=== PATIENT | female | born 1940 | race Caucasian/White ===

== ENCOUNTER 2018-08-12 14:17 | Inpatient (IN) | payer MEDICARE, SELFPAY | END 2018-08-15 11:50 | disposition home or self-care (01) | DRG 639 | PROVIDERS: Admitting Provider Internal Medicine; Emergency Provider Emergency Medicine; PCP Family Medicine; Visit Provider Family Medicine | DX: E11.65 Type 2 diabetes mellitus with hyperglycemia (principal); J10.1 Influenza due to other identified influenza virus with other respiratory manifestations; Z23 Encounter for immunization; Z79.4 Long term (current) use of insulin; E05.90 Thyrotoxicosis, unspecified without thyrotoxic crisis or storm; I10 Essential (primary) hypertension; R01.1 Cardiac murmur, unspecified; Z86.73 Personal history of transient ischemic attack (TIA), and cerebral infarction without residual deficits; E04.2 Nontoxic multinodular goiter; I35.0 Nonrheumatic aortic (valve) stenosis; N39.3 Stress incontinence (female) (male); Z98.1 Arthrodesis status; Z79.82 Long term (current) use of aspirin; E87.6 Hypokalemia; Z91.14 Patient's other noncompliance with medication regimen; T38.3X5A Adverse effect of insulin and oral hypoglycemic [antidiabetic] drugs, initial encounter; Z90.49 Acquired absence of other specified parts of digestive tract; Z90.710 Acquired absence of both cervix and uterus; E86.0 Dehydration; D64.9 Anemia, unspecified | CPT/HCPCS: 36415; 51701; 70450; 71046; 80048; 80053; 81001; 82962; 83036; 83605; 83735; 83880; 84100; 85025; 85027; 87077; 87086; 87088; 87186; 87804; 90471; 90686; 93005; 94640; 96361; 96374; 99285; A9270; G0008; G0378; J1815; J2405; J7030; J7120 ==

== ENCOUNTER 2019-11-17 09:19 | Outpatient (CLI) | payer MEDICARE, SELFPAY ==
[2019-11-17 10:09] LABS: Alanine Aminotransferase 9 U/L (4-35); Albumin Level 4.3 g/dL (3.5-5.1); Alkaline Phosphatase 124 U/L (38-126); Aspartate Amino Transferase 17 U/L (14-36); Bilirubin,Total 0.5 mg/dL (0.2-1.3); Blood Urea Nitrogen 33 mg/dL (7-17); Calcium 9.1 mg/dL (8.4-10.2); Carbon Dioxide 27 mmol/L (22-30); Chloride 98 mmol/L (98-107); Cholesterol 208 mg/dL (0-200); Estimated Glomerular Filt Rate 48; Glucose 247 mg/dL (65-105); HDL Direct 34 mg/dL; Potassium 4.1 mmol/L (3.4-5.0); Sodium 133 mmol/L (137-145); Triglycerides 374 mg/dL (<150)
[2019-11-17 10:13] LABS: Hemoglobin A1C 11.8 % (<5.7)
[2019-11-17 10:20] LABS: LDL Cholesterol Direct 64 mg/dL
[2019-11-17 10:34] LABS: Creatinine Urine 47.4 mg/dL
[2019-11-17 10:39] LABS: MALB Creatinine Ratio 160.3 mg/g (0-30)
[2019-11-17 10:50] LABS: Free T4 Free Thyroxine 1.19 ng/mL (0.78-2.19); Vitamin D 25 Hydroxy 66.5 ng/mL
[2019-11-21 04:52] LABS: Triiodothyronine T3 Free 2.8 pg/mL (2.3-4.2)
== END 2019-11-17 09:20 | disposition home or self-care (01) ==
LOC: ANHLAB 09:25
PROVIDERS: PCP Family Medicine; Visit Provider Internal Medicine Endocrinology, Diabetes & Metabolism
DX: E11.65 Type 2 diabetes mellitus with hyperglycemia (principal); E05.90 Thyrotoxicosis, unspecified without thyrotoxic crisis or storm; E78.5 Hyperlipidemia, unspecified; E55.9 Vitamin D deficiency, unspecified
CPT/HCPCS: 36415; 80053; 80061; 82043; 82306; 83036; 84439; 84443; 84481

== ENCOUNTER 2020-09-29 09:08 | Outpatient (CLI) | payer MEDICARE, SELFPAY ==
[2020-09-29 10:05] LABS: Alanine Aminotransferase 10 U/L (4-35); Albumin Level 4.1 g/dL (3.5-5.1); Alkaline Phosphatase 108 U/L (38-126); Anion Gap 6 mmol/L (8-16); Aspartate Amino Transferase 18 U/L (14-36); Bilirubin,Total 0.4 mg/dL (0.2-1.3); Blood Urea Nitrogen 30 mg/dL (7-17); Calcium 9.2 mg/dL (8.4-10.2); Carbon Dioxide 31 mmol/L (22-30); Chloride 103 mmol/L (98-107); Cholesterol 145 mg/dL (0-200); Estimated Glomerular Filt Rate 48; Glucose 111 mg/dL (65-105); HDL Direct 30 mg/dL; Potassium 3.8 mmol/L (3.4-5.0); Sodium 140 mmol/L (137-145); Triglycerides 238 mg/dL (<150)
[2020-09-29 10:16] LABS: LDL Cholesterol Direct 55 mg/dL
[2020-09-29 10:32] LABS: Hemoglobin A1C 9.5 % (<5.7)
[2020-09-29 10:33] LABS: Thyroid Stimulating Hormone < 0.015 uIU/mL (0.465-4.680)
[2020-09-29 10:34] LABS: Creatinine Urine 73.5 mg/dL
[2020-09-29 10:38] LABS: MALB Creatinine Ratio 157.1 mg/g (0-30); Microalbumin Urine Random 115.5 mg/L (0-16.7)
[2020-09-29 10:48] LABS: Free T4 Free Thyroxine 1.56 ng/mL (0.78-2.19); Vitamin D 25 Hydroxy 76.8 ng/mL
[2020-10-02 08:15] LABS: Triiodothyronine T3 Free 3.1 pg/mL (2.3-4.2)
== END 2020-09-29 09:09 | disposition home or self-care (01) ==
PROVIDERS: PCP Family Medicine; Visit Provider Internal Medicine Endocrinology, Diabetes & Metabolism
DX: E11.65 Type 2 diabetes mellitus with hyperglycemia (principal); E05.90 Thyrotoxicosis, unspecified without thyrotoxic crisis or storm; E78.5 Hyperlipidemia, unspecified; E55.9 Vitamin D deficiency, unspecified
CPT/HCPCS: 36415; 80053; 80061; 82043; 82306; 83036; 84439; 84443; 84481

== ENCOUNTER 2020-11-16 09:13 | Outpatient (CLI) | payer MEDICARE, SELFPAY ==
[2020-11-16 09:47] LABS: Hematocrit 35.6 % (37.0-47.0); Hemoglobin 12.1 g/dL (12.0-15.0); Mean Corpuscular Hemoglobin 29.4 pg (26-34); Mean Corpuscular Volume 86.6 fl (80-100); Mean Platelet Volume 11.8 fl (7.4-10.4); Platelet Count Result 241 k/mm3 (150-375); Red Blood Count 4.11 M/mm3 (4.2-5.4); Red Cell Distribution Width 12.8 % (11.5-14.5); White Blood Count 7.8 K/mm3 (4.5-10.0)
[2020-11-16 09:58] LABS: Prothrombin Time 13.3 Seconds (11.1-14.7)
[2020-11-16 10:00] LABS: Alanine Aminotransferase 13 U/L (4-35); Albumin Level 4.1 g/dL (3.5-5.1); Alkaline Phosphatase 98 U/L (38-126); Anion Gap 10 mmol/L (8-16); Aspartate Amino Transferase 23 U/L (14-36); Bilirubin,Total 0.4 mg/dL (0.2-1.3); Blood Urea Nitrogen 42 mg/dL (7-17); Calcium 9.4 mg/dL (8.4-10.2); Carbon Dioxide 29 mmol/L (22-30); Chloride 97 mmol/L (98-107); Estimated Glomerular Filt Rate 36; Glucose 225 mg/dL (65-105); Potassium 3.7 mmol/L (3.4-5.0); Sodium 136 mmol/L (137-145)
== END 2020-11-16 09:14 | disposition home or self-care (01) ==
PROVIDERS: PCP Family Medicine; Visit Provider Internal Medicine Cardiovascular Disease
DX: Z01.812 Encounter for preprocedural laboratory examination (principal); R06.00 Dyspnea, unspecified; I35.0 Nonrheumatic aortic (valve) stenosis
CPT/HCPCS: 36415; 80053; 85027; 85610

== ENCOUNTER 2021-01-31 09:51 | Outpatient (CLI) | payer MEDICARE, SELFPAY ==
[2021-01-31 10:36] LABS: Anion Gap 6 mmol/L (8-16); Blood Urea Nitrogen 17 mg/dL (7-17); Calcium 8.4 mg/dL (8.4-10.2); Carbon Dioxide 28 mmol/L (22-30); Chloride 101 mmol/L (98-107); Estimated Glomerular Filt Rate 48; Glucose 178 mg/dL (65-110); Potassium 3.5 mmol/L (3.4-5.0); Sodium 135 mmol/L (137-145)
== END 2021-01-31 09:52 | disposition home or self-care (01) ==
LOC: ANHLAB 09:54
PROVIDERS: PCP Family Medicine; Visit Provider Internal Medicine Cardiovascular Disease
DX: R60.9 Edema, unspecified (principal)
CPT/HCPCS: 36415; 80048

== ENCOUNTER 2021-02-14 12:05 | Outpatient (CLI) | payer MEDICARE, SELFPAY ==
[2021-02-14 13:13] LABS: Alanine Aminotransferase 14 U/L (4-35); Albumin Level 4.1 g/dL (3.5-5.1); Alkaline Phosphatase 130 U/L (38-126); Anion Gap 9 mmol/L (8-16); Aspartate Amino Transferase 23 U/L (14-36); Bilirubin,Total 0.8 mg/dL (0.2-1.3); Blood Urea Nitrogen 13 mg/dL (7-17); Calcium 8.8 mg/dL (8.4-10.2); Carbon Dioxide 29 mmol/L (22-30); Chloride 98 mmol/L (98-107); Estimated Glomerular Filt Rate 53; Glucose 238 mg/dL (65-110); Potassium 3.2 mmol/L (3.4-5.0); Sodium 136 mmol/L (137-145)
[2021-02-14 13:19] LABS: Hemoglobin A1C 7.7 % (<5.7)
[2021-02-14 13:24] LABS: Creatinine Urine 105.7 mg/dL
[2021-02-14 13:35] LABS: Thyroid Stimulating Hormone 0.033 uIU/mL (0.465-4.680)
[2021-02-14 14:21] LABS: MALB Creatinine Ratio 382.6 mg/g (0-30); Microalbumin Urine Random 404.4 mg/L (0-16.7)
[2021-02-14 15:56] LABS: Free T4 Free Thyroxine 1.45 ng/mL (0.78-2.19)
[2021-02-16 13:57] LABS: Thyroid Stimulating Immunoglob <89 % baseline (<140)
[2021-02-18 04:59] LABS: Thyroid Peroxidase Antibodies 3 IU/mL (<9)
[2021-02-20 07:52] LABS: Triiodothyronine T3 Free 2.4 pg/mL (2.3-4.2)
== END 2021-02-14 12:06 | disposition home or self-care (01) ==
LOC: ANHLAB 12:10
PROVIDERS: PCP Family Medicine; Visit Provider Internal Medicine Endocrinology, Diabetes & Metabolism
DX: E11.65 Type 2 diabetes mellitus with hyperglycemia (principal); E05.90 Thyrotoxicosis, unspecified without thyrotoxic crisis or storm
CPT/HCPCS: 36415; 80053; 82043; 83036; 84439; 84443; 84445; 84481; 86376

== ENCOUNTER 2021-02-14 12:13 | Outpatient (CLI) | payer MEDICARE, SELFPAY ==
[2021-02-14 13:12] LABS: Magnesium 1.5 mg/dL (1.6-2.3)
== END 2021-02-14 12:14 | disposition home or self-care (01) ==
LOC: ANHLAB 12:15
PROVIDERS: PCP Family Medicine; Visit Provider Internal Medicine Cardiovascular Disease
DX: R79.0 Abnormal level of blood mineral (principal)
CPT/HCPCS: 36415; 80053; 82043; 83036; 83735; 84439; 84443; 84445; 84481; 86376

== ENCOUNTER 2021-03-22 10:52 | Outpatient (RCR) | payer MEDICARE, SELFPAY ==
[2021-03-22 11:03] VITALS: BP 144/68; PULSE 80; O2SAT 98
[2021-03-22 11:48] VITALS: PULSE 80
--- NOTE | 2021-03-23 10:52 | PCCPR ---
Absent due to illness Lary's family member called and states she has been ill and vomiting. She will not be in today or possibly tomorrow.
--- NOTE | 2021-03-30 14:16 | PCCPR ---
Nohemy has not returned to rehab. Called today and she stated that after she eats she becomes nauseated and sometimes vomits. She saw her director of science today but was told to contact her primary doctor. She plans to see her primary doctor but would like to wait to return until after she has seen Dr. Mccabe.
--- NOTE | 2021-04-11 14:01 | PCCPR ---
Addendum entered by Lisa Horta RN 04/11/21 14:03: Lary returned call and stated that she has a GI bleed and ask to be placed on hold for this time. Original Note: Lary has not called to inform us of her plans to return. Called today and left a message asking that she return our call.
--- NOTE | 2021-04-27 11:23 | PCCPR ---
discharge-spoke with Lary. She states she is still dealing with a lot of health issues and doesn't see herself starting the program any time soon. She would like to d/c from the program at this time and will speak with if she plans to return.
== END 2021-04-27 11:26 | disposition home or self-care (01) ==
LOC: ANHCPREHAB 10:52
PROVIDERS: PCP Family Medicine; Visit Provider Internal Medicine Cardiovascular Disease
DX: Z95.2 Presence of prosthetic heart valve (principal)
CPT/HCPCS: 93798

== ENCOUNTER 2021-05-02 08:15 | Emergency (ER) | payer MEDICARE, SELFPAY ==
[2021-05-02] VITALS (11 sets, daily range): BP systolic 150–197; BP diastolic 66–99; PULSE 80; RESP 12–18; TEMP 36.3–36.6; O2SAT 92–100
--- NOTE | ~2021-05-02 | CT_ITS ---
EXAMINATION: CT facial & cervical spine wo DATE: 05/02/2021 09:38 INDICATION: Head injury. Neck pain. TECHNIQUE: Computed tomography (CT) of the maxillofacial region and cervical spine was performed with out intravenous contrast. Automated exposure control and iterative reconstruction technique were empl oyed. The dose-length product was 458.60 mGy-cm. COMPARISON: Head and neck CTA 01/28/18 FINDINGS: MAXILLOFACIAL CT: The orbits are normal. There is left cheek and left frontal scalp soft tissue swelling. The paranasal sinuses are clear. There is leftward deviation of the nasal septum. No fracture. CERVICAL SPINE CT: There is a small left mastoid effusion. The lung apices demonstrate smooth septal thickening, consist ent with pulmonary edema. There is a multinodular goiter. There is a fracture of the left C2 lateral mass with involvement of the superior facet. There is a fracture of the base of the dens. There is 6 degrees levocurvature of cervical spine. There is kyphosis of lower cervical spine. There is mildly d ecreased disc height at C4-C5 and moderately decreased disc height at C5-C6 and C6-C7. The following disc levels are specifically discussed: C2-C3: There is no uncovertebral joint osteoarthritis. There is moderate right and severe left facet joint osteoarthritis. There is mild left neural foraminal stenosis. There is no central canal stenosi s. C3-C4: There is mild bilateral uncovertebral joint osteoarthritis. There is severe right and mild lef t facet joint osteoarthritis. There is mild left neural foraminal stenosis. There is no central canal stenosis. C4-C5: There is mild bilateral uncovertebral joint osteoarthritis. There is no facet joint osteoarthr itis. There is mild left neural foraminal stenosis. There is mild central canal stenosis. C5-C6: There is severe bilateral uncovertebral joint osteoarthritis. There is mild bilateral facet jacquie int osteoarthritis. There is mild bilateral neural foraminal stenosis. There is mild central canal st enosis. C6-C7: There is severe right and moderate left uncovertebral joint osteoarthritis. There is mild righ t and moderate left facet joint osteoarthritis. There is mild bilateral neural foraminal stenosis. Th ere is mild central canal stenosis. C7-T1: There is no uncovertebral joint osteoarthritis. There is severe bilateral facet joint osteoart hritis. There is mild bilateral neural foraminal stenosis. There is no central canal stenosis. IMPRESSION: 1. Comminuted C2 fracture. I called this result to Celestina Matamoros. 2. Moderate cervical spondylosis. Reviewed, dictated and finalized at location A. IGN TRADE TEACHER
--- NOTE | ~2021-05-02 | CT_ITS ---
EXAMINATION: CT brain wo con DATE: 05/02/2021 09:38 INDICATION: Head injury. TECHNIQUE: Computed tomography (CT) of the head was performed without intravenous contrast. The mA wa s adjusted according to patient size. Iterative reconstruction technique was employed. The dose-lengt h product was 605.33 mGy-cm. COMPARISON: Head CT 08/12/2018 FINDINGS: There is a small old infarct in left cerebellum. There are scattered areas of low attenuati on in the cerebral white matter. There is no intracranial hemorrhage, acute infarction, or abnormal i ntracranial mass lesion. The ventricles are normal in size. The orbits are normal. There is mild muco cata thickening in the paranasal sinuses. There is a small left mastoid effusion. There is left fronta l scalp soft tissue swelling. There is left cheek soft tissue swelling. IMPRESSION: 1. Small old infarct in left cerebellum. 2. Mild nonspecific cerebral white matter disease, which likely represents chronic small vessel ische stephanie disease. Reviewed, dictated and finalized at location A. OR RADIATION THERAPIST IMPRESSION: 1. Small old infarct in left cerebellum. 2. Mild nonspecific cerebral white matter disease, which likely represents cafeteria or lunchroom checker mohit small vessel ischemic disease.
--- NOTE | 2021-05-02 08:30 | PC.NURSE ---
Pt states she was at home carrying a laundry basket with two hands tripped and fell into door and landed on the floor, pt presents with bruising to left upper eyebrow, presents with no bleeding or distress at this time, only complains of headache and neck pain
--- NOTE | 2021-05-02 10:12 | ED.GENADULT ---
HPI - General Adult General Chief complaint: Fall Stated complaint: fall Time Seen by Provider: 05/02/21 09:15 Source: patient and family Mode of arrival: EMS Limitations: no limitations History of Present Illness HPI narrative: Patient is an 80-year-old female with chief complaint of pain to the frontal aspect of her head and the posterior aspect of her neck that began after tripping on an object in the [place] and falling into the door frame. Patient reports that she struck her face and fell to the ground. Her daughter Chhaya came to her side to assist her. They called the ambulance to come to bring her to the ER. She denies any loss of consciousness, changes in vision or hearing. She reports feeling slightly dazed initially but not at this time. She denies any other areas of discomfort distal to the head and neck. She denies episodes of nausea and vomiting. Patient reports that she has not taking any of her oral medications today. Related Data Home Medications Medication Instructions Recorded Confirmed acetaminophen 500 mg PO Q6H PRN 03/22/21 03/22/21 apixaban 5 mg PO BID 03/22/21 03/22/21 aspirin 81 mg PO DAILY 03/22/21 03/22/21 biotin 20,000 mcg PO DAILY 03/22/21 03/22/21 buspirone 5 mg PO TID 03/22/21 03/22/21 calcium carbonate 470 mg PO BID 03/22/21 03/22/21 carvedilol 6.25 mg PO BID 03/22/21 03/22/21 diltiazem HCl [Diltia XT] 180 mg PO DAILY 03/22/21 03/22/21 exenatide microspheres [Bydureon 2 mg SUBCUT WEEKLY 03/22/21 03/22/21 BCise] furosemide 80 mg PO BID 03/22/21 03/22/21 hydrocodone-acetaminophen [[place]] 1 tablet PO Q8H PRN 03/22/21 03/22/21 insulin glargine 20 unit SUBCUT HS 03/22/21 03/22/21 insulin lispro 1 sliding scale dose SUBCUT TIDWM 03/22/21 03/22/21 losartan 50 mg PO DAILY 03/22/21 03/22/21 magnesium oxide 400 mg PO DAILY 03/22/21 03/22/21 metformin 500 mg PO BID 03/22/21 03/22/21 methimazole [Tapazole] 10 mg PO DAILY 03/22/21 03/22/21 pantoprazole 20 mg PO QAM 03/22/21 03/22/21 potassium chloride 10 meq PO DAILY 03/22/21 03/22/21 senna-docusate sodium 1 cap PO BID 03/22/21 03/22/21 Allergies Allergy/AdvReac Type Severity Reaction Status Date / Time adhesive tape Allergy Intermediate Rash Verified 05/02/21 08:25 codeine Allergy Unknown Stomach Verified 05/02/21 08:25 cramps latex Allergy Unknown Blister Verified 05/02/21 08:25 Review of Systems Review of Systems: CONSTITUTIONAL: Denies fever, chills, or sweats. EYES: Denies visual changes, redness, or discharge. ENT: Denies rhinorrhea, congestion, sore throat, or otalgia. CARDIOVASCULAR: Denies chest pain, palpitations, or edema. RESPIRATORY: Denies cough or dyspnea. GASTROINTESTINAL: Denies abdominal pain, nausea, vomiting, or diarrhea. GENITOURINARY: Denies dysuria or hematuria. SKIN: Denies rash or itching. MUSCULOSKELETAL: Reports head and neck pain denies back pain, joint pain, or myalgia. NEUROLOGIC: Denies headache, numbness, dizziness, or weakness. PSYCHIATRIC: Denies anxiety or depression. [facility] Past Medical History Medical History (Updated 05/02/21 @ 11:17 by Celestina Matamoros PA-C) Anemia CKD stage 3 due to type 2 diabetes mellitus Colon cancer screening (~2017) negative, cologuard Congestive heart failure Diabetic peripheral neuropathy Essential hypertension HTN (hypertension) Hyperthyroidism Mixed hyperlipidemia TIA (transient ischemic attack) Type 2 diabetes mellitus without complication, with long-term current use of insulin Surgical History Surgical History H/O: hysterectomy History of back surgery Hx of cholecystectomy Family History Family History Mother Family history of cardiovascular disease, Onset Age: 82 Father Acute myocardial infarction, Onset Age: 57 Other Asthma Cerebrovascular accident Diabetes mellitus Family history of atrial fibrillation Family history of congestive h
--- NOTE | 2021-05-02 10:32 | PC.NURSE ---
GEOVANY Matamoros applied aspen collar with two RNS present and cervical spine stabilized, pt tolerated well, daughter at bedside
--- NOTE | 2021-05-02 10:40 | PC.NURSE ---
made contact with [facility], [facility] and [facility] to transfer pt to [facility]. all companies delined due to no resources available. made contact with [facility] to transfer pt to er. [facility] eta [phone]. per Leoncio Matamoros called [facility]. made contact at [phone] to call [facility] si[facility]. eta [phone]
[2021-05-02] MEDS: MORPHINE SULFATE (*CRX) 4 MG/ML INJ IV PUSH (11:23)
[2021-05-02] MEDS: ONDANSETRON INJ 4 MG/2 ML VIAL IV PUSH (11:24)
--- NOTE | 2021-05-02 11:54 | PC.NURSE ---
[facility] has arrived and is aware that pt is going to [facility]
--- NOTE | 2021-05-02 12:01 | PC.NURSE ---
Pt being transported, no acute distress at this time, pt aware of transfer and daughter at beside taking pt belongings with her, report has been called to [facility]
== END 2021-05-02 12:05 | disposition short-term general hospital (02) ==
PROVIDERS: Emergency Provider Emergency Medicine; PCP Family Medicine
DX: S12.121A Other nondisplaced dens fracture, initial encounter for closed fracture (principal); S00.83XA Contusion of other part of head, initial encounter; E11.22 Type 2 diabetes mellitus with diabetic chronic kidney disease; I13.0 Hypertensive heart and chronic kidney disease with heart failure and stage 1 through stage 4 chronic kidney disease, or unspecified chronic kidney disease; N18.30 Chronic kidney disease, stage 3 unspecified; I50.9 Heart failure, unspecified; E78.2 Mixed hyperlipidemia; E05.90 Thyrotoxicosis, unspecified without thyrotoxic crisis or storm; Z86.73 Personal history of transient ischemic attack (TIA), and cerebral infarction without residual deficits; Z79.4 Long term (current) use of insulin; Z79.82 Long term (current) use of aspirin; Z79.01 Long term (current) use of anticoagulants; M47.812 Spondylosis without myelopathy or radiculopathy, cervical region; R90.82 White matter disease, unspecified; W18.09XA Striking against other object with subsequent fall, initial encounter
CPT/HCPCS: 70450; 70486; 72125; 96374; 96375; 99285; J2270; J2405; L0140

== ENCOUNTER 2021-05-16 10:24 | Emergency (ER) | payer MEDICARE, SELFPAY ==
--- NOTE | ~2021-05-16 | CT_ITS ---
EXAMINATION: CT hip RT wo con EXAM DATE: 05/16/2021 12:32 INDICATION: Trauma, fall with right hip pain. TECHNIQUE: Spiral CT hip RT wo con was performed without contrast. Axial, coronal and sagittal imag es were reviewed. The dose-length product (DLP) for this examination was 252.19 mGy-cm. The exposur e was tailored according to patient size (auto mA exposure control), and iterative reconstruction ( IR) was used as additional dose reduction technique. Correlation is made to CT abdomen pelvis 019. FINDINGS: There is moderate to severe right hip primary osteoarthritis. There are no acute fractures or dislocations identified. There is no subcutaneous gas. There is a fluid collection in the right gluteus muscle group with protein/fluid level, probably an intramuscular hematoma measuring about 4 x 6 cm. There are no radiopaque foreign bodies. IMPRESSION: 1. Right gluteal 4 x 6 cm intramuscular hematoma probably posttraumatic given history provided. 2. Moderate to severe right hip osteoarthritis. Reviewed, dictated and finalized at location A. ER CERTIFICATION MANAGER IMPRESSION: 1. Right gluteal 4 x 6 cm intramuscular hematoma probably posttraumatic given h istory provided. 2. Moderate to severe right hip osteoarthritis.
--- NOTE | ~2021-05-16 | XR_ITS ---
EXAMINATION: XR hip RT min 2V DATE: 05/16/2021 11:03 INDICATION: Right hip pain post fall TECHNIQUE: Anteroposterior , frog leg and cross-table lateral views of the right hip were obtained. COMPARISON: CT dated 05/07/2019 FINDINGS: Alignment is normal. No fracture. Moderate right hip osteoarthritis. Mild bilateral sacroiliac osteoa rthritis. Mild to moderate lumbar and severe lumbosacral spondylosis. Atherosclerotic calcification i s extending from the abdominal aorta into the iliac arteries in the pelvis and the arteries in the pr oximal right thigh. IMPRESSION: 1. Moderate right hip osteoarthritis. No fracture. Reviewed, dictated and finalized at location A. VIDUALIZED EDUCATION PLAN AIDE
--- NOTE | ~2021-05-16 | CT_ITS ---
EXAMINATION: CT lumbar spine wo [facility] EXAM DATE: 05/16/2021 12:32 INDICATION: Fall, right hip pain. C2 fracture from fall 2 years ago. TECHNIQUE: Spiral CT lumbar spine was performed without contrast. Axial, coronal and sagittal images of the lumbar spine were reviewed. The dose-length product (DLP) for this examination was 894.92 mGy- cm. The exposure was tailored according to patient size (auto mA exposure control), and iterative re construction (ASIR) was used as additional dose reduction technique. There is no prior study for rhys delgado. FINDINGS: L4 laminectomies. There is no evidence of acute lumbar fracture. There is no disc space widening or traumatic vertebral body subluxation suspected. Paraspinal soft tissue is unremarkable. Moderate d iffuse lumbar disc disease, moderate to severe lower thoracic disc disease. Moderate lower lumbar fac et arthropathy. Moderate L4-5 bilateral neural foraminal stenosis. Sacrum, sacroiliac joints, sacral arcuate lines are intact. Sigmoid diverticulosis. Bilateral adrenal hyperplasia. A detailed level by level evaluation of spondylosis can be added as addendum if requested. IMPRESSION: 1. No acute lumbar findings. 2. Overall moderate lumbar spondylosis. Reviewed, dictated and finalized at location A. GER PRODUCTION
[2021-05-16 10:32] VITALS: BP 174/70; PULSE 80; RESP 15; TEMP 36.4; O2SAT 100
[2021-05-16 11:20] VITALS: BP 164/76; PULSE 80; RESP 20; O2SAT 99
[2021-05-16 12:06] VITALS: BP 131/64; PULSE 80; RESP 20; O2SAT 96
[2021-05-16] MEDS: HYDROmorphone HCL INJ (*CRX) 1 MG/ML SYR 0.5 MG IV PUSH (12:08)
[2021-05-16 12:36] VITALS: BP 123/68; PULSE 80; RESP 16; O2SAT 95
[2021-05-16 13:08] VITALS: BP 118/63; PULSE 80; RESP 20; O2SAT 100
[2021-05-16 13:55] VITALS: BP 127/68; PULSE 80; RESP 18; O2SAT 100
--- NOTE | 2021-05-16 14:05 | PCCCNOTE ---
Met with patient to discuss code status, patient would like to have paperwork to change to a full code. Discussed with patient and provided with a POLST form. Explained with patient, she states that she has a PCP follow up appt on May.24. Advised that she can fill it out but not to sign it and to take it to the PCP's office and she can discuss with PCP and sign the form and have it witnessed by RN and will require PCP signature. Patient verbalizes understanding and thanked hospice patient care secretary for bringing in the form and talking with her.
--- NOTE | 2021-05-16 14:07 | ED.GENADULT ---
HPI - General Adult General Chief complaint: Fall Stated complaint: Right hip injury Time Seen by Provider: 05/16/21 10:47 Source: patient and family (daughter Chhaya) Mode of arrival: EMS Limitations: no limitations History of Present Illness HPI narrative: Patient is an 80-year-old female presenting with chief complaint of hematomas in the right buttocks and pain in her right hip after slipping while trying to get off the toilet and falling onto the hip prior to arrival. Patient denies any head injury or loss of consciousness. Patient reports she fell a few weeks ago and fractured her C2 vertebra. I saw the patient during her visit for the previous fall. Patient denies any changes to vision or hearing or neurological deficits. Patient speech is clear and appropriate. Patient reports pain to her low back but denies any other extremity pain. Patient denies any chest pain or shortness of breath. Related Data Home Medications Medication Instructions Recorded Confirmed acetaminophen 500 mg PO Q6H PRN 03/22/21 03/22/21 apixaban 5 mg PO BID 03/22/21 03/22/21 aspirin 81 mg PO DAILY 03/22/21 03/22/21 biotin 20,000 mcg PO DAILY 03/22/21 03/22/21 buspirone 5 mg PO TID 03/22/21 03/22/21 calcium carbonate 470 mg PO BID 03/22/21 03/22/21 carvedilol 6.25 mg PO BID 03/22/21 03/22/21 diltiazem HCl [Diltia XT] 180 mg PO DAILY 03/22/21 03/22/21 exenatide microspheres [Bydureon 2 mg SUBCUT WEEKLY 03/22/21 03/22/21 BCise] furosemide 80 mg PO BID 03/22/21 03/22/21 hydrocodone-acetaminophen [[place]] 1 tablet PO Q8H PRN 03/22/21 03/22/21 insulin glargine 20 unit SUBCUT HS 03/22/21 03/22/21 insulin lispro 1 sliding scale dose SUBCUT TIDWM 03/22/21 03/22/21 losartan 50 mg PO DAILY 03/22/21 03/22/21 magnesium oxide 400 mg PO DAILY 03/22/21 03/22/21 metformin 500 mg PO BID 03/22/21 03/22/21 methimazole [Tapazole] 10 mg PO DAILY 03/22/21 03/22/21 pantoprazole 20 mg PO QAM 03/22/21 03/22/21 potassium chloride 10 meq PO DAILY 03/22/21 03/22/21 senna-docusate sodium 1 cap PO BID 03/22/21 03/22/21 Allergies Allergy/AdvReac Type Severity Reaction Status Date / Time adhesive tape Allergy Intermediate Rash Verified 05/02/21 08:25 codeine Allergy Unknown Stomach Verified 05/02/21 08:25 cramps latex Allergy Unknown Blister Verified 05/02/21 08:25 Review of Systems Review of Systems: CONSTITUTIONAL: Denies fever, chills, or sweats. EYES: Denies visual changes, redness, or discharge. ENT: Denies rhinorrhea, congestion, sore throat, or otalgia. CARDIOVASCULAR: Denies chest pain, palpitations, or edema. RESPIRATORY: Denies cough or dyspnea. GASTROINTESTINAL: Denies abdominal pain, nausea, vomiting, or diarrhea. GENITOURINARY: Denies dysuria or hematuria. SKIN: Denies rash or itching. MUSCULOSKELETAL: Reports right hip pain and low back pain Denies joint pain, or myalgia. NEUROLOGIC: Denies headache, numbness, dizziness, or weakness. PSYCHIATRIC: Denies anxiety or depression. [facility] Past Medical History Medical History (Updated 05/16/21 @ 14:14 by Celestina Matamoros PA-C) Anemia CKD stage 3 due to type 2 diabetes mellitus Colon cancer screening (~2018) negative, cologuard Congestive heart failure Diabetic peripheral neuropathy Essential hypertension HTN (hypertension) Hyperthyroidism Mixed hyperlipidemia TIA (transient ischemic attack) Type 2 diabetes mellitus without complication, with long-term current use of insulin Surgical History Surgical History H/O: hysterectomy History of back surgery Hx of cholecystectomy Family History Family History Mother Family history of cardiovascular disease, Onset Age: 82 Father Acute myocardial infarction, Onset Age: 57 Other Asthma Cerebrovascular accident Diabetes mellitus Family history of atrial fibrillation Family history of congestive heart failure Family history of hearing l
== END 2021-05-16 14:47 | disposition home or self-care (01) ==
PROVIDERS: Emergency Provider Emergency Medicine; PCP Family Medicine
DX: S30.0XXA Contusion of lower back and pelvis, initial encounter (principal); E11.22 Type 2 diabetes mellitus with diabetic chronic kidney disease; I13.0 Hypertensive heart and chronic kidney disease with heart failure and stage 1 through stage 4 chronic kidney disease, or unspecified chronic kidney disease; N18.30 Chronic kidney disease, stage 3 unspecified; I50.9 Heart failure, unspecified; Z79.4 Long term (current) use of insulin; Z79.84 Long term (current) use of oral hypoglycemic drugs; E05.90 Thyrotoxicosis, unspecified without thyrotoxic crisis or storm; E78.2 Mixed hyperlipidemia; Z86.73 Personal history of transient ischemic attack (TIA), and cerebral infarction without residual deficits; W18.11XA Fall from or off toilet without subsequent striking against object, initial encounter
CPT/HCPCS: 72131; 73502; 73700; 96374; 99284; J1170

== ENCOUNTER 2021-05-18 17:45 | Emergency (ER) | payer MEDICARE, SELFPAY ==
[2021-05-18 17:47] VITALS: BP 139/81; PULSE 80; RESP 18; TEMP 35.7; O2SAT 100
--- NOTE | 2021-05-18 19:25 | PC.NURSE ---
Pt daughter to [facility] stating im going to take her home she need to rest
== END 2021-05-19 04:05 | disposition left against medical advice (07) ==
LOC: ANHED 19:42
PROVIDERS: PCP Family Medicine
DX: R11.10 Vomiting, unspecified (principal)
CPT/HCPCS: 99199

== ENCOUNTER 2024-02-14 17:39 | Observation (INO) | payer MEDICARE, SELFPAY ==
[2024-02-14] VITALS (11 sets, daily range): BP systolic 118–136; BP diastolic 64–77; PULSE 70; RESP 17–24; TEMP 36.4; O2SAT 95–100; BMI 37.3
--- NOTE | ~2024-02-14 | XR_ITS ---
EXAMINATION: XR chest 1V portable DATE: 02/14/2024 18:28 INDICATION: Shortness of breath. TECHNIQUE: A single frontal view of the chest was obtained. COMPARISON: Chest 2 views 08/12/18 FINDINGS: There is a diffuse interstitial pattern in the lungs. There are airspace opacities at the l eryn bases. There are small pleural effusions. No pneumothorax. Cardiomegaly is noted. There are kelly es of aortic valve replacement. There is a left chest wall pacer with leads in the right atrium and r ight ventricle. IMPRESSION: 1. Mild pulmonary edema. 2. Airspace opacities at the lung bases, consistent with atelectasis versus pneumonia. 3. Small pleural effusions. 4. Cardiomegaly. Reviewed, dictated and finalized at location A. IMPRESSION: 1. Mild pulmonary edema. 2. Airspace opacities at the lung bases, consistent with atelectasis versus pne umonia. 3. Small pleural effusions. 4. Cardiomegaly.
--- NOTE | 2024-02-14 17:45 | ECG_ITS ---
Test Date: 2024-02-14 17:52:09 Measurements Intervals [place] Rate: 70 P: 266 UT: 187 QRS: 106 QRSD: 141 T: -13 QT: 433 QTc: 469 Interpretive Statements ELECTRONIC ATRIAL PACEMAKER ELECTRONIC VENTRICULAR PACEMAKER ABNORMAL RHYTHM ECG No previous ECG available for comparison Electronically Signed On 02-15-2024 07:28:42 CDT by Judah Mcduffie M.D.
--- NOTE | 2024-02-14 18:09 | ED.SOB ---
HPI - SOB/Dyspnea General Chief Complaint: Shortness of Breath/Dyspnea Stated Complaint: CHF exacerbation Time Seen by Provider: 02/14/24 17:54 Source: patient Mode of arrival: ambulatory Limitations: no limitations History of Present Illness HPI Narrative: this is an 83-year-old female with PMH of pacemaker, CHF presents to the ED for chief complaint of shortness of breath and possible CHF exacerbation. States that she was admitted in [facility] a few weeks ago for CHF exacerbation. She was placed [facility] for rehab and nursing care. she states that she is getting a water pill but thinks that she may be underdosed at [facility], which could be causing this exacerbation today. Today states that she was trying to do over exercises and was very weak, dyspneic. reports the bilateral lower extremities have been swollen and increasing over the past week. Reports some it inspiratory chest discomfort but no exertional chest pain. Denies fevers, chills, cough, abdominal pain, nausea, vomiting. States that she is taking her Eliquis regularly. follows with Dr. Rosales, Cardiology Related Data Home Medications Medication Instructions Recorded Confirmed aspirin 81 mg tablet 81 mg PO DAILY 03/22/21 02/14/24 carvedilol 6.25 mg tablet 6.25 mg PO BID 03/22/21 02/14/24 insulin glargine 100 unit/mL 25 unit subcut BID 03/22/21 02/14/24 subcutaneous solution insulin lispro 100 unit/mL 10 unit subcut TIDWM 03/22/21 02/14/24 subcutaneous pen losartan 50 mg tablet 25 mg PO DAILY 03/22/21 02/14/24 methimazole 10 mg tablet (Tapazole) 10 mg PO DAILY 03/22/21 02/14/24 pantoprazole 20 mg tablet,delayed 40 mg PO DAILY 03/22/21 02/14/24 release potassium chloride 10 mEq 10 meq PO DAILY 03/22/21 02/14/24 capsule,extended release acetaminophen 650 mg tablet 650 mg PO Q4H PRN Pain (Scale 02/14/24 02/14/24 Score 1-3) apixaban 2.5 mg tablet (Eliquis) 2.5 mg PO BID 02/14/24 02/14/24 bumetanide 1 mg tablet 1 mg PO DAILY 02/14/24 02/14/24 fluticasone propionate 50 1 spray intranasal BID 02/14/24 02/14/24 mcg/actuation nasal spray,suspension iron,carbonyl 30 mg-vitamin C 10 1 tablet PO BID 02/14/24 02/14/24 mg-FOS 25 mg chewable tablet (Chewable Iron) lidocaine 4 % topical patch 1 patch topical DAILY 02/14/24 02/14/24 magnesium oxide 400 mg (241.3 mg 400 mg PO BID 02/14/24 02/14/24 magnesium) tablet ondansetron 4 mg disintegrating 4 mg PO Q8H PRN Nausea 02/14/24 02/14/24 tablet rosuvastatin 40 mg tablet 40 mg PO HS 02/14/24 02/14/24 vit C 250 mg-vit E 90 mg-zinc 40 1 tablet PO DAILY 02/14/24 02/14/24 mg-copper 1 [id number] capsule (PreserVision AREDS-2) Allergies Allergy/AdvReac Type Severity Reaction Status Date / Time adhesive tape Allergy Intermediate Rash Verified 05/02/21 08:25 codeine Allergy Unknown Stomach Verified 05/02/21 08:25 cramps latex Allergy Unknown Blister Verified 05/02/21 08:25 Review of Systems Review of Systems: All systems as dictated in [facility] Past Medical History Medical History Anemia CKD stage 3 due to type 2 diabetes mellitus Colon cancer screening (~2017) negative, cologuard Congestive heart failure Diabetic peripheral neuropathy Essential hypertension HTN (hypertension) Hyperthyroidism Mixed hyperlipidemia Pacemaker TIA (transient ischemic attack) Type 2 diabetes mellitus without complication, with long-term current use of insulin Surgical History Surgical History H/O: hysterectomy History of back surgery Hx of cholecystectomy Mitral valve replaced Family History Family History Mother Family history of cardiovascular disease, Onset Age: 82 Father Acute myocardial infarction, Onset Age: 57 Other Asthma Cerebrovascular accident Diabetes mellitus
[2024-02-14 18:19] LABS: Basophils Percent Auto 0.6 % (0.2-1.2); Eosinophils Absolute Auto 0.2 K/mm3 (0-0.3); Eosinophils Percent Auto 3.5 % (0-4.4); Hemoglobin 10.6 g/dL (12.0-15.0); Immature Granulocyte Absolute 0.03 K/mm3 (0.00-0.031); Immature Granulocyte Percent A 0.5 % (0-0.5); Lymphocytes Absolute Auto 1.19 K/mm3 (0.9-3.2); Lymphocytes Percent Auto 17.9 % (18.3-44.2); Mean Corpuscular HGB Conc 32.1 g/dl (32-36); Mean Corpuscular Hemoglobin 28.2 pg (26-34); Mean Corpuscular Volume 87.8 fl (80-100); Mean Platelet Volume 11.6 fl (7.4-10.4); Monocytes Percent Auto 15.1 % (2.6-8.5); Neutrophils Absolute Auto 4.2 K/mm3 (1.3-6.7); Neutrophils Percent Auto 62.4 % (45.5-73.1); Platelet Count Result 174 k/mm3 (150-375); Red Blood Count 3.76 M/mm3 (4.2-5.4); Red Cell Distribution Width 15.8 % (11.5-14.5); White Blood Count 6.6 K/mm3 (4.5-10.0)
[2024-02-14] MEDS: FUROSEMIDE INJ 40 MG/4 ML VIAL IV PUSH ×2 (18:23→23:29)
--- NOTE | 2024-02-14 18:24 | PC.NURSE ---
applied purwick for patient comfort after Lasix
[2024-02-14 18:27] LABS: Alanine Aminotransferase 28 U/L (6-35); Albumin Level 3.2 g/dL (3.5-5.1); Alkaline Phosphatase 121 U/L (38-126); Anion Gap 6 mmol/L (4-12); Aspartate Amino Transferase 42 U/L (14-36); Bilirubin,Total 0.4 mg/dL (0.2-1.3); Blood Urea Nitrogen 25 mg/dL (7-17); Calcium 7.8 mg/dL (8.4-10.2); Carbon Dioxide 30 mmol/L (22-30); Chloride 100 mmol/L (98-107); Estimated CRCL calculation 29 ml/min; Estimated Glomerular Filt Rate 39; Glucose 58 mg/dL (65-110); Potassium 3.7 mmol/L (3.4-5.0); Sodium 136 mmol/L (137-145)
[2024-02-14 18:31] LABS: NT Pro B Type Natriuretic Pept 9360 pg/mL (19.9-100)
--- NOTE | 2024-02-14 18:31 | PC.NURSE ---
provided juice due to blood sugar being low
--- NOTE | 2024-02-14 18:57 | PC.NURSE ---
resp. therapy administered albuterol but forgot to chart it. RN was bedside when they were administering it at 1800. patient tolerated this well and has improvement with breathing.
[2024-02-14 19:02] LABS: Troponin I 0.064 ng/mL (0.000-0.034)
[2024-02-14] MEDS: FUROSEMIDE INJ 40 MG/4 ML VIAL 20 MG IV PUSH (19:41)
[2024-02-14 19:50] LABS: Glucose Point of Care 76 mg/dl (65-105)
--- NOTE | 2024-02-14 19:51 | PM.IMHP ---
H&P: HPI History of Present Illness Date/Time: 02/14/24 19:51 Chief Complaint: shortness of breath today Narrative: This is an 83-year-old female patient who has a past medical history of having a mitral valve replacement with 2 other valve dysfunction. She has a history of congestive heart failure and was recently decreased on her diuretics. She was recently hospitalized at [facility] for possible CHF exacerbation. The patient currently resides at [facility] for rehab in nursing care. The patient stated that her water pill was recently decreased. She has noticed that her feet have become more swollen over the last 24 hours. The patient stated that she has been having swelling in the lower extremities for the last week but it got worse yesterday. She also stated that she has some chest pressure as well. She does have a customer management specialist in [place] to the name of Dr. Rosales. The patient was given Lasix 20 mg IV push x1 in the emergency room. Her H&H is 10.6 and 33.0 which is slightly lower than her previous reading. Her creatinine is 1.3 which appears to be her baseline she does have chronic renal failure. Her blood glucose was 58 in the emergency room and she was given apple juice. The patient stated that she does have long-acting insulin that she took this morning. Troponin 0.064. BNP 9360. Which is slightly higher than her baseline. Review of Systems Review of Systems: The patient denies any neurological problems. No problems with her eyes ears nose or throat. The patient stated that she is having some heaviness in her chest and is having shortness of breath. She denies any nausea vomiting or diarrhea. She stated that her legs are more edematous than normal. All systems reviewed & are unremarkable except as noted in HPI and below Constitutional: Constitutional: Reports as per HPI and Reports no additional constitutional complaints Eyes: Eyes: Reports as per HPI and Reports no additional eye complaints ENT: Reports system reviewed and no additional complaints, except as documented and Reports Normal hearing present Cardiovascular: Cardiovascular: Reports no additional cardiovascular complaints Respiratory: Respiratory: Reports no additional respiratory complaints and Reports no additional respiratory complaints Gastrointestinal: Gastrointestinal: Reports as per HPI and Reports no additional gastrointestinal complaints Musculoskeletal: Musculoskeletal: Reports no additional musculoskeletal complaints Integumentary/Breasts: Skin/Breast: Reports system reviewed and no additional complaints, except as docu and Reports as per HPI Neurologic: Reports system reviewed and no additional complaints, except as documented, Reports as per HPI and Reports Normal hearing present Psychiatric: Psychiatric: Reports no additional psychiatric complaints and Reports as per HPI Endocrine: Endocrine: Reports no additional endocrine complaints Hematologic/Lymphatic: Hematologic/Lymphatic: Reports no additional hematologic/lymphatic complaints Allergic/Immunologic: Allergic/Immunologic: Reports no additional allergic/immunologic complaints [facility] Past Medical History Medical History Anemia CKD stage 3 due to type 2 diabetes mellitus Colon cancer screening (~2017) negative, cologuard Congestive heart failure Diabetic peripheral neuropathy Essential hypertension HTN (hypertension) Hyperthyroidism Mixed hyperlipidemia Pacemaker TIA (transient ischemic attack) Type 2 diabetes mellitus without complication, with long-term current use of insulin Surgical History Surgical History H/O: hysterectomy History of back surgery Hx of cholecystectomy Mitral valve replaced Family History Family History Mother Family history of cardiovascular disease, Onset A
[2024-02-14 20:57] LABS: Glucose Point of Care 78 mg/dl (65-105)
--- NOTE | 2024-02-14 21:04 | ECG_ITS ---
Test Date: 2024-02-14 21:10:44 Measurements Intervals [place] Rate: 70 P: 241 MD: 187 QRS: 110 QRSD: 141 T: -7 QT: 468 QTc: 505 Interpretive Statements ELECTRONIC ATRIAL PACEMAKER ELECTRONIC VENTRICULAR PACEMAKER ABNORMAL RHYTHM ECG Compared to ECG 02/14/2024 17:52:09 No significant changes Electronically Signed On 02-15-2024 07:35:09 CDT by Judah Mcduffie M.D.
--- NOTE | 2024-02-14 21:04 | PC.NURSE ---
Report called to SANDRA Oliver. All questions answered at this time. RN aware of pt prior hypoglycemia. B.S. currently 78. VSS on RA.
[2024-02-14 21:37] LABS: Troponin I 0.062 ng/mL (0.000-0.034)
[2024-02-14 21:43] LABS: Glucose Point of Care 55 mg/dl (65-105)
[2024-02-14] MEDS: DEXTROSE 50% 25 GM/50 ML SYRINGE IV PUSH (21:54)
[2024-02-14 22:55] LABS: Glucose Point of Care 126 mg/dl (65-105)
[2024-02-15] VITALS (18 sets, daily range): BP systolic 109–168; BP diastolic 52–84; PULSE 70–74; RESP 16–20; TEMP 36.1–36.8; O2SAT 95–97
--- NOTE | 2024-02-15 04:25 | ADMGEN ---
This patient, Lary Oliver, was admitted to IMU Room 205-01 on 02/14/24 at 2123. Patient/family oriented to hospital policies and general routines including ID bracelet, bed and alarms, visiting hours, pain management, procedures, bathroom and other care routines, personal items, smoking policy, room service/diet, and visiting hours. Information on how to activate the Rapid Response Team has been discussed. Patient/Family are encouraged to report perceived risks to care and to ask questions if they do not understand what they are told or what they should do.
[2024-02-15 04:35] LABS: Basophils Absolute Auto 0.1 K/mm3 (0.0-0.1); Basophils Percent Auto 0.8 % (0.2-1.2); Eosinophils Absolute Auto 0.3 K/mm3 (0-0.3); Eosinophils Percent Auto 4.2 % (0-4.4); Hematocrit 35.1 % (37.0-47.0); Hemoglobin 10.7 g/dL (12.0-15.0); Immature Granulocyte Absolute 0.03 K/mm3 (0.00-0.031); Immature Granulocyte Percent A 0.5 % (0-0.5); Lymphocytes Absolute Auto 1.38 K/mm3 (0.9-3.2); Lymphocytes Percent Auto 22.1 % (18.3-44.2); Mean Corpuscular HGB Conc 30.5 g/dl (32-36); Mean Corpuscular Hemoglobin 27.2 pg (26-34); Mean Corpuscular Volume 89.1 fl (80-100); Mean Platelet Volume 11.5 fl (7.4-10.4); Monocytes Absolute Auto 0.9 K/mm3 (0.1-0.6); Monocytes Percent Auto 14.1 % (2.6-8.5); Neutrophils Absolute Auto 3.6 K/mm3 (1.3-6.7); Neutrophils Percent Auto 58.3 % (45.5-73.1); Platelet Count Result 167 k/mm3 (150-375); Red Blood Count 3.94 M/mm3 (4.2-5.4); Red Cell Distribution Width 15.8 % (11.5-14.5); White Blood Count 6.2 K/mm3 (4.5-10.0)
[2024-02-15 04:47] LABS: Anion Gap 8 mmol/L (4-12); Blood Urea Nitrogen 24 mg/dL (7-17); Calcium 8.1 mg/dL (8.4-10.2); Carbon Dioxide 32 mmol/L (22-30); Chloride 100 mmol/L (98-107); Estimated CRCL calculation 26 ml/min; Estimated Glomerular Filt Rate 36; Glucose 84 mg/dL (65-110); Potassium 3.7 mmol/L (3.4-5.0); Sodium 140 mmol/L (137-145)
[2024-02-15 06:29] LABS: Glucose Point of Care 79 mg/dl (65-105)
[2024-02-15] MEDS: FLUTICASONE PROPIONATE 0.05% NA SPR 16 GM BTL (*BKC) 1 SPRAY NASAL ×2 (08:21→20:07)
[2024-02-15] MEDS: PANTOPRAZOLE 40 MG TABLET PO (08:21)
[2024-02-15] MEDS: LOSARTAN POTASSIUM 25 MG TABLET PO (08:21)
[2024-02-15] MEDS: FUROSEMIDE INJ 40 MG/4 ML VIAL IV PUSH ×2 (08:21→20:05)
[2024-02-15] MEDS: POTASSIUM CHLORIDE 10 MEQ ER TABLET PO (08:21)
[2024-02-15] MEDS: OPTI-GEN TAB 1 TABLET PO (08:21)
[2024-02-15] MEDS: methiMAzole 10 MG TAB PO (08:21)
[2024-02-15] MEDS: MAGNESIUM OXIDE 400 MG TABLET PO ×2 (08:21→16:11)
[2024-02-15] MEDS: PREGABALIN (*CRX) 50 MG CAPSULE PO ×3 (08:21→16:11)
[2024-02-15] MEDS: ASPIRIN 81 MG ENTERIC TABLET PO (08:23)
[2024-02-15] MEDS: carvediloL 6.25 MG TABLET PO ×2 (08:23→20:06)
[2024-02-15] MEDS: APIXABAN 2.5 MG TABLET PO ×2 (08:23→20:06)
--- NOTE | 2024-02-15 09:53 | PM.IMPN ---
Progress Note: A&P Assessment and Plan (1) Acute exacerbation of CHF (congestive heart failure): Code(s): I50.9 - Heart failure, unspecified Status: Acute (2) Hyperthyroidism: Code(s): E05.90 - Thyrotoxicosis, unspecified without thyrotoxic crisis or storm Status: Acute Plan This is an 83-year-old female patient who has a past medical history of having a mitral valve replacement with 2 other valve dysfunction. She has a history of congestive heart failure and was recently decreased on her diuretics. She was recently hospitalized at [facility] for possible CHF exacerbation. The patient currently resides at [facility] for rehab in nursing care. The patient stated that her water pill was recently decreased. She has noticed that her feet have become more swollen over the last 24 hours. (1) Acute exacerbation of CHF (congestive heart failure): Code(s): I50.9 - Heart failure, unspecified Status: Acute Assessment and Plan: Suspecting acute exacerbation of CHF Patient had recent echo [facility] Request for cardiology records dr tay Patient states she had a mitral valve replacement is on apixaban for that. She also stated that her congestive heart failure is related to 2 abnormal valves in her heart. Continue IV furosemide 40 mg b.i.d. start spironolactone per cardiology recommendation Elevated troponin EKG showed paced rhythm Suspecting demand ischemia due to CHF exacerbation Patient is on Eliquis 2.5 mg b.i.d. p.o. Telemetry monitoring Consult cardiology for evaluation treatment Essential hypertension: Continue with diltiazem, and Coreg. and losartan. As per home medications. Type 2 diabetes mellitus without complication, with long-term current use of insulin: Code(s): E11.9 - Type 2 diabetes mellitus without complications; Z79.4 - senior care (current) use of insulin Status: Acute Assessment and Plan: Patient had episode of fall hypoglycemia Accu-Cheks and with sliding scale insulin. Hold her long-acting insulin for tonight. Please re-evaluate in the morning. Check A1c if she has not had 1 in the last 3 months. She was recently hospitalized so she may have have 1 performed at that time. Acquired Hyperthyroidism: Code(s): E05.90 - Thyrotoxicosis, unspecified without thyrotoxic crisis or storm Status: Acute Assessment and Plan: Continue with Tapazole as per her home medications. Anemia Anemia: Code(s): D64.9 - Anemia, unspecified Status: Acute Assessment and Plan: Continue to monitor CBC daily Could be related to her chronic renal failure. CKD stage 3 due to type 2 diabetes mellitus: Code(s): E11.22 - Type 2 diabetes mellitus with diabetic chronic kidney disease; N18.3 - Chronic kidney disease, stage 3 (moderate) Status: Acute Assessment and Plan: Continue to monitor daily labs. She has chronic renal failure and currently she is at her baseline. Subjective Date/time seen: 02/15/24 09:53 Interval history: I saw and exam patient today. Patient still has dyspnea, worse exertion, denies chest pain, abdomen pain, nausea vomiting. Patient is afebrile, blood pressure stable Exam Narrative: GENERAL: Pleasant, in no acute distress. Well-nourished. - EYES: EOMI. Anicteric. - HENT: Moist mucous membranes. - LUNGS: Clear to auscultation bilaterally, crackles bilateral base - CARDIOVASCULAR: Regular rate and rhythm. No murmur. No JVD. - ABDOMEN: Soft, non-tender and non-distended. No palpable masses. - EXTREMITIES: 3+ lower extremity edema. Peripheral pulses 2+. Non-tender. - NEUROLOGIC: No focal neurological deficits. CN II-XII grossly intact. - PSYCHIATRIC: Awake, Alert and oriented x 3. Appropriate mood and affect. - SKIN: No rashes or lesions. Warm. - LYMPH: No cervical lymphadenopathy.. Objective Data Vital Signs Vital Signs: Vital Signs
--- NOTE | 2024-02-15 10:03 | ECHO_ITS ---
Patient Info Name: Lary Oliver Age: 83 years : 1940 Gender: Female Ht: 60 in Wt: 190 lbs BSA: 1.96 m2 HR: 70 bpm BP: 133 / 71 mmHg Heart Rhythm: Sinus Rhythm Technical Quality: Fair Exam Date: 02/15/2024 1:19 PM Exam Location: Echo Lab Patient Status: Outpatient Admit Date: 02/14/2024 Staff Ordering Physician: Janett Gillespie MD Cigar Head Pegger: Clarita Ansari RDCS Attending Provider: Maddie Lucio DO Exam Type: CA echo dop color flow w con Study Info Indications - CHF Exacerbation Complete two-dimensional, color flow and Doppler transthoracic echocardiogram is performed with contrast to opacify the left ventricle and to improve the deliniation of the left ventricle endocardial borders. Contrast/Agitated Saline Contrast/Ag. Saline: Definity Amount: 2.00 ml Administered By: Clarita Ansari RDCS Existing IV Access: Yes IV Access Condition: patent with no signs of infiltration Summary 1. Definity contrast injected to improve visualization. 2. Left ventricular hypertrophy with normal size and hyperdynamic systolic contractility. 3. Dilated and hypodynamic right ventricle. 4. Severe biatrial enlargement. 5. Normally functioning TAVR valve prosthesis. 6. Tricuspid regurgitation velocity suggests RV systolic pressures are 74 mmHg. Left Ventricle Left ventricular chamber dimension is normal. Left ventricular systolic function is hyperdynamic, estimated at >70%. The left ventricular diastolic function is grade II diastolic dysfunction. Right Ventricle Right ventricular chamber dimension is moderately enlarged. Right ventricular systolic function is reduced. Left Atria Left atrial chamber dimension is severely enlarged. Right Atria Right atrial chamber dimension is moderately enlarged. Pulmonic Valve The pulmonic valve is not well visualized. There is mild pulmonic regurgitation. Mitral Valve The mitral valve has thickened leaflets. The mitral valve annulus is moderately calcified. Tricuspid Valve The tricuspid valve leaflets are normal. There is mild tricuspid valve regurgitation. Severe pulmonary hypertension, estimated pulmonary arterial systolic pressure is 75 mmHg. Pericardium/Pleural The pericardium appears normal. Aorta The aortic root size at the sinus of Valsalva is normal. Left Ventricular Outflow Tract Name Value Normal LVOT 2D LVOT Diameter 1.86 cm LVOT Doppler LVOT Peak Gradient 2 mmHg LVOT Mean Gradient 1 mmHg LVOT VTI 20.77 cm LVOT VTI/AV VTI Ratio 0.68 LVOT Stroke Volume 56.62 ml LVOT CO 3.89 l/min LVOT CI 1.99 L/min/m2 Pulmonic Valve Name Value Normal RVOT Doppler RVOT Peak Gradient 1 mmHg PV Doppler
--- NOTE | 2024-02-15 11:34 | PM.CNCAR ---
Assessment and Plan Assessment and plan (1) Acute exacerbation of CHF (congestive heart failure): Code(s): I50.9 - Heart failure, unspecified Status: Acute Plan this is an 83-year-old woman who previously was under the care of our practice who recently has been under the care of physicians at [facility]. She provides a history of heart failure with low ejection fraction. We do know that she received a TAVR aortic valve prosthesis in 2020 as I detailed above as well as a dual-chamber pacemaker because of AV node dysfunction following TAVR valve deployment. She is presenting with symptomatic decompensated heart failure / volume overload. Her regimen consists of modest doses of carvedilol, losartan and Bumex. I am going to recommend continuing IV Bumex, adding spironolactone to her regimen and transitioning her losartan to Entresto. We will follow her with you. She understands her prognosis is not good and appropriately has selected DNR status. Judah Mcduffie MD [facility] History of Present Illness History of Present Illness Consult date/time: 02/15/24 11:34 Reason For Visit: CHF exacerbation Narrative: this is an 83-year-old woman I am asked to see at the request of the hospitalist to assist with the management of congestive heart failure. The patient is unknown to me, was previously managed by my partner, Dr. Mejias for her valvular heart disease. She since then number of years ago his transition her care to a vascular tech elsewhere at [facility]. She has a history of aortic valve stenosis and atrial flutter. She was seen in consultation by my partner back in 2020. She also developed atrial flutter about the same time. She was treated at [facility] with a 26 mm Medtronic Evolute Prop+ TAVR aortic valve. Following the valve deployment she did develop AV node dysfunction required a temporary pacemaker and eventually during the same hospitalization required implantation of a permanent pacemaker device. She has a Biotronik dual-chamber pacemaker device. Following that she did relatively well. Once again per her family's desire she dismissed our practice as her vascular tech and has been seeing someone at [facility]. Recently she has been having problems with congestive heart failure. I do not have recent records but she says that her vascular tech there tells her that her heart is extremely weak. She was just in the hospital at that institution for a CHF exacerbation she states that while at [place] her diuretic dosages were decreased for with concern regarding her kidneys. She noticed that her swelling increased and her shortness of breath worsened and she was brought back to this hospital for evaluation and management. Review of Systems Constitutional: Constitutional: Reports lethargy Eyes: Eyes: Reports no additional eye complaints ENT: Reports system reviewed and no additional complaints, except as documented Cardiovascular: Cardiovascular: Reports as per HPI and Reports leg edema Respiratory: Respiratory: Reports as per HPI and Reports dyspnea Gastrointestinal: Gastrointestinal: Reports no additional gastrointestinal complaints Musculoskeletal: Musculoskeletal: Reports no additional musculoskeletal complaints Integumentary/Breasts: Skin/Breast: Reports system reviewed and no additional complaints, except as docu Neurologic: Comments: Alert and oriented x3 Endocrine: Endocrine: Reports no additional endocrine complaints Hematologic/Lymphatic: Hematologic/Lymphatic: Reports no additional hematologic/lymphatic complaints PMFSH Past Medical History Medical History Anemia CKD stage 3 due to type 2 diabetes mellitus Colon cancer screening (~2018) negative, cologuard Congestive heart failure Diabetic peripheral neuropathy Essential hypertension HTN (hypertension) Hyperthyroidism Mixed hyperli
[2024-02-15] MEDS: PERFLUTREN LIPID MICROSPHERES 1.5 ML VIAL DILUTED TO 10 ML TOTAL VOLUME IV PUSH (13:40)
--- NOTE | 2024-02-15 14:26 | IVDEFINITY ---
Prior to administration of IV Definity the patient was educated on the risks and benefits of the imaging enhancing agent including potential adverse side effects. The patient verbalized understanding. Allergies were verified. No exclusion criteria were identified and at least one of the following inclusion criteria were met: 1) physician request, 2) patient technically difficult to image (per the [place] [employer]ch[employer] guidelines of two or more segments not discernable within the apical view), or 3) questionable left ventricular function. ?
[2024-02-15 16:11] LABS: Glucose Point of Care 276 mg/dl (65-105)
[2024-02-15 16:35] LABS: Glucose Point of Care 307 mg/dl (65-105)
[2024-02-15] MEDS: INSULIN ASPART (*BKC) 100 UNITS/ML SUB-Q ×2 (17:01→20:06)
[2024-02-15] MEDS: ROSUVASTATIN 20 MG TABLET 40 MG PO (20:05)
[2024-02-15] MEDS: SACUBITRIL/VALSARTAN 24-26 MG TABLET 1 TAB PO (20:07)
[2024-02-15 20:15] LABS: Glucose Point of Care 304 mg/dl (65-105)
[2024-02-16] VITALS (10 sets, daily range): BP systolic 141–158; BP diastolic 69–88; PULSE 70–80; RESP 16–22; TEMP 36.7–37.2; O2SAT 93–98
[2024-02-16 05:29] LABS: Glucose Point of Care 275 mg/dl (65-105)
[2024-02-16 08:03] LABS: Glucose Point of Care 330 mg/dl (65-105)
[2024-02-16] MEDS: MAGNESIUM OXIDE 400 MG TABLET PO ×2 (09:06→16:51)
[2024-02-16] MEDS: SACUBITRIL/VALSARTAN 24-26 MG TABLET 1 TAB PO ×2 (09:06→20:43)
[2024-02-16] MEDS: methiMAzole 10 MG TAB PO (09:06)
[2024-02-16] MEDS: OPTI-GEN TAB 1 TABLET PO (09:06)
[2024-02-16] MEDS: SPIRONOLACTONE 25 MG TABLET PO (09:06)
[2024-02-16] MEDS: FUROSEMIDE INJ 40 MG/4 ML VIAL IV PUSH ×2 (09:06→20:44)
[2024-02-16] MEDS: PREGABALIN (*CRX) 50 MG CAPSULE PO ×3 (09:06→16:51)
[2024-02-16] MEDS: FLUTICASONE PROPIONATE 0.05% NA SPR 16 GM BTL (*BKC) 1 SPRAY NASAL ×2 (09:06→20:45)
[2024-02-16] MEDS: PANTOPRAZOLE 40 MG TABLET PO (09:06)
[2024-02-16] MEDS: INSULIN ASPART (*BKC) 100 UNITS/ML SUB-Q ×4 (09:07→20:44)
[2024-02-16] MEDS: carvediloL 6.25 MG TABLET PO ×2 (09:07→20:46)
[2024-02-16] MEDS: ASPIRIN 81 MG ENTERIC TABLET PO (09:07)
[2024-02-16] MEDS: APIXABAN 2.5 MG TABLET PO ×2 (09:07→20:42)
[2024-02-16 11:28] LABS: Glucose Point of Care 289 mg/dl (65-105)
--- NOTE | 2024-02-16 11:34 | PM.IMPN ---
Progress Note: A&P Assessment and Plan (1) Acute exacerbation of CHF (congestive heart failure): Code(s): I50.9 - Heart failure, unspecified Status: Acute Assessment and Plan: Patient heart failure is getting better. Patient was started and tested for factor. Tolerating the therapy well. (2) Hyperthyroidism: Code(s): E05.90 - Thyrotoxicosis, unspecified without thyrotoxic crisis or storm Status: Acute Assessment and Plan: Stable on current medications, will continue monitor. Plan 02/16/2024 Patient heart failure was felt getting better. Post was started on Entresto and spironolactone. Will downgrade patient to today. Possible discharge in the morning. Increase activity as tolerated. This is an 83-year-old female patient who has a past medical history of having a mitral valve replacement with 2 other valve dysfunction. She has a history of congestive heart failure and was recently decreased on her diuretics. She was recently hospitalized at [facility] for possible CHF exacerbation. The patient currently resides at [facility] for rehab in nursing care. The patient stated that her water pill was recently decreased. She has noticed that her feet have become more swollen over the last 24 hours. (1) Acute exacerbation of CHF (congestive heart failure): Code(s): I50.9 - Heart failure, unspecified Status: Acute Assessment and Plan: Suspecting acute exacerbation of CHF Patient had recent echo [facility] Request for cardiology records dr tay Patient states she had a mitral valve replacement is on apixaban for that. She also stated that her congestive heart failure is related to 2 abnormal valves in her heart. Continue IV furosemide 40 mg b.i.d. start spironolactone per cardiology recommendation Elevated troponin EKG showed paced rhythm Suspecting demand ischemia due to CHF exacerbation Patient is on Eliquis 2.5 mg b.i.d. p.o. Telemetry monitoring Consult cardiology for evaluation treatment Essential hypertension: Continue with diltiazem, and Coreg. and losartan. As per home medications. Type 2 diabetes mellitus without complication, with long-term current use of insulin: Code(s): E11.9 - Type 2 diabetes mellitus without complications; Z79.4 - FDC (current) use of insulin Status: Acute Assessment and Plan: Patient had episode of fall hypoglycemia Accu-Cheks and with sliding scale insulin. Hold her long-acting insulin for tonight. Please re-evaluate in the morning. Check A1c if she has not had 1 in the last 3 months. She was recently hospitalized so she may have have 1 performed at that time. Acquired Hyperthyroidism: Code(s): E05.90 - Thyrotoxicosis, unspecified without thyrotoxic crisis or storm Status: Acute Assessment and Plan: Continue with Tapazole as per her home medications. Anemia Anemia: Code(s): D64.9 - Anemia, unspecified Status: Acute Assessment and Plan: Continue to monitor CBC daily Could be related to her chronic renal failure. CKD stage 3 due to type 2 diabetes mellitus: Code(s): E11.22 - Type 2 diabetes mellitus with diabetic chronic kidney disease; N18.3 - Chronic kidney disease, stage 3 (moderate) Status: Acute Assessment and Plan: Continue to monitor daily labs. She has chronic renal failure and currently she is at her baseline. Subjective Date/time seen: 02/16/24 11:34 Interval history: Patient was seen during the morning rounds today. Decreased shortness of breath. No chest pain. No abdominal pain, nausea, no vomiting. Mood stable. Review of Systems Review of Systems: The patient denies any neurological problems. No problems with her eyes ears nose or throat. The patient stated that she is having some heaviness in her chest and is having shortness of breath. She denies any nausea vomiting o
[2024-02-16] MEDS: INSULIN GLARGINE (*BKC) 100 UNITS/ML 10 UNITS SUB-Q ×2 (11:54→20:44)
--- NOTE | 2024-02-16 12:55 | PM.PNCARD ---
Progress Note: A&P Assessment and Plan (1) Congestive heart failure: Qualifiers: Heart failure type: right-sided Heart failure chronicity: chronic Qualified Code(s): I50.812 - Chronic right heart failure Code(s): I50.9 - Heart failure, unspecified Status: Acute Plan Acute on chronic diastolic heart failure Aortic valve disease post TAVR normal function well and echocardiogram s/pl dual-chamber pacemaker Hypertension controlled CKD stage 3 Paroxysmal atrial fibrillation Diabetes mellitus type 2 Plan Continue IV Lasix with target to -ve 3 L today Continue Coreg Follow-up kidney function & electrolytes Subjective Date/time seen: 02/16/24 12:55 Interval history: cont to have SOB tele: Paced dajuanm Review of Systems Review of Systems: All systems reviewed & are unremarkable except as noted in HPI and below Objective Data Vital Signs Vital Signs: Vital Signs - 24 hr 02/15/24 14:40 02/15/24 14:00 02/15/24 16:00 Temperature 36.6 C 36.8 C Pulse Rate 71 70 70 Respiratory Rate 18 16 Blood Pressure 155/84 H 155/75 H Pulse Oximetry 97 97 Oxygen Delivery 02/15/24 16:00 02/15/24 16:00 02/15/24 18:00 Temperature Pulse Rate 72 73 Respiratory Rate Blood Pressure Pulse Oximetry Oxygen Delivery Room Air 02/15/24 20:06 02/15/24 20:11 02/15/24 20:00 Temperature 36.8 C Pulse Rate 70 72 Respiratory Rate 20 Blood Pressure 130/57 L Pulse Oximetry 97 Oxygen Delivery Room Air 02/15/24 20:00 02/15/24 22:00 02/15/24 23:14 Temperature 36.8 C Pulse Rate 70 70 70 Respiratory Rate 18 Blood Pressure 109/52 L Pulse Oximetry 97 Oxygen Delivery 02/15/24 23:16 02/16/24 00:00 02/16/24 02:00 Temperature Pulse Rate 70 70 Respiratory Rate Blood Pressure Pulse Oximetry Oxygen Delivery Room Air 02/16/24 04:00 02/16/24 04:00 02/16/24 04:14 Temperature 36.8 C Pulse Rate 76 74 Respiratory Rate 20 Blood Pressure 144/88 H Pulse Oximetry 97 Oxygen Delivery Room Air 02/16/24 06:00 02/16/24 08:06 02/16/24 09:07 Temperature 36.7 C Pulse Rate 70 77 75 Respiratory Rate 16 Blood Pressure 141/69 H Pulse Oximetry 93 Oxygen Delivery 02/16/24 08:00 02/16/24 08:00 Temperature Pulse Rate 80 Respiratory Rate Blood Pressure Pulse Oximetry Oxygen Delivery Room Air Intake/Output Intake/Output: Intake & Output 02/13/24 02/14/24 02/15/24 02/16/24 23:59 23:59 23:59 23:59 Intake Total 1070 520 Output Total 700 2600 1100 [facility] -700 -1530 -580 Meds/Results Medications: Active Medications Generic Name Dose Route Start Last Admin Trade Name Freq PRN Reason Stop Dose Admin Acetaminophen 650 mg 02/15/24 00:22 Acetaminophen 325 Mg Tablet PO Q4H PRN Pain (Scale Score 1-3) Apixaban 2.5 mg 02/15/24 09:00 02/16/24 09:07 Apixaban 2.5 Mg Tablet PO 2.5 mg Q12HR BINH Administration Aspirin 81 mg 02/15/24 09:00 02/16/24 09:07 Aspirin 81 Mg Enteric Tablet PO 03/16/24 08:59 81 mg DAILY BINH Administration Carvedilol 6.25 mg 02/15/24 09:00 02/16/24 09:07 Carvedilol 6.25 Mg Tablet PO 6.25 mg Q12HR BINH Administration Dextrose 12.5 gm 02/14/24 20:46 02/14/24 21:54 Dextrose 50% 25 Gm/50 Ml Syringe IV PUSH 12.5 gm PRN PRN Administration Hypoglycemia Protocol Fluticasone Propionate 1 spray 02/15/24 09:00 02/16/24 09:06 Fluticasone Propionate 0.05% Na Spr 16 Gm Btl (*Bkc) NASAL 1 spray Q12HR BINH Administration Furosemide 40 mg 02/14/24 21:00 02/16/24 09:06 Furosemide Inj 40 Mg/4 Ml Vial IV PUSH 40 mg Q12HR BINH Administration Glucagon 1 mg 02/14/24 20:46 Glucagon For Inj 1 Mg Vial IM PRN PRN Hypoglycemia Protocol Glucose 15 gm 02/14/24 20:46 Glucose Oral Gel 15 Gm Of Glucse In 37.5 Gm Tube PO PRN PRN Hypoglycemia Protocol Dextrose 1,000 mls @ 100
[2024-02-16 16:51] LABS: Glucose Point of Care 273 mg/dl (65-105)
--- NOTE | 2024-02-16 17:40 | PC.NURSE ---
pt transferred in to room 307-1 via bed, oriented to new room and environment, reviewed plan of care, pt is pleasant and denies any pain or discomfort, resting comfortably, call light in reach
[2024-02-16 20:18] LABS: Glucose Point of Care 288 mg/dl (65-105)
[2024-02-16] MEDS: TOLNAFTATE 1% POWDER 45 GM BTL 1 APPLIC TOPICAL (20:42)
[2024-02-16] MEDS: ROSUVASTATIN 20 MG TABLET 40 MG PO (20:43)
[2024-02-17 06:00] VITALS: BP 124/59; PULSE 70; RESP 18; TEMP 36.4; O2SAT 95
[2024-02-17 07:30] LABS: Potassium 3.6 mmol/L (3.4-5.0)
[2024-02-17 07:56] LABS: Glucose Point of Care 138 mg/dl (65-105)
[2024-02-17] MEDS: PANTOPRAZOLE 40 MG TABLET PO (08:46)
[2024-02-17] MEDS: OPTI-GEN TAB 1 TABLET PO (08:46)
[2024-02-17] MEDS: MAGNESIUM OXIDE 400 MG TABLET PO (08:46)
[2024-02-17] MEDS: ASPIRIN 81 MG ENTERIC TABLET PO (08:46)
[2024-02-17] MEDS: SPIRONOLACTONE 25 MG TABLET PO (08:46)
[2024-02-17] MEDS: PREGABALIN (*CRX) 50 MG CAPSULE PO ×2 (08:46→12:02)
[2024-02-17] MEDS: SACUBITRIL/VALSARTAN 24-26 MG TABLET 1 TAB PO (08:46)
[2024-02-17] MEDS: methiMAzole 10 MG TAB PO (08:46)
[2024-02-17] MEDS: APIXABAN 2.5 MG TABLET PO (08:46)
[2024-02-17] MEDS: TOLNAFTATE 1% POWDER 45 GM BTL 1 APPLIC TOPICAL (08:47)
[2024-02-17] MEDS: INSULIN GLARGINE (*BKC) 100 UNITS/ML 10 UNITS SUB-Q (08:47)
[2024-02-17] MEDS: FLUTICASONE PROPIONATE 0.05% NA SPR 16 GM BTL (*BKC) 1 SPRAY NASAL (08:47)
[2024-02-17 08:48] VITALS: PULSE 70
[2024-02-17] MEDS: carvediloL 6.25 MG TABLET PO (08:48)
--- NOTE | 2024-02-17 10:26 | PM.IMPN ---
Progress Note: A&P Assessment and Plan (1) Acute exacerbation of CHF (congestive heart failure): Code(s): I50.9 - Heart failure, unspecified Status: Acute Assessment and Plan: Patient heart failure is getting better. Will continue current treatment monitor closely. (2) Hyperthyroidism: Code(s): E05.90 - Thyrotoxicosis, unspecified without thyrotoxic crisis or storm Status: Acute Assessment and Plan: Stable on current medications, will continue monitor. Plan 02/16/2024 Patient heart failure was felt getting better. Post was started on Entresto and spironolactone. Will downgrade patient to today. Possible discharge in the morning. Increase activity as tolerated. 02/17/2024 Patient is gradually improving. Plan is to continue current treatment. Possible discharge in the morning. This is an 83-year-old female patient who has a past medical history of having a mitral valve replacement with 2 other valve dysfunction. She has a history of congestive heart failure and was recently decreased on her diuretics. She was recently hospitalized at [facility] for possible CHF exacerbation. The patient currently resides at [facility] for rehab in nursing care. The patient stated that her water pill was recently decreased. She has noticed that her feet have become more swollen over the last 24 hours. (1) Acute exacerbation of CHF (congestive heart failure): Code(s): I50.9 - Heart failure, unspecified Status: Acute Assessment and Plan: Suspecting acute exacerbation of CHF Patient had recent echo [facility] Request for cardiology records dr tay Patient states she had a mitral valve replacement is on apixaban for that. She also stated that her congestive heart failure is related to 2 abnormal valves in her heart. Continue IV furosemide 40 mg b.i.d. start spironolactone per cardiology recommendation Elevated troponin EKG showed paced rhythm Suspecting demand ischemia due to CHF exacerbation Patient is on Eliquis 2.5 mg b.i.d. p.o. Telemetry monitoring Consult cardiology for evaluation treatment Essential hypertension: Continue with diltiazem, and Coreg. and losartan. As per home medications. Type 2 diabetes mellitus without complication, with long-term current use of insulin: Code(s): E11.9 - Type 2 diabetes mellitus without complications; Z79.4 - buttermaker continuous churn (current) use of insulin Status: Acute Assessment and Plan: Patient had episode of fall hypoglycemia Accu-Cheks AC and HS with sliding scale insulin. Hold her long-acting insulin for tonight. Please re-evaluate in the morning. Check A1c if she has not had 1 in the last 3 months. She was recently hospitalized so she may have have 1 performed at that time. Acquired Hyperthyroidism: Code(s): E05.90 - Thyrotoxicosis, unspecified without thyrotoxic crisis or storm Status: Acute Assessment and Plan: Continue with Tapazole as per her home medications. Anemia Anemia: Code(s): D64.9 - Anemia, unspecified Status: Acute Assessment and Plan: Continue to monitor CBC daily Could be related to her chronic renal failure. CKD stage 3 due to type 2 diabetes mellitus: Code(s): E11.22 - Type 2 diabetes mellitus with diabetic chronic kidney disease; N18.3 - Chronic kidney disease, stage 3 (moderate) Status: Acute Assessment and Plan: Continue to monitor daily labs. She has chronic renal failure and currently she is at her baseline. Subjective Date/time seen: 02/17/24 10:26 Interval history: Patient was seen during the morning rounds today. Shortness of breath slightly better. No chest pain. No abdominal pain, nausea, no vomiting. Mood stable. Review of Systems Review of Systems: The patient denies any neurological problems. No problems with her eyes ears nose or throat. The patient stated that she is
--- NOTE | 2024-02-17 10:43 | PM.DS ---
DS: Admitting Diagnosis Discharge Date 02/17/2024 Admitting Diagnosis Acute exacerbation of systolic congestive heart failure. DS: Discharge Diagnosis Discharge Diagnosis (1) Acute exacerbation of CHF (congestive heart failure): Qualifiers: Heart failure type: systolic Qualified Code(s): I50.23 - Acute on chronic systolic (congestive) heart failure Code(s): I50.9 - Heart failure, unspecified Status: Acute Assessment and Plan: Patient heart failure is getting better. Will continue current treatment monitor closely. (2) Hyperthyroidism: Code(s): E05.90 - Thyrotoxicosis, unspecified without thyrotoxic crisis or storm Status: Acute Assessment and Plan: Stable on current medications, will continue monitor. Plan 02/16/2024 Patient heart failure was felt getting better. Post was started on Entresto and spironolactone. Will downgrade patient to today. Possible discharge in the morning. Increase activity as tolerated. 02/17/2024 Patient is gradually improving. Plan is to continue current treatment. Possible discharge in the morning. This is an 83-year-old female patient who has a past medical history of having a mitral valve replacement with 2 other valve dysfunction. She has a history of congestive heart failure and was recently decreased on her diuretics. She was recently hospitalized at [facility] for possible CHF exacerbation. The patient currently resides at [facility] for rehab in nursing care. The patient stated that her water pill was recently decreased. She has noticed that her feet have become more swollen over the last 24 hours. (1) Acute exacerbation of CHF (congestive heart failure): Code(s): I50.9 - Heart failure, unspecified Status: Acute Assessment and Plan: Suspecting acute exacerbation of CHF Patient had recent echo [facility] Request for cardiology records dr tay Patient states she had a mitral valve replacement is on apixaban for that. She also stated that her congestive heart failure is related to 2 abnormal valves in her heart. Continue IV furosemide 40 mg b.i.d. start spironolactone per cardiology recommendation Elevated troponin EKG showed paced rhythm Suspecting demand ischemia due to CHF exacerbation Patient is on Eliquis 2.5 mg b.i.d. p.o. Telemetry monitoring Consult cardiology for evaluation treatment Essential hypertension: Continue with diltiazem, and Coreg. and losartan. As per home medications. Type 2 diabetes mellitus without complication, with long-term current use of insulin: Code(s): E11.9 - Type 2 diabetes mellitus without complications; Z79.4 - prison (current) use of insulin Status: Acute Assessment and Plan: Patient had episode of fall hypoglycemia Accu-Cheks AC and HS with sliding scale insulin. Hold her long-acting insulin for tonight. Please re-evaluate in the morning. Check A1c if she has not had 1 in the last 3 months. She was recently hospitalized so she may have have 1 performed at that time. Acquired Hyperthyroidism: Code(s): E05.90 - Thyrotoxicosis, unspecified without thyrotoxic crisis or storm Status: Acute Assessment and Plan: Continue with Tapazole as per her home medications. Anemia Anemia: Code(s): D64.9 - Anemia, unspecified Status: Acute Assessment and Plan: Continue to monitor CBC daily Could be related to her chronic renal failure. CKD stage 3 due to type 2 diabetes mellitus: Code(s): E11.22 - Type 2 diabetes mellitus with diabetic chronic kidney disease; N18.3 - Chronic kidney disease, stage 3 (moderate) Status: Acute Assessment and Plan: Continue to monitor daily labs. She has chronic renal failure and currently she is at her baseline. DS: Summary Hospital Course Reason for hospitalization: Acute exacerbation of systolic congestive heart failure Hospit
[2024-02-17 11:52] LABS: Glucose Point of Care 333 mg/dl (65-105)
[2024-02-17] MEDS: INSULIN ASPART (*BKC) 100 UNITS/ML SUB-Q (12:02)
== END 2024-02-17 13:10 ==
LOC: ANHED 20:25 → ANHIMU 21:22 → ANH3MEDSUR 02-17 10:42 → ANHIMU 02-20 08:13
PROVIDERS: Emergency Medicine; Nurse Practitioner; Admitting Provider Internal Medicine; Emergency Provider Physician Assistant; PCP Family Medicine; Visit Provider Internal Medicine
DX: I13.0 Hypertensive heart and chronic kidney disease with heart failure and stage 1 through stage 4 chronic kidney disease, or unspecified chronic kidney disease (principal); I50.33 Acute on chronic diastolic (congestive) heart failure; N18.30 Chronic kidney disease, stage 3 unspecified; E11.22 Type 2 diabetes mellitus with diabetic chronic kidney disease; E11.42 Type 2 diabetes mellitus with diabetic polyneuropathy; E78.5 Hyperlipidemia, unspecified; D64.9 Anemia, unspecified; E05.90 Thyrotoxicosis, unspecified without thyrotoxic crisis or storm; I27.20 Pulmonary hypertension, unspecified; I36.1 Nonrheumatic tricuspid (valve) insufficiency; Z95.2 Presence of prosthetic heart valve; Z95.0 Presence of cardiac pacemaker; Z79.4 Long term (current) use of insulin; Z86.73 Personal history of transient ischemic attack (TIA), and cerebral infarction without residual deficits; Z79.01 Long term (current) use of anticoagulants
CPT/HCPCS: 36415; 71045; 80048; 80053; 82948; 83880; 84132; 84484; 85025; 93005; 94640; 96374; 96375; 96376; 97161; 97165; 99285; A9270; C8929; G0378; J1815; J1940; Q9957

== ENCOUNTER 2024-04-20 15:50 | Emergency (ER) | payer MEDICARE, SELFPAY ==
--- NOTE | ~2024-04-20 | XR_ITS ---
XR chest 2V DATE: 04/20/2024 16:50 INDICATION: Syncope TECHNIQUE: AP and lateral views COMPARISON: 02/14/2024 portable AP chest FINDINGS: Left dual-lead pacemaker with leads overlying right atrium and right ventricle. Status post aortic valve replacement. Cardiomegaly. Aortic calcification and unfolding. There is pulmonary vascular congestion and redistribution. There is prominence of the minor fissure c onsistent with subpleural edema. There are bilateral central and lower lung zone infiltrates which ma y be due to pulmonary edema. Pneumonia is not excluded. Mild blunting of the right costophrenic angle suggests small pleural effusion. IMPRESSION: Congestive heart failure, pulmonary edema Reviewed, dictated and finalized at location A. CIATE PROFESSOR OF ENGINEERING
--- NOTE | ~2024-04-20 | CT_ITS ---
EXAMINATION: CT cervical spine wo con DATE: 04/20/2024 17:05 INDICATION: Fall. Neck pain. History of fracture. TECHNIQUE: Computed tomography (CT) of the cervical spine was performed without intravenous contrast. Automated exposure control and iterative reconstruction technique were employed. Exam dose: 429.04 mGy-cm total exam DLP. 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 C1 and C2 are normally aligned. No other fracture or dislocation of the cervical spine or locked face t is detected. Moderate degenerative disease at C4-5. There is moderately severe degenerative disc disease and mild retrolisthesis at C5-6. Moderately severe degenerative disease at C6-7. Slight anterolisthesis at C7-T1. Chronic minimal anterior wedging and loss of height at T2. Thyromegaly IMPRESSION: Chronic ununited C2 odontoid process fracture No acute fracture, dislocation or locked facet Thyromegaly Moderately severe cervical spondylosis Reviewed, dictated and finalized at [facility]. Reviewed, dictated and finalized at location A. TESTER
--- NOTE | ~2024-04-20 | CT_ITS ---
EXAMINATION: CT brain wo con DATE: 04/20/2024 17:05 INDICATION: Fall. Syncope. TECHNIQUE: Computed tomography (CT) of the head was performed without intravenous contrast. The mA wa s adjusted according to patient size. Iterative reconstruction technique was employed. Exam dose: 60 5.33 mGy-cm total exam DLP. COMPARISON: 05/02/2021 CT brain FINDINGS: Prominent bilateral vertebral artery calcification and carotid siphon internal carotid wilma ry calcifications. There is nonspecific diminished attenuation the cerebral white matter, likely due to chronic small ve ssel ischemic changes. Evidence of bilateral old cerebellar infarcts. Basal ganglia and periventricular lacunar infarcts are noted. No intracranial mass lesion or hemorrhage is evident. No midline shift or mass effect. No subdural or epidural hematoma. The mastoid air cells and paranasal sinuses are normally developed and aerated. No fracture or bone destruction of the cranial vault. IMPRESSION: Cerebral atherosclerosis and chronic small vessel ischemic changes of the cerebral white matter, chronic lacunar infarcts of the basal ganglia and periventricular area and chronic cerebella r infarcts No acute intracranial finding or skull fracture Reviewed, dictated and finalized at [facility]. Reviewed, dictated and finalized at location A. ENTICE PAINTER NECKTIES IMPRESSION: Cerebral atherosclerosis and chronic small vessel ischemic changes of the cerebral white matter, chronic lacunar infarcts of the basal ganglia an d periventricular area and chronic cerebellar infarcts No acute intracranial finding or skull fracture
[2024-04-20 15:50] VITALS: BP 178/93; PULSE 71; RESP 18; TEMP 36.6; O2SAT 95
--- NOTE | 2024-04-20 15:57 | ECG_ITS ---
Test Date: 2024-04-20 17:49:30 Measurements Intervals [place] Rate: 70 P: 123 DE: 174 QRS: 100 QRSD: 161 T: -1 QT: 465 QTc: 502 Interpretive Statements ELECTRONIC ATRIAL PACEMAKER ELECTRONIC VENTRICULAR PACEMAKER NO FURTHER INTERPRETATION IS POSSIBLE ATYPICAL ECG Compared to ECG 02/14/2024 21:10:44 No significant changes Electronically Signed On 04-20-2024 18:20:57 MACHINE ADJUSTER HELPER by Jose Pineda D.O.
[2024-04-20 16:11] LABS: Basophils Percent Auto 0.1 % (0.2-1.2); Hematocrit 35.7 % (37.0-47.0); Hemoglobin 11.4 g/dL (12.0-15.0); Lymphocytes Absolute Auto 0.57 K/mm3 (0.9-3.2); Lymphocytes Percent Auto 5.6 % (18.3-44.2); Mean Corpuscular HGB Conc 31.9 g/dl (32-36); Mean Corpuscular Volume 84.6 fl (80-100); Mean Platelet Volume 10.8 fl (7.4-10.4); Monocytes Absolute Auto 0.9 K/mm3 (0.1-0.6); Monocytes Percent Auto 9.3 % (2.6-8.5); Neutrophils Absolute Auto 8.5 K/mm3 (1.3-6.7); Platelet Count Result 219 k/mm3 (150-375); Red Blood Count 4.22 M/mm3 (4.2-5.4); Red Cell Distribution Width 16.7 % (11.5-14.5); White Blood Count 10.1 K/mm3 (4.5-10.0)
--- NOTE | 2024-04-20 16:19 | ED.FALL ---
HPI - Fall General Chief Complaint: Fall Stated Complaint: fall Time Seen by Provider: 04/20/24 15:55 Source: patient, family and RN notes reviewed Mode of arrival: EMS Limitations: no limitations History of Present Illness HPI Narrative: Patient presents from [facility] after a fall. patient remembers being in her wheelchair and the next thing she knew she woke up on the floor. son believes it is possible that she bent down to move shoe and that is when she fell. Lost consciousness. Wheelchair was locked upon inspection. She was on the ground for approximately 10-30 minutes. She is on Eliquis. She has a headache And also pain in the back of her hands or she believes she hit them. Patient states she is on anticoagulation, Eliquis and this is confirmed on the care home medication list. patient believes she had a TIA this week. She had left arm deficits but because they were noticed >4.5 hours after last known well, she did not present to the ED. she then regained the functionality in this arm although states that she has some slight weakness in the hand still. She has a history of a neck fracture 2 years ago ; it was non operative but she wore a collar for approximately 1 year and was followed by Neurosurgery here at [place]. Also a history of a low back fusion and surgery on L5. She had some bleeding from the back of her head. History of diabetes mellitus. She took a lot of insulin this morning because she had a lot of biscuits and gravy. Chronically short of breath due to history of pulmonary fibrosis and CHF. No chest pain; has a pacemaker. Related Data Home Medications Medication Instructions Recorded Confirmed aspirin 81 mg tablet 81 mg PO DAILY 03/22/21 04/16/24 carvedilol 6.25 mg tablet 6.25 mg PO BID 03/22/21 04/16/24 insulin glargine 100 unit/mL 25 unit subcut BID 03/22/21 04/16/24 subcutaneous solution insulin lispro 100 unit/mL 10 unit subcut TIDWM 03/22/21 04/16/24 subcutaneous pen losartan 50 mg tablet 25 mg PO DAILY 03/22/21 04/16/24 methimazole 10 mg tablet (Tapazole) 10 mg PO DAILY 03/22/21 04/16/24 pantoprazole 20 mg tablet,delayed 40 mg PO DAILY 03/22/21 04/16/24 release acetaminophen 650 mg tablet 650 mg PO Q4H PRN Pain (Scale 02/14/24 04/16/24 Score 1-3) apixaban 2.5 mg tablet (Eliquis) 2.5 mg PO BID 02/14/24 04/16/24 bumetanide 1 mg tablet 1 mg PO DAILY 02/14/24 04/16/24 fluticasone propionate 50 1 spray intranasal BID 02/14/24 04/16/24 mcg/actuation nasal spray,suspension iron,carbonyl 30 mg-vitamin C 10 1 tablet PO BID 02/14/24 04/16/24 mg-FOS 25 mg chewable tablet (Chewable Iron) lidocaine 4 % topical patch 1 patch topical DAILY 02/14/24 04/16/24 magnesium oxide 400 mg (241.3 mg 400 mg PO BID 02/14/24 04/16/24 magnesium) tablet ondansetron 4 mg disintegrating 4 mg PO Q8H PRN Nausea 02/14/24 04/16/24 tablet rosuvastatin 40 mg tablet 40 mg PO HS 02/14/24 04/16/24 vit C 250 mg-vit E 90 mg-zinc 40 1 tablet PO DAILY 02/14/24 04/16/24 mg-copper 1 [id number] capsule (PreserVision AREDS-2) Allergies Allergy/AdvReac Type Severity Reaction Status Date / Time adhesive tape Allergy Intermediate Rash Verified 05/02/21 08:25 codeine Allergy Unknown Stomach Verified 05/02/21 08:25 cramps latex Allergy Unknown Blister Verified 05/02/21 08:25 [facility] Past Medical History Medical History (Updated 04/21/24 @ 00:01 by Sophie Hartley) Acute respiratory failure with hypoxia Anemia Chronic diastolic (congestive) heart failure CKD stage 3 due to type 2 diabetes mellitus Colon cancer screening (~2017) negative, cologuard Diabetic peripheral neuropathy Essential hypertension HTN (hypertension) Hyperthyroidism Mixed hyperlipidemia Pacemaker Thyrotoxicosis, unspecified without thyrotoxic crisis or storm TIA (transient ischemic attack) Type 2 diabetes mellitus without complication, with long-term current use of insulin Unspecified atrial flutter Surgical History Surgical History H/O: hysterectomy History of back surgery Hx of cholecystectomy Mitral valve replaced Family History Family History Mother Family history of cardiovascular disease, Onset Age: 82 Father Acute myocardial infarction, Onset Age: 57 Other Asthma Cerebrovascular accident Diabetes mellitus Family history of atrial fibrillation Family history of congestive heart failure Family history of hearing loss Family history of thyroid disease Hypertension Social History Social History Smoking status: Never smoker Second hand tobacco smoke exposure: No Alcohol intake: former Substance use: never Do You Feel Safe in your Home?: Yes Lack of Transportation: No Lack of Food: Never True Current Housing: I Have Housing Concerned About Future Housing: No Difficulty Paying Gas/Electric Bills: No Difficulty Paying for Meds: No Currently Unemployed: No Education: High School Diploma/GED Difficulty w/ Childcare or Family Care: No Living arrangements: care home Additional living arrangements comments: [facility] ([facility]) Gender identity (if verbalized by the patient): Female Spiritual care concerns: Yes Exam Narrative: GENERAL: Well-appearing, well-nourished, and in no acute distress. HEAD: Abrasion on posterior scalp. EYES: Non injected, non icteric ENT: Nares clear, no rhinorrhea or epistaxis. NECK: C collar in place. CHEST: Speaking in full sentences. No respiratory distress. HEART: Regular rate and rhythm. . ABDOMEN: Soft, nondistended. EXTREMITIES: Ecchymosis along bilateral dorsum aspects of hands; moves all extremities x4 SKIN: Warm, dry NEURO: No focal deficits. Alert and oriented x3. PSYCH: Normal mood and affect. Course Vital Signs Vital signs: Vital Signs Temperature 98 F 04/20/24 15:50 Pulse Rate 71 04/20/24 15:50 Respiratory Rate 18 04/20/24 15:50 Blood Pressure 178/93 H 04/20/24 15:50 Pulse Oximetry 95 04/20/24 15:50 Temperature 97.9 F 04/20/24 18:45 Pulse Rate 70 04/20/24 18:46 Respiratory Rate 15 04/20/24 18:46 Blood Pressure 155/89 H 04/20/24 18:46 Pulse Oximetry 100 04/20/24 18:46 MDM - Fall MDM Narrative Medical decision making narrative: Patient presents after falling out of her wheelchair. She lost consciousness. On Elliquis. Has a headache. In the emergency department she is afebrile with vital signs notable for hypertension. Patient does have cardiomegaly and pulmonary edema on chest x-ray. Her BNP is also elevated. Lasix ordered. She is not hypoxic though and hypertension improving, not tachypneic or in respiratory distress. C collar removed and patient able to demonstrate flexion/extension and rotational movement. Posterior scalp with abrasion. Discussed results with patient and her son. Stable for discharge back to facility. Differential Diagnosis Differential diagnosis: Likely syncope, compression fracture, concussion with loss of consciousness and other (intracranial hemorrhage) Lab Data Attestation: I reviewed the patient's lab results. Lab results narrative: hyperglycemia with an anion gap but no acidosis patient's creatinine is at her baseline per review of the EMR. Normocytic anemia, stable from previous 04/20/24 16:06 04/20/24 16:06 Labs: Lab Results 04/20/24 Range/Units 16:06 WBC 10.1 H (4.5-10.0) K/mm3 RBC 4.22 (4.2-5.4) M/mm3 Hgb 11.4 L (12.0-15.0) g/dL Hct 35.7 L (37.0-47.0) % MCV 84.6 (80-100) fl MCH 27.0 (26-34) pg MCHC 31.9 L (32-36) g/dl RDW 16.7 H (11.5-14.5) % Plt Count 219 (150-375) k/mm3 MPV 10.8 H (7.4-10.4) fl Immature Gran % (Auto) 1.0 H (0-0.5) % Neut % (Auto) 84.0 H (45.5-73.1) % Lymph % (Auto) 5.6 L (18.3-44.2) % [place] % (Auto) 9.3 H (2.6-8.5) % Eos % (Auto) 0.0 (0-4.4) % Baso % (Auto) 0.1 L (0.2-1.2) % Lymph # (Auto) 0.57 L (0.9-3.2) K/mm3 [place] # (Auto) 0.9 H (0.1-0.6) K/mm3 Eos # (Auto) 0.0 (0-0.3) K/mm3 Baso # (Auto) 0.0 (0.0-0.1) K/mm3 Abs Immat Gran (auto) 0.10 H (0.00-0.031) K/mm3 Absolute Neuts (auto) 8.5 H (1.3-6.7) K/mm3 Absolute Nucleated RBC 0.000 (0.0-0.012) K/mm3 Nucleated RBC % 0.0 (0.0-0.2) % Sodium 142 (137-145) mmol/L Potassium 3.8 (3.4-5.0) mmol/L Chloride 99 (98-107) mmol/L Carbon Dioxide 29 (22-30) mmol/L Anion Gap 14 H (4-12) mmol/L BUN 49 H D (7-17) mg/dL Creatinine 1.60 H (0.7-1.0) mg/dL Estim Creat Clear Calc 23 ml/min Estimated GFR 31 L (59 - ) Glucose 178 H (65-110) mg/dL Calcium 8.5 (8.4-10.2) mg/dL Total Bilirubin 0.8 (0.2-1.3) mg/dL AST 33 (14-36) U/L ALT 24 (6-35) U/L Alkaline Phosphatase 113 (38-126) U/L Troponin I 0.031 (0.000-0.034) ng/mL NT-Pro-B Natriuret Pep 09773 H (19.9-100) pg/mL Total Protein 8.0 (6.3-8.2) g/dL Albumin 4.1 (3.5-5.1) g/dL Imaging Data Radiologist's impression: IMPRESSION: Congestive heart failure, pulmonary edema IMPRESSION: Cerebral atherosclerosis and chronic small vessel ischemic changes of the cerebral white matter, chronic lacunar infarcts of the basal ganglia and periventricular area and chronic cerebellar infarcts No acute intracranial finding or skull fracture IMPRESSION: Chronic ununited C2 odontoid process fracture No acute fracture, dislocation or locked facet Thyromegaly Moderately severe cervical spondylosis ECG Data EKG #1: Attestation: I personally reviewed and interpreted this ECG as follows: ECG completion date: 04/20/24 ECG completion time: 17:49 Prior ECG tracings: available for review (January 2024 Shows similar T-wave inversions) Interpretation: Electronic atrial pacemaker. Rate 70. LA interval 174. QRS 161. QT/ QTC 465/5 O2. Good R-wave progression across the precordial leads. T-wave inversions in 3 and AVF. No other T-wave inversions. Discharge Plan Discharge Clinical Impression: Accidental fall from wheelchair, Hyperglycemia due to diabetes mellitus, CKD (chronic kidney disease), Congestive heart failure (CHF), Normocytic anemia, Cervical spondylosis, Abrasion of scalp, Concussion with loss of consciousness Patient Disposition: NH Assisted/Asst Living Condition: Stable Instructions: Antibiotic Form, Heart Failure (ED), Chronic Kidney Disease (ED), Chronic Kidney Disease Diet (DC), Concussion (ED), Abrasion (ED), Anemia (ED), Diabetic Hyperglycemia (ED) Additional Instructions: No intracranial bleeding, no fracture of your bones in your neck, and the wound on the back of your head appears to be an abrasion. It is fine to wash this with warm soapy water. No need to apply hydrogen peroxide. continue to take your medications as prescribed. patient should be offered acetaminophen/ Tylenol over the next several days since she is likely to be sore and achy and because of the Elliquis she is not to take NSAIDS like ibuprofen, Motrin, Advil, Aleve, etc. return to the emergency department with any new or worsening symptoms. Prescriptions: New acetaminophen 500 mg capsule 1,000 mg PO Q6H PRN (Reason: pain) Qty: 20 0RF No Action bumetanide 1 mg tablet 1 mg PO DAILY rosuvastatin 40 mg tablet 40 mg PO HS Eliquis 2.5 mg tablet 2.5 mg PO BID acetaminophen 650 mg Tablet 650 mg PO Q4H PRN (Reason: Pain (Scale Score 1-3)) fluticasone propionate 50 mcg/actuation [place],Suspension 1 spray INTRANASAL BID Rx Instructions: administer into each nostril Chewable Iron 30-10-25 mg Tablet,Chewable 1 tablet PO BID lidocaine 4 % Adhesive Patch,Medicated 1 patch TOPICAL DAILY Rx Instructions: Remove in 12 hours magnesium oxide 400 mg (241.3 mg magnesium) tablet 400 mg PO BID ondansetron 4 mg Tablet,Disintegrating 4 mg PO Q8H PRN (Reason: Nausea) PreserVision AREDS-2 250-90-40-1 mg Capsule 1 tablet PO DAILY Entresto 24-26 mg Tablet 1 tablet PO Q12HR Qty: 30 2RF spironolactone 25 mg Tablet 25 mg PO QAM Qty: 30 2RF losartan 50 mg Tablet 25 mg PO DAILY carvedilol 6.25 mg Tablet 6.25 mg PO BID insulin glargine 100 unit/mL Solution 25 unit SUBCUT BID pantoprazole 20 mg Tablet,Delayed Release (Dr/Ec) 40 mg PO DAILY aspirin 81 mg Tablet 81 mg PO DAILY methimazole [Tapazole] 10 mg Tablet 10 mg PO DAILY insulin lispro 100 unit/mL Insulin Pen 10 unit SUBCUT TIDWM Rx Instructions: and sliding scale BG 170-200 give 2 units BG 201-250 give 4 units BG 251-300 give 6 units BG 301-350 give 8 units BG 351-400 give 10 units BG greater than 401 - notify MD pregabalin [Lyrica] 50 mg capsule 50 mg PO TID Qty: 90 2RF Follow-up/Referrals: Abena Mccabe MD [Primary Care Provider] - Reina Etienne MD [Physician] - (listed as attending physician for facility) Stand Alone Forms: Care Home Discharge Time of Disposition: 18:35
[2024-04-20 16:22] LABS: Alanine Aminotransferase 24 U/L (6-35); Albumin Level 4.1 g/dL (3.5-5.1); Alkaline Phosphatase 113 U/L (38-126); Anion Gap 14 mmol/L (4-12); Aspartate Amino Transferase 33 U/L (14-36); Bilirubin,Total 0.8 mg/dL (0.2-1.3); Blood Urea Nitrogen 49 mg/dL (7-17); Calcium 8.5 mg/dL (8.4-10.2); Carbon Dioxide 29 mmol/L (22-30); Chloride 99 mmol/L (98-107); Estimated CRCL calculation 23 ml/min; Estimated Glomerular Filt Rate 31; Glucose 178 mg/dL (65-110); Potassium 3.8 mmol/L (3.4-5.0); Sodium 142 mmol/L (137-145)
[2024-04-20 16:35] VITALS: BP 148/80; PULSE 70; RESP 18; O2SAT 100
[2024-04-20] MEDS: ACETAMINOPHEN 500 MG TABLET 1000 MG PO (16:35)
[2024-04-20 16:56] LABS: NT Pro B Type Natriuretic Pept 13500 pg/mL (19.9-100); Troponin I 0.031 ng/mL (0.000-0.034)
[2024-04-20] MEDS: FUROSEMIDE INJ 40 MG/4 ML VIAL IV PUSH (17:43)
[2024-04-20 18:02] VITALS: BP 154/84; PULSE 70; RESP 16; O2SAT 94
[2024-04-20 18:31] VITALS: BP 154/87; PULSE 71; RESP 15; O2SAT 98
[2024-04-20 18:45] VITALS: BP 154/87; PULSE 68; RESP 18; TEMP 36.6; O2SAT 99
[2024-04-20 18:46] VITALS: BP 155/89; PULSE 70; RESP 15; O2SAT 100
== END 2024-04-20 19:36 ==
PROVIDERS: Emergency Provider Student in an Organized Health Care Education/Training Program; PCP Family Medicine
DX: S06.0X9A Concussion with loss of consciousness of unspecified duration, initial encounter (principal); S00.01XA Abrasion of scalp, initial encounter; E11.65 Type 2 diabetes mellitus with hyperglycemia; I13.0 Hypertensive heart and chronic kidney disease with heart failure and stage 1 through stage 4 chronic kidney disease, or unspecified chronic kidney disease; E11.22 Type 2 diabetes mellitus with diabetic chronic kidney disease; N18.30 Chronic kidney disease, stage 3 unspecified; I50.32 Chronic diastolic (congestive) heart failure; D64.9 Anemia, unspecified; M47.812 Spondylosis without myelopathy or radiculopathy, cervical region; E11.42 Type 2 diabetes mellitus with diabetic polyneuropathy; E78.2 Mixed hyperlipidemia; I48.92 Unspecified atrial flutter; Z95.2 Presence of prosthetic heart valve; Z95.0 Presence of cardiac pacemaker; Z86.73 Personal history of transient ischemic attack (TIA), and cerebral infarction without residual deficits; Z90.710 Acquired absence of both cervix and uterus; Z90.49 Acquired absence of other specified parts of digestive tract; Z79.01 Long term (current) use of anticoagulants; Z79.4 Long term (current) use of insulin; Z79.899 Other long term (current) drug therapy; W05.0XXA Fall from non-moving wheelchair, initial encounter; I67.2 Cerebral atherosclerosis; E01.0 Iodine-deficiency related diffuse (endemic) goiter; S12.100K Unspecified displaced fracture of second cervical vertebra, subsequent encounter for fracture with nonunion; X58.XXXD Exposure to other specified factors, subsequent encounter
CPT/HCPCS: 36415; 70450; 71046; 72125; 80053; 83880; 84484; 85025; 93005; 96374; 99284; A9270; J1940

== ENCOUNTER 2025-01-25 14:25 | Inpatient (IN) | payer MEDICARE, MEDICAID, SELFPAY ==
[2025-01-25] VITALS (10 sets, daily range): BP systolic 125–149; BP diastolic 81–82; PULSE 78–81; RESP 16–20; TEMP 36.4–36.6; O2SAT 92–100; BMI 38.2
--- NOTE | ~2025-01-25 | XR_ITS ---
EXAMINATION: XR chest 1V portable Exam Date/Time: 01/25/2025 15:15 CDT HISTORY: SOB Comparison: 04/20/2024; CTPA 03/28/2019. RESULT: Lines, tubes, and devices: Left chest pacer with intact leads. Cardiac valve replacement. Lungs and pleura: Diffuse reticular opacities. Right costophrenic angle blunting. Cardiomediastinal silhouette: Stable. Other: No acute osseous or upper abdominal finding. IMPRESSION: Edema versus chronic interstitial change. Small right pleural effusion Reviewed, dictated and finalized at location K.
--- NOTE | ~2025-01-25 | XR_ITS ---
CHEST RADIOGRAPH CLINICAL HISTORY: chest pressure, SOB . COMPARISON: 01/25/2025 TECHNIQUE: Single portable view of the chest. FINDINGS The left mid lung is partially obscured due to pacemaker generator. Wires project over the right atrium and right ventricle. Prosthetic valve is identified within the aortic position. The remainder of the cardiomediastinal silhouette is enlarged, and otherwise unremarkable. Redemonstration of bilateral pleural effusions, right greater than left. Increased and thickened interstitial markings are identified bilaterally, findings suggesting moderat e pulmonary vascular congestion. The remainder of the lungs are otherwise clear. IMPRESSION: Bilateral pleural effusions, right greater than left. Moderate pulmonary vascular congestion. Interstitial thickening is also noted, unchanged from prior. Reviewed, dictated and finalized at location A.
--- NOTE | ~2025-01-25 | CT_ITS ---
EXAMINATION: CTA chest PE protocol DATE: 01/25/2025 17:37 INDICATION: Shortness of breath, hypoxia, elevated dimer TECHNIQUE: Computed tomography angiography (CTA) of the chest was performed with 100 mL Omnipaque-350 intravenous contrast timed to evaluate the pulmonary arteries. Coronal maximum intensity projection 3D-reconstructions were created by the technologist. The dose-length product (DLP) was 552.91 mGy-cm. Automated exposure control and iterative reconstruction technique were employed. COMPARISON: 03/28/2019; x-ray chest 01/25/2025. FINDINGS: Lung parenchyma and airways: Moderate septal thickening, scattered patchy groundglass opacities, moses pheral reticulation. Patent airways. Pleura: Moderate right and small left pleural fluid collections. Thoracic inlet, axillae and chest wall: Thyroid goiter. Thoracic aorta: Moderate atherosclerotic calcifications. Mild ectasia of the posterior arch. Mediastinum: Enlarged mediastinal and right hilar lymph nodes. Dilated central pulmonary arteries as can be seen with pulmonary hypertension. Heart and pericardium: Cardiomegaly. No pericardial effusion. Mitral annulus calcification. Aortic va lve replacement. Coronary artery calcifications: Mild. Upper abdomen: Bilateral adrenal adenomas. Status post cholecystectomy. Likely pancreatic atrophy. Bones: Mild anterior wedge deformity at T4. Endplate sclerosis and erosions/disc invaginations in mul tiple endplates between T6 and T8. Pulmonary arteries: Study quality: Adequate. No pulmonary emboli detected. IMPRESSION: No CT evidence of acute pulmonary embolus. Pulmonary edema, overlying chronic interstitial changes. Moderate right and small left pleural effusi ons. Mediastinal and right hilar lymphadenopathy. Mild wedge compression fracture at T4, new since the study, probably chronic unless accompani ed by acute pain/tenderness. Reviewed, dictated and finalized at location K. IMPRESSION: No CT evidence of acute pulmonary embolus. Pulmonary edema, overlying chronic interstitial changes. Moderate right and sma ll left pleural effusions. Mediastinal and right hilar lymphadenopathy. Mild wedge compression fracture at T4, new since the study, probably ch ronic unless accompanied by acute pain/tenderness.
--- NOTE | 2025-01-25 14:36 | ECG_ITS ---
Test Date: 2025-01-25 14:32:57 Measurements Intervals [place] Rate: 79 P: 0 MN: 0 QRS: 54 QRSD: 147 T: 193 QT: 426 QTc: 490 Interpretive Statements ELECTRONIC VENTRICULAR PACEMAKER BASELINE ARTIFACT- I, II, III, AVR, AVL, AVF NO FURTHER INTERPRETATION IS POSSIBLE ATYPICAL ECG Compared to ECG 04/20/2024 17:49:30 NO SIGNIFICANT CHANGE Electronically Signed On 01-25-2025 17:38:29 CDT by Jose Pineda D.O.
--- OUTSIDE RECORDS SUMMARY | 2025-01-25 14:44 | XMS_ITS | Clinical Summary ---
Author Organization [facility] Address [address] [place] [address] Care Team Providers Care Welder Apprentice Name Role Phone Abena Mccabe MD Primary Care Provider Allergies Active Allergy Reactions Criticality Noted Date Comments Codeine Nausea and Vomiting Low 07/31/2018 Medications aspirin (BELLA) 325 mg tablet Take 325 mg by mouth. Active losartan-hydroC HLOROthiazide (HYZAAR) 100-25 mg tablet Take 1 Tablet by mouth. Active carvedilol (COREG) 25 mg tablet Take 25 mg by mouth. Active methIMAzole (TAPAZOLE, NORTHYX) 5 mg tablet Take 5 mg by mouth. Active busPIRone (BUSPAR) 5 mg tablet Take 5 mg by mouth. Active potassium chloride (K-TAB) 10 mEq Extended Release tablet Take 10 mEq by mouth. Active ergocalciferol (VITAMIN D2) 50,000 unit capsule Take 50,000 Units by mouth. Active furosemide (LASIX) 20 mg tablet Take 20 mg by mouth. Active metFORMIN (GLUCOPHAGE) 500 mg tablet Take 500 mg by mouth. Active lovastatin (ALTOPREV) 20 mg Extended Release 24 hour tablet Take 20 mg by mouth. Active cyanocobalamin, vitamin B-12, 5,000 mcg Tablet, Sublingual Place under tongue. Active acetaminophen (TYLENOL) 500 mg tablet Take 500 mg by mouth. Active LANTUS SOLOSTAR U-100 INSULIN 100 unit/mL (3 mL) solution for injection INJECT 40 UNITS INTO FATTY TISSUE UNDER THE SKIN NIGHTLY 1 07/16/2018 Active NOVOLOG FLEXPEN U-100 INSULIN 100 unit/mL pen syringe ADM 5 UNI SC TID WC 0 07/22/2018 Active Active Problems Problem Noted Date Diagnosed Date Chronic anemia 09/24/2018 Family History Medical History Relation Name Comments Cancer Brother 1 Heart Surgery Brother 1 Healthy Brother 2 Healthy Brother 3 Heart Attack Father Heart Attack Mother Relation Name Status Comments Brother 1 Alive Brother 2 Alive Brother 3 Alive Father Mother Social History Tobacco Use Types Packs/Day Years Used Date Smoking Tobacco: Never Smokeless Tobacco: Never Alcohol Use Standard Drinks/Week Comments No 0 (1 standard drink = 0.6 oz pur e alcohol) Comments No Sex and Gender Information Value Date Recorded Sex Assigned at Not on file Legal Sex Female 12:28 PM CDT Gender Identity Not on file Sexual Orientation Not on file Last Filed Vital Signs Vital Sign Reading Time Taken Comments Blood Pressure 146/74 10/01/2018 1:07 PM CDT Pulse 68 10/01/2018 1:07 PM CDT Temperature 36.8 C (98.2 F) 09/24/2018 2:14 PM CDT Respiratory Rate - - Oxygen Saturation 96% 10/01/2018 1:07 PM CDT Inhaled Oxygen Concentration - - Weight 80.8 kg (178 lb 3.2 oz) 10/01/2018 1:07 P M CDT Height 162.6 cm (5' 4) 10/01/2018 1:07 PM CDT Body Mass Index 30.59 10/01/2018 1:07 PM CDT Plan of Treatment Health Maintenance Due Date Last Done Comments DIABETES ANNUAL FOOT EXAM 1958 DIABETES ANNUAL RETINAL EXAM 1958 DIABETES HBA1C Q 6 MONTHS 1956 DIABETES MICROALBUMIN ANNUAL SCREEN 1956 LDL CHOLESTEROL ANNUAL 1958 DTAP/TDAP/TD VACCINES (1 - Tdap) 1957 PNEUMOCOCCAL VACCINE 50+ YEARS (1 of 2 - PCV) 09/20/18 58 ZOSTER VACCINE (1 of 2) 1988 OSTEOPOROSIS SCREENING 09/21/2003 RSV VACCINE (60+ or ) (1 - 1-dose 75+ series) 2013 INFLUENZA VACCINE (#1) 2025 Insurance [employer] HMO MCR Care Teams Welder Apprentice Relationship Specialty Start Date End Date Abena Mccabe MD [address] [place] [id number] PCP - General Family Practice 09/06/18
--- OUTSIDE RECORDS SUMMARY | 2025-01-25 14:44 | XMS_ITS | Encounter Summary ---
Author Organization [facility] Address Formerly [facility] [place] [address] Care Team Providers Care Book Packer Name Role Phone Latoya Last Primary Care Provider [phone] Ruben Rosales MD Unavailable [phone] Ruben Reeves DO Primary Care Provider [phone] Encounter Details Date Type Department Care Team (Late st Contact Info) Description 10/20/2024 Abstract [facility], [address] [address] Latoya Hall MA Social History Tobacco Use Types Packs/Day Years Used Date Smoking Tobacco: Never Passive Smoke Exposure: Never Smokeless Tobacco: Never Alcohol Use Standard Drinks/Week Comments Never 0 (1 standard drink = 0.6 oz pur e alcohol) [facility] Utilities Answer Date Recorded In the past 12 months has e electric, gas, oil, or water company threatened to shut off services in your home? No 02/27/2024 Humiliation, Afraid, Rape, and Kick questionnair e Answer Date Recorded Within the last year, have y ou been afraid of your partner or ex-partner? No 02/27/2024 Within the last year, have y ou been humiliated or emotionally abused in other ways by your partner or ex-partner? No Within the last year, have y ou been kicked, hit, slapped, or otherwise physically hurt by your partner or ex-partner? No 02/27/2024 Within the last year, have y ou been raped or forced to have any kind of sexual activity by your partner or ex-partner? No 02/27/2024 Social Connection and Isolat ion Panel [NHANES] Answer Date Recorded In a typical week, how many times do you talk on the phone with family, friends, or neighbors? More than three times a week 12/07/2022 How often do you get togethe r with friends or relatives? More than three times a week 12/07/2022 How often do you attend chur or anabaptist services? 1 to 4 times per year 12/07/2022 Do you belong to any clubs o r organizations such as mandaeism groups, unions, fraternal or athletic groups, or school groups? No 12/07/2022 How often do you attend meet ings of the clubs or organizations you belong to? Never 12/07/2022 Are you , , di vorced, , never , or living with a partner? 12/07/2022 AUDIT-C Answer Date Recorded Q1: How often do you have a drink containing alcohol? Never 12/07/2022 Q2: How many drinks containi ng alcohol do you have on a typical day when you are drinking? Patient does not drink Q3: How often do you have si x or more drinks on one occasion? Never 12/07/2022 Overall Financial Resource Strain (CARDIA) Answe r Date Recorded How hard is it for you to pa y for the very basics like food, housing, medical care, and heating? Not hard at all 02/27/2024 PHQ-2 Answer Date Recorded Patient Health Questionnaire-2 Score 0 08/28/2024 [facility] [place] [facility] - Occupational Stress Questionnaire Answer Date Recorded Do you feel stress - tense, restless, nervous, or anxious, or unable to sleep at night because your mind is troubled all the time - these days? Only a little 12/27/2022 Exercise Vital Sign Answer Date Recorde d On average, how many days pe r week do you engage in moderate to strenuous exercise (like a brisk walk)? 0 days 12/07/2022 On average, how many minutes do you engage in exercise at this level? 0 min 12/07/2022 Hunger Vital Sign Answer Date Recorded Within the past 12 months, y ou worried that your food would run out before you got the money to buy more. Never true 02/27/20 24 Within the past 12 months, t he food you bought just didn't last and you didn't have money to get more. Never true 02/27/2024 PRAPARE - Transportation Answer Date Re corded In the past 12 months, has l ack of transportation kept you from medical appointments or from getting medications? No 02/16 In the past 12 months, has l ack of transportation kept you from meetings, work, or from getting things needed for daily living? No 02/27/2024 Housing Stability Vital Sign Answer Donny e Recorded In the last 12 months, was t here a time when you were not able to pay the mortgage or rent on time? No 12/27/2022 In the last 12 months, how many places have you lived? 1 12/27/2022 In the last 12 months, was t here a time when you did not have a steady place to sleep or slept in a penitentiary (including now)? No 12/27/2022 Housing Stability Vital Sign Answer Donny e Recorded In the last 12 months, was t here a time when you were not able to pay the mortgage or rent on time? No 02/27/2024 In the past 12 months, how m any times have you moved where you were living? 1 02/27/2024 At any time in the past 12 m [facility], were you homeless or living in a penitentiary (including now)? No 02/27/2024 Comments No Sex and Gender Information Value Date Recorded Sex Assigned at Female 08/28/2024 10:54 AM CDT Legal Sex Female 12:43 AM [employer] Gender Identity Not on file Sexual Orientation Not on file documented as of this encounter Functional Status * Are you deaf or do you have serious difficulty hearing Answer Date of Assessment Author Status No 02/27/2024 5:29 PM CDT Josselin Velasco R N Active * Are you blind or do you have serious difficulty seeing, even when wearing glasses? Answer Date of Assessment Author Status No 02/27/2024 5:29 PM CDT Josselin Velasco R N Active * Do you have serious difficulty walking or climbing stairs? Answer Date of Assessment Author Status Yes 02/27/2024 5:29 PM CDT Josselin Velasco R N Active * Do you have difficulty dressing or bathing? Answer Date of Assessment Author Status Yes 02/27/2024 5:29 PM CDT Josselin Velasco R N Active * Because of a physical, mental, or emotional condition, do you have difficulty doing errands alone such as visiting a doctor's office or shopping? Answer Date of Assessment Author Status Yes 02/27/2024 5:29 PM CDT Josselin Velasco R N Active documented as of this encounter Mental Status * Because of a physical, mental, or emotional condition, do you have serious difficulty concentrating, remembering, or making decisions? Answer Entry Date Author Status No 02/27/2024 5:29 PM CDT Josselin Velasco R N Active documented in this encounter Plan of Treatment Upcoming Encounters Date Type Department Care Team (Late st Contact Info) Description 01/30/2025 9:40 AM CDT Office Visit [facility] - [facility] [address] [place] [address] Hal Flores MD [address] [place] [address] 02/11/2025 9:45 AM CDT [facility], [facility] [address] [place] [address] Ruben Rosales MD [facility]. [facility] [address] [place] [address] 04/20/2025 10:25 AM [employer] Allied Health[facility], [address] [place] [address] Judah Melchor MD Three [facility]. [address] [place] [address] documented as of this encounter Goals Goal Patient Goal Type Associated Problems Recent Progress Patient-Stated? Author Consistently take medications as Prescribed General On track(2022 10:18 AM CDT) No Ema Dorsey RN Patient will return to prior living situation and remain independent in ADLs upon discharge from hospital Lifestyle No Carol Orozco RN Establish Plan for Symptom Monitoring Lifestyle On track(2022 10:18 AM CDT) No Radha Garcia RN Note: CHF: Patient to adhere to a low sodium diet. Patient to weigh daily and report weight gain >3 pounds overnight or >5 pounds in a week. Patient to report any increase in swelling to lower extremities or increase in shortness of breath. Patient to monitor blood pressure and report consistent readings >140/90. Establish Plan for Symptom Monitoring Lifestyle On track(2022 10:18 AM CDT) No Radha Garcia, SANDRA Note: DM: Patient to follow diabetic medication regimen. Patient will maintain a carb consistent diet and avoid concentrated sweets. Patient will monitor blood sugar readings at least twice a day and call provider with consistent readings <80 and >200. If symptoms of excessive hunger, blurred vision, shakiness, light headedness, anxiety present, check blood sugar if able or treat the hypoglycemia. If glucose is less than 70, take 15 grams of glucose that is half a cup of juice or milk or regular soda or 3 glucose tablets and recheck in 15 minutes. Health - patient able to perform ADLs independently Lifestyle On track(2022 9:32 AM CDT) No Radha Garcia, calender let off operator - family caregiver with be involved in care transitions and discharge planning Lifestyle No Maame Nichols, oncology navigator Patient/family verbalizes understanding regarding the need for SNF placement Lifestyle No Maame Nichols RN documented as of this encounter Procedures Procedure Name Priority Date/Time Associated Diagnosis Comments CBC (OUTSIDE LAB) Routine 10/17/2024 BASIC METABOLIC PANEL Routine 10/17/2024 documented in this encounter Results * CBC (OUTSIDE LAB) (10/17/2024) WBC 6.74 HGB 10.9 HCT 37.7 PLT 220 10/17/2024 us Default History Genericprovider LAB-OUTSIDE/ABST RACTED Final Result * (ABNORMAL) BASIC METABOLIC PANEL (10/17/2024) SODIUM S/P/B 139 POTASSIUM S/P/B 4.6 CO2 28 CHLORIDE S/P/B 103 GLUCOSE 191 mg/dL CALCIUM S/P/B 8.5 BUN 34 CREATININE S/P/B 1.75(A) 0.5 - 1.0 GFR ESTIMATE 28 10/17/2024 us Default History Genericprovider LABORATORY Final Result documented in this encounter Visit Diagnoses Not on filedocumented in this encounter Additional Health Concerns Infection Onset Date Last Indicated Resolved Time ESBL - Extended Spectrum Beta-lactamase Comment:06/29/21 +ESBL Urine 07/26/21 +ESBL Urine 07/01/2021 07/01/2021 Respiratory Rule Out 11/26/2024 11/27/2024 025 4:35 AM CDT Rhinovirus 11/27/2024 11/27/2024 12/07/2024 7:55 PM CDT Assessment Noted Time PHQ-9 Depression Total Score: 0 08/12/19 8:17 AM [employer] documented as of this encounter Care Teams Book Packer Relationship Specialty Start Date End Date Latoya Last FNP [address] [place] [id number] PCP - General Nurse Practitioner Family 06/23/21 11/26/24 Rbuen Reeves DO [address] [address] PCP - General INTERNAL MEDICINE 11/27/24 Ruben Rosales MD [address] [address] Consulting Physician CARDIOVASCULAR DISEASE 06/12/24 documented as of this encounter
--- OUTSIDE RECORDS SUMMARY | 2025-01-25 14:44 | XMS_ITS | Clinical Summary ---
Author Organization [facility] Address [facility] [place] [address] Care Team Providers Care Ice Seller Name Role Phone Ruben Rosales MD Unavailable [phone] Ruben Reeves DO Primary Care Provider [phone] Allergies Active Allergy Reactions Criticality Noted Date Comments Codeine Nausea Only,Unknown Low 05/20/2021 Tape Unknown 07/16/2024 Medications magnesium oxide (MAG-OX) 400 (240 Mg) MG tabletIndications :Low magnesium level take 1 tablet by mouth twice daily 180 tablet 024 Active carvedilol (COREG) 6.25 MG tablet Take 1 tablet (6.25 mg total) by mouth 2 (two) times daily. 60 tablet 024 Active apixaban (ELIQUIS) 2.5 MG tabletIndications :Atrial Fibrillation Take 1 tablet (2.5 mg total) by mouth 2 (two) times daily. Indications: Atrial Fibrillation 60 tablet 024 Active lidocaine 4 % patch Place 1 patch onto the skin daily. Remove & Discard patch within 12 hours or as directed by MD 30 patch Active insulin lispro (HUMALOG) 100 UNIT/ML injection (VIAL) Inject 0-16 Units into the skin 3 (three) times daily before meals. 10 mL 024 Active Additional Information Patient taking differently: 0-10 UnitsSubcutaneous 3 times daily before meals, Reported on 11/26/2024 pantoprazole EC (PROTONIX) 40 MG tablet Take 1 tablet (40 mg total) by mouth daily. Active acetaminophen (TYLENOL) 325 MG tablet Take 2 tablets (650 mg total) by mouth every 4 (four) hours as needed for Pain. Activ e methIMAzole (TAPAZOLE) 5 MG tablet Take 1 tablet (5 mg total) by mouth daily. 30 tablet 024 Active pregabalin (LYRICA) 50 MG capsuleIndication s:Chronic bilateral low back pain without sciatica Take 1 capsule (50 mg total) by mouth 2 (two) times daily. 90 capsule Active potassium chloride CR (K-TAB) 20 MEQ tablet Take 2 tablets (40 mEq total) by mouth daily. 30 tablet Active insulin glargine (LANTUS) 100 UNIT/ML injection (VIAL) Inject 20 Units into the skin nightly at bedtime. 10 mL Active Additional Information Patient taking differently:20 Units SubcutaneousBID, Reported on 11/26/2024 bumetanide (BUMEX) 2 MG tablet Take 1 tablet (2 mg total) by mouth 2 (two) times daily. 30 tablet 024 Active rosuvastatin (CRESTOR) 40 MG tabletIndications :Mixed hyperlipidemia TAKE 1 TABLET(40 MG) BY MOUTH EVERY NIGHT AT BEDTIME 90 tablet 3 Active clopidogrel (PLAVIX) 75 MG tablet Take 1 tablet (75 mg total) by mouth daily. Active ipratropium-albut brea (DUONEB) 0.5-2.5 (3) MG/3ML Solution Take 3 mLs by nebulization every 8 (eight) hours as needed (wheezing, shortness of breath). Active acidophilus-sporo genes (ACIDOPHILUS) tablet Take 1 tablet by mouth 2 (two) times daily. Active insulin lispro (HUMALOG/ADMELOG) 100 UNIT/ML injection (VIAL) Inject 5-10 Units into the skin 3 (three) times daily before meals. 10 units with breakfast and supper; 5 units with lunch Active guaiFENesin (ROBITUSSIN) 100 MG/5ML solution Take 10 mLs (200 mg total) by mouth every 8 (eight) hours as needed for Cough. Active Active Problems Problem Noted Date Diagnosed Date CHF (congestive heart failure) (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) 07/20/2024 Dyspnea 05/26/2024 Pressure injury 05/26/2024 CHF exacerbation ([facility]) 01/14/2024 Vitamin D deficiency, unspecified 12/10/2023 Vitamin B 12 deficiency 12/10/2023 Chronic bilateral low back pain without sciatica 04/03/2023 Physical deconditioning 01/10/2023 Stage 3a chronic kidney disease 12/07/2022 Multinodular goiter 10/09/2022 Chronic diastolic congestive heart failure ([facility]) 06/01/2022 Fall, subsequent encounter 01/25/2022 Vertigo 01/25/2022 Odontoid fracture with type II morphology and no nunion 12/05/2021 History of infection due to extended spectrum beta lactamase (ESBL) producing bacteria 09/05/[address] 06/26/2021 Hyperlipidemia 01/19/2021 Primary hypertension 01/19/2021 Presence of cardiac pacemaker 01/08/2021 Overview (05/20/2021): Biotronik Edora Dual Pacemaker. Dx; CHB, Aflutter. DOI 01/08/2021-Dr Ireland. Biotronik remote. Atrial flutter with rapid ve ntricular response ([facility]) 01/03/2021 CHB (complete heart block) ([facility]) 06/2020 Overview (01/11/2024): 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 Anxiety 03/17/2019 Transient ischemic attack 03/17/2019 Abnormal PFTs (pulmonary function tests) 019 Hyperthyroidism 09/09/2018 Nonrheumatic aortic valve stenosis 09/09/2018 DOREEN (obstructive sleep apnea) 09/09/2018 Pulmonary HTN ([facility]) 09/09/2018 Type 2 diabetes mellitus ([facility]) 09/09 Resolved Problems Problem Noted Date Diagnosed Date Resolved Date Acute cystitis without hematuria 04/04/2023 12/06/2023 Weakness generalized 01/10/2023 024 Frequent hospital admissions 01/10/2023 01/15/2023 CHF (congestive heart failur e) ([facility]) 12/26/2022 01/09/2023 CHF exacerbation ([facility]) 11/28/2022 12/06/2023 Lymphadenopathy 01/25/2022 12/06/2023 Recent urinary tract infection 09/05/2021 05/30/2022 UTI (urinary tract infection) 07/29/2021 05/30/2022 UTI (urinary tract infection ) due to urinary indwelling catheter 07/29/2021 01/09/2023 Diabetic ulcer of left heel associated with type 2 diabetes mellitus, limited to breakdown of skin ([facility]) 07/26/202112/17 Pressure injury of left heel, unstageable 07/26/2021 12/07/2022 At high risk for skin breakdown 07/26/2021 05/30/2022 Cellulitis of right heel 07/26/2021 Hyperkalemia 07/26/2021 12/06/2023 History of kidney injury 07/14/2021 Hyperglycemia due to diabete s mellitus ([facility]) 06/29/2021 05/30/2022 Chronic kidney disease, unspecified CKD stage 06/26/1901/09/2023 Urinary retention 06/14/2021 12/06/2023 DKA (diabetic ketoacidosis) ([facility]) 05/20/2005/30/2022 Closed type III fracture of odontoid process ([facility]) 05/02/2021 12/05/2021 History of transient ischemic attack (TIA) 09/09/2018 05/30/2022 Non-rheumatic mitral valve stenosis 09/09/2018 06/20/2022 Encounters Date Type Department Care Team Description 01/15/2025 Telephone [facility], [address] [address] Diane Mclaughlin COAL BAGGER-C Appointment Request 01/13/2025 9:00 AM CDT Allied Health/Nurse Visit [facility], [address] [address] Kel Melchor MD Remote Device Check 01/08/2025 Results Follow-Up [facility], [address] [address] Rebecca Coronado RN USE ECHO 2D FU LTD W CON 01/01/2025 9:47 AM CDT - 01/01/2025 11:59 PM CDT Hospital Encounter [facility] [place] [address] Ruben Rosales MD Discharge Disposition: Home or Self Care (Routine Discharge) 01/01/2025 Travel 11/26/2024 6:53 PM CDT - 12/02/2024 2:42 PM CDT Hospital Encounter [facility] [place] [address] Monty Fraser MD Alexander, Kaci M, DO Tran, Isaac T, MD Simpson, Stephanie L, Shortness Of Breath Discharge Disposition: Intermediate Facility 11/26/2024 Travel from Last 3 Months Immunizations Immunization Administration Dates Next Due Fluzone High Dose - >Age 65 (Prefilled Syringe) 04/03/2023,04/18/2021,04/05/2020 Influenza Adult (Generic) 05/02/2019,08/15/2018 PFIZER COVID-19 (OSBORN CAP), MRNA, LNP-S, PF, 30 MCG/0.3 ML LAMAR-SUCROSE, IM 12/16/2021 PFIZER COVID-19 (ORIGINAL FO RMULATION, PURPLE CAP) mRNA, LNP-S, PF, 30 MCG/0.3 ML DOSE 02/04/2021,01/13/2021 Pneumococcal (Pneumovax 23) 06/23/2021 Pneumococcal (Prevnar 20) 04/03/2023 Tdap (Adacel) 10/04/2023 Family History Medical History Relation Comments Open Heart Brother Stent Cardiac Brother Heart Attack Father Heart Attack Mother Heart Attack Sister 1 Relation Status Comments Brother Alive Father (Age 57) Mother (Age 82) Sister 1 Alive Sister 2 Alive Social History Tobacco Use Types Packs/Day Years Used Date Smoking Tobacco: Never Passive Smoke Exposure: Never Smokeless Tobacco: Never Tobacco Cessation:Counseling Given: Yes Alcohol Use Standard Drinks/Week Comments Never 0 (1 standard drink = 0.6 oz pur e alcohol) [facility] Utilities Answer Date Recorded In the past 12 months has e [employer], gas, oil, or water [employer] threatened to shut off services in your home? No 11/27/2024 Humiliation, Afraid, Rape, and Kick questionnair e Answer Date Recorded Within the last year, have y ou been afraid of your partner or ex-partner? No 11/27/2024 Within the last year, have y ou been humiliated or emotionally abused in other ways by your partner or ex-partner? No Within the last year, have y ou been kicked, hit, slapped, or otherwise physically hurt by your partner or ex-partner? No 11/27/2024 Within the last year, have y ou been raped or forced to have any kind of sexual activity by your partner or ex-partner? No 11/27/2024 Social Connection and Isolat ion Panel [NHANES] Answer Date Recorded In a typical week, how many times do you talk on the phone with family, friends, or neighbors? More than three times a week 12/07/2022 How often do you get togethe r with friends or relatives? More than three times a week 12/07/2022 How often do you attend chur ch or yazidi services? 1 to 4 times per year 12/07/2022 Do you belong to any clubs o r organizations such as worship groups, unions, fraternal or athletic groups, or [...] care, and heating? Not hard at all 11/27/2024 PHQ-2 Answer Date Recorded Patient Health Questionnaire-2 Score 0 08/28/2024 [facility] - Occupational Stress [...] the money to buy more. Never true 11/28/19 25 Within the past 12 months, t he food you bought just didn't last and you didn't have money to get more. Never true 11/27/2024 PRAPARE - Transportation Answer Date Re corded In the past 12 months, has l ack of transportation kept you from medical appointments or from getting medications? No 11/16 In the past 12 months, has l ack of transportation kept you from meetings, work, or from getting things needed for daily living? No 11/27/2024 Housing Stability Vital Sign Answer Donny e [...] place to sleep or slept in a care home (including now)? No 12/27/2022 Housing Stability Vital Sign Answer Donny e Recorded In the last 12 months, was t here a time when you were not able to pay the mortgage or rent on time? No 11/27/2024 In the past 12 months, how m any times have you moved where you were living? 1 11/27/2024 At any time in the past 12 m [facility], were you homeless or living in a care home (including now)? 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 Gender Identity Not on file Sexual Orientation Not on file Last Filed Vital Signs Vital Sign Reading Time Taken Comments Blood Pressure 125/69 12/02/2024 11:37 AM CDT Pulse 70 12/02/2024 11:37 AM CDT Temperature 36.4 C (97.5 F) 12/02/2024 11:37 AM CDT Respiratory Rate 22 12/02/2024 11:3 7 AM CDT Oxygen Saturation 96% 12/02/2024 11: 37 AM CDT Inhaled Oxygen Concentration - - Weight 77.5 kg (170 lb 13.7 oz) 11/29/2024 3:28 AM CDT Height 157.5 cm (5' 2) 11/26/2024 6:32 PM CDT Body Mass Index 31.25 11/26/2024 6:32 PM CDT Plan of Treatment Upcoming Encounters Date Type Department Care Team (Late st Contact Info) Description 01/30/2025 9:40 AM CDT Office Visit [facility] Multispec[facility]ty [facility] - [facility] [address] [facility] [place] [phone] Hal Flores MD [address] [facility] [address] [place] [address] 02/11/2025 9:45 AM CDT Office Visit [facility], [facility] [address] [place] [address] Ruben Rosales MD [facility]. 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 [address] [place], [place] [id number] Health Maintenance Due Date Last Done Comments Zoster Vaccines (1 of 2) 1988 Annual Medicare Wellness Visit 09/21/2003 RSV Immunization or 60+ Years (1 - 1-dose 75+ series) 2013 COVID-19 Vaccine ( season) 2024 12/16/2021, 02/04/2021, 01/13/2021 Diabetes: Retinopathy Eye Exam 11/15/2024 11/16/2023 Lipid Panel 03/10/2025 03/10/2024, 06/18, 09/14/2020, Additional history exists Hemoglobin A1C 05/29/2025 11/27/2024, 02/16, 10/04/2023, Additional history exists DTaP, Tdap and Td Vaccines (2 - Td or Tdap) 10/03/2033 10/04/2023 Pneumococcal Vaccine: 50+ Years Completed 04/03/2023, 06/23/2021 PHQ-2 (Physician [place]) Completed 08/28/2024 Meningococcal B Vaccine Aged Out No l onger eligible based on patient's age to complete this topic Meningococcal Vaccine Aged Out No jomar jenny eligible based on patient's age to complete this topic RSV Immunizations Under 20 Months Aged Out No longer eligible based on patient's age to complete this topic Goals Goal Patient Goal Type Associated Problems [...] AM CDT) No Radha Garcia RN Note: DM: Patient to follow diabetic medication [...] On track(2022 9:32 AM CDT) No Radha Garcia fisher net - family caregiver with be involved in care transitions and discharge planning Lifestyle No Maame Nichols, wood calker Patient/family verbalizes understanding regarding the need for SNF placement Lifestyle No Maame Nichols fisher net - family caregiver with be involved in care transitions and discharge planning Lifestyle No Vivienne Kirkland RN Medical Devices Implanted Type Area Drill Press Operator Helper Device Identifier Shelf Expiration Date Model / Serial / Lot Atrial Lead-01/08/2021 Implanted:12/17 (Quantity not on file) Lead Implant BIOTRONIK SOLIA S 45 / [id number] / Rv Lead-01/08/2021 Implanted:07/2 09/2020 (Quantity not on file) Lead Implant BIOTRONIK SOLIA S 53 / [id number] / Bio Pacemaker-01/08 Implanted:Qty: 1 on 01/08/2021 by Nazario Ireland MD Pacemaker BIOTRONIK EDORA 8 RUBÉN / [id number] / Procedures Procedure Name Priority Date/Time Associated Diagnosis Comments USE ECHO 2D FU LTD W CON Routine 01/01/2025 11:27 AM CDT Acute diastolic congestive heart failure (CMS/HCC HHS/HCC) Presence of cardiac pacemaker POCT GLUCOSE - DOCKED DEVICE Routine 12/02/2024 10:46 AM CDT POCT GLUCOSE - DOCKED DEVICE Routine 12/02/2024 6:01 AM CDT CBC W/DIFF AUTOMATED Routine 12/02/2024 6:01 AM CDT BASIC METABOLIC PANEL Routine 12/02/2024 6:01 AM CDT MAGNESIUM Routine 12/02/2024 6:01 AM CDT POCT GLUCOSE - DOCKED DEVICE Routine 12/02/2024 5:03 AM CDT POCT GLUCOSE - DOCKED DEVICE Routine 12/01/2024 7:41 PM CDT POCT GLUCOSE - DOCKED DEVICE Routine 12/01/2024 3:15 PM CDT POCT GLUCOSE - DOCKED DEVICE Routine 12/01/2024 10:41 AM CDT CBC W/DIFF AUTOMATED Routine 12/01/2024 6:22 AM CDT BASIC METABOLIC PANEL Routine 12/01/2024 6:22 AM CDT MAGNESIUM Routine 12/01/2024 6:22 AM CDT POCT GLUCOSE - DOCKED DEVICE Routine 12/01/2024 6:08 AM CDT POCT GLUCOSE - DOCKED DEVICE Routine 11/30/2024 6:57 PM CDT POCT GLUCOSE - DOCKED DEVICE Routine 11/30/2024 3:55 PM CDT POCT GLUCOSE - DOCKED DEVICE Routine 11/30/2024 11:20 AM CDT CBC W/DIFF AUTOMATED Routine 11/30/2024 7:20 AM CDT BASIC METABOLIC PANEL Routine 11/30/2024 7:20 AM CDT MAGNESIUM Routine 11/30/2024 7:20 AM CDT POCT GLUCOSE - DOCKED DEVICE Routine 11/30/2024 6:14 AM CDT POCT GLUCOSE - DOCKED DEVICE Routine 11/29/2024 8:35 PM CDT USE ECHOCARDIOGRAM W CON Today 11/29/2024 5:59 PM CDT POCT GLUCOSE - DOCKED DEVICE Routine 11/29/2024 3:05 PM CDT TROPONIN, QUANT Routine 11/29/2024 1:49 PM CDT POCT GLUCOSE - DOCKED DEVICE Routine 11/29/2024 11:03 AM CDT MAGNESIUM Routine 11/29/2024 7:42 AM CDT BASIC METABOLIC PANEL Routine 11/29/2024 7:42 AM CDT CBC W/DIFF AUTOMATED Routine 11/29/2024 7:42 AM CDT POCT GLUCOSE - DOCKED DEVICE Routine 11/29/2024 5:37 AM CDT POCT GLUCOSE - DOCKED DEVICE Routine 11/28/2024 8:35 PM CDT XR CHEST PORTABLE STAT 11/28/2024 4:1 8 PM CDT POCT GLUCOSE - DOCKED DEVICE Routine 11/28/2024 3:41 PM CDT POCT GLUCOSE - DOCKED DEVICE Routine 11/28/2024 10:46 AM CDT PROCALCITONIN (PCT) Routine 11/28/2024 9 :47 AM CDT MAGNESIUM Routine 11/28/2024 9:47 AM CDT BASIC METABOLIC PANEL Routine 11/28/2024 9:47 AM CDT CBC W/DIFF AUTOMATED Routine 11/28/2024 9:47 AM CDT POCT GLUCOSE - DOCKED DEVICE Routine 11/28/2024 4:54 AM CDT POCT GLUCOSE - DOCKED DEVICE Routine 11/27/2024 8:08 PM CDT POCT GLUCOSE - DOCKED DEVICE Routine 11/27/2024 4:06 PM CDT POCT GLUCOSE - DOCKED DEVICE Routine 11/27/2024 11:01 AM CDT HEMOGLOBIN, GLYCOSYLATED Routine 11/27/2024 7:00 AM CDT COMPREHENSIVE METABOLIC PANEL Routine 11/27/2024 7:00 AM CDT CBC W/DIFF AUTOMATED Routine 11/27/2024 7:00 AM CDT POCT GLUCOSE - DOCKED DEVICE Routine 11/27/2024 5:10 AM CDT POCT GLUCOSE - DOCKED DEVICE Routine 11/27/2024 2:59 AM CDT RESPIRATORY PCR PANEL 2 Routine 11/28/19 12:25 AM CDT LACTIC ACID W REFLEX (SEPSIS) TIMED 11/26/2024 9:04 PM CDT ECG 12-LEAD Routine 11/26/2024 7:18 PM CDT LACTIC ACID W REFLEX (SEPSIS) STAT 11/26/2024 7:04 PM CDT PROCALCITONIN (PCT) STAT 11/26/2024 7 :04 PM CDT PRO-BRAIN NATRIURETIC PEPTIDE STAT 11/26/2024 7:04 PM CDT TROPONIN, QUANT STAT 11/26/2024 7:04 PM CDT COMPREHENSIVE METABOLIC PANEL STAT 11/26/2024 7:04 PM CDT CBC W/DIFF AUTOMATED STAT 11/26/2024 7:04 PM CDT XR CHEST PORTABLE STAT 11/26/2024 7:0 2 PM CDT LIPID PANEL Routine 03/10/2024 6:30 AM CDT DIABETIC RETINOPATHY EXAM (POSITIVE)(SCAN ORDER) Routine 11/16/2023 from Last 3 Months or Most Recently Relevant to Health Maintenance Results * USE ECHO 2D FU LTD W CON (01/01/2025 11:27 AM CDT) Anatomical Region Laterality Modality NA Echocardiogram 01/01/2025 10:3 1 AM CDT Narrative 01/07/2025 8:36 PM CDT Echocardiography Report Pat.Name: LARY OLIVER Fabian.ID: [id number] St.Date: 01/01/2025 Refer.: [id number] DOMENICA Mathews EWDPROV EWDPROV Exam Time: 10:31:00 AM Study Type:ECHO WITH CARDIAC DOPPLER COMP Height: 62 in Weight: 170 lb BSA: 1.78 m2 Age: 4 1940,84Y Sex: F BP: 146/74 HR: 99 bpm Sonogrphr: Alisia Fuller Pat. Stat.:Outpatient Reason for Study:Congestive heart failure Procedures: 2D, M-mode, Doppler, Color Flow, Definity was used to enhance endocardial definition. The study quality is technically difficult. Limited. Race: W ++++++++++++++++++++++++++++++++++++ SUMMARY: ++++++++++++++++++++++++++++++++++++ The left ventricular size is normal. Estimated left ventricular ejection fraction is 65-70%. Moderate concentric left ventricular hypertrophy. Left ventricular diastolic function is abnormal (grade 2 - pseudonormal pattern). No evidence of pericardial effusion. The peak pulmonary artery systolic pressure is estimated to be approximately 64 mmHg. Aortic valve prosthesis visualized. Moderate mitral regurgitation. Severe calcification of mitral valve leaflets. The mean gradient across the mitral valve is 9 at a heart rate of 79. Moderate tricuspid regurgitation. ++++++++++++++++++++++++++++++++++++ FINDINGS: ++++++++++++++++++++++++++++++++++++ LV: The left ventricular size is normal. Estimated left ventricular ejection fraction is 65-70%. Moderate concentric left ventricular hypertrophy. Left ventricular diastolic function is abnormal (grade 2 - pseudonormal pattern). ELVIN: No evidence of pericardial effusion. PA: The peak pulmonary artery systolic pressure is estimated to be approximately 64 mmHg. Estimated right atrial pressure of 15 mmHg. SVn: Inferior vena cava is mildly enlarged. AV: Aortic valve prosthesis visualized. MV: Moderate mitral regurgitation. Severe calcification of mitral valve leaflets. The mean gradient across the mitral valve is 9 at a heart rate of 79. TV: Moderate tricuspid regurgitation. No evidence of tricuspid valve stenosis. ++++++++++++++++++++++++++++++++++++ MEASUREMENTS: ++++++++++++++++++++++++++++++++++++ DOPPLER MV Forward Flow MV DeTm 233 msec MV mnPG 9 mmHg MVA P1/2t 3.24 cm2 (4-6)* MV pkPG 23 mmHg MV P1/2t 68 msec (30-60)+* MV pkE 218 cm/s (60-130)* MV Regurg Flow MV TVI 156 cm MV pkPG 109 mmHg MV mnPG 79 mmHg MV pkVel 522 cm/s (60-130)+* MV mnVel 425 cm/s TV Regurg Flow TV pkPG 49 mmHg TV pkVel 351 cm/s (30-70)* Lat E' Lat e 6.96 cm/s Lat E/E' Lat E/e 31.3 Med E' Med e 4.9 cm/s Med E/E' Med E/e 44.5 2D Left Ventricle LVIDd 3.65 cm (3.6-5.2) LV ESV 29.3 ml LVIDs 2.71 cm (2.3-3.9) LV ESV 24.5 ml LngAxd 7.63 cm LVESV BP 27.1 ml LngAxd 7.81 cm LV EF 70.7 % LV EDV 100 ml LV EF 67 % LV EDV 74.3 ml LV EF BP 69 % LVEDV BP 87.3 ml LV SV 70.7 ml LngAxs 6.27 cm LV SV 49.8 ml LngAxs 6.46 cm LV SV BP 60.2 ml LVPW LVPWd 1.43 cm Ventricular Septum IVSd 1.43 cm Ratios IVS <Electronic Signature> 01/07/2025 08:36 PM Ruben Rosales M.D. Procedure Note Ruben Rosales MD - 01/07/2025 Echocardiography Report Pat.Name: LARY OLIVER.ID: [id number] .Date: 01/01/2025 Refer.: [id number] DOMENICA Mathews EWDPROV EWDPROV Exam Time: 10:31:00 AM Study Type:ECHO WITH CARDIAC DOPPLER COMP Height: 62 in Weight: 170 lb BSA: 1.78 m2 Age: 4 1940,84Y Sex: F BP: 146/74 HR: 99 bpm Sonogrphr: Alisia Fuller Pat. Stat.:Outpatient Reason for Study:Congestive heart failure Procedures: 2D, M-mode, Doppler, Color Flow, Definity was used to enhance endocardial definition. The study quality is technically difficult. Limited. Race: W ++++++++++++++++++++++++++++++++++++ SUMMARY: ++++++++++++++++++++++++++++++++++++ The left ventricular size is normal. Estimated left ventricular ejection fraction is 65-70%. Moderate concentric left ventricular hypertrophy. Left ventricular diastolic function is abnormal (grade 2 - pseudonormal pattern). No evidence of pericardial effusion. The peak pulmonary artery systolic pressure is estimated to be approximately 64 mmHg. Aortic valve prosthesis visualized. Moderate mitral regurgitation. Severe calcification of mitral valve leaflets. The mean gradient across the mitral valve is 9 at a heart rate of 79. Moderate tricuspid regurgitation. ++++++++++++++++++++++++++++++++++++ FINDINGS: ++++++++++++++++++++++++++++++++++++ LV: The left ventricular size is normal. Estimated left ventricular ejection fraction is 65-70%. Moderate concentric left ventricular hypertrophy. Left ventricular diastolic function is abnormal (grade 2 - pseudonormal pattern). ELVIN: No evidence of pericardial effusion. PA: The peak pulmonary artery systolic pressure is estimated to be approximately 64 mmHg. Estimated right atrial pressure of 15 mmHg. SVn: Inferior vena cava is mildly enlarged. AV: Aortic valve prosthesis visualized. MV: Moderate mitral regurgitation. Severe calcification of mitral valve leaflets. The mean gradient across the mitral valve is 9 at a heart rate of 79. TV: Moderate tricuspid regurgitation. No evidence of tricuspid valve stenosis. ++++++++++++++++++++++++++++++++++++ MEASUREMENTS: ++++++++++++++++++++++++++++++++++++ DOPPLER MV Forward Flow MV DeTm 233 msec MV mnPG 9 mmHg MVA P1/2t 3.24 cm2 (4-6)* MV pkPG 23 mmHg MV P1/2t 68 msec (30-60)+* MV pkE 218 cm/s (60-130)* MV Regurg Flow MV TVI 156 cm MV pkPG 109 mmHg MV mnPG 79 mmHg MV pkVel 522 cm/s (60-130)+* MV mnVel 425 cm/s TV Regurg Flow TV pkPG 49 mmHg TV pkVel 351 cm/s (30-70)* Lat E' Lat e 6.96 cm/s Lat E/E' Lat E/e 31.3 Med E' Med e 4.9 cm/s Med E/E' Med E/e 44.5 2D Left Ventricle LVIDd 3.65 cm (3.6-5.2) LV ESV 29.3 ml LVIDs 2.71 cm (2.3-3.9) LV ESV 24.5 ml LngAxd 7.63 cm LVESV BP 27.1 ml LngAxd 7.81 cm LV EF 70.7 % LV EDV 100 ml LV EF 67 % LV EDV 74.3 ml LV EF BP 69 % LVEDV BP 87.3 ml LV SV 70.7 ml LngAxs 6.27 cm LV SV 49.8 ml LngAxs 6.46 cm LV SV BP 60.2 ml LVPW LVPWd 1.43 cm Ventricular Septum IVSd 1.43 cm Ratios IVS <Electronic Signature> 01/07/2025 08:36 PM Ruben Rosales M.D. Ruben Rosales MD ECHO Final Result * (ABNORMAL) POCT glucose (12/02/2024 10:46 AM CDT) Only the most recent of24 resultswithin the time period is included. GLUCOSE POC 307(H) 70 - 99 mg/dL 12/02/2024 11:[address] [facility] 12/02/2024 10:4 6 AM CDT Vanessa Hinkle DO POCT ORDERABLES - DEVICE Final Result [facility] [address] [place] [address], * (ABNORMAL) BASIC METABOLIC PANEL (12/02/2024 6:01 AM CDT) Only the most recent of5 resultswithin the time period is included. GLUCOSE 166(H) 70 - 99 MG/DL 12/02/2024 7:[address] [facility] BUN 60(H) 7 - 18 MG/DL 12/02/2024 7:[address] [facility] CREATININE S/P/B 1.59(H) 0.55 - 1.02 MG/DL 12/02/2024 7:[address] [facility] SODIUM S/P/B 140 136 - 145 MMOL/L 12/02/2024 7:[address] [facility] POTASSIUM S/P/B 3.9 3.5 - 5.1 MMOL/L 12/02/2024 7:[address] [facility] CHLORIDE S/P/B 104 97 - 115 MMOL/L 12/02/2024 7:[address] [facility] CO2 27.9 21 - 32 MMOL/L 12/02/2024 7:[address] [facility] CALCIUM S/P/B 8.7 8.5 - 10.1 MG/DL 12/02/2024 7:[address] [facility] ANION GAP 8.1 2 - 10 MMOL/L 12/02/2024 7:[address] [facility] BUN CREATININE RATIO 37.7(H) 6 - 26 12/02/2024 7:[address] [facility] GFR ESTIMATE 31(L) >90 ML/MIN/1.7 3 M2 12/02/2024 7:[address] [facility] Comment: NOTE: eGFR is not calculated for patients <18 years of age or gender unknown. This is an estimated GFR calculation using the new CKD EPI creatinine equation without race and so does not require a correction factor for race. This estimated GFR should not be used for calculating drug doses. 12/02/2024 6:01 AM CDT us Vanessa Hinkle DO LABORATORY Final Res ult [facility] [address] [place] [address], * (ABNORMAL) CBC W/DIFF AUTOMATED (12/02/2024 6:01 AM CDT) Only the most recent of7 resultswithin the time period is included. WBC 6.40 4.5 - 11.0 x10'3/uL 12/02/2024 6:[address] [facility] RBC 4.33 4.20 - 5.40 x10'6/uL 12/02/2024 6:[address] [facility] HGB 10.9(L) 12.0 - 16.0 G/DL 12/02/2024 6:[address] [facility] HCT 34.3(L) 38.0 - 48.0 % 12/02/2024 6:[address] [facility] MCV 79.2(L) 81.0 - 99.0 FL 12/02/2024 6:[address] [facility] MCH 25.2(L) 27.0 - 31.0 PG 12/02/2024 6:[address] [facility] MCHC 31.8(L) 32.0 - 36.0 G/DL 12/02/2024 6:[address] [facility] RDW 17.2(H) 11.5 - 14.5 % 12/02/2024 6:[address] [facility] PLT 182 130 - 400 x10'3/uL 12/02/2024 6:[address] [facility] MPV 11.8 9.3 - 12.2 FL 12/02/2024 6:[address] [facility] DIFFERENTIAL TYPE AUTOMATED DIFFERENTIAL 12/02/2024 6:[address] [facility] NEUTROPHILS % 60.4 % 12/02/2024 6:[address] [facility] LYMPHOCYTES % 20.8 % 12/02/2024 6:[address] [facility] MONOCYTES % 12.8 % 12/02/2024 6:[address] [facility] EOSINOPHILS 5.2 % 12/02/2024 6:[address] [facility] BASOPHILS 0.5 % 12/02/2024 6:[address] [facility] IMMATURE GRANS % 0.3 % 12/03/19 6:[address] [facility] ABS. NEUTROPHILS 3.87 1.80 - 7.70 x10'3/uL 12/02/2024 6:[address] [facility] ABS. LYMPHOCYTES 1.33 1.00 - 4.80 x10'3/uL 12/02/2024 6:[address] [facility] ABS. MONOCYTES 0.82 0.24 - 0.86 x10'3/uL 12/02/2024 6:[address] [facility] ABS. EOSINOPHILS 0.33 0.04 - 0.36 x10'3/uL 12/02/2024 6:[address] [facility] ABS. BASOPHILS 0.03 0.01 - 0.08 x10'3/uL 12/02/2024 6:[address] [facility] ABS. IMMATURE GRANULOCYTES 0.02 0.00 - 0.49 x10'3/uL 12/02/2024 6:[address] [facility] 12/02/2024 6:01 AM CDT Vanessa Hinkle DO LABORATORY Final Res ult [facility] [address] [place] [id number], [place] [phone] * (ABNORMAL) MAGNESIUM (12/02/2024 6:01 AM CDT) Only the most recent of5 resultswithin the time period is included. MAGNESIUM 2.5(H) 1.8 - 2.4 MG/DL 12/02/2024 7:[address] [facility] 12/02/2024 6:01 AM CDT Anthony Waters MD LABORATORY Final Result [facility] [address] [place] [id number], [place] [phone] * USE ECHOCARDIOGRAM W CON (11/29/2024 5:59 PM CDT) Anatomical Region Laterality Modality NA Echocardiogram 11/29/2024 4:27 PM CDT Narrative 11/30/2024 9:57 AM CDT Echocardiography Report Pat.Name: LARY OLIVER.ID: [id number] .Date: 11/29/2024 Exam Time: 4:27:00 PM Study Type:ECHO WITH CARDIAC DOPPLER COMP Height: 62 in Weight: 170 lb BSA: 1.78 m2 Age: 4 1940,84Y Sex: F BP: 108/64 Sonogrphr: SS RDCS Pat. Stat.:Inpatient Room: [facility] Reason for Study:CHF History / Clinical:H/O TAVR Procedures: 2D, M-mode, Doppler, Color Flow, Definity was used to enhance endocardial definition. Portable Race: W ++++++++++++++++++++++++++++++++++++ SUMMARY: ++++++++++++++++++++++++++++++++++++ The left ventricular size is normal. The left ventricular systolic function is normal. The calculated ejection fraction is 54%. Left ventricular diastolic function is abnormal (grade 2 - pseudonormal pattern). The peak velocity across the aortic valve measures 1.3m/sec with a peak gradient of 7mmHg and a mean gradient of 3mmHg. The calculated aortic valve area is 2.3cm2. Dimensionless index of 24/23. Moderate mitral regurgitation. Possible mitral valve stenosis - consider CARROLL for further evaluation. The mean gradient across the mitral valve is 9 at a heart rate of 70. The mitral valve area by pressure half time is 2.3. Moderate tricuspid regurgitation. Right ventricular systolic pressure is 60-70 mmHg suggestive of moderate-severe pulmonary hypertension. ++++++++++++++++++++++++++++++++++++ FINDINGS: ++++++++++++++++++++++++++++++++++++ LV: The left ventricular size is normal. The left ventricular systolic function is normal. The calculated ejection fraction is 54%. Mild concentric left ventricular hypertrophy. Left ventricular diastolic function is abnormal (grade 2 - pseudonormal pattern). The mean left atrial pressure is elevated. RV: The right ventricular size is enlarged. Right ventricular systolic function is depressed. The right ventricle not adequately visualized in all views. LA: The left atrial volume is mildly increased (34- 41ml/M2). RA: The right atrial size is normal. IAS: Atrial septum appears intact. ELVIN: No evidence of pericardial effusion. AO: Aorta not well visualized. SVn: Inferior vena cava is normal. Inferior vena cava shows <50% collapse with respiration consistent with elevated right atrial pressure. AV: The peak velocity across the aortic valve measures 1.3m/sec with a peak gradient of 7mmHg and a mean gradient of 3mmHg. The calculated aortic valve area is 2.3cm2. No evidence of aortic regurgitation. Dimensionless index of 24/23. MV: Moderate mitral regurgitation. Possible mitral valve stenosis - consider CARROLL for further evaluation. Severe calcification of mitral valve leaflets. The mean gradient across the mitral valve is 9 at a heart rate of 70. The mitral valve area by pressure half time is 2.3. PV: No evidence of pulmonic valve stenosis. A trace of pulmonic regurgitation. TV: Moderate tricuspid regurgitation. Right ventricular systolic pressure is 67 mmHg. Right ventricular systolic pressure is 60-70 mmHg suggestive of moderate-severe pulmonary hypertension. No evidence of tricuspid valve stenosis. ++++++++++++++++++++++++++++++++++++ MEASUREMENTS: ++++++++++++++++++++++++++++++++++++ DOPPLER LVOT LVOTpkPG 4 mmHg LVOTmnPG 3 mmHg LVOTpkVel 99.3 cm/s (70-110)+ LVOT SV 50 ml LVOT TVI 22.2 cm AV Forward Flow AV TVI 21.4 cm AV pkPG 5 mmHg AV pkVel 111 cm/s (100-170)+ Area (TVI) 2.35 cm2 (3-5)* AV mnPG 3 mmHg Area (Girma) 2.03 cm2 (3-5)* MV Forward Flow MV DeTm 317 msec MV E/A 2 MVA P1/2t 2.34 cm2 (4-6)* MV pkE 209 cm/s (60-130)+* MV P1/2t 94 msec (30-60)+* MV pkA 107 cm/s MV mnPG 9 mmHg MV SV 73 ml MV pkPG 22 mmHg MV Regurg Flow MV TVI 153 cm MV pkPG 96 mmHg MV mnPG 72 mmHg MV pkVel 491 cm/s (60-130)+* MV mnVel 410 cm/s MV PISA MV Flw 0.57 cc/s PV Forward Flow PV TVI 21.7 cm PV mnVel 76.3 cm/s PV pkVel 110 cm/s (60-90)+* PV mnPG 3 mmHg PV pkPG 5 mmHg PV AC 83 msec PV Regurg Flow PV pkVel 110 cm/s TV Regurg Flow TV pkPG 59 mmHg TV pkVel 385 cm/s (30-70)* TV Forward Flow TV pkE 48.3 cm/s Lat E' Lat e 4.03 cm/s Lat E/E' Lat E/e 51.9 Med E' Med e 4.81 cm/s Med E/E' Med E/e 43.5 Aortic Valve Aortic Valve Ar 1.32 Aortic Valve Ve 0.89 Lat MA LV Peak Waterman Ti 4.47 cm/s Left Ventricle 0.9 LV Pk Sys Tissu 8.06 cm/s Med MA LV Peak Waterman Ti 2.89 cm/s Left Ventricle 1.7 LV Pk Sys Tissu 5.29 cm/s PV Antegrade Flow Acceleration Sl 1069 cm/s2 PV Regurgitant Flow Peak Gradient ( 5 mmHg 2D Left Ventricle LVIDd 4 cm (3.6-5.2) LV ESV 14.2 ml LVIDs 2.9 cm (2.3-3.9) LV ESV 13.9 ml LngAxd 5.72 cm LVESV BP 14.7 ml LngAxd 6.38 cm LV EF 67.3 % LV EDV 43.4 ml LV EF 79.4 % LV EDV 67.5 ml LV EF BP 74.2 % LVEDV BP 57 ml LV SV 29.2 ml LngAxs 4.57 cm LV SV 53.5 ml LngAxs 5.01 cm LV SV BP 42.3 ml LVPW LVPWd 0.9 cm Right Ventricle RVIDd 3.2 cm (2.6-4.3) Right and Left 0.8 Ventricular Septum IVSd 1 cm Left Atrium LA a-p 4.2 cm (2.8-3.4)* LA VOLBP 62.7 ml LVOT LVOT 1.7 cm LVOTArea 2.27 cm2 Mitral Valve MV chang 1.2 cm (2.1-2.7)* Ratios IVS LA Biplane LAVol I BP 35.2 ml/m2 RA Single Plane Ellipse RA sys Area 14.6 cm2 Right Atrium Sy 56.2 mm MMODE TA Tricuspid Annul 17 mm <Electronic Signature> 11/30/2024 09:57 AM Pardeep Bertrand M.D. Procedure Note Pardeep Bertrand MD - 11/30/2024 Echocardiography Report Pat.Name: LARY OLIVER.ID: [id number] .Date: 11/29/2024 Exam Time: 4:27:00 PM Study Type:ECHO WITH CARDIAC DOPPLER COMP Height: 62 in Weight: 170 lb BSA: 1.78 m2 Age: 4 1940,84Y Sex: F BP: 108/64 Sonogrphr: [facility] Pat. Stat.:Inpatient Room: [facility] Reason for Study:CHF History / Clinical:H/O TAVR Procedures: 2D, M-mode, Doppler, Color Flow, Definity was used to enhance endocardial definition. Portable Race: W ++++++++++++++++++++++++++++++++++++ SUMMARY: ++++++++++++++++++++++++++++++++++++ The left ventricular size is normal. The left ventricular systolic function is normal. The calculated ejection fraction is 54%. Left ventricular diastolic function is abnormal (grade 2 - pseudonormal pattern). The peak velocity across the aortic valve measures 1.3m/sec with a peak gradient of 7mmHg and a mean gradient of 3mmHg. The calculated aortic valve area is 2.3cm2. Dimensionless index of 24/23. Moderate mitral regurgitation. Possible mitral valve stenosis - consider CARROLL for further evaluation. The mean gradient across the mitral valve is 9 at a heart rate of 70. The mitral valve area by pressure half time is 2.3. Moderate tricuspid regurgitation. Right ventricular systolic pressure is 60-70 mmHg suggestive of moderate-severe pulmonary hypertension. ++++++++++++++++++++++++++++++++++++ FINDINGS: ++++++++++++++++++++++++++++++++++++ LV: The left ventricular size is normal. The left ventricular systolic function is normal. The calculated ejection fraction is 54%. Mild concentric left ventricular hypertrophy. Left ventricular diastolic function is abnormal (grade 2 - pseudonormal pattern). The mean left atrial pressure is elevated. RV: The right ventricular size is enlarged. Right ventricular systolic function is depressed. The right ventricle not adequately visualized in all views. LA: The left atrial volume is mildly increased (34- 41ml/M2). RA: The right atrial size is normal. IAS: Atrial septum appears intact. ELVIN: No evidence of pericardial effusion. AO: Aorta not well visualized. SVn: Inferior vena cava is normal. Inferior vena cava shows <50% collapse with respiration consistent with elevated right atrial pressure. AV: The peak velocity across the aortic valve measures 1.3m/sec with a peak gradient of 7mmHg and a mean gradient of 3mmHg. The calculated aortic valve area is 2.3cm2. No evidence of aortic regurgitation. Dimensionless index of 24/23. MV: Moderate mitral regurgitation. Possible mitral valve stenosis - consider CARROLL for further evaluation. Severe calcification of mitral valve leaflets. The mean gradient across the mitral valve is 9 at a heart rate of 70. The mitral valve area by pressure half time is 2.3. PV: No evidence of pulmonic valve stenosis. A trace of pulmonic regurgitation. TV: Moderate tricuspid regurgitation. Right ventricular systolic pressure is 67 mmHg. Right ventricular systolic pressure is 60-70 mmHg suggestive of moderate-severe pulmonary hypertension. No evidence of tricuspid valve stenosis. ++++++++++++++++++++++++++++++++++++ MEASUREMENTS: ++++++++++++++++++++++++++++++++++++ DOPPLER LVOT LVOTpkPG 4 mmHg LVOTmnPG 3 mmHg LVOTpkVel 99.3 cm/s (70-110)+ LVOT SV 50 ml LVOT TVI 22.2 cm AV Forward Flow AV TVI 21.4 cm AV pkPG 5 mmHg AV pkVel 111 cm/s (100-170)+ Area (TVI) 2.35 cm2 (3-5)* AV mnPG 3 mmHg Area (Girma) 2.03 cm2 (3-5)* MV Forward Flow MV DeTm 317 msec MV E/A 2 MVA P1/2t 2.34 cm2 (4-6)* MV pkE 209 cm/s (60-130)+* MV P1/2t 94 msec (30-60)+* MV pkA 107 cm/s MV mnPG 9 mmHg MV SV 73 ml MV pkPG 22 mmHg MV Regurg Flow MV TVI 153 cm MV pkPG 96 mmHg MV mnPG 72 mmHg MV pkVel 491 cm/s (60-130)+* MV mnVel 410 cm/s MV PISA MV Flw 0.57 cc/s PV Forward Flow PV TVI 21.7 cm PV mnVel 76.3 cm/s PV pkVel 110 cm/s (60-90)+* PV mnPG 3 mmHg PV pkPG 5 mmHg PV AC 83 msec PV Regurg Flow PV pkVel 110 cm/s TV Regurg Flow TV pkPG 59 mmHg TV pkVel 385 cm/s (30-70)* TV Forward Flow TV pkE 48.3 cm/s Lat E' Lat e 4.03 cm/s Lat E/E' Lat E/e 51.9 Med E' Med e 4.81 cm/s Med E/E' Med E/e 43.5 Aortic Valve Aortic Valve Ar 1.32 Aortic Valve Ve 0.89 Lat MA LV Peak Waterman Ti 4.47 cm/s Left Ventricle 0.9 LV Pk Sys Tissu 8.06 cm/s Med MA LV Peak Waterman Ti 2.89 cm/s Left Ventricle 1.7 LV Pk Sys Tissu 5.29 cm/s PV Antegrade Flow Acceleration Sl 1069 cm/s2 PV Regurgitant Flow Peak Gradient ( 5 mmHg 2D Left Ventricle LVIDd 4 cm (3.6-5.2) LV ESV 14.2 ml LVIDs 2.9 cm (2.3-3.9) LV ESV 13.9 ml LngAxd 5.72 cm LVESV BP 14.7 ml LngAxd 6.38 cm LV EF 67.3 % LV EDV 43.4 ml LV EF 79.4 % LV EDV 67.5 ml LV EF BP 74.2 % LVEDV BP 57 ml LV SV 29.2 ml LngAxs 4.57 cm LV SV 53.5 ml LngAxs 5.01 cm LV SV BP 42.3 ml LVPW LVPWd 0.9 cm Right Ventricle RVIDd 3.2 cm (2.6-4.3) Right and Left 0.8 Ventricular Septum IVSd 1 cm Left Atrium LA a-p 4.2 cm (2.8-3.4)* LA VOLBP 62.7 ml LVOT LVOT 1.7 cm LVOTArea 2.27 cm2 Mitral Valve MV chang 1.2 cm (2.1-2.7)* Ratios IVS LA Biplane LAVol I BP 35.2 ml/m2 RA Single Plane Ellipse RA sys Area 14.6 cm2 Right Atrium Sy 56.2 mm MMODE TA Tricuspid Annul 17 mm <Electronic Signature> 11/30/2024 09:57 AM Pardeep Bertrand M.D. Rosey Benjamin ENDODONTIC ASSISTANT ECHO Final R esult * TROPONIN, QUANT (11/29/2024 1:49 PM CDT) Only the most recent of2 resultswithin the time period is included. TROPONIN I HIGH SENSITIVITY 24 <54 ng/L 11/29/2024 2:[address] [facility] Comment: HIGH DOSES OF BIOTIN, TROPONIN-SPECIFIC AUTOANTIBODIES, AND ANTIBODY THERAPY CONTAINING HAMA MAY INTERFERE WITH THIS TEST RESULT. CORRELATION TO CLINICAL HISTORY AND PRESENTATION RECOMMENDED. 11/29/2024 1:49 PM CDT Rohini HOOPERP LABORATORY Final Result [facility] [address] [place] [address], [place] [phone] * XR CHEST PORTABLE (11/28/2024 4:18 PM CDT) Only the most recent of2 resultswithin the time period is included. Anatomical Region Laterality Modality Chest Radiographic Claire ging 11/28/2024 4:33 PM CDT Impressions 11/28/2024 4:35 PM CDT IMPRESSION: 1. There is bilateral bronchial wall thickening, which can be seen with small airway infection/inflammation, volume overload or reactive airway disease. 2. Mild pulmonary vascular congestion. 3. No focal consolidation or pneumothorax. Ordered By: ANTHONY WATERS Interpreted By: Chantale Mark MD, 11/28/2024 4:33 PM Narrative 11/28/2024 4:35 PM [address] [address] PROCEDURE: XR CHEST PORTABLE. 11/28/2024 4:09 PM. TECHNIQUE: A single view of the chest (AP or PA) was performed. HISTORY: CHF. Rhinovirus infection. COMPARISON: AP chest radiograph, 11/26/2024 FINDINGS: Support Devices: There is a left chest wall pacemaker transvenous leads within right atrium, right ventricle and coronary sinus. Cardiac Silhouette/Mediastinum/Jacqui: The cardiac, mediastinal, and hilar contours are unchanged in appearance. Status post TAVR. Lungs/Pleural Spaces: There is bilateral bronchial wall thickening. Mild pulmonary vascular congestion No focal consolidation. The pleural spaces are clear. Chest Wall/Diaphragm/Upper Abdomen: The thoracic musculoskeletal structures and the upper abdomen are unchanged in appearance. Procedure Note Chantale Mark MD - 11/28/[address] [address] PROCEDURE: XR CHEST PORTABLE. 11/28/2024 4:09 PM. TECHNIQUE: A single view of the chest (AP or PA) was performed. HISTORY: CHF. Rhinovirus infection. COMPARISON: AP chest radiograph, 11/26/2024 FINDINGS: Support Devices: There is a left chest wall pacemaker transvenous leadswithin right atrium, right ventricle and coronary sinus. Cardiac Silhouette/Mediastinum/Jacqui: The cardiac, mediastinal, and hilarcontours are unchanged in appearance. Status post TAVR. Lungs/Pleural Spaces: There is bilateral bronchial wall thickening. Mildpulmonary vascular congestion No focal consolidation. The pleural spacesare clear. Chest Wall/Diaphragm/Upper Abdomen: The thoracic musculoskeletalstructures and the upper abdomen are unchanged in appearance. IMPRESSION: 1. There is bilateral bronchial wall thickening, which can be seen withsmall airway infection/inflammation, volume overload or reactive airwaydisease. 2. Mild pulmonary vascular congestion. 3. No focal consolidation or pneumothorax. Ordered By: ANTHONY WATERS Interpreted By: Chantale Mark MD, 11/28/2024 4:33 PM Anthony Waters MD GENERAL IMAGING Final Result * PROCALCITONIN (PCT) (11/28/2024 9:47 AM CDT) Only the most recent of2 resultswithin the time period is included. PROCALCITONIN 0.06 0.00 - 0.49 NG/ML 11/28/2024 11:[address] [facility] 11/28/2024 9:47 AM CDT us Anthony Waters MD LABORATORY Final Result [facility] [address] [place] [address], [place] [phone] * (ABNORMAL) HEMOGLOBIN, GLYCOSYLATED (11/27/2024 7:00 AM CDT) HGB A1C 7.7(H) <5.7 % 11/27/2024 8:[address] [facility] Comment: ADA GUIDELINES 2010 5.7 TO 6.4% INCREASED RISK OF DIABETES > OR = 6.5% CONSISTENT WITH DIABETES ESTIMATED AVG GLUCOSE 174 mg/dL 11/27/2024 8:[address] [facility] 11/27/2024 7:00 AM CDT Marilyn Coronado ENDODONTIC ASSISTANT LABORATORY Final Resul t [facility] [address] [place] [address], [place] [phone] * (ABNORMAL) COMPREHENSIVE METABOLIC PANEL (11/27/2024 7:00 AM CDT) Only the most recent of2 resultswithin the time period is included. GLUCOSE 109(H) 70 - 99 MG/DL 11/27/2024 7:[address] [facility] BUN 47(H) 7 - 18 MG/DL 11/27/2024 7:[address] [facility] CREATININE S/P/B 1.72(H) 0.55 - 1.02 MG/DL 11/27/2024 7:[address] [facility] SODIUM S/P/B 139 136 - 145 MMOL/L 11/27/2024 7:[address] [facility] POTASSIUM S/P/B 4.0 3.5 - 5.1 MMOL/L 11/27/2024 7:[address] [facility] CHLORIDE S/P/B 107 97 - 115 MMOL/L 11/27/2024 7:[address] [facility] CO2 28.2 21 - 32 MMOL/L 11/27/2024 7:[address] [facility] CALCIUM S/P/B 8.6 8.5 - 10.1 MG/DL 11/27/2024 7:[address] [facility] BILIRUBIN TOTAL S/P/B 1.1 0.2 - 1.2 MG/DL 11/27/2024 7:[address] [facility] Comment: THIS ASSAY IS NOT RECOMMENDED FOR PATIENTS UNDERGOING TREATMENT WITH ELTROMBOPAG DUE TO THE POTENTIAL FOR FALSELY ELEVATED RESULTS. TOTAL PROTEIN S/P/B 6.3(L) 6.4 - 8.2 G/DL 11/27/2024 7:[address] [facility] ALBUMIN S/P/B 2.9(L) 3.4 - 5.0 G/DL 11/27/2024 7:[address] [facility] AST 18 15 - 37 U/L 11/27/2024 7:51 AM [facility] ALT 11(L) 14 - 55 U/L 11/27/2024 7:[address] [facility] ALKALINE PHOSPHATASE S/P/B 112 50 - 136 U/L 11/27/2024 7:[address] [facility] ANION GAP 3.8 2 - 10 MMOL/L 11/27/2024 7:51 AM [facility] BUN CREATININE RATIO 27.3(H) 6 - 26 11/27/2024 7:51 AM [facility] A/G RATIO 0.9(L) 1.0 - 2.0 RATIO 11/27/2024 7:51 AM [facility] GFR ESTIMATE 29(L) >90 ML/MIN/1.7 3 M2 11/27/2024 7:51 AM [facility] Comment: NOTE: eGFR is not calculated for patients <18 years of age or gender unknown. This is an estimated GFR calculation using the new CKD EPI creatinine equation without race and so does not require a correction factor for race. This estimated GFR should not be used for calculating drug doses. 11/27/2024 7:00 AM CDT Marilyn Coronado ENDODONTIC ASSISTANT LABORATORY Final Resul t [facility] [address] [place] [address], [place] [phone] * (ABNORMAL) RESPIRATORY PCR PANEL 2 (11/27/2024 12:25 AM CDT) [facility] ADENOVIRUS PCR (RESP) NOT DETECTED NOT DETECTED 11/27/2024 4:[address] [facility] CORONAVIRUS 229E PCR (RESP) NOT DETECTED NOT DETECTED 11/27/2024 4:[address] [facility] CORONAVIRUS HKU1 PCR (RESP) NOT DETECTED NOT DETECTED 11/27/2024 4:[address] [facility] CORONAVIRUS NL63 PCR (RESP) NOT DETECTED NOT DETECTED 11/27/2024 4:[address] [facility] CORONAVIRUS OC43 PCR (RESP) NOT DETECTED NOT DETECTED 11/27/2024 4:[address] [facility] METAPNEUMOVIRUS PCR (RESP) NOT DETECTED NOT DETECTED 11/27/2024 4:[address] [facility] RHINOVIRUS/ENTEROV IRUS PCR (RESP) DETECTED(A) NOT DETECTED 11/27/2024 4:[address] [facility] INFLUENZA A PCR (RESP) NOT DETECTED NOT DETECTED 11/27/2024 4:[address] [facility] INFLUENZA B PCR (RESP) NOT DETECTED NOT DETECTED 11/27/2024 4:[address] [facility] PARAINFLUENZA 1 PCR (RESP) NOT DETECTED NOT DETECTED 11/27/2024 4:[address] [facility] PARAINFLUENZA 2 PCR (RESP) NOT DETECTED NOT DETECTED 11/27/2024 4:[address] [facility] PARAINFLUENZA 3 PCR (RESP) NOT DETECTED NOT DETECTED 11/27/2024 4:[address] [facility] PARAINFLUENZA 4 PCR (RESP) NOT DETECTED NOT DETECTED 11/27/2024 4:[address] [facility] RSV PCR (RESP) NOT DETECTED NOT DETECTED 11/27/2024 4:[address] [facility] B PARAPERTUSIS PCR (RESP) NOT DETECTED NOT DETECTED 11/27/2024 4:[address] [facility] BORDETELLA PERTUSSIS PCR (RESP) NOT DETECTED NOT DETECTED 11/27/2024 4:[address] [facility] CHLAMYDOPHILA PNEUMONIAE PCR (RESP) NOT DETECTED NOT DETECTED 11/27/2024 4:[address] [facility] MYCOPLASMA PNEUMONIAE PCR (RESP) NOT DETECTED NOT DETECTED 11/27/2024 4:[address] [facility] CORONAVIRUS SARS COV 2 PCR (RESP) NOT DETECTED NOT DETECTED 11/27/2024 4:[address] [facility] NASOPHARYNGEAL SWAB / Unknown 11/27/2024 12:25 AM CDT Marilyn Coronado ENDODONTIC ASSISTANT MICROBIOLOGY - GENERAL ORDMarko DHALIWAL Final Result [facility] [address] [place] [address], [place] [phone] * LACTIC ACID W REFLEX (SEPSIS) (11/26/2024 9:04 PM CDT) Only the most recent of2 resultswithin the time period is included. LACTIC ACID VENOUS 2.0 0.4 - 2.0 MMOL/L 11/26/2024 9:[address] [facility] 11/26/2024 9:04 PM CDT [facility] Final Resul t [facility] [address] [place] [address], * ECG 12 lead (11/26/2024 7:18 PM CDT) 11/26/2024 7:18 PM CDT Narrative [facility] - 11/27/2024 6:21 AM CDT [address] Test Date: 2024-11-26 Pat Name: LARY OLIVER Department: 41 Room: [facility] Gender: Female Pastoral Assistant: : 1940 Requested By: KEL KIRAN Order Number: [id number] Reading MD: Chano Huitron Measurements Intervals [place] Rate: 76 P: 84 AR: 152 QRS: 116 QRSD: 149 T: 21 QT: 430 QTc: 484 Interpretive Statements ELECTRONIC VENTRICULAR PACEMAKER ABNORMAL RHYTHM ECG Compared to ECG 02/27/2024 16:37:28 Atrial-paced complex(es) or rhythm no longer present Procedure Note Chano Huitron MD - 11/27/[address] Test Date: 2024-11-26 Pat Name: LARY OLIVER Department: 41 Room: [facility] Gender: Female Pastoral Assistant: : 1940 Requested By: KEL KIRAN Order Number: [id number] Reading MD: Chano Huitron Measurements Intervals [place] Rate: 76 P: 84 AR: 152 QRS: 116 QRSD: 149 T: 21 QT: 430 QTc: 484 Interpretive Statements ELECTRONIC VENTRICULAR PACEMAKER ABNORMAL RHYTHM ECG Compared to ECG 02/27/2024 16:37:28 Atrial-paced complex(es) or rhythm no longer present Kel ARMENTA ECG ORDERABLES Final Resul t Performing Organization Address City/[facility] Co de Phone Number [facility] RAD * (ABNORMAL) PRO-BRAIN NATRIURETIC PEPTIDE (11/26/2024 7:04 PM CDT) Pathologist [facility] PRO-B TYPE NATRIURETIC PEPTIDE 12,462(H) <450 PG/ML 11/26/2024 7:[address] [facility] Comment: CUT POINTS ESTABLISHED BY INTERNATIONAL COLLABORATIVE ON NT PROBNP (ICON) STUDY (2006). AGE INDEPENDENT: <300 PG/ML HAS A 99% NEGATIVE PREDICTIVE VALUE FOR EXCLUDING ACUTE CHF <50 YEARS: >450 PG/ML IS CONSISTENT WITH ACUTE CHF 50-75 YEARS: >900 PG/ML IS CONSISTENT WITH ACUTE CHF >75 YEARS: >1800 PG/ML IS CONSISTENT WITH ACUTE CHF IN PATIENTS WITH RENAL INSUFFICIENCY (GFR <60), >1200 PG/ML YIELDS A DIAGNOSTIC SENSITIVITY AND SPECIFICITY OF 89% AND 72% FOR ACUTE CHF. 11/26/2024 7:04 PM CDT Kel ARMENTA LABORATORY Final Resul t Performing Organization Address [facility] Co de Phone Number [facility] [address] [place] [address], [place] [phone] * LIPID PANEL (03/10/2024 6:30 AM CDT) CHOLESTEROL 71 <200 MG/DL 03/10/2024 7:[address] [facility] TRIGLYCERIDES 89 <150 MG/DL 03/10/2024 7:[address] [facility] HDL 41 >40.0 MG/DL 03/10/2024 7:[address] [facility] LDL (CALCULATED) 12 <100 MG/DL 03/10/20 7:[address] [facility] NON HDL CHOLESTEROL 30 <130 MG/DL 03/10 7:[address] [facility] CHOL/HDL RATIO 1.7 0.0 - 4.5 03/10/2024 7:[address] [facility] VLDL CALCULATION 18 5 - 55 MG/DL 03/10/2024 7:[address] [facility] LIPID INTERPRETATION 03/10/2024 7:[address] [facility] Comment: NIH CONCENSUS REPORT RECOMMENDATIONS: ADULT CHILD LOW RISK: CHOLESTEROL <200 <170 TRIGLYCERIDE <150 --- HDL >=60 --- LDL <100 <110 BORDERLINE: CHOLESTEROL 200-239 170-199 TRIGLYCERIDE 150-199 --- HDL 40-59 --- LDL 100-159 110-129 HIGH RISK: CHOLESTEROL >=240 >=200 TRIGLYCERIDE >=200 --- HDL <40 --- LDL >=160 >=130 03/10/2024 6:30 AM CDT september Dariana ENDODONTIC ASSISTANT LABORATORY Final Resul t Performing Organization Address City/[facility]/ZIP Co de Phone Number [facility] [address] [place] [address], [place] [phone] * DIABETIC RETINOPATHY EXAM (POSITIVE) (11/16/2023) [facility] Scanned SCANNING Final Resu lt Performing Organization Address City/[facility]/ZIP Co de Phone Number [facility] ONBASE from Last 3 Months or Most Recently Relevant to Health Maintenance Additional Health Concerns Infection Onset Date Last Indicated ESBL - Extended Spectrum Bet a-lactamase Comment:06/29/21 +ESBL Urine 07/26/21 +ESBL Urine 07/01/2021 07/01/2021 Insurance MEDICAID Advance Directives Documents on File Type Date Recorded Patient 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 Advance Directives and Living Will 03/12/2024 4:12 PM Advance Directives and Living Will 07/04/2021 1:42 PM 11/10/2020 [place] * DNR (Latest Code Status on File) Date Activated Date Inactivated Comments 11/26/2024 11:17 PM 12/02/2024 4:47 PM * DNR Date Activated Date Inactivated Comments 02/27/2024 4:45 PM 03/10/2024 1:03 PM * DNR Date Activated Date Inactivated Comments 01/19/2024 11:59 AM 01/21/2024 7:16 PM * Full Code Date Activated Date Inactivated Comments 01/14/2024 6:06 PM 01/19/2024 11:59 AM * Full Code Date Activated Date Inactivated Comments 12/26/2022 11:16 PM 12/29/2022 2:39 PM Care Teams Ice Seller Relationship Specialty Start Date End Date Ruben Reeves DO [address] [address] PCP - General INTERNAL MEDICINE 11/27/24 Ruben Rosales MD [address] [address] Consulting Physician CARDIOVASCULAR DISEASE 06/12/24
--- OUTSIDE RECORDS SUMMARY | 2025-01-25 14:44 | XMS_ITS | Clinical Summary ---
Author Organization [facility] Address [address] [place] [address] Care Team Providers Care Organ Assembler Name Role Phone Abena Mccabe MD Primary Care Provider [phone] Nazario Ireland MD Unavailable [phone] Marta Guevara MD Unavailable [phone] Sandro Schilling MD Unavailable [phone] Regina Ware NP Unavailable Solo Hair MD Unavailable Allergies Active Allergy Reactions Criticality Noted Date Comments Codeine Nausea & Vomiting Low 07/31/2018 Medications acetaminophen (TYLENOL) 500 mg tablet Take 500 mg by mouth every 6 (six) hours as needed for pain Active potassium chloride ER (KLOR-CON,K-DUR) 10 mEq CR tablet Take 10 mEq by mouth daily Active busPIRone (BUSPAR) 5 mg tabletIndication s:Generalized Anxiety Disorder Take 5 mg by mouth 3 (three) times a day Active Bydureon BCise 2 mg/0.85 mL auto-injector Inject under the skin once a week Sunday 1 Active rosuvastatin (CRESTOR) 40 mg tablet Take 1 tablet (40 mg total) by mouth daily 30 tablet 11 1 Active Additional Information Patient taking differently:40 mg oralNightly, Reported on 11/17/2020 cholecalciferol (VITAMIN D-3) 50,000 unit capsule Take 50,000 Units by mouth once a week Sunday 1 Active biotin 10,000 mcg capsule Take 20,000 mcg by mouth daily Active pregabalin (LYRICA) 50 mg capsule Take 50 mg by mouth 3 (three) times a day Active calcium carbonate (OS-APRIL) 470 mg calcium (1,177 mg) tablet,chewable Take 1,177 mg by mouth as needed Active aspirin 81 mg enteric coated tablet Take 1 tablet (81 mg total) by mouth daily 30 tablet 1 Active metFORMIN (GLUCOPHAGE) 500 mg tablet Take 1 tablet (500 mg total) by mouth 2 (two) times a day with meals 60 tablet 1 Active methIMAzole (TAPAZOLE) 10 mg tablet Take 1 tablet (10 mg total) by mouth daily 30 tablet 1 Active apixaban (ELIQUIS) 5 mg tabletIndication s:atrial fibrillation Take 1 tablet (5 mg total) by mouth every 12 (twelve) hours for 351 doses 60 tablet 1 Active dilTIAZem XR (CARDIZEM CD,DILACOR XR) 180 mg 24 hr capsule Take 1 capsule (180 mg total) by mouth daily 30 capsule [address] (PROTONIX) 20 mg EC tabletIndication s:Mucositis Prophylaxis Take 1 tablet (20 mg total) by mouth every morning 30 tablet 1 Active senna-docusate (PERICOLACE) 8.6-50 mg Take 1 tablet by mouth 2 (two) times a day 20 tablet 1 Active losartan (COZAAR) 50 mg tablet Take 1 tablet (50 mg total) by mouth daily 30 tablet 1 Active carvediloL (COREG) 6.25 mg tablet Take 1 tablet (6.25 mg total) by mouth 2 (two) times a day with meals 60 tablet 1 Active insulin glargine (LANTUS, BASAGLAR, SEMGLEE) 100 unit/mL (3 mL) pen for injection Inject 20 Units under the skin nightly 10 mL 1 Active exenatide ER (BYDUREON) 2 mg suspension,exten ded rel reconIndications :type 2 diabetes mellitus Inject 2 mg under the skin once a week 10 each 3 1 Active insulin lispro (HumaLOG, ADMELOG) 100 unit/mL pen for injection Inject 4-8 Units under the skin 3 (three) times a day with meals None for BS < 150 For BS 151-200 = 4 units For BS 201-250 = 6 units For BS > 250 = 8 units 15 mL 11 1 Active furosemide (LASIX) 40 mg tablet Take 1 tablet (40 mg total) by mouth 2 (two) times a day 60 tablet 11 1 Active oxyCODONE (ROXICODONE) 5 mg immediate release tabletIndication s:Pain Take 1 tablet (5 mg total) by mouth every 4 (four) hours as needed for pain 20 tablet 1 Active senna-docusate (PERICOLACE) 8.6-50 mg Take 2 tablets by mouth 2 (two) times a day 30 tablet 1 Active polyethylene glycol (MIRALAX) 17 gram packetIndication s:constipation Take 1 packet (17 g total) by mouth daily 30 packet 1 Active cyclobenzaprine (FLEXERIL) 5 mg tabletIndication s:Muscle Spasm Take 1 tablet (5 mg total) by mouth 3 (three) times a day as needed for muscle spasms 30 tablet 1 Active magnesium oxide (MAG-OX) 400 mg (241.3 mg elemental magnesium) tabletIndication s:hypomagnesemia Take 1 tablet (400 mg total) by mouth 2 (two) times a day 60 tablet 1 2 Active Active Problems Problem Noted Date Diagnosed Date Closed type III fracture of odontoid process Cardiac pacemaker in situ 03/30/2021 Overview (07/26/2021): Biotronik Edora Dual Pacemaker. Dx; CHB, Aflutter. DOI 01/08/2021-Dr Ireland. Biotronik remote. Pt transferred out to Dr. Cortes [phone] Atrial flutter with rapid ventricular response 0 01/03/2021 Abnormal PFTs (pulmonary function tests) 019 QUISPE (dyspnea on exertion) 09/09/2018 Nonrheumatic aortic valve stenosis 09/09/2018 Non-rheumatic mitral valve stenosis 09/09/2018 Hyperthyroidism 09/09/2018 Dyslipidemia associated with type 2 diabetes soraya litus 09/09/2018 Hypertension associated with diabetes 09/09/2018 DOREEN (obstructive sleep apnea) 09/09/2018 Pulmonary HTN 09/09/2018 H/O: CVA (cerebrovascular accident) 09/09/2018 Immunizations Immunization Administration Dates Next Due Pfizer SARS-CoV-2 Monovalent Vaccination (12+ Yrs) PURPLE 02/04/2021,01/13/2021 Surgical History Surgery Date Site/Laterality Comments MANDIBLE SURGERY HYSTERECTOMY ELBOW SURGERY Right BACK SURGERY 5th lumbar & fusion KNEE SURGERY Left ANKLE SURGERY Left CHOLECYSTECTOMY CARPAL TUNNEL RELEASE multiple fractures TRIGGER FINGER RELEASE Medical History Medical History Date Comments Aortic stenosis Hypertension Hyperlipidemia Shortness of breath Heart murmur Sleep apnea Type 2 diabetes mellitus Shingles 2019 SOB (shortness of breath) GERD (gastroesophageal reflux disease) Stroke (HCC) TIA X 2 DVT (deep venous thrombosis) Arthritis Thyroid disorder Atrial fibrillation (HCC) A Flut ter Family History Medical History Relation Name Comments Heart attack Father Hypertension Father Heart attack Mother Hypertension Mother Pneumonia Mother Relation Name Status Comments Father (Age 57) Mother (Age 83) Social History Tobacco Use Types Packs/Day Years Used Date Smoking Tobacco: Never Smokeless Tobacco: Never Alcohol Use Standard Drinks/Week Comments Never 0 (1 standard drink = 0.6 oz pur e alcohol) Social Connection and Isolation Panel Answer Date Recorded In a typical week, how many times do you talk on the phone with family, friends, or neighbors? More than three times a week 01/04/2021 How often do you get togethe r with friends or relatives? Twice a week 01/04/2021 How often do you attend chur or lutheran services? More than 4 times per year 01/04/2021 Do you belong to any clubs o r organizations such as voodoo groups, unions, fraternal or athletic groups, or school groups? No 01/04/2021 How often do you attend meet ings of the clubs or organizations you belong to? Never 01/04/2021 Are you , , di vorced, , never , or living with a partner? 01/04/2021 AUDIT-C Answer Date Recorded Q1: How often do you have a drink containing alc ohol? Never 01/03/2021 Average Number of Drinks Not on file 021 Frequency of Binge Drinking Not on file 12/16 Overall Financial Resource Strain (CARDIA) Answe r Date Recorded How hard is it for you to pa y for the very basics like food, housing, medical care, and heating? Not very hard 01/04/2021 Hunger Vital Sign Answer Date Recorded Within the past 12 months, y ou worried that your food would run out before you got the money to buy more. Never true 01/05/20 21 Within the past 12 months, t he food you bought just didn't last and you didn't have money to get more. Never true 01/04/2021 PRAPARE - Transportation Answer Date Re corded In the past 12 months, has l ack of transportation kept you from medical appointments or from getting medications? No 12/17 In the past 12 months, has l ack of transportation kept you from meetings, work, or from getting things needed for daily living? No 01/04/2021 Housing Stability Vital Sign Answer Donny e Recorded In the last 12 months, was t here a time when you were not able to pay the mortgage or rent on time? No 01/04/2021 Number of Places Lived in the Last Year Not on f ile 01/04/2021 In the last 12 months, was t here a time when you did not have a steady place to sleep or slept in a mcc (including now)? No 01/04/2021 Personal Safety Answer Date Recorded Getting School Help Needed Not on file 06/18 Comments No Sex and Gender Information Value Date Recorded Sex Assigned at Not on file Legal Sex Female 1:03 PM REIMBURSEMENT REPRESENTATIVE Gender Identity Not on file Sexual Orientation Not on file Obstetrics History Last Filed Vital Signs Vital Sign Reading Time Taken Comments Blood Pressure 152/76 05/05/2021 8:29 AM REIMBURSEMENT REPRESENTATIVE Pulse 77 05/05/2021 8:29 AM REIMBURSEMENT REPRESENTATIVE Temperature 36.6 C (97.8 F) 05/05/2021 7:56 AM REIMBURSEMENT REPRESENTATIVE Respiratory Rate 16 05/05/2021 7:56 AM REIMBURSEMENT REPRESENTATIVE Oxygen Saturation 99% 05/05/2021 8:29 AM REIMBURSEMENT REPRESENTATIVE Inhaled Oxygen Concentration - - Weight 73.1 kg (161 lb 2.5 oz) 05/05/2021 6:10 A M REIMBURSEMENT REPRESENTATIVE Height 162.6 cm (5' 4) 05/03/2021 3:05 AM REIMBURSEMENT REPRESENTATIVE Body Mass Index 27.66 05/03/2021 3:05 AM REIMBURSEMENT REPRESENTATIVE Plan of Treatment Health Maintenance Due Date Last Done Comments Albumin Creatinine Ratio, Urine 1940 Depression Screening 1940 Osteoporosis Screening-Bone Density Scan 1940 Dilated Eye Exam 1940 Foot Exam 1940 DTaP/Tdap/Td Vaccine (1 - Tdap) 1949 Hepatitis B Screening 1956 Zoster Vaccine (1 of 2) 1988 Well Visit 65+ 09/21/2003 Hemoglobin A1C 10/30/2021 05/02/2021, 01/04/2021 eGFR 05/03/2022 05/03/2021, 04/18, 01/13/2021, Additional history exists Fall Risk Assessment 05/05/2022 05/05/2021 Pneumococcal vaccine 65+ (2 of 2 - PCV) 06/23/2022 06/23/2021 Lipid Panel 06/30/2022 06/30/2021, 04/18, 09/14/2020, Additional history exists Covid-19 Vaccine (3 - 2023-2 5 season) 2024 02/04/2021, 01/13/2021 Influenza Vaccine (#1) 2025 0, 05/02/2019, 08/15/2018 Medical Devices Implanted Type Area Bull Riveter Device Identifier Shelf Expiration Date Model / Serial / Lot [employer] V[employer] [id number] Perclose 6fr Suture Mediate Knot Push Vascular Device Closure - [id number] Implanted:Qty: 1 on 01/06/2021 by Bud Mejias MD at [facility]ascular 10/15/2022 [id number] / / [id number] [employer] [id number] Perclose 6fr Suture Mediate Knot Push Vascular Device Closure - [id number] Implanted:Qty: 1 on 01/06/2021 by Bud Mejias MD at [facility] V[employer] 10/15/2022 [id number] / / [id number] Medtronic Inc Evproplus-26us Valve 26mm Aortic Evolut Pro+ - [id number] - [id number] Implanted:Qty: 1 on 01/06/2021 by Bud Mejias MD at [facility] [employer] Inc 05/26/2022 EVPROPLUS-2 6US / [id number] / [employer] [id number] Perclose 6fr Suture Mediate Knot Push Vascular Device Closure - [id number] Implanted:Qty: 1 on 01/06/2021 by Bud Mejias MD at [facility] [employer] 10/15/2022 [id number] / / [id number] Biotronik Inc [id number] Solia S 53cm Steroid Elute Bipolar Active Fixation Endocardial - [id number] Implanted:Qty: 1 on 01/08/2021 by Nazario Ireland MD at [facility] [employer] Inc 02/15/2022 [id number] / / Biotronik Inc [id number] Solia S 45cm Bipolar Active Fixation Lead Pacing Steroid Eluting - [id number] Implanted:Qty: 1 on 01/08/2021 by Nazario Ireland MD at [facility] [employer] Inc 04/17/2022 [id number] / / Biotronik Inc [id number] Edora Promri 65x52n9.5mm Dual Chamber Rate Adaptive Unipolar Bipolar - [id number] Implanted:Qty: 1 on 01/08/2021 by Nazario Ireland MD at [facility] [employer] 05/17/2022 [id number] / / Procedures Procedure Name Priority Date/Time Associated Diagnosis Comments EGFR STAT 05/03/2021 10:48 AM REIMBURSEMENT REPRESENTATIVE HEMOGLOBIN A1C STAT 05/02/2021 12:55 PM REIMBURSEMENT REPRESENTATIVE LIPID PANEL STAT 05/02/2021 12:55 PM REIMBURSEMENT REPRESENTATIVE from Last 3 Months or Most Recently Relevant to Health Maintenance Results * (ABNORMAL) eGFR (05/03/2021 10:48 AM REIMBURSEMENT REPRESENTATIVE) [facility] eGFR 46(L) 90 - 130 mL/min/1.7 3 m2 [facility] Comment: Interpretive Data Reference Interval Normal >/= 90 mL/min/1.73m2 Mildly decreased* 60 - 89 mL/min/1.73m2 Mildly to moderately decreased 45 - 59 mL/min/1.73m2 Moderately to severely decreased 30 - 44 mL/min/1.73m2 Severely decreased 15 - 29 mL/min/1.73m2 Kidney Failure < 15 mL/min/1.73m2 *Relative to young adult level Estimated glomerular filtration rate is determined by the CKD-EPI equation recommended by the National Kidney Foundation (KDIGO 2012 Clinical Practice Guideline for the Evaluation and Management of Chronic Kidney Disease. Kidney Intnl Suppl Jun 2012;3:1). The CKD-EPI equation should not be used for patients with unstable renal function and has not been validated in children and those over 70. Current interpretive data was last reviewed 2020 Blood 05/03/2021 10:4 8 AM REIMBURSEMENT REPRESENTATIVE 05/03/2021 11:01 AM REIMBURSEMENT REPRESENTATIVE Mary Sandoval MD LAB BLOOD ORDERABLES Final R esult Performing Organization Address [facility] de Phone Number [facility] Department [place] [address] * (ABNORMAL) Hemoglobin A1c (05/02/2021 12:55 PM REIMBURSEMENT REPRESENTATIVE) Hgb A1C 12.0(H) 4.0 - 5.6 % [facility] Estimated Average Glucose 298 mg/dL [facility] Comment: The ADA recommends reporting an estimated Average Glucose (eAG) with all Hemoglobin A1c results using the equation derived from a study of 507 normal and diabetic adults. Minority populations were underrepresented and children were not included. (Diabetes Care 2020; 43(S1): S66-S76). The eAG is not equivalent to a fasting glucose. Blood 05/02/2021 12:5 5 PM REIMBURSEMENT REPRESENTATIVE 05/02/2021 1:08 PM REIMBURSEMENT REPRESENTATIVE Narrative [facility] - 05/03/2021 9:52 AM REIMBURSEMENT REPRESENTATIVE REFLEX Mary Sandoval MD LAB BLOOD ORDERABLES Final R esult Performing Organization Address [facility] de Phone Number [facility] Department [place] [address] * (ABNORMAL) Lipid panel (05/02/2021 12:55 PM REIMBURSEMENT REPRESENTATIVE) Cholesterol 113 30 - 199 mg/dL [facility] Comment: Interpretive Data Ages < or = 19 years Acceptable: <170 mg/dL Borderline high: 170-199 mg/dL High: >or= 200 mg/dL Ages > or = 20 years Desirable: <200 mg/dL Borderline high: 200-239 mg/dL High: >or= 240 mg/dL Literature References: 1. Expert Panel on Integrated Guidelines for Cardiovascular Health and Risk Reduction in Children and Adolescents. Pediatrics 2011;128:S213 2. NCEP Expert Panel. Circulation 2004;110:227 Current Interpretive Data was last revised on 2018. Triglycerides 179(H) <=149 mg/dL [facility] Comment: Interpretive Data Ages < or = 9 years Acceptable: <75 mg/dL Borderline high: 75-99 mg/dL High: >or= 100 mg/dL Ages 10 to 20 years Acceptable: <90 mg/dL Borderline high: 90-129 mg/dL High: >or= 130 mg/dL Ages > or = 20 years Desirable: <150 mg/dL Borderline high: 150-199 mg/dL High: 200-499 mg/dL Very high: >or= 499 mg/dL Literature References: 1. Expert Panel on Integrated Guidelines for Cardiovascular Health and Risk Reduction in Children and Adolescents. Pediatrics 2011;128:S213 2. NCEP Expert Panel. Circulation 2004;110:227 Current Interpretive Data was last revised on 2018. HDL 43 >=40 mg/dL [facility] Comment: Interpretive Data Ages < or = 19 years Acceptable: >45 mg/dL Borderline low: 40-45 mg/dL Low: <40 mg/dL Ages > or = 20 years Desirable: >or= 60 mg/dL Low: <40 mg/dL Literature References: 1. Expert Panel on Integrated Guidelines for Cardiovascular Health and Risk Reduction in Children and Adolescents. Pediatrics 2011;128:S213 2. NCEP Expert Panel. Circulation 2004;110:227 Current Interpretive Data was last revised on 2018. LDL, calculated 34 <=129 mg/dL [facility] Comment: Interpretive Data Ages < or = 19 years Acceptable: <110 mg/dL Borderline high: 110-129 mg/dL High: >or= 130 mg/dL Ages > or = 20 years Optimal: <100 mg/dL Near optimal: 100-129 mg/dL Borderline high: 130-159 mg/dL High: >160 mg/dL Literature References: 1. Expert Panel on Integrated Guidelines for Cardiovascular Health and Risk Reduction in Children and Adolescents. Pediatrics 2011;128:S213 2. NCEP Expert Panel. Circulation 2004;110:227 Current Interpretive Data was last revised on 2018. Non-HDL Cholesterol 70 mg/dL [facility] Comment: Interpretive Data Ages < or = 19 years Acceptable: <120 mg/dL Borderline high: 120-144 mg/dL High: >145 mg/dL Ages > or = 20 years When triglycerides are >200 mg/dL, Non-HDL cholesterol is a secondary target of therapy with treatment goals that are 30 mg/dL greater than the LDL cholesterol target. Literature References: 1. Expert Panel on Integrated Guidelines for Cardiovascular Health and Risk Reduction in Children and Adolescents. Pediatrics 2011;128:S213 2. NCEP Expert Panel. Circulation 2004;110:227 Current Interpretive Data was last revised on 2018. Chol/HDL ratio 3 [facility] Blood 05/02/2021 12:5 5 PM REIMBURSEMENT REPRESENTATIVE 05/02/2021 1:04 PM REIMBURSEMENT REPRESENTATIVE us Mary Sandoval MD LAB BLOOD ORDERABLES Final R esult [facility] [place] [address] from Last 3 Months or Most Recently Relevant to Health Maintenance Insurance [employer] MEDICARE PPO Advance Directives For more information, please contact: [phone] Documents on File Type Date Recorded Patient Betting Clerks Expl anation ADVANCE DIRECTIVE 01/03/2021 2:36 PM Maricruz jim Miki * Full Code (Latest Code Status on File) Date Activated Date Inactivated Comments 05/03/2021 2:46 AM 05/05/2021 4:48 PM * Full Code Date Activated Date Inactivated Comments 01/03/2021 8:42 PM 01/13/2021 7:02 PM Healthcare Agents on File Name Relationship Healthcare Agent [facility] Kleber Reid Daughter Health Care Agent Care Teams Organ Assembler Relationship Specialty Start Date End Date Abena Mccabe MD PCP - General Family Medicine 07/23/18 Nazario Irealnd MD [address] [place] [address] Consulting Physician Cardiology 01/12/21 [place] [address] [address] [facility] [address] [place] [address] Consulting Physician Endocrinology 01/13/21 Sandro Schilling MD [address] [facility] [address] [address] Consulting Physician Interventional Cardiology 01/13/21 Regina Ware NP [address] [facility] [address] [address] Nurse Practitioner Cardiology 01/13/21 Solo Hair MD [address] [facility] [address] [place] [address] Consulting Physician Orthopedic Surgery 05/05/21
[2025-01-25 14:51] LABS: Hematocrit 37.3 % (37.0-47.0); Hemoglobin 11.1 g/dL (12.0-15.0); Immature Granulocyte Percent A 0.3 % (0-0.5); Lymphocytes Absolute Auto 1.01 K/mm3 (0.9-3.2); Mean Corpuscular HGB Conc 29.8 g/dl (32-36); Mean Corpuscular Hemoglobin 25.6 pg (26-34); Mean Corpuscular Volume 85.9 fl (80-100); Nucleated Red Blood Cells Absolute Auto 0.000 K/mm3 (0.0-0.012); Nucleated Red Blood Cells Perc 0.0 % (0.0-0.2); Platelet Count Result 173 k/mm3 (150-375); Red Blood Count 4.34 M/mm3 (4.2-5.4); White Blood Count 6.4 K/mm3 (4.5-10.0)
--- NOTE | 2025-01-25 14:55 | ED.GENADULT ---
HPI - General Adult General Chief complaint: Shortness of Breath/Dyspnea Stated complaint: cp/2 word dyspnea History of Present Illness HPI narrative: 84-year-old female presents to the emergency department for evaluation for increased shortness of breath and increased chest pressure. States she has had increased chest pressure for the last few weeks. Patient does have reported cardiac history. Patient denies any current chest pain. Patient does have lower extremity pitting edema. Patient does have a new O2 requirement. Patient states she normally wears oxygen at nighttime but is requiring 4 L. CHF, hypertension, anemia, chronic kidney disease, diabetic peripheral neuropathy, hyperlipidemia, TIA, type 2 diabetes Related Data Home Medications ?Medication ?Instructions ?Recorded ?Confirmed ?Last Taken ?Type aspirin 81 mg tablet 81 mg PO DAILY 03/22/21 05/28/24 Unknown History carvedilol 6.25 mg tablet 6.25 mg PO BID 03/22/21 05/28/24 02/14/24 16:36 History insulin glargine 100 unit/mL 25 unit subcut BID 03/22/21 05/28/24 02/14/24 08:34 History subcutaneous solution insulin lispro 100 unit/mL 10 unit subcut TIDWM 03/22/21 05/28/24 02/14/24 12:05 History subcutaneous pen losartan 50 mg tablet 25 mg PO DAILY 03/22/21 05/28/24 02/14/24 08:34 History methimazole 10 mg tablet (Tapazole) 10 mg PO DAILY 03/22/21 05/28/24 02/14/24 08:34 History pantoprazole 20 mg tablet,delayed 40 mg PO DAILY 03/22/21 05/28/24 02/14/24 08:34 History release acetaminophen 650 mg tablet 650 mg PO Q4H PRN Pain (Scale 02/14/24 05/28/24 02/07/24 22:46 History Score 1-3) apixaban 2.5 mg tablet (Eliquis) 2.5 mg PO BID 02/14/24 05/28/24 02/14/24 16:36 History bumetanide 1 mg tablet 1 mg PO DAILY 02/14/24 05/28/24 02/14/24 08:34 History fluticasone propionate 50 1 spray intranasal BID 02/14/24 05/28/24 Unknown History mcg/actuation nasal spray,suspension iron,carbonyl 30 mg-vitamin C 10 1 tablet PO BID 02/14/24 05/28/24 02/14/24 16:36 History mg-FOS 25 mg chewable tablet (Chewable Iron) lidocaine 4 % topical patch 1 patch topical DAILY 02/14/24 05/28/24 02/14/24 04:02 History magnesium oxide 400 mg (241.3 mg 400 mg PO BID 02/14/24 05/28/24 02/14/24 16:36 History magnesium) tablet ondansetron 4 mg disintegrating 4 mg PO Q8H PRN Nausea 02/14/24 05/28/24 Unknown History tablet rosuvastatin 40 mg tablet 40 mg PO HS 02/14/24 05/28/24 02/13/24 19:20 History vit C 250 mg-vit E 90 mg-zinc 40 1 tablet PO DAILY 02/14/24 05/28/24 02/14/24 08:34 History mg-copper 1 [id number] capsule (PreserVision AREDS-2) Allergies Allergy/AdvReac Type Severity Reaction Status Date / Time adhesive tape Allergy Intermediate Rash Verified 05/02/21 08:25 codeine Allergy Unknown Stomach Verified 05/02/21 08:25 cramps latex Allergy Unknown Blister Verified 05/02/21 08:25 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 storm Pacemaker HTN (hypertension) Colon cancer screening (~2017) negative, cologuard Anemia CKD stage 3 due to type 2 diabetes mellitus Diabetic peripheral neuropathy Essential hypertension Hyperthyroidism Mixed hyperlipidemia TIA (transient ischemic attack) Type 2 diabetes mellitus without complication, with long-term current use of insulin Surgical History Surgical History History of transcatheter aortic valve replacement (TAVR) History of back surgery H/O: hysterectomy Hx of cholecystectomy Family History Family History Mother Family history of cardiovascular disease, Onset Age: 82 Father Acute myocardial infarction, Onset Age: 57 Other Asthma Cerebrovascular accident Diabetes mellitus Family history of atrial fibrillation Family history of congestive heart failure Family history of hearing loss Family history of thyroid disease Hypertension Social History Social History Smoking status: Never smoker Second hand tobacco smoke exposure: No Alcohol intake: former Substance use: never Do You Feel Safe in your Home?: Yes Lack of Transportation: No Lack of Food: Never True Current Housing: I Have Housing Concerned About Future Housing: No Difficulty Paying Gas/Electric Bills: No Difficulty Paying for Meds: No Currently Unemployed: No Education: High School Diploma/GED Difficulty w/ Childcare or Family Care: No Living arrangements: residential Additional living arrangements comments: [address] [facility] ([facility]) Gender identity (if verbalized by the patient): Female Spiritual care concerns: Yes Exam Narrative: APPEARANCE: Increased work of breathing HEAD: normocephalic, atraumatic. EYES: PERRLA/EOMI, conjunctivae clear. NOSE: Normal no drainage EARS:TMS clear with good light reflex. THROAT: Pharynx clear, no exudate. NECK: Supple. No adenopathy, no masses. RESPIRATORY: Airway patent, respirations nonlabored. Clear to auscultation bilaterally, no rales, rhonchi, wheezing. CARDIOVASCULAR: Regular rate and rhythm without murmurs rubs or gallops. ABDOMINAL: Soft, nontender, nondistended, normal bowel sounds MUSCULOSKELETAL: Lower extremity edema NEURO: Alert. Cranial nerves II through XII intact. Good gait. Good coordination SKIN: Warm, dry. Normal Color Course Vital Signs Vital signs: Vital Signs Temperature 97.8 F 01/25/25 14:26 Pulse Rate 78 01/25/25 14:26 Respiratory Rate 18 01/25/25 14:26 Blood Pressure 149/82 H 01/25/25 14:26 Pulse Oximetry 100 01/25/25 14:26 Oxygen Delivery Nasal Cannula 01/25/25 14:26 Oxygen Flow Rate 4 01/25/25 14:26 Temperature 97.8 F 01/25/25 14:26 Pulse Rate 79 01/25/25 19:43 Respiratory Rate 16 01/25/25 19:43 Blood Pressure 134/81 01/25/25 19:31 Pulse Oximetry 95 01/25/25 19:59 Oxygen Delivery Nasal Cannula 01/25/25 19:59 Oxygen Flow Rate 2 01/25/25 19:59 Medical Decision Making [facility] Narrative Medical decision making narrative: 84-year-old female presents emergency department for evaluation for increased workup breathing and new O2 requirement. Patient does have history of CHF does have some lower extremity edema edema. Chest x-ray does show pulmonary. Patient is currently afebrile with no leukocytosis hemoglobin 11.1. INR is 1.6 patient did have an elevated D-dimer at 0.95. Patient does have chronic kidney disease and creatinine is similar to her baseline. Patient does have a elevated Pro BNP at 12,100. Patient was treated with a dose of IV Lasix. Patient's urine was positive for nitrates leukocyte esterase high white blood cells +4 bacteria, urine culture ordered and patient was started on IV antibiotics the emergency department. CTA was ordered to evaluate for pulmonary embolism and this was negative for PE or pneumonia but does show evidence of pulmonary edema. Case was discussed with hospitalist patient was accepted for admission. Plan is to continue Lasix for further diuresis. Differential Diagnosis Differential Diagnosis: CHF, pneumonia, pulmonary embolism, pneumothorax UTI, COVID, RSV influenza Vital Signs Vital Signs: Vital Signs Temperature 97.8 F 01/25/25 14:26 Pulse Rate 78 01/25/25 14:26 Respiratory Rate 18 01/25/25 14:26 Blood Pressure 149/82 H 01/25/25 14:26 Pulse Oximetry 100 01/25/25 14:26 Oxygen Delivery Nasal Cannula 01/25/25 14:26 Oxygen Flow Rate 4 01/25/25 14:26 Temperature 97.8 F 01/25/25 14:26 Pulse Rate 79 01/25/25 19:43 Respiratory Rate 16 01/25/25 19:43 Blood Pressure 134/81 01/25/25 19:31 Pulse Oximetry 95 01/25/25 19:59 Oxygen Delivery Nasal Cannula 01/25/25 19:59 Oxygen Flow Rate 2 01/25/25 19:59 Lab Data Lab results reviewed: Yes I reviewed the patient's lab results. 01/25/25 14:45 01/25/25 14:45 Labs: Lab Results 01/25/25 01/25/25 01/25/25 Range/Units 14:45 14:45 17:50 WBC 6.4 (4.5-10.0) K/mm3 RBC 4.34 (4.2-5.4) M/mm3 Hgb 11.1 L (12.0-15.0) g/dL Hct 37.3 (37.0-47.0) % MCV 85.9 (80-100) fl MCH 25.6 L (26-34) pg MCHC 29.8 L (32-36) g/dl RDW 17.1 H (11.5-14.5) % Plt Count 173 (150-375) k/mm3 MPV 11.3 H (7.4-10.4) fl Immature Gran % (Auto) 0.3 (0-0.5) % Neut % (Auto) 68.5 (45.5-73.1) % Lymph % (Auto) 15.7 L (18.3-44.2) % [place] % (Auto) 11.8 H (2.6-8.5) % Eos % (Auto) 2.8 (0-4.4) % Baso % (Auto) 0.9 (0.2-1.2) % Lymph # (Auto) 1.01 (0.9-3.2) K/mm3 [place] # (Auto) 0.8 H (0.1-0.6) K/mm3 Eos # (Auto) 0.2 (0-0.3) K/mm3 Baso # (Auto) 0.1 (0.0-0.1) K/mm3 Abs Immat Gran (auto) 0.02 (0.00-0.031) K/mm3 Absolute Neuts (auto) 4.4 (1.3-6.7) K/mm3 Absolute Nucleated RBC 0.000 (0.0-0.012) K/mm3 Band Neutrophils % Not Reportable Nucleated RBC % 0.0 (0.0-0.2) % Platelet Estimate Adequate (Adequate) Large Platelets Present Hypochromasia 1+ Anisocytosis 1+ Ovalocytes 1+ Schistocytes None seen PT 18.9 H (11.1-14.7) Seconds INR 1.6 APTT 32.2 (22.3-36.8) Seconds D-Dimer 0.95 H (<0.48) ug/mL Sodium 138 (137-145) mmol/L Potassium 4.5 (3.4-5.0) mmol/L Chloride 99 (98-107) mmol/L Carbon Dioxide 33 H (22-30) mmol/L Anion Gap 6 (4-12) mmol/L BUN 36 H D (7-17) mg/dL Creatinine 1.53 H (0.7-1.0) mg/dL Estim Creat Clear Calc 24 ml/min Estimated GFR 32 L (59 - ) Glucose 225 H (65-110) mg/dL Calcium 8.2 L (8.4-10.2) mg/dL Total Bilirubin 1.3 (0.2-1.3) mg/dL AST 26 (14-36) U/L ALT 13 (6-35) U/L Alkaline Phosphatase 113 (38-126) U/L Troponin I 0.034 0.034 0.030 (0.000-0.034) ng/mL NT-Pro-B Natriuret Pep 87033 H (19.9-100) pg/mL Total Protein 7.0 (6.3-8.2) g/dL Albumin 3.8 (3.5-5.1) g/dL Urine Color (Yellow) Urine Appearance (Clear) Urine pH (5.0-9.0) Ur Specific [place] (1.001-1.035) Urine Protein (Negative) mg/dL Urine Glucose (UA) (Negative) mg/dL Urine Ketones (Negative) mg/dL Ur Blood (Man) (Negative) Urine Nitrate (Negative) Urine Bilirubin (Negative) Urine Urobilinogen (<2.0) mg/dL Leukocyte Esterase Rfl (Negative) SHARON/UL Urine RBC (0-2) /hpf Urine WBC (0-3) /hpf Ur Squamous Epith Cells (Few) /hpf Urine Bacteria /hpf Urine Casts 01/25/25 Range/Units 18:04 WBC (4.5-10.0) K/mm3 RBC (4.2-5.4) M/mm3 Hgb (12.0-15.0) g/dL Hct (37.0-47.0) % MCV (80-100) fl MCH (26-34) pg MCHC (32-36) g/dl RDW (11.5-14.5) % Plt Count (150-375) k/mm3 MPV (7.4-10.4) fl Immature Gran % (Auto) (0-0.5) % Neut % (Auto) (45.5-73.1) % Lymph % (Auto) (18.3-44.2) % [place] % (Auto) (2.6-8.5) % Eos % (Auto) (0-4.4) % Baso % (Auto) (0.2-1.2) % Lymph # (Auto) (0.9-3.2) K/mm3 [place] # (Auto) (0.1-0.6) K/mm3 Eos # (Auto) (0-0.3) K/mm3 Baso # (Auto) (0.0-0.1) K/mm3 Abs Immat Gran (auto) (0.00-0.031) K/mm3 Absolute Neuts (auto) (1.3-6.7) K/mm3 Absolute Nucleated RBC (0.0-0.012) K/mm3 Band Neutrophils % Nucleated RBC % (0.0-0.2) % Platelet Estimate (Adequate) Large Platelets Hypochromasia Anisocytosis Ovalocytes Schistocytes PT (11.1-14.7) Seconds INR APTT (22.3-36.8) Seconds D-Dimer (<0.48) ug/mL Sodium (137-145) mmol/L Potassium (3.4-5.0) mmol/L Chloride (98-107) mmol/L Carbon Dioxide (22-30) mmol/L Anion Gap (4-12) mmol/L BUN (7-17) mg/dL Creatinine (0.7-1.0) mg/dL Estim Creat Clear Calc ml/min Estimated GFR (59 - ) Glucose (65-110) mg/dL Calcium (8.4-10.2) mg/dL Total Bilirubin (0.2-1.3) mg/dL AST (14-36) U/L ALT (6-35) U/L Alkaline Phosphatase (38-126) U/L Troponin I (0.000-0.034) ng/mL NT-Pro-B Natriuret Pep (19.9-100) pg/mL Total Protein (6.3-8.2) g/dL Albumin (3.5-5.1) g/dL Urine Color Yellow (Yellow) Urine Appearance Clear (Clear) Urine pH 6.5 (5.0-9.0) Ur Specific [place] 1.011 (1.001-1.035) Urine Protein Negative (Negative) mg/dL Urine Glucose (UA) Negative (Negative) mg/dL Urine Ketones Negative (Negative) mg/dL Ur Blood (Man) Negative (Negative) Urine Nitrate Positive H (Negative) Urine Bilirubin Negative (Negative) Urine Urobilinogen 1.0 (<2.0) mg/dL Leukocyte Esterase Rfl 2+ H (Negative) SHARON/UL Urine RBC 0-2 (0-2) /hpf Urine WBC 21-50 H (0-3) /hpf Ur Squamous Epith Cells None seen (Few) /hpf Urine Bacteria 4+ H /hpf Urine Casts 0-2 Imaging Data Radiologist's impression: Impressions Chest X-Ray 01/25/25 15:30 IMPRESSION: Edema versus chronic interstitial change. Small right pleural effusion Chest CTA 01/25/25 18:50 IMPRESSION: No CT evidence of acute pulmonary embolus. Pulmonary edema, overlying chronic interstitial changes. Moderate right and small left pleural effusions. Mediastinal and right hilar lymphadenopathy. Mild wedge compression fracture at T4, new since the study, probably chronic unless accompanied by acute pain/tenderness. Discharge Plan Discharge Clinical Impression: Hypoxia, CHF (congestive heart failure), Acute UTI Patient Disposition: Still a Patient Condition: Serious
[2025-01-25] MEDS: ALBUTEROL SULFATE NEB 2.5 MG/3 ML INH INHALATION ×2 (15:00→19:40)
[2025-01-25 15:01] LABS: Alanine Aminotransferase 13 U/L (6-35); Albumin Level 3.8 g/dL (3.5-5.1); Alkaline Phosphatase 113 U/L (38-126); Anion Gap 6 mmol/L (4-12); Aspartate Amino Transferase 26 U/L (14-36); Bilirubin,Total 1.3 mg/dL (0.2-1.3); Blood Urea Nitrogen 36 mg/dL (7-17); Calcium 8.2 mg/dL (8.4-10.2); Carbon Dioxide 33 mmol/L (22-30); Chloride 99 mmol/L (98-107); Estimated CRCL calculation 24 ml/min; Estimated Glomerular Filt Rate 32; Glucose 225 mg/dL (65-110); Potassium 4.5 mmol/L (3.4-5.0); Sodium 138 mmol/L (137-145); Total Protein 7.0 g/dL (6.3-8.2)
[2025-01-25 15:09] LABS: INR 1.6; Prothrombin Time 18.9 Seconds (11.1-14.7)
[2025-01-25 15:10] LABS: Partial Thromboplastin Time 32.2 Seconds (22.3-36.8)
[2025-01-25 15:12] LABS: NT Pro B Type Natriuretic Pept 12100 pg/mL (19.9-100); Troponin I 0.034 ng/mL (0.000-0.034)
[2025-01-25 15:22] LABS: Anisocytosis 1+; Hypochromasia 1+; Ovalocytes 1+; Schistocytes None Seen
--- NOTE | 2025-01-25 15:48 | P.HP_ITS ---
H&P: HPI History of Present Illness Date/Time: 01/25/25 15:48 Chief Complaint: shortness of breath Narrative: 84-year[place]old [place] resident with a history of chronic diastolic congestive heart failure, status post TAVR and and pacemaker, has chronic dyspnea but noticed over the last 24 hours that her dyspnea was worsened to the point that while dressing she would breathe so hard that she would get dizzy. She was short of breath lying flat. Short of breath with minimal exertion. Short of breath with conversation. Also noticed over the past few weeks that her weight was gradually increasing and her legs were getting more swollen. She states this is the most she has ever weighed. She denied chest pains palpitations syncope or presyncope. She denied any recent change in medications or diet. She does note that the food at the facility where she stays does tend to contain quite a bit of salt. She was last hospitalized at [facility] in January of 2024 and discharged February 17, 2020 for after treatment for congestive heart failure. Echocardiogram showed intact TAVR with normal systolic function but impaired diastolic relaxation. 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 storm Pacemaker HTN (hypertension) Colon cancer screening (~2017) negative, cologuard Anemia CKD stage 3 due to type 2 diabetes mellitus Diabetic peripheral neuropathy Essential hypertension Hyperthyroidism Mixed hyperlipidemia TIA (transient ischemic attack) Type 2 diabetes mellitus without complication, with long-term current use of insulin Surgical History Surgical History History of transcatheter aortic valve replacement (TAVR) History of back surgery H/O: hysterectomy Hx of cholecystectomy Family History Family History Mother Family history of cardiovascular disease, Onset Age: 82 Father Acute myocardial infarction, Onset Age: 57 Other Asthma Cerebrovascular accident Diabetes mellitus Family history of atrial fibrillation Family history of congestive heart failure Family history of hearing loss Family history of thyroid disease Hypertension Social History Social History Smoking status: Never smoker Second hand tobacco smoke exposure: No Alcohol intake: former Substance use: never Do You Feel Safe in your Home?: Yes Lack of Transportation: No Lack of Food: Never True Current Housing: I Have Housing Concerned About Future Housing: No Difficulty Paying Gas/Electric Bills: No Difficulty Paying for Meds: No Currently Unemployed: No Education: High School Diploma/GED Difficulty w/ Childcare or Family Care: No Living arrangements: retirement Additional living arrangements comments: [address] [facility] ([facility]) Gender identity (if verbalized by the patient): Female Spiritual care concerns: Yes Meds Home Medications and Allergies Home Medications ?Medication ?Instructions ?Recorded ?Confirmed ?Type aspirin 81 mg tablet 81 mg PO DAILY 03/22/21 05/28/24 History carvedilol 6.25 mg tablet 6.25 mg PO BID 03/22/21 05/28/24 History insulin glargine 100 unit/mL 25 unit subcut BID 03/22/21 05/28/24 History subcutaneous solution insulin lispro 100 unit/mL 10 unit subcut TIDWM 03/22/21 05/28/24 History subcutaneous pen losartan 50 mg tablet 25 mg PO DAILY 03/22/21 05/28/24 History methimazole 10 mg tablet (Tapazole) 10 mg PO DAILY 03/22/21 05/28/24 History pantoprazole 20 mg tablet,delayed 40 mg PO DAILY 03/22/21 05/28/24 History release acetaminophen 650 mg tablet 650 mg PO Q4H PRN Pain (Scale 02/14/24 05/28/24 History Score 1-3) apixaban 2.5 mg tablet (Eliquis) 2.5 mg PO BID 02/14/24 05/28/24 History bumetanide 1 mg tablet 1 mg PO DAILY 02/14/24 05/28/24 History fluticasone propionate 50 1 spray intranasal BID 02/14/24 05/28/24 History mcg/actuation nasal spray,suspension iron,carbonyl 30 mg-vitamin C 10 1 tablet PO BID 02/14/24 05/28/24 History mg-FOS 25 mg chewable tablet (Chewable Iron) lidocaine 4 % topical patch 1 patch topical DAILY 02/14/24 05/28/24 History magnesium oxide 400 mg (241.3 mg 400 mg PO BID 02/14/24 05/28/24 History magnesium) tablet ondansetron 4 mg disintegrating 4 mg PO Q8H PRN Nausea 02/14/24 05/28/24 History tablet rosuvastatin 40 mg tablet 40 mg PO HS 02/14/24 05/28/24 History vit C 250 mg-vit E 90 mg-zinc 40 1 tablet PO DAILY 02/14/24 05/28/24 History mg-copper 1 [id number] capsule (PreserVision AREDS-2) sacubitril 24 mg-valsartan 26 mg 1 tablet PO Q12HR #30 tabs 02/17/24 05/28/24 Rx tablet (Entresto) spironolactone 25 mg tablet 25 mg PO QAM #30 tabs 02/17/24 05/28/24 Rx acetaminophen 500 mg capsule 1,000 mg (2 x 500 mg) PO Q6H PRN 04/20/24 05/28/24 Rx pain #20 caps pregabalin 50 mg capsule (Lyrica) 50 mg PO TID #270 caps 05/20/24 05/28/24 Rx Allergies Allergy/AdvReac Type Severity Reaction Status Date / Time adhesive tape Allergy Intermediate Rash Verified 05/02/21 08:25 codeine Allergy Unknown Stomach Verified 05/02/21 08:25 cramps latex Allergy Unknown Blister Verified 05/02/21 08:25 Vital Signs Vital Signs - 24 hr 01/25/25 14:26 01/25/25 15:01 01/25/25 15:07 Temperature 97.8 F Pulse Rate 78 81 79 Respiratory Rate 18 20 20 Blood Pressure 149/82 H Pulse Oximetry 100 Oxygen Delivery Nasal Cannula Oxygen Flow Rate 4 Exam Narrative: HEENT: EOMI, PERRL, sclerae nonicteric, pharyngeal mucosa pink and intact NECK: 2 cm JVD, adenopathy, or thyromegaly CHEST: Clear to auscultation. Normal effort. HEART: NL S1/S2, regular, 2/6 PRECIOUS RUSB ABDOMEN: BS+, soft, nontender, no mass, no bruits EXTREMITIES: 2+ pretibial pitting edema NEUROLOGIC: CN intact and symmetric to inspection, HINTS exam negative MUSCULOSKELETAL: Tone and strength symmetric PSYCH: Alert. Oriented to person, place, and year H&P: Results Labs Labs: Short CBC 01/25/25 Range/Units 14:45 WBC 6.4 (4.5-10.0) K/mm3 Hgb 11.1 L (12.0-15.0) g/dL Hct 37.3 (37.0-47.0) % Plt Count 173 (150-375) k/mm3 BMP 01/25/25 14:45 Sodium 138 Potassium 4.5 Chloride 99 Carbon Dioxide 33 H BUN 36 H D Creatinine 1.53 H Glucose 225 H Calcium 8.2 L Cardiac Enzymes 01/25/25 Range/Units 14:45 Troponin I 0.034 (0.000-0.034) ng/mL Liver Function 01/25/25 Range/Units 14:45 Total Bilirubin 1.3 (0.2-1.3) mg/dL AST 26 (14-36) U/L ALT 13 (6-35) U/L Alkaline Phosphatase 113 (38-126) U/L Albumin 3.8 (3.5-5.1) g/dL Assessment and Plan Assessment and plan (1) Acute exacerbation of CHF (congestive heart failure): Qualifiers: Heart failure type: systolic Qualified Code(s): I50.23 - Acute on chronic systolic (congestive) heart failure Code(s): I50.9 - Heart failure, unspecified Status: Acute Assessment and Plan: * Possibly due to dietary indiscretion versus tolerance to loop diuretic * UA suggests possible UTI * No evidence for ACS * TSH pending * Medication non-adherence is not an issue as she resides at a facility * Continue beta-marlin, spironolactone and ARNI * Add IV furosemide 40 mg bid * Monitor I/O, labs (2) Chronic diastolic (congestive) heart failure: Code(s): I50.32 - Chronic diastolic (congestive) heart failure Status: Acute Assessment and Plan: As above (3) Essential hypertension: Code(s): I10 - Essential (primary) hypertension Status: Acute Assessment and Plan: * Continue home regimen (4) Type 2 diabetes mellitus without complication, with long-term current use of insulin: Code(s): E11.9 - Type 2 diabetes mellitus without complications; Z79.4 - senior living (current) use of insulin Status: Acute Assessment and Plan: * Reduce basal and pre-premeal insulin by about 33% and add SSI (5) Hyperthyroidism: Code(s): E05.90 - Thyrotoxicosis, unspecified without thyrotoxic crisis or storm Status: Acute Assessment and Plan: * Continue methimazole * Check TSH (6) CKD stage 3 due to type 2 diabetes mellitus: Code(s): E11.22 - Type 2 diabetes mellitus with diabetic chronic kidney disease; N18.3 - Chronic kidney disease, stage 3 (moderate) Status: Acute Assessment and Plan: * At baseline (01/25 creatinine 1.53) * Monitor renal function during diuresis (7) Anemia: Code(s): D64.9 - Anemia, unspecified Status: Acute Assessment and Plan: * C/w anemia of CKD * 01/25 Hgb 11.1 is at baseline (8) Diabetic peripheral neuropathy: Code(s): E11.42 - Type 2 diabetes mellitus with diabetic polyneuropathy Status: Acute Assessment and Plan: * Will need PT/OT (9) History of cerebellar stroke: Code(s): Z86.73 - Personal history of transient ischemic attack (TIA), and cerebral infarction without residual deficits Status: Acute Assessment and Plan: * Continue ASA (10) Atrial fib/flutter, transient: Code(s): I48.91 - Unspecified atrial fibrillation; I48.92 - Unspecified atrial flutter Status: Acute Assessment and Plan: * Continue Eliquis, beta-marlin (11) Peripheral vascular disease, unspecified: Code(s): I73.9 - Peripheral vascular disease, unspecified Status: Acute Assessment and Plan: * Continue ASA (12) UTI (urinary tract infection), bacterial: Code(s): N39.0 - Urinary tract infection, site not specified; A49.9 - Bacterial infection, unspecified Status: Acute Assessment and Plan: * Suggested by UA * 01/25 started ceftriaxone Quality VTE Prophylaxis VTE prophylaxis: pharmacologic ordered (heparin) Hospitalist MIPS Advance Care Plan I have confirmed that the patient's Advanced Care Plan is present, code status is documented, or surrogate decision maker is listed in patient medical record.: Yes Medication Reconciliation I have utilized all available resources to obtain, update and review the patients current medications (includes all prescriptions, OTC, herbals, cannabis, and nutritional supplements).: Yes
[2025-01-25 15:54] LABS: Troponin I 0.034 ng/mL (0.000-0.034)
[2025-01-25] MEDS: ASPIRIN 81 MG CHEWABLE TABLET 324 MG PO (15:58)
[2025-01-25] MEDS: FUROSEMIDE INJ 40 MG/4 ML VIAL IV PUSH ×2 (15:58→20:57)
[2025-01-25 18:14] LABS: Add Urine Microscopic? YES; Appearance Urine Clear (Clear); Glucose Urine UA Negative (Negative); Leukocyte Esterase Ur 2+ LEU/UL (Negative); Nitrate Urine Positive (Negative); Non Pathogenic Casts 0-2; Specific Grav Ur 1.011 (1.001-1.035)
[2025-01-25 18:33] LABS: Troponin I 0.030 ng/mL (0.000-0.034)
[2025-01-25] MEDS: cefTRIAXone 1 GM in SODIUM CHLORIDE 0.9% IV 50 ML 100 ML IVPB (18:35)
--- NOTE | 2025-01-25 19:41 | PC.NURSE ---
This RN attempted to call [facility] to give update on pt status and received no answer. Will call back.
--- NOTE | 2025-01-25 19:45 | PC.NURSE ---
Respiratory in room at this time providing a treatment to pt.
--- NOTE | 2025-01-25 20:19 | PC.NURSE ---
This RN called [facility] and gave update on pt status.
--- NOTE | 2025-01-25 20:29 | ADMGEN ---
This patient, Lary Oliver, was admitted to 2 Medical Room 260-01. Patient/family oriented to hospital policies and general routines including ID bracelet, bed and alarms, visiting hours, pain management, procedures, bathroom and other care routines, personal items, smoking policy, room service/diet, and visiting hours. Information on how to activate the Rapid Response Team has been discussed. Patient/Family are encouraged to report perceived risks to care and to ask questions if they do not understand what they are told or what they should do. Report received from SANDRA Hadley in ED.
--- NOTE | 2025-01-25 20:30 | ADMGEN ---
This patient, Lary Oliver, was admitted to 2 Medical Room 260-. Patient/family oriented to hospital policies and general routines including ID bracelet, bed and alarms, visiting hours, pain management, procedures, bathroom and other care routines, personal items, smoking policy, room service/diet, and visiting hours. Information on how to activate the Rapid Response Team has been discussed. Patient/Family are encouraged to report perceived risks to care and to ask questions if they do not understand what they are told or what they should do.
[2025-01-26] VITALS (16 sets, daily range): BP systolic 124–137; BP diastolic 68–79; PULSE 70–80; RESP 14–22; TEMP 36.4–36.8; O2SAT 97–100
--- NOTE | 2025-01-26 | ECHO_ITS ---
Patient Info Name: Lary Oliver Age: 84 years : 1940 Gender: Female Ht: 60 in Wt: 199 lbs BSA: 2.00 m2 HR: 79 bpm BP: 137 / 79 mmHg Technical Quality: Poor Exam Date: 01/26/2025 1:51 PM Patient Status: I Admit Date: 01/25/2025 Exam Type: CA echo dop color flow w con Complete two-dimensional, color flow and Doppler transthoracic echocardiogram is performed with contrast to opacify the left ventricle and to improve the deliniation of the left ventricle endocardial borders. Staff Referring Physician: Tariq Lezama Retail Operations Specialist: Clarita Ansari Attending Provider: Monster Elizabeth MD Contrast/Agitated Saline Contrast/Ag. Saline: Definity Amount: 2.00 ml Administered By: Clarita Ansari Existing IV Access: Yes IV Access Condition: patent with no signs of infiltration Summary 1. Technically suboptimal study due to poor sonographic images. 2. Definity contrast administered improved wall motion interpretation. 3. Left ventricular chamber dimension is normal. 4. Left ventricular systolic function is normal, estimated at 65-70. 5. The left ventricular diastolic function is abnormal. 6. E/e' 47 is significantly elevated. 7. Atrial fibrillation. 8. Left atrial chamber dimension is moderately enlarged. 9. The bioprosthetic aortic valve is not well visualized. 10. The mitral valve has moderately calcified leaflets and a severely calcified annulus. 11. There is moderate to severe mitral valve stenosis based on a valve area of 0.7 cm2 and a mean gradient of 9 mmHg. 12. There is mild mitral valve regurgitation. 13. Mitral valve is not well visualized. 14. There is mild to moderate tricuspid valve regurgitation. 15. Moderate pulmonary hypertension, estimated pulmonary arterial systolic pressure is 52 mmHg. 16. There is trace pulmonic regurgitation. Left Ventricle Definity contrast administered improved wall motion interpretation. Left ventricular chamber dimension is normal. Left ventricular systolic function is normal, estimated at 65-70. The left ventricular diastolic function is abnormal. E/e' 47 is significantly elevated. Technically suboptimal study due to poor sonographic images. Atrial fibrillation. Right Ventricle Right ventricular chamber dimension is not well visualized. Left Atria Left atrial chamber dimension is moderately enlarged. Right Atria Right atrial chamber dimension is not well visualized. Aortic Valve The bioprosthetic aortic valve is not well visualized. There is no bioprosthetic aortic valve stenosis. There is no regurgitation of the bioprosthetic aortic valve. Pulmonic Valve There is trace pulmonic regurgitation. Mitral Valve The mitral valve has moderately calcified leaflets and a severely calcified annulus. There is moderate to severe mitral valve stenosis based on a valve area of 0.7 cm2 and a mean gradient of 9 mmHg. There is mild mitral valve regurgitation. Mitral valve is not well visualized. Tricuspid Valve There is mild to moderate tricuspid valve regurgitation. Moderate pulmonary hypertension, estimated pulmonary arterial systolic pressure is 52 mmHg. Pericardium/Pleural There is no pericardial effusion. Inferior Vena Cava Normal inferior vena cava with >50% collapse upon inspiration consistent with normal right atrial pressure, 5 mmHg. Aorta The aortic root size at the sinus of Valsalva is normal. Left Ventricular Outflow Tract Name Value Normal LVOT 2D LVOT Diameter 1.8 cm LVOT Doppler LVOT Peak Velocity 81 cm/s LVOT Peak Gradient 3 mmHg LVOT Mean Gradient 1 mmHg LVOT VTI 15 cm LVOT VTI/AV VTI Ratio 0.4 LVOT Stroke Volume 37 ml LVOT CO 3.0 l/min LVOT CI 1.5 l/min/m2 Pulmonic Valve Name Value Normal RVOT Doppler RVOT Peak Velocity 49 cm/s RVOT Peak Gradient 1 mmHg PV Doppler PV Peak Velocity 103 cm/s PV Peak Gradient 4 mmHg Mitral Valve Name Value Normal MV Doppler MV Peak Gradient 23 mmHg MV Mean Gradient 9 mmHg MV Area (Cont Eq VTI) 0.7 cm2 MV Diastolic Function MV E Peak Velocity 176 cm/s MV A Peak Velocity 3 cm/s MV E/A 66.8 MV Decel Time (PW) 298 ms MV Annular TDI MV E/e' (Septal) 46.0 MV E/e' (Lateral) 48.0 MV E/e' (Average) 47.0 Tricuspid Valve Name Value Normal TV Regurgitation Doppler TR Peak Velocity 343 cm/s TR Peak Gradient 30 mmHg Estimated PAP/RSVP RA Pressure 5 mmHg <=5 PA Systolic Pressure 52 mmHg <36 RV Systolic Pressure 52 mmHg <36 TV Annular TDI TV Lateral Adeola s' Velocity 9.1 cm/s >=9.5 Aortic Valve Name Value Normal AV Doppler AV Peak Velocity 187 cm/s AV Peak Gradient 14 mmHg AV Mean Gradient 8 mmHg AV VTI 35 cm AV Area (Cont Eq VTI) 1.1 cm2 >=3.0 AV Area (Cont Eq Girma) 1.1 cm2 AV DI (Girma) 0.43 AV Regurgitation 2D LVOT Area 2.6 cm2 Ventricles Name Value Normal LV Dimensions 2D/MM IVS Diastolic Thickness (2D) 1.0 cm 0.6-1.0 LVID Diastole (2D) 4.3 cm 3.8-5.2 LVIW Diastolic Thickness (2D) 0.9 cm 0.6-0.9 LVID Systole (2D) 2.4 cm 2.2-3.5 LVOT Diameter 1.8 cm LV Mass (2D Cubed) 133.45 g 67.00-162.00 LV Mass Index (2D Cubed) 67 g/m2 43-95 Relative Wall Thickness (2D) 0.43 <=0.42 LV Fractional Shortening/Ejection Fraction 2D/MM LV Fractional Shortening (2D) 43 % 27-45 LV EF (2D Teichholz) 75 % LV Diastolic Volume (4C MOD) 49 ml LV EF (4C MOD) 63 % LV Diastolic Volume (2C MOD) 36 ml LV EF (2C MOD) 68 % LV Diastolic Volume (BP MOD) 42 ml 46-106 LV Diastolic Volume Index (BP MOD) 21 ml/m2 29-61 LV Systolic Volume (BP MOD) 15 ml 14-42 LV Systolic Volume Index (BP MOD) 7 ml/m2 8-24 LV EF (BP MOD) 65 % 54-74 LV Diastolic Length (4C) 7.5 cm LV Systolic Length (4C) 5.3 cm LV Stroke Volume (4C MOD) 31 ml Atria Name Value Normal LA Dimensions LA Volume (4C A-L) 103 ml LA Volume (BP A-L) 78 ml RA Dimensions RA Area (4C) 24.4 cm2 <=18.0 Report Signatures
[2025-01-26 05:45] LABS: Albumin Level 3.2 g/dL (3.5-5.1); Anion Gap 6 mmol/L (4-12); Blood Urea Nitrogen 35 mg/dL (7-17); Calcium 8.1 mg/dL (8.4-10.2); Carbon Dioxide 32 mmol/L (22-30); Chloride 103 mmol/L (98-107); Estimated CRCL calculation 26 ml/min; Estimated Glomerular Filt Rate 35; Glucose 113 mg/dL (65-110); Potassium 3.8 mmol/L (3.4-5.0); Sodium 141 mmol/L (137-145)
[2025-01-26 06:14] LABS: Hemoglobin A1C 7.6 % (<5.7)
[2025-01-26 06:21] LABS: Thyroid Stimulating Hormone Reflex 5.570 uIU/mL (0.465-4.68)
[2025-01-26 07:13] LABS: Free T4 Free Thyroxine Reflex 0.83 ng/dL (0.78-2.19)
[2025-01-26 08:17] LABS: Total Triiodothyronine (T3) 0.75 NG/ML (0.82-1.58)
[2025-01-26] MEDS: ASPIRIN 81 MG CHEWABLE TABLET PO (08:43)
[2025-01-26] MEDS: FUROSEMIDE INJ 40 MG/4 ML VIAL IV PUSH ×2 (08:44→20:42)
[2025-01-26] MEDS: ALBUTEROL SULFATE NEB 2.5 MG/3 ML INH INHALATION ×3 (09:39→20:35)
--- NOTE | 2025-01-26 09:45 | P.PNIM_ITS ---
Progress Note: A&P Assessment and Plan (1) Acute exacerbation of CHF (congestive heart failure): Qualifiers: Heart failure type: systolic Qualified Code(s): I50.23 - Acute on chronic systolic (congestive) heart failure Code(s): I50.9 - Heart failure, unspecified Status: Acute Assessment and Plan: * Possibly due to dietary indiscretion versus tolerance to loop diuretic * UA suggests possible UTI * No evidence for ACS * TSH = 5.570 * Medication non-adherence is not an issue as she resides at a facility * Continue beta-marlin, spironolactone and ARNI * Add IV furosemide 40 mg bid * Monitor I/O, labs * Cardio consult for further recommendations regarding med management (2) Chronic diastolic (congestive) heart failure: Code(s): I50.32 - Chronic diastolic (congestive) heart failure Status: Acute Assessment and Plan: * As above (3) Essential hypertension: Code(s): I10 - Essential (primary) hypertension Status: Acute Assessment and Plan: * Continue home regimen (4) Type 2 diabetes mellitus without complication, with long-term current use of insulin: Code(s): E11.9 - Type 2 diabetes mellitus without complications; Z79.4 - long term care social worker (current) use of insulin Status: Acute Assessment and Plan: * Reduce basal and pre-premeal insulin by about 33% and add SSI (5) Hyperthyroidism: Code(s): E05.90 - Thyrotoxicosis, unspecified without thyrotoxic crisis or storm Status: Acute Assessment and Plan: * Continue methimazole * Check TSH (6) CKD stage 3 due to type 2 diabetes mellitus: Code(s): E11.22 - Type 2 diabetes mellitus with diabetic chronic kidney disease; N18.3 - Chronic kidney disease, stage 3 (moderate) Status: Acute Assessment and Plan: * At baseline (01/25 creatinine 1.53) * Monitor renal function during diuresis (7) Anemia: Code(s): D64.9 - Anemia, unspecified Status: Acute Assessment and Plan: * C/w anemia of CKD * 01/26 Hgb 10.3 (8) Diabetic peripheral neuropathy: Code(s): E11.42 - Type 2 diabetes mellitus with diabetic polyneuropathy Status: Acute Assessment and Plan: * Will need PT/OT (9) History of cerebellar stroke: Code(s): Z86.73 - Personal history of transient ischemic attack (TIA), and cerebral infarction without residual deficits Status: Acute Assessment and Plan: * Continue ASA (10) Atrial fib/flutter, transient: Code(s): I48.91 - Unspecified atrial fibrillation; I48.92 - Unspecified atrial flutter Status: Acute Assessment and Plan: * Continue Eliquis, beta-marlin (11) Peripheral vascular disease, unspecified: Code(s): I73.9 - Peripheral vascular disease, unspecified Status: Acute Assessment and Plan: * Continue ASA (12) UTI (urinary tract infection), bacterial: Code(s): N39.0 - Urinary tract infection, site not specified; A49.9 - Bacterial infection, unspecified Status: Acute Assessment and Plan: * Suggested by UA * 01/25 started ceftriaxone Subjective Date/time seen: 01/26/25 09:45 Interval history: 84-year-old female [place] resident with a history of chronic diastolic congestive heart failure, status post TAVR and and pacemaker, has chronic dyspnea but noticed over the last 24 hours that her dyspnea was worsened to the point that while dressing she would breathe so hard that she would get dizzy. . 01/26/2025 Patient sitting comfortably in bed at time of examination. Denies any chest pain, shortness of breath, nausea/vomiting or abdominal pain at this time. States that if she does not move around she does not feel short of breath but still feels dyspnea with exertion. Pending echocardiogram at this time, cardio to consult regarding any further recommendations regarding CHF medication. Patient otherwise doing well and has no complaints or concerns at this time. Review of Systems Review of Systems: All systems reviewed & are unremarkable except as noted in HPI and below Exam Narrative: HEENT: EOMI, PERRL, sclerae nonicteric, pharyngeal mucosa pink and intact NECK: 2 cm JVD, adenopathy, or thyromegaly CHEST: Clear to auscultation. Normal effort. HEART: NL S1/S2, regular, 2/6 PRECIOUS RUSB ABDOMEN: BS+, soft, nontender, no mass, no bruits EXTREMITIES: 2+ pretibial pitting edema NEUROLOGIC: CN intact and symmetric to inspection, HINTS exam negative MUSCULOSKELETAL: Tone and strength symmetric PSYCH: Alert. Oriented to person, place, and year Objective Data Vital Signs Vital Signs: Vital Signs - 24 hr 01/25/25 14:26 01/25/25 15:01 01/25/25 15:07 Temperature 97.8 F Pulse Rate 78 81 79 Respiratory Rate 18 20 20 Blood Pressure 149/82 H Pulse Oximetry 100 Oxygen Delivery Nasal Cannula Oxygen Flow Rate 4 01/25/25 18:06 01/25/25 18:08 01/25/25 19:31 Temperature Pulse Rate 80 79 Respiratory Rate 18 17 Blood Pressure 134/81 Pulse Oximetry 100 100 100 Oxygen Delivery Nasal Cannula Oxygen Flow Rate 4 01/25/25 19:43 01/25/25 19:43 01/25/25 19:59 Temperature Pulse Rate 79 Respiratory Rate 16 Blood Pressure Pulse Oximetry 92 95 Oxygen Delivery Nasal Cannula Nasal Cannula Oxygen Flow Rate 2 2 01/25/25 20:25 01/25/25 20:34 01/26/25 00:00 Temperature 97.6 F Pulse Rate 79 80 Respiratory Rate 18 Blood Pressure 125/82 Pulse Oximetry 100 95 Oxygen Delivery Nasal Cannula Oxygen Flow Rate 2 01/26/25 04:00 01/26/25 05:30 01/26/25 08:00 Temperature 98.2 F Pulse Rate 79 79 79 Respiratory Rate 16 Blood Pressure 137/79 Pulse Oximetry 100 Oxygen Delivery Oxygen Flow Rate Intake/Output Intake/Output: Intake & Output 01/23/25 01/24/25 01/25/25 01/26/25 23:59 23:59 23:59 23:59 Intake Total 50 540 Output Total 1200 Balance 50 -660 Meds/Results Medications: Active Medications Generic Name Dose Route Start Last Admin Trade Name Freq PRN Reason Stop Dose Admin Albuterol 2.5 mg 01/25/25 20:00 01/26/25 09:39 Albuterol Sulfate Neb 2.5 Mg/3 Ml Inh INHALATION 2.5 mg Q6HRT BINH Administration Albuterol/Ipratropium 3 ml 01/26/25 09:40 Ipratropium 0.5 Mg/Albuterol Sulfate 2.5 Mg Ampul.Neb 3 Ml INHALATION Q8H PRN shortness of breath or wheezing Aspirin 81 mg 01/26/25 08:00 01/26/25 08:43 Aspirin 81 Mg Chewable Tablet PO 81 mg DAILY@0800 BINH Administration Bumetanide 1 mg 01/27/25 09:00 Bumetanide 1 Mg Tablet PO DAILY BINH Carvedilol 6.25 mg 01/26/25 17:00 Carvedilol 6.25 Mg Tablet PO BID BINH Clopidogrel Bisulfate 75 mg 01/27/25 09:00 Clopidogrel Bisulfate 75 Mg Tablet PO DAILY BINH Dextrose 12.5 gm 01/26/25 09:42 Dextrose 50% 25 Gm/50 Ml Syringe IV PUSH PRN PRN Hypoglycemia Protocol Furosemide 40 mg 01/25/25 21:00 01/26/25 08:44 Furosemide Inj 40 Mg/4 Ml Vial IV PUSH 40 mg Q12HR BINH Administration Glucagon 1 mg 01/26/25 09:42 Glucagon For Inj 1 Mg Vial IM PRN PRN Hypoglycemia Protocol Glucose 15 gm 01/26/25 09:42 Glucose Oral Gel 15 Gm Of Glucse In 37.5 Gm Tube PO PRN PRN Hypoglycemia Protocol Guaifenesin 200 mg 01/26/25 09:40 Guaifenesin 200 Mg/10 Ml Udc PO Q8H PRN cough Heparin Sodium (Porcine) 5,000 units 01/25/25 21:00 01/26/25 08:44 Heparin Sodium 5,000 Units/Ml Vial SUB-Q 5,000 units Q12HR BINH Administration Ceftriaxone Sodium 1 gm/ 50 mls @ 100 mls/hr 01/26/25 19:00 Sodium Chloride IVPB Q24H BINH Dextrose 1,000 mls @ 100 mls/hr 01/26/25 09:42 Dextrose 5% 1,000 Ml IVPB PRN PRN Hypoglycemia Protocol Insulin Aspart 2 - 5 units 01/26/25 12:00 Insulin Aspart (*Bkc) 100 Units/Ml SUB-Q TIDWM [facility] Protocol Insulin Aspart 1 - 2 units 01/26/25 21:00 Insulin Aspart (*Bkc) 100 Units/Ml SUB-Q HS [facility] Protocol Magnesium Oxide 400 mg 01/26/25 17:00 Magnesium Oxide 400 Mg Tablet PO BID [facility] Methimazole 10 mg 01/27/25 09:00 Methimazole 10 Mg Tab PO DAILY [facility] Non-Formulary Medication 1 patch 01/27/25 09:00 Lidocaine TOPICAL 02/26/25 08:59 DAILY [facility] Non-Formulary Medication 40 meq 01/27/25 09:00 Potassium Chloride PO 02/26/25 08:59 DAILY [facility] Pantoprazole Sodium 40 mg 01/27/25 09:00 Pantoprazole 40 Mg Tablet PO DAILY [facility] Perflutren Lipid Microsphere 0 ml 01/25/25 16:25 Perflutren Lipid Microspheres 1.5 Ml Vial Diluted To 10 Ml Total Volume IV PUSH 01/28/25 16:25 ONCE PRN adequate visualization Protocol Pregabalin 50 mg 01/26/25 09:40 Pregabalin (*Crx) 50 Mg Capsule PO Q12H [facility] Rosuvastatin Calcium 40 mg 01/26/25 21:00 Rosuvastatin 20 Mg Tablet PO HS [facility] Radiology Results: ITS Impressions Chest X-Ray 01/25/25 15:30 IMPRESSION: Edema versus chronic interstitial change. Small right pleural effusion Chest CTA 01/25/25 18:50 IMPRESSION: No CT evidence of acute pulmonary embolus. Pulmonary edema, overlying chronic interstitial changes. Moderate right and small left pleural effusions. Mediastinal and right hilar lymphadenopathy. Mild wedge compression fracture at T4, new since the study, probably chronic unless accompanied by acute pain/tenderness. Labs Labs: Laboratory Results - last 24 hr 01/25/25 01/25/25 01/25/25 14:45 14:45 17:50 WBC 6.4 RBC 4.34 Hgb 11.1 L Hct 37.3 MCV 85.9 MCH 25.6 L MCHC 29.8 L RDW 17.1 H Plt Count 173 MPV 11.3 H Immature Gran % (Auto) 0.3 Neut % (Auto) 68.5 Lymph % (Auto) 15.7 L [place] % (Auto) 11.8 H Eos % (Auto) 2.8 Baso % (Auto) 0.9 Lymph # (Auto) 1.01 [place] # (Auto) 0.8 H Eos # (Auto) 0.2 Baso # (Auto) 0.1 Abs Immat Gran (auto) 0.02 Absolute Neuts (auto) 4.4 Absolute Nucleated RBC 0.000 Band Neutrophils % Not Reportable Nucleated RBC % 0.0 Platelet Estimate Adequate Large Platelets Present Hypochromasia 1+ Anisocytosis 1+ Ovalocytes 1+ Schistocytes None seen PT 18.9 H INR 1.6 APTT 32.2 D-Dimer 0.95 H Sodium 138 Potassium 4.5 Chloride 99 Carbon Dioxide 33 H Anion Gap 6 BUN 36 H D Creatinine 1.53 H Estim Creat Clear Calc 24 Estimated GFR 32 L Glucose 225 H POC Capillary Glucose Hemoglobin A1c Calcium 8.2 L Phosphorus Total Bilirubin 1.3 AST 26 ALT 13 Alkaline Phosphatase 113 Troponin I 0.034 0.034 0.030 NT-Pro-B Natriuret Pep 91623 H Total Protein 7.0 Albumin 3.8 TSH (Reflex) Free T4 Total T3 Urine Color Urine Appearance Urine pH Ur Specific [place] Urine Protein Urine Glucose (UA) Urine Ketones Ur Blood (Man) Urine Nitrate Urine Bilirubin Urine Urobilinogen Leukocyte Esterase Rfl Urine RBC Urine WBC Ur Squamous Epith Cells Urine Bacteria Urine Casts 01/25/25 01/25/25 01/26/25 18:04 21:51 04:27 WBC RBC Hgb Hct MCV MCH MCHC RDW Plt Count MPV Immature Gran % (Auto) Neut % (Auto) Lymph % (Auto) [place] % (Auto) Eos % (Auto) Baso % (Auto) Lymph # (Auto) [place] # (Auto) Eos # (Auto) Baso # (Auto) Abs Immat Gran (auto) Absolute Neuts (auto) Absolute Nucleated RBC Band Neutrophils % Nucleated RBC % Platelet Estimate Large Platelets Hypochromasia Anisocytosis Ovalocytes Schistocytes PT INR APTT D-Dimer Sodium 141 Potassium 3.8 Chloride 103 Carbon Dioxide 32 H Anion Gap 6 BUN 35 H Creatinine 1.41 H Estim Creat Clear Calc 26 Estimated GFR 35 L Glucose 113 H POC Capillary Glucose 223 H Hemoglobin A1c 7.6 H Calcium 8.1 L Phosphorus 4.4 Total Bilirubin AST ALT Alkaline Phosphatase Troponin I NT-Pro-B Natriuret Pep Total Protein Albumin 3.2 L TSH (Reflex) 5.570 H Free T4 0.83 Total T3 0.75 L Urine Color Yellow Urine Appearance Clear Urine pH 6.5 Ur Specific [place] 1.011 Urine Protein Negative Urine Glucose (UA) Negative Urine Ketones Negative Ur Blood (Man) Negative Urine Nitrate Positive H Urine Bilirubin Negative Urine Urobilinogen 1.0 Leukocyte Esterase Rfl 2+ H Urine RBC 0-2 Urine WBC 21-50 H Ur Squamous Epith Cells None seen Urine Bacteria 4+ H Urine Casts 0-2 01/26/25 05:15 WBC RBC Hgb Hct MCV MCH MCHC RDW Plt Count MPV Immature Gran % (Auto) Neut % (Auto) Lymph % (Auto) [place] % (Auto) Eos % (Auto) Baso % (Auto) Lymph # (Auto) [place] # (Auto) Eos # (Auto) Baso # (Auto) Abs Immat Gran (auto) Absolute Neuts (auto) Absolute Nucleated RBC Band Neutrophils % Nucleated RBC % Platelet Estimate Large Platelets Hypochromasia Anisocytosis Ovalocytes Schistocytes PT INR APTT D-Dimer Sodium Potassium Chloride Carbon Dioxide Anion Gap BUN Creatinine Estim Creat Clear Calc Estimated GFR Glucose POC Capillary Glucose 92 Hemoglobin A1c Calcium Phosphorus Total Bilirubin AST ALT Alkaline Phosphatase Troponin I NT-Pro-B Natriuret Pep Total Protein Albumin TSH (Reflex) Free T4 Total T3 Urine Color Urine Appearance Urine pH Ur Specific [place] Urine Protein Urine Glucose (UA) Urine Ketones Ur Blood (Man) Urine Nitrate Urine Bilirubin Urine Urobilinogen Leukocyte Esterase Rfl Urine RBC Urine WBC Ur Squamous Epith Cells Urine Bacteria Urine Casts Quality VTE Prophylaxis VTE prophylaxis: pharmacologic ordered (heparin)
[2025-01-26 09:49] LABS: Alanine Aminotransferase 12 U/L (6-35); Alkaline Phosphatase 95 U/L (38-126); Aspartate Amino Transferase 26 U/L (14-36); Bilirubin,Total 0.6 mg/dL (0.2-1.3); Total Protein 6.0 g/dL (6.3-8.2)
[2025-01-26 09:53] LABS: Hematocrit 34.2 % (37.0-47.0); Hemoglobin 10.3 g/dL (12.0-15.0); Immature Granulocyte Percent A 0.6 % (0-0.5); Lymphocytes Absolute Auto 0.91 K/mm3 (0.9-3.2); Mean Corpuscular HGB Conc 30.1 g/dl (32-36); Mean Corpuscular Hemoglobin 25.7 pg (26-34); Mean Corpuscular Volume 85.3 fl (80-100); Nucleated Red Blood Cells Absolute Auto 0.000 K/mm3 (0.0-0.012); Nucleated Red Blood Cells Perc 0.0 % (0.0-0.2); Platelet Count Result 146 k/mm3 (150-375); Red Blood Count 4.01 M/mm3 (4.2-5.4); White Blood Count 5.2 K/mm3 (4.5-10.0)
--- NOTE | 2025-01-26 11:34 | PM.CNCAR ---
Assessment and Plan Assessment and plan (1) Acute exacerbation of CHF (congestive heart failure): Qualifiers: Heart failure type: systolic Qualified Code(s): I50.23 - Acute on chronic systolic (congestive) heart failure Code(s): I50.9 - Heart failure, unspecified Status: Acute (2) Pacemaker: Code(s): Z95.0 - Presence of cardiac pacemaker Status: Acute (3) History of transcatheter aortic valve replacement (TAVR): Code(s): Z95.2 - Presence of prosthetic heart valve Status: Acute (4) Unspecified atrial flutter: Code(s): I48.92 - Unspecified atrial flutter Status: Acute Plan 84-year-old woman from [facility] with chronic diastolic heart failure, severe aortic stenosis status post TAVR, complete heart block status post permanent pacemaker, and paroxysmal atrial fibrillation on Eliquis 2.5 mg p.o. b.i.d. was brought into the hospital due to severe worsening shortness of breath with associated chest discomfort Acute on chronic diastolic heart failure -continue Lasix 40 mg IV b.i.d. and likely increase to 80 mg IV b.i.d. if renal function continues to be stable tomorrow -chest discomfort likely secondary to heart failure exacerbation and will continue to reassess however troponins are negative thus far -repeat transthoracic echocardiogram in setting of these symptoms as well as mention of worsening valvular heart disease by her outpatient pattern setter per patient Severe aortic stenosis status post TAVR -on chest x-ray appears to be a self expanding valve -follow-up transthoracic echocardiogram -she is also on aspirin, Plavix, and rosuvastatin Complete heart block status post permanent pacemaker -normal function device based on telemetry review Paroxysmal atrial fibrillation -continue Eliquis 2.5 mg p.o. b.i.d. for stroke risk reduction -rates are well controlled on carvedilol 6.25 p.o. b.i.d. History of Present Illness History of Present Illness Consult date/time: 01/26/25 11:34 Requesting physician: Monster Elizabeth MD Consult reason: shortness of breath Reason For Visit: Pulmonary edema, UTI Narrative: 84-year-old woman from [facility] with chronic diastolic heart failure, severe aortic stenosis status post TAVR, complete heart block status post permanent pacemaker, and paroxysmal atrial fibrillation on Eliquis 2.5 mg p.o. b.i.d. was brought into the hospital due to severe worsening shortness of breath. She does not have a clear sense of his time that she feels that she has been having this severe shortness of breath for least a year now. She feels that she came to the hospital because she felt severe chest heaviness with this episode that was significantly worse than her baseline chest discomfort whenever she ambulates her moves. At [facility], she will work with physical therapy where she would walk 2 laps however after 1 lap, she would develop severe shortness of breath and have chest discomfort while completing her 2nd lap. No syncopal events. She does have associated palpitations with physical activity. Review of Systems Cardiovascular: Cardiovascular: Reports as per HPI Respiratory: Respiratory: Reports as per HPI FORMERLY [facility], [facility] Past Medical History Medical History (Updated 01/26/25 @ 11:44 by Phani Werner MD) Unspecified atrial flutter Chronic diastolic (congestive) heart failure Acute respiratory failure with hypoxia Thyrotoxicosis, unspecified without thyrotoxic crisis or storm Pacemaker HTN (hypertension) Colon cancer screening (~2017) negative, cologuard Anemia CKD stage 3 due to type 2 diabetes mellitus Diabetic peripheral neuropathy Essential hypertension Hyperthyroidism Mixed hyperlipidemia TIA (transient ischemic attack) Type 2 diabetes mellitus without complication, with long-term current use of insulin Surgical History Surgical History History of transcatheter aortic valve replacement (TAVR) History of back surgery H/O: hysterectomy Hx of cholecystectomy Family History Family History Mother Family history of cardiovascular disease, Onset Age: 82 Father Acute myocardial infarction, Onset Age: 57 Other Asthma Cerebrovascular accident Diabetes mellitus Family history of atrial fibrillation Family history of congestive heart failure Family history of hearing loss Family history of thyroid disease Hypertension Social History Social History Smoking status: Never smoker Second hand tobacco smoke exposure: No Alcohol intake: never Substance use: never Do You Feel Safe in your Home?: Yes Lack of Transportation: No Lack of Food: Never True Current Housing: I Have Housing Concerned About Future Housing: No Difficulty Paying Gas/Electric Bills: No Difficulty Paying for Meds: No Currently Unemployed: No Education: High School Diploma/GED Difficulty w/ Childcare or Family Care: No Living arrangements: fpc Additional living arrangements comments: Renetta Alvarez [place] ([facility]) Gender identity (if verbalized by the patient): Female Spiritual care concerns: No Meds Home Medications and Allergies Home Medications ?Medication ?Instructions ?Recorded ?Confirmed ?Type carvedilol 6.25 mg tablet 6.25 mg PO BID 03/22/21 01/25/25 History insulin glargine 100 unit/mL 20 unit subcut BID 03/22/21 01/25/25 History subcutaneous solution insulin lispro 100 unit/mL 10 unit subcut TIDWM 03/22/21 01/25/25 History subcutaneous pen methimazole 10 mg tablet (Tapazole) 10 mg PO DAILY 03/22/21 01/25/25 History pantoprazole 20 mg tablet,delayed 40 mg PO DAILY 03/22/21 01/25/25 History release acetaminophen 650 mg tablet 650 mg PO Q4H PRN Pain (Scale 02/14/24 01/25/25 History Score 1-3) apixaban 2.5 mg tablet (Eliquis) 2.5 mg PO BID 02/14/24 01/25/25 History bumetanide 1 mg tablet 1 mg PO DAILY 02/14/24 01/25/25 History lidocaine 4 % topical patch 1 patch topical DAILY 02/14/24 01/25/25 History magnesium oxide 400 mg (241.3 mg 400 mg PO BID 02/14/24 01/25/25 History magnesium) tablet rosuvastatin 40 mg tablet 40 mg PO HS 02/14/24 01/25/25 History vit C 250 mg-vit E 90 mg-zinc 40 1 tablet PO DAILY 02/14/24 01/25/25 History mg-copper 1 hd-spnnad-vwioyb capsule (PreserVision AREDS-2) acetaminophen 500 mg capsule 1,000 mg (2 x 500 mg) PO Q6H PRN 04/20/24 01/25/25 Rx pain #20 caps clopidogrel 75 mg tablet 75 mg PO DAILY 01/25/25 01/25/25 History guaifenesin 100 mg/5 mL oral 200 mg PO Q8H PRN cough 01/25/25 01/25/25 History liquid (Adult Tussin Chest Congestion) insulin lispro 100 unit/mL 5 unit subcut 1200 01/25/25 01/25/25 History subcutaneous solution (Humalog U-100 Insulin) ipratropium 0.5 mg-albuterol 3 mg 3 ml inhalation Q8H PRN shortness 01/25/25 01/25/25 History (2.5 mg base)/3 mL nebulization of breath or wheezing soln potassium chloride 20 mEq 40 meq PO DAILY 01/25/25 01/25/25 History tablet,extended release(part/cryst) pregabalin 50 mg capsule (Lyrica) 50 mg PO Q12H 01/25/25 01/25/25 History Allergies Allergy/AdvReac Type Severity Reaction Status Date / Time adhesive tape Allergy Intermediate Rash Verified 05/02/21 08:25 codeine Allergy Unknown Stomach Verified 05/02/21 08: cramps latex Allergy Unknown Blister Verified 05/02/21 08:25 Vital Signs Vital Signs - 24 hr 01/25/25 14:26 01/25/25 15:01 01/25/25 15:07 Temperature 36.6 C Pulse Rate 78 81 79 Respiratory Rate 18 20 20 Blood Pressure 149/82 H Pulse Oximetry 100 Oxygen Delivery Nasal Cannula Oxygen Flow Rate 4 01/25/25 18:06 01/25/25 18:08 01/25/25 19:31 Temperature Pulse Rate 80 79 Respiratory Rate 18 17 Blood Pressure 134/81 Pulse Oximetry 100 100 100 Oxygen Delivery Nasal Cannula Oxygen Flow Rate 4 01/25/25 19:43 01/25/25 19:43 01/25/25 19:59 Temperature Pulse Rate 79 Respiratory Rate 16 Blood Pressure Pulse Oximetry 92 95 Oxygen Delivery Nasal Cannula Nasal Cannula Oxygen Flow Rate 2 2 01/25/25 20:25 01/25/25 20:34 01/26/25 00:00 Temperature 36.4 C Pulse Rate 79 80 Respiratory Rate 18 Blood Pressure 125/82 Pulse Oximetry 100 95 Oxygen Delivery Nasal Cannula Oxygen Flow Rate 2 01/26/25 04:00 01/26/25 05:30 01/26/25 08:00 Temperature 36.8 C Pulse Rate 79 79 79 Respiratory Rate 16 Blood Pressure 137/79 Pulse Oximetry 100 Oxygen Delivery Oxygen Flow Rate 01/26/25 08:45 01/26/25 09:34 01/26/25 09:34 Temperature Pulse Rate 70 70 Respiratory Rate 16 16 Blood Pressure Pulse Oximetry 97 Oxygen Delivery Room Air Nasal Cannula Oxygen Flow Rate 2 01/26/25 09:48 Temperature Pulse Rate 72 Respiratory Rate 14 Blood Pressure Pulse Oximetry Oxygen Delivery Oxygen Flow Rate Exam Const: General: comfortable HENMT: Mouth: Yes moist mucous membranes Eyes: EOM: EOMs intact bilaterally Neck: Neck: no JVD Resp: Effort & Inspection: normal respiratory effort Auscultation: diminished lung sounds Cardio: Rate: regular rate Rhythm: regular rhythm Extrem: General: no pedal edema Results Labs and Meds 01/26/25 04:27 01/26/25 04:27 Lab results: Cardiac Enzymes 01/25/25 01/25/25 01/25/25 Range/Units 14:45 14:45 17:50 AST 26 (14-36) U/L Troponin I 0.034 0.034 0.030 (0.000-0.034) ng/mL 01/26/25 Range/Units 04:27 AST 26 (14-36) U/L Troponin I (0.000-0.034) ng/mL Coagulation 01/25/25 Range/Units 14:45 PT 18.9 H (11.1-14.7) Seconds APTT 32.2 (22.3-36.8) Seconds CBC 01/25/25 01/26/25 Range/Units 14:45 04:27 WBC 6.4 5.2 (4.5-10.0) K/mm3 RBC 4.34 4.01 L (4.2-5.4) M/mm3 Hgb 11.1 L 10.3 L (12.0-15.0) g/dL Hct 37.3 34.2 L (37.0-47.0) % Plt Count 173 146 L (150-375) k/mm3 Lymph # (Auto) 1.01 0.91 (0.9-3.2) K/mm3 [place] # (Auto) 0.8 H 0.9 H (0.1-0.6) K/mm3 Eos # (Auto) 0.2 0.2 (0-0.3) K/mm3 Baso # (Auto) 0.1 0.1 (0.0-0.1) K/mm3 Comprehensive Metabolic Panel 08/10/25 08/11/25 Range/Units 14:45 04:27 Sodium 138 141 (137-145) mmol/L Potassium 4.5 3.8 (3.4-5.0) mmol/L Chloride 99 103 (98-107) mmol/L Carbon Dioxide 33 H 32 H (22-30) mmol/L BUN 36 H D 35 H (7-17) mg/dL Creatinine 1.53 H 1.41 H (0.7-1.0) mg/dL Glucose 225 H 113 H (65-110) mg/dL Calcium 8.2 L 8.1 L (8.4-10.2) mg/dL Direct Bilirubin 0.0 (0-0.3) mg/dL AST 26 26 (14-36) U/L ALT 13 12 (6-35) U/L Alkaline Phosphatase 113 95 (38-126) U/L Total Protein 7.0 6.0 L (6.3-8.2) g/dL Albumin 3.8 3.2 L (3.5-5.1) g/dL Intake and Output 01/25/25 01/26/25 01/26/25 23:59 07:59 15:59 Intake Total 50 300 240 Output Total 1200 Balance 50 -900 240 Intake: IV 50 cefTRIAXone 1 gm In Sodium 50 Chloride 0.9% IV 50 ml @ 100 mls/hr IVPB ONCE STA Rx#: [id number] Oral 300 240 Output: Catheter Urine 1200 External/Condom 1200
[2025-01-26] MEDS: CLOPIDOGREL BISULFATE 75 MG TABLET PO (12:46)
[2025-01-26] MEDS: PREGABALIN (*CRX) 50 MG CAPSULE PO ×2 (12:46→20:41)
[2025-01-26] MEDS: PANTOPRAZOLE 40 MG TABLET PO (12:46)
[2025-01-26] MEDS: POTASSIUM CHLORIDE 20 MEQ ER TABLET 40 MEQ PO (12:47)
[2025-01-26] MEDS: INSULIN ASPART (*BKC) 100 UNITS/ML SUB-Q ×3 (12:53→21:09)
[2025-01-26] MEDS: PERFLUTREN LIPID MICROSPHERES 1.5 ML VIAL DILUTED TO 10 ML TOTAL VOLUME IV PUSH (14:30)
--- NOTE | 2025-01-26 15:15 | IVDEFINITY ---
Prior to administration of IV Definity the patient was educated on the risks and benefits of the imaging enhancing agent including potential adverse side effects. The patient verbalized understanding. Allergies were verified. No exclusion criteria were identified and at least one of the following inclusion criteria were met: 1) physician request, 2) patient technically difficult to image (per the [place] [employer] Echocardi[employer] guidelines of two or more segments not discernable within the apical view), or 3) questionable left ventricular function. ?
[2025-01-26] MEDS: MAGNESIUM OXIDE 400 MG TABLET PO (16:59)
[2025-01-26] MEDS: cefTRIAXone 1 GM in SODIUM CHLORIDE 0.9% IV 50 ML 100 ML IVPB (18:53)
[2025-01-26] MEDS: ROSUVASTATIN 20 MG TABLET 40 MG PO (20:41)
[2025-01-27] VITALS (19 sets, daily range): BP systolic 106–146; BP diastolic 59–90; PULSE 76–86; RESP 18–22; TEMP 36.2–36.6; O2SAT 95–100
[2025-01-27] MEDS: ALBUTEROL SULFATE NEB 2.5 MG/3 ML INH INHALATION ×4 (01:35→20:22)
[2025-01-27 05:25] LABS: Hematocrit 35.7 % (37.0-47.0); Hemoglobin 10.3 g/dL (12.0-15.0); Immature Granulocyte Percent A 0.6 % (0-0.5); Lymphocytes Absolute Auto 0.83 K/mm3 (0.9-3.2); Mean Corpuscular HGB Conc 28.9 g/dl (32-36); Mean Corpuscular Hemoglobin 25.2 pg (26-34); Mean Corpuscular Volume 87.3 fl (80-100); Nucleated Red Blood Cells Absolute Auto 0.000 K/mm3 (0.0-0.012); Nucleated Red Blood Cells Perc 0.0 % (0.0-0.2); Platelet Count Result 165 k/mm3 (150-375); Red Blood Count 4.09 M/mm3 (4.2-5.4); White Blood Count 6.6 K/mm3 (4.5-10.0)
[2025-01-27 05:44] LABS: Alanine Aminotransferase 11 U/L (6-35); Albumin Level 3.2 g/dL (3.5-5.1); Alkaline Phosphatase 102 U/L (38-126); Anion Gap 6 mmol/L (4-12); Aspartate Amino Transferase 23 U/L (14-36); Bilirubin,Total 0.8 mg/dL (0.2-1.3); Blood Urea Nitrogen 32 mg/dL (7-17); Calcium 8.3 mg/dL (8.4-10.2); Carbon Dioxide 30 mmol/L (22-30); Chloride 102 mmol/L (98-107); Estimated CRCL calculation 28 ml/min; Estimated Glomerular Filt Rate 40; Glucose 150 mg/dL (65-110); Potassium 4.2 mmol/L (3.4-5.0); Sodium 138 mmol/L (137-145); Total Protein 6.1 g/dL (6.3-8.2)
[2025-01-27 05:48] LABS: Anisocytosis 1+; Hypochromasia 1+; Ovalocytes 1+; Schistocytes None Seen
[2025-01-27] MEDS: MAGNESIUM OXIDE 400 MG TABLET PO ×2 (08:55→17:30)
[2025-01-27] MEDS: ASPIRIN 81 MG CHEWABLE TABLET PO (08:55)
[2025-01-27] MEDS: CLOPIDOGREL BISULFATE 75 MG TABLET PO (08:55)
[2025-01-27] MEDS: PREGABALIN (*CRX) 50 MG CAPSULE PO ×2 (08:55→20:37)
[2025-01-27] MEDS: POTASSIUM CHLORIDE 20 MEQ ER TABLET 40 MEQ PO (08:55)
[2025-01-27] MEDS: PANTOPRAZOLE 40 MG TABLET PO (08:55)
[2025-01-27] MEDS: FUROSEMIDE INJ 40 MG/4 ML VIAL IV PUSH ×2 (08:56→20:37)
--- NOTE | 2025-01-27 09:23 | P.PNIM_ITS ---
Progress Note: A&P Assessment and Plan (1) Acute exacerbation of CHF (congestive heart failure): Qualifiers: Heart failure type: systolic Qualified Code(s): I50.23 - Acute on chronic systolic (congestive) heart failure Code(s): I50.9 - Heart failure, unspecified Status: Acute Assessment and Plan: * Possibly due to dietary indiscretion versus tolerance to loop diuretic * UA suggests possible UTI * No evidence for ACS * TSH = 5.570 * Medication non-adherence is not an issue as she resides at a facility * Continue beta-marlin, spironolactone and ARNI * Add IV furosemide 40 mg bid * Monitor I/O, labs * Cardio consult for further recommendations regarding med management * Continue Lasix 40 mg b.i.d. 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 Status: Acute Assessment and Plan: * Reduce basal and pre-premeal insulin by about 33% and add SSI (5) Hyperthyroidism: Code(s): E05.90 - Thyrotoxicosis, unspecified without thyrotoxic crisis or storm Status: Acute Assessment and Plan: * Continue methimazole * Check TSH (6) CKD stage 3 due to type 2 diabetes mellitus: Code(s): E11.22 - Type 2 diabetes mellitus with diabetic chronic kidney disease; N18.3 - Chronic kidney disease, stage 3 (moderate) Status: Acute Assessment and Plan: * At baseline (01/25 creatinine 1.53) * Monitor renal function during diuresis (7) Anemia: Code(s): D64.9 - Anemia, unspecified Status: Acute Assessment and Plan: * C/w anemia of CKD * 01/26 Hgb 10.3 (8) Diabetic peripheral neuropathy: Code(s): E11.42 - Type 2 diabetes mellitus with diabetic polyneuropathy Status: Acute Assessment and Plan: * Will need PT/OT (9) History of cerebellar stroke: Code(s): Z86.73 - Personal history of transient ischemic attack (TIA), and cerebral infarction without residual deficits Status: Acute Assessment and Plan: * Continue ASA (10) Atrial fib/flutter, transient: Code(s): I48.91 - Unspecified atrial fibrillation; I48.92 - Unspecified atrial flutter Status: Acute Assessment and Plan: * Continue Eliquis, beta-marlin * Rates are well controlled on carvedilol 6.25 p.o. b.i.d. (11) Peripheral vascular disease, unspecified: Code(s): I73.9 - Peripheral vascular disease, unspecified Status: Acute Assessment and Plan: * Continue ASA (12) UTI (urinary tract infection), bacterial: Code(s): N39.0 - Urinary tract infection, site not specified; A49.9 - Bacterial infection, unspecified Status: Acute Assessment and Plan: * Suggested by UA * 01/25 started ceftriaxone (13) Mitral stenosis: Code(s): I05.0 - Rheumatic mitral stenosis Status: Acute Assessment and Plan: * Follows with a greaser helper in the outpatient setting, not a surgical candidate for surgery at this time * Cardiology recommends continuing diuresis and carvedilol (14) History of transcatheter aortic valve replacement (TAVR): Code(s): Z95.2 - Presence of prosthetic heart valve Status: Acute Assessment and Plan: * s/p TAVR * Continue aspirin, Plavix, rosuvastatin Subjective Date/time seen: 01/27/25 09:23 Interval history: 84-year-old female [place] resident with a history of chronic diastolic congestive heart failure, status post TAVR and and pacemaker, has chronic dyspnea but noticed over the last 24 hours that her dyspnea was worsened to the point that while dressing she would breathe so hard that she would get dizzy. . 01/27/2025 Patient sitting comfortably in bed at time of examination. Seen by Cardiology who recommended continuing Lasix 40mg BID. Severe MS on Echo, not a surgical candidate at this time. Still endorsing SOB w/ physical activity. Denies any CP, n/v, headaches or dizziness at this time. Blood work and vitals remain stable. Likely can d/c tomorrow if she continues to progress well with physical therapy, who is recommending home with home health services. Review of Systems Review of Systems: All systems reviewed & are unremarkable except as noted in HPI and below Exam Narrative: HEENT: EOMI, PERRL, sclerae nonicteric, pharyngeal mucosa pink and intact NECK: 2 cm JVD, adenopathy, or thyromegaly CHEST: Clear to auscultation. Normal effort. HEART: NL S1/S2, regular, 2/6 PRECIOUS RUSB ABDOMEN: BS+, soft, nontender, no mass, no bruits EXTREMITIES: No pedal edema NEUROLOGIC: CN intact and symmetric to inspection, HINTS exam negative MUSCULOSKELETAL: Tone and strength symmetric PSYCH: Alert. Oriented to person, place, and year Objective Data Vital Signs Vital Signs: Vital Signs - 24 hr 01/26/25 09:34 01/26/25 09:34 01/26/25 09:48 Temperature Pulse Rate 70 70 72 Respiratory Rate 16 16 14 Blood Pressure Pulse Oximetry 97 Oxygen Delivery Nasal Cannula Oxygen Flow Rate 2 01/26/25 12:00 01/26/25 12:46 01/26/25 14:00 Temperature 97.5 F L Pulse Rate 79 74 79 Respiratory Rate 22 H Blood Pressure 124/68 Pulse Oximetry 100 Oxygen Delivery Oxygen Flow Rate 01/26/25 14:50 01/26/25 14:58 01/26/25 16:00 Temperature Pulse Rate 77 79 Respiratory Rate 14 Blood Pressure Pulse Oximetry Oxygen Delivery Nasal Cannula Oxygen Flow Rate 2 01/26/25 16:59 01/26/25 20:01 01/26/25 20:40 Temperature Pulse Rate 77 79 Respiratory Rate Blood Pressure Pulse Oximetry 98 Oxygen Delivery Nasal Cannula Oxygen Flow Rate 2 01/26/25 20:47 01/26/25 22:00 01/27/25 00:03 Temperature 97.5 F L Pulse Rate 72 79 79 Respiratory Rate 20 18 Blood Pressure 132/68 Pulse Oximetry 100 Oxygen Delivery Oxygen Flow Rate 01/27/25 01:35 01/27/25 01:44 01/27/25 04:00 Temperature Pulse Rate 80 79 79 Respiratory Rate 20 20 Blood Pressure Pulse Oximetry Oxygen Delivery Oxygen Flow Rate 01/27/25 06:00 01/27/25 07:55 01/27/25 07:55 Temperature 97.4 F L Pulse Rate 79 76 Respiratory Rate 18 20 Blood Pressure 131/90 Pulse Oximetry 99 95 Oxygen Delivery Nasal Cannula Oxygen Flow Rate 2 01/27/25 08:55 Temperature Pulse Rate 76 Respiratory Rate Blood Pressure Pulse Oximetry Oxygen Delivery Oxygen Flow Rate Intake/Output Intake/Output: Intake & Output 01/24/25 01/25/25 01/26/25 01/27/25 23:59 23:59 23:59 23:59 Intake Total 50 1450 Output Total 2150 1500 Balance 50 -700 -1500 Meds/Results Medications: Active Medications Generic Name Dose Route Start Last Admin Trade Name Freq PRN Reason Stop Dose Admin Albuterol 2.5 mg 01/25/25 20:00 01/27/25 07:54 Albuterol Sulfate Neb 2.5 Mg/3 Ml Inh INHALATION 2.5 mg Q6HRT BINH Administration Albuterol/Ipratropium 3 ml 01/26/25 09:40 Ipratropium 0.5 Mg/Albuterol Sulfate 2.5 Mg Ampul.Neb 3 Ml INHALATION Q8H PRN shortness of breath or wheezing Aspirin 81 mg 01/26/25 08:00 01/27/25 08:55 Aspirin 81 Mg Chewable Tablet PO 81 mg DAILY@0800 BINH Administration Bumetanide 1 mg 01/26/25 10:30 01/26/25 10:24 Bumetanide 1 Mg Tablet PO Not Given DAILY BINH Carvedilol 6.25 mg 01/26/25 10:00 01/27/25 08:55 Carvedilol 6.25 Mg Tablet PO 6.25 mg BID BINH Administration Clopidogrel Bisulfate 75 mg 01/26/25 10:30 01/27/25 08:55 Clopidogrel Bisulfate 75 Mg Tablet PO 75 mg DAILY BINH Administration Dextrose 12.5 gm 01/26/25 09:42 Dextrose 50% 25 Gm/50 Ml Syringe IV PUSH PRN PRN Hypoglycemia Protocol Furosemide 40 mg 01/25/25 21:00 01/27/25 08:56 Furosemide Inj 40 Mg/4 Ml Vial IV PUSH 40 mg Q12HR BINH Administration Glucagon 1 mg 01/26/25 09:42 Glucagon For Inj 1 Mg Vial IM PRN PRN Hypoglycemia Protocol Glucose 15 gm 01/26/25 09:42 Glucose Oral Gel 15 Gm Of Glucse In 37.5 Gm Tube PO PRN PRN Hypoglycemia Protocol Guaifenesin 200 mg 01/26/25 09:40 Guaifenesin 200 Mg/10 Ml Udc PO Q8H PRN cough Heparin Sodium (Porcine) 5,000 units 01/25/25 21:00 01/27/25 08:56 Heparin Sodium 5,000 Units/Ml Vial SUB-Q 5,000 units Q12HR BINH Administration Ceftriaxone Sodium 1 gm/ 50 mls @ 100 mls/hr 01/26/25 19:00 01/26/25 18:53 Sodium Chloride IVPB 100 mls/hr Q24H BINH Administration Dextrose 1,000 mls @ 100 mls/hr 01/26/25 09:42 Dextrose 5% 1,000 Ml IVPB PRN PRN Hypoglycemia Protocol Insulin Aspart 2 - 5 units 01/26/25 12:00 01/27/25 08:54 Insulin Aspart (*Bkc) 100 Units/Ml SUB-Q Not Given TIDWM BINH Protocol Insulin Aspart 1 - 2 units 01/26/25 21:00 01/26/25 21:09 Insulin Aspart (*Bkc) 100 Units/Ml SUB-Q 2 units HS BINH Administration Protocol Lidocaine 1 patch 01/26/25 10:30 01/27/25 08:56 Lidocaine 5% Patch TOPICAL Not Given DAILY BINH Magnesium Oxide 400 mg 01/26/25 17:00 01/27/25 08:55 Magnesium Oxide 400 Mg Tablet PO 400 mg BID BINH Administration Methimazole 10 mg 01/26/25 10:00 01/27/25 08:55 Methimazole 10 Mg Tab PO 10 mg DAILY BINH Administration Pantoprazole Sodium 40 mg 01/26/25 10:00 01/27/25 08:55 Pantoprazole 40 Mg Tablet PO 40 mg DAILY BINH Administration Potassium Chloride 40 meq 01/26/25 10:30 01/27/25 08:55 Potassium Chloride 20 Meq Er Tablet PO 40 meq DAILY BINH Administration Pregabalin 50 mg 01/26/25 10:00 01/27/25 08:55 Pregabalin (*Crx) 50 Mg Capsule PO 50 mg Q12HR BINH Administration Rosuvastatin Calcium 40 mg 01/26/25 21:00 01/26/25 20:41 Rosuvastatin 20 Mg Tablet PO 40 mg HS IBNH Administration Radiology Results: ITS Impressions Chest X-Ray 01/25/25 15:30 IMPRESSION: Edema versus chronic interstitial change. Small right pleural effusion Chest CTA 01/25/25 18:50 IMPRESSION: No CT evidence of acute pulmonary embolus. Pulmonary edema, overlying chronic interstitial changes. Moderate right and small left pleural effusions. Mediastinal and right hilar lymphadenopathy. Mild wedge compression fracture at T4, new since the study, probably chronic unless accompanied by acute pain/tenderness. Labs Labs: Laboratory Results - last 24 hr 01/26/25 01/26/25 01/26/25 04:27 12:52 16:31 WBC 5.2 RBC 4.01 L Hgb 10.3 L Hct 34.2 L MCV 85.3 MCH 25.7 L MCHC 30.1 L RDW 17.2 H Plt Count 146 L MPV 11.7 H Immature Gran % (Auto) 0.6 H Neut % (Auto) 59.3 Lymph % (Auto) 17.7 L [place] % (Auto) 16.7 H Eos % (Auto) 4.7 H Baso % (Auto) 1.0 Lymph # (Auto) 0.91 [place] # (Auto) 0.9 H Eos # (Auto) 0.2 Baso # (Auto) 0.1 Abs Immat Gran (auto) 0.03 Absolute Neuts (auto) 3.1 Absolute Nucleated RBC 0.000 Band Neutrophils % Nucleated RBC % 0.0 Platelet Estimate Hypochromasia Anisocytosis Ovalocytes Schistocytes Sodium Potassium Chloride Carbon Dioxide Anion Gap BUN Creatinine Estim Creat Clear Calc Estimated GFR Glucose POC Capillary Glucose 216 H 293 H Calcium Total Bilirubin 0.6 Direct Bilirubin 0.0 AST 26 ALT 12 Alkaline Phosphatase 95 Total Protein 6.0 L Albumin 3.2 L 01/26/25 01/27/25 01/27/25 21:03 01:56 04:38 WBC 6.6 RBC 4.09 L Hgb 10.3 L Hct 35.7 L MCV 87.3 MCH 25.2 L MCHC 28.9 L RDW 17.1 H Plt Count 165 MPV 11.8 H Immature Gran % (Auto) 0.6 H Neut % (Auto) 67.7 Lymph % (Auto) 12.6 L [place] % (Auto) 13.8 H Eos % (Auto) 4.5 H Baso % (Auto) 0.8 Lymph # (Auto) 0.83 L [place] # (Auto) 0.9 H Eos # (Auto) 0.3 Baso # (Auto) 0.1 Abs Immat Gran (auto) 0.04 H Absolute Neuts (auto) 4.5 Absolute Nucleated RBC 0.000 Band Neutrophils % Not Reportable Nucleated RBC % 0.0 Platelet Estimate Adequate Hypochromasia 1+ Anisocytosis 1+ Ovalocytes 1+ Schistocytes None seen Sodium 138 Potassium 4.2 Chloride 102 Carbon Dioxide 30 Anion Gap 6 BUN 32 H Creatinine 1.27 H Estim Creat Clear Calc 28 Estimated GFR 40 L Glucose 150 H POC Capillary Glucose 296 H 136 H Calcium 8.3 L Total Bilirubin 0.8 Direct Bilirubin AST 23 ALT 11 Alkaline Phosphatase 102 Total Protein 6.1 L Albumin 3.2 L 01/27/25 07:47 WBC RBC Hgb Hct MCV MCH MCHC RDW Plt Count MPV Immature Gran % (Auto) Neut % (Auto) Lymph % (Auto) [place] % (Auto) Eos % (Auto) Baso % (Auto) Lymph # (Auto) [place] # (Auto) Eos # (Auto) Baso # (Auto) Abs Immat Gran (auto) Absolute Neuts (auto) Absolute Nucleated RBC Band Neutrophils % Nucleated RBC % Platelet Estimate Hypochromasia Anisocytosis Ovalocytes Schistocytes Sodium Potassium Chloride Carbon Dioxide Anion Gap BUN Creatinine Estim Creat Clear Calc Estimated GFR Glucose POC Capillary Glucose 146 H Calcium Total Bilirubin Direct Bilirubin AST ALT Alkaline Phosphatase Total Protein Albumin Quality VTE Prophylaxis VTE prophylaxis: pharmacologic ordered (heparin)
--- OUTSIDE RECORDS SUMMARY | 2025-01-27 10:51 | XMS_ITS | Clinical Summary ---
Author Organization [facility] Address [address] [place] [address] Care Team Providers Care Food Service Name Role Phone Abena Mccabe MD Primary [...] series) 2013 INFLUENZA VACCINE (#1) 2025 Insurance [employer] MCR Care Teams Food Service Relationship Specialty Start Date End Date Abena Mccabe MD [address] [place] [id number] PCP - General Family Practice 09/06/18
--- OUTSIDE RECORDS SUMMARY | 2025-01-27 10:51 | XMS_ITS | Clinical Summary ---
Author Organization [facility] Address [address] [place] [address] Care Team Providers Care Fly Setter Name Role Phone Abena Mccabe MD Primary Care Provider Nazario Ireland MD Unavailable [phone] Marta Guevara MD Unavailable [phone] Sandro Schilling MD Unavailable [phone] Regina Ware NP Unavailable Solo Hair MD [...] How often do you attend chur or yazidi services? More than 4 times per year 01/04/2021 Do you belong to any clubs o r organizations such as alevism groups, unions, fraternal or athletic groups, or [...] place to sleep or slept in a long-term (including now)? No 01/04/2021 Personal Safety Answer Date Recorded Getting School Help Needed Not on file 06/18 Comments No Sex and Gender Information Value Date Recorded Sex Assigned at Not on file Legal Sex Female 1:03 PM STOREKEEPER HELPER Gender Identity Not on file Sexual Orientation Not on file Obstetrics History Last Filed Vital Signs Vital Sign Reading Time Taken Comments Blood Pressure 152/76 05/05/2021 8:29 AM STOREKEEPER HELPER Pulse 77 05/05/2021 8:29 AM STOREKEEPER HELPER Temperature 36.6 C (97.8 F) 05/05/2021 7:56 AM STOREKEEPER HELPER Respiratory Rate 16 05/05/2021 7:56 AM STOREKEEPER HELPER Oxygen Saturation 99% 05/05/2021 8:29 AM STOREKEEPER HELPER Inhaled Oxygen Concentration - - Weight 73.1 kg (161 lb 2.5 oz) 05/05/2021 6:10 A M STOREKEEPER HELPER Height 162.6 cm (5' 4) 05/03/2021 3:05 AM STOREKEEPER HELPER Body Mass Index 27.66 05/03/2021 3:05 AM STOREKEEPER HELPER Plan of Treatment Health Maintenance Due Date [...] 05/02/2019, 08/15/2018 Medical Devices Implanted Type Area Bag Machine Helper Device Identifier Shelf Expiration Date Model / Serial / Lot [employer]a Vascular 25434-79 Perclose 6fr Suture Mediate Knot Push Vascular Device Closure - [id number] Implanted:Qty: 1 on 01/06/2021 by Bud Mejias MD at [facility] 10/15/2022 [id number] / / [id number] [employer] [id number] Perclose 6fr Suture Mediate Knot Push Vascular Device Closure - [id number] Implanted:Qty: 1 on 01/06/2021 by Bud Mejias MD at [facility] 10/15/2022 [id number] / / [id number] [employer]onic Inc Evproplus-26us Valve 26mm Aortic Evolut Pro+ - [id number] - [id number] Implanted:Qty: 1 on 01/06/2021 by Bud Mejias MD at [facility] [employer] 05/26/2022 EVPROPLUS-2 6US / [id number] / [employer] [id number] Perclose 6fr Suture Mediate Knot Push Vascular Device Closure - [id number] Implanted:Qty: 1 on 01/06/2021 by Bud Mejias MD at [facility] [employer] 10/15/2022 [id number] / / [id number] [employer] [id number] Solia S 53cm Steroid Elute Bipolar Active Fixation Endocardial - [id number] Implanted:Qty: 1 on 01/08/2021 by Nazario Ireland MD at [facility] [employer] 02/15/2022 [id number] / / [employer] [id number] Solia S 45cm Bipolar Active Fixation Lead Pacing Steroid Eluting - [id number] Implanted:Qty: 1 on 01/08/2021 by Nazario Ireland MD at [facility] [employer] 04/17/2022 [id number] / / [employer] [id number] Edora Promri 65n97o3.5mm Dual Chamber Rate Adaptive Unipolar Bipolar - [id number] Implanted:Qty: 1 on 01/08/2021 by Nazario Ireland MD at [facility] [employer] 05/17/2022 [id number] / / Procedures Procedure Name Priority Date/Time Associated Diagnosis Comments EGFR STAT 05/03/2021 10:48 AM STOREKEEPER HELPER HEMOGLOBIN A1C STAT 05/02/2021 12:55 PM STOREKEEPER HELPER LIPID PANEL STAT 05/02/2021 12:55 PM STOREKEEPER HELPER from Last 3 Months or Most Recently Relevant to Health Maintenance Results * (ABNORMAL) eGFR (05/03/2021 10:48 AM STOREKEEPER HELPER) [facility] eGFR 46(L) 90 - 130 mL/min/1.7 3 m2 [facility] Comment: Interpretive Data Reference Interval [...] reviewed 2020 Blood 05/03/2021 10:4 8 AM STOREKEEPER HELPER 05/03/2021 11:01 AM STOREKEEPER HELPER Mary Sandoval MD LAB BLOOD ORDERABLES Final R esult Performing Organization Address [facility] Phone Number [facility] Department [place] [address] * (ABNORMAL) Hemoglobin A1c (05/02/2021 12:55 PM STOREKEEPER HELPER) Hgb A1C 12.0(H) 4.0 - 5.6 % [facility] Estimated Average Glucose 298 mg/dL [facility] Comment: The ADA recommends reporting an estimated Average Glucose (eAG) with all Hemoglobin A1c results using the equation derived from a study of 507 normal and diabetic adults. Minority populations were underrepresented and children were not included. (Diabetes Care 2020; 43(S1): S66-S76). The eAG is not equivalent to a fasting glucose. Blood 05/02/2021 12:5 5 PM STOREKEEPER HELPER 05/02/2021 1:08 PM STOREKEEPER HELPER Narrative [facility] - 05/03/2021 9:52 AM STOREKEEPER HELPER REFLEX Mary Sandoval MD LAB BLOOD ORDERABLES Final R esult Performing Organization Address [facility] de Phone Number [facility] Department [place] [address] * (ABNORMAL) Lipid panel (05/02/2021 12:55 PM STOREKEEPER HELPER) Cholesterol 113 30 - 199 mg/dL [facility] Comment: Interpretive Data Ages < or = [...] on 2018. Triglycerides 179(H) <=149 mg/dL [facility] Comment: Interpretive Data Ages < or = [...] on 2018. HDL 43 >=40 mg/dL [facility] Comment: Interpretive Data Ages < or = [...] 2018. LDL, calculated 34 <=129 mg/dL [facility] Comment: Interpretive Data Ages < or = [...] on 2018. Non-HDL Cholesterol 70 mg/dL [facility] Comment: Interpretive Data Ages < or = [...] last revised on 2018. Chol/HDL ratio 3 [facility] Blood 05/02/2021 12:5 5 PM STOREKEEPER HELPER 05/02/2021 1:04 PM STOREKEEPER HELPER us Mary Sandoval MD LAB BLOOD ORDERABLES Final R esult [facility] Department [place] [address] from Last 3 Months or Most Recently Relevant to Health Maintenance Insurance [employer] CHOICE MEDICARE PPO Advance Directives For more information, please contact: [phone] Documents on File Type Date Recorded Patient Armored Vehicle Officer Expl anation ADVANCE DIRECTIVE 01/03/2021 2:36 PM Maricruz jim Miki * Full Code (Latest Code Status on File) Date Activated Date Inactivated Comments 05/03/2021 2:46 AM 05/05/2021 4:48 PM * Full Code Date Activated Date Inactivated Comments 01/03/2021 8:42 PM 01/13/2021 7:02 PM Healthcare Agents on File Name Relationship Healthcare Agent [facility] Kleber Reid Daughter Health Care Agent Care Teams Fly Setter Relationship Specialty Start Date End Date Abena Mccabe MD PCP - General Family Medicine 07/23/18 Nazario Ireland MD [address] [place] [address] Consulting Physician Cardiology 01/12/21 [place] [address] [address] [facility] [address] [place] [address] Consulting Physician Endocrinology 01/13/21 Sandro Schilling MD [address] [facility] [address], [place] [address] Consulting Physician Interventional Cardiology 01/13/21 Regina Ware NP [address] [facility] [address], [place] [address] Nurse Practitioner Cardiology 01/13/21 Solo Hair MD [address] [facility] [address] [place] [id number] Consulting Physician Orthopedic Surgery 05/05/21
--- NOTE | 2025-01-27 11:44 | PM.PNCARD ---
Progress Note: A&P Assessment and Plan (1) Acute exacerbation of CHF (congestive heart failure): Qualifiers: Heart failure type: systolic Qualified Code(s): I50.23 - Acute on chronic systolic (congestive) heart failure Code(s): I50.9 - Heart failure, unspecified Status: Acute (2) Unspecified atrial flutter: Code(s): I48.92 - Unspecified atrial flutter Status: Acute (3) History of transcatheter aortic valve replacement (TAVR): Code(s): Z95.2 - Presence of prosthetic heart valve Status: Acute (4) Mixed hyperlipidemia: Code(s): E78.2 - Mixed hyperlipidemia Status: Acute (5) Mitral stenosis: Code(s): I05.0 - Rheumatic mitral stenosis Status: Acute Plan 84-year-old woman from [facility] with chronic diastolic heart failure, severe aortic stenosis status post TAVR, complete heart block status post permanent pacemaker, and paroxysmal atrial fibrillation on Eliquis 2.5 mg p.o. b.i.d. was brought into the hospital due to severe worsening shortness of breath with associated chest discomfort Acute on chronic diastolic heart failure -continue Lasix 40 mg IV b.i.d.; she is making adequate urine output and will continue the course at this time -chest discomfort likely secondary to heart failure exacerbation and will continue to reassess however troponins are negative thus far Severe mitral stenosis -has been following up outpatient and she states that her outpatient speech correction assistant had discussions with her regarding that she is not a candidate for surgery -continue diuresis and carvedilol -heart rate acceptable Severe aortic stenosis status post TAVR -on chest x-ray appears to be a self expanding valve -she is also on aspirin, Plavix, and rosuvastatin Complete heart block status post permanent pacemaker -normal function device based on telemetry review Paroxysmal atrial fibrillation -continue Eliquis 2.5 mg p.o. b.i.d. for stroke risk reduction -rates are well controlled on carvedilol 6.25 p.o. b.i.d. Subjective Date/time seen: 01/27/25 11:45 Interval history: She continues to have significant shortness of breath with physical activity. She does complain of chest discomfort when she moves from her bed. Otherwise while she is laying in bed watching television, she is symptom free. Review of Systems Cardiovascular: Cardiovascular: Reports as per HPI Respiratory: Respiratory: Reports as per HPI Exam Const: General: comfortable HENMT: Mouth: Yes moist mucous membranes Eyes: EOM: EOMs intact bilaterally Neck: Neck: no JVD Resp: Effort & Inspection: normal respiratory effort Auscultation: diminished lung sounds Cardio: Rate: regular rate Rhythm: abnormal rhythm Heart sounds: Murmur heart sound present Extrem: General: no pedal edema Objective Data Vital Signs Vital Signs: Vital Signs - 24 hr 01/26/25 12:00 01/26/25 12:46 01/26/25 14:00 Temperature 36.4 C L Pulse Rate 79 74 79 Respiratory Rate 22 H Blood Pressure 124/68 Pulse Oximetry 100 Oxygen Delivery Oxygen Flow Rate 01/26/25 14:50 01/26/25 14:58 01/26/25 16:00 Temperature Pulse Rate 77 79 Respiratory Rate 14 Blood Pressure Pulse Oximetry Oxygen Delivery Nasal Cannula Oxygen Flow Rate 2 01/26/25 16:59 01/26/25 20:01 01/26/25 20:40 Temperature Pulse Rate 77 79 Respiratory Rate Blood Pressure Pulse Oximetry 98 Oxygen Delivery Nasal Cannula Oxygen Flow Rate 2 01/26/25 20:47 01/26/25 22:00 01/27/25 00:03 Temperature 36.4 C L Pulse Rate 72 79 79 Respiratory Rate 20 18 Blood Pressure 132/68 Pulse Oximetry 100 Oxygen Delivery Oxygen Flow Rate 01/27/25 01:35 01/27/25 01:44 01/27/25 04:00 Temperature Pulse Rate 80 79 79 Respiratory Rate 20 20 Blood Pressure Pulse Oximetry Oxygen Delivery Oxygen Flow Rate 01/27/25 06:00 01/27/25 07:55 01/27/25 07:55 Temperature 36.3 C L Pulse Rate 79 76 Respiratory Rate 18 20 Blood Pressure 131/90 Pulse Oximetry 99 95 Oxygen Delivery Nasal Cannula Oxygen Flow Rate 2 01/27/25 08:55 01/27/25 08:55 Temperature Pulse Rate 76 Respiratory Rate Blood Pressure Pulse Oximetry 96 Oxygen Delivery Nasal Cannula Oxygen Flow Rate 2 Intake/Output Intake/Output: Intake & Output 01/24/25 01/25/25 01/26/25 01/27/25 23:59 23:59 23:59 23:59 Intake Total 50 1500 240 Output Total 2150 1500 Balance 76 -140 -2954 Meds/Results Medications: Active Medications Generic Name Dose Route Start Last Admin Trade Name Reeceq PRN Reason Stop Dose Admin Albuterol 2.5 mg 01/25/25 20:00 01/27/25 07:54 Albuterol Sulfate Neb 2.5 Mg/3 Ml Inh INHALATION 2.5 mg Q6HRT BINH Administration Albuterol/Ipratropium 3 ml 01/26/25 09:40 Ipratropium 0.5 Mg/Albuterol Sulfate 2.5 Mg Ampul.Neb 3 Ml INHALATION Q8H PRN shortness of breath or wheezing Aspirin 81 mg 01/26/25 08:00 01/27/25 08:55 Aspirin 81 Mg Chewable Tablet PO 81 mg DAILY@0800 BINH Administration Bumetanide 1 mg 01/26/25 10:30 01/26/25 10:24 Bumetanide 1 Mg Tablet PO Not Given DAILY BINH Carvedilol 6.25 mg 01/26/25 10:00 01/27/25 08:55 Carvedilol 6.25 Mg Tablet PO 6.25 mg BID BINH Administration Clopidogrel Bisulfate 75 mg 01/26/25 10:30 01/27/25 08:55 Clopidogrel Bisulfate 75 Mg Tablet PO 75 mg DAILY BINH Administration Dextrose 12.5 gm 01/26/25 09:42 Dextrose 50% 25 Gm/50 Ml Syringe IV PUSH PRN PRN Hypoglycemia Protocol Furosemide 40 mg 01/25/25 21:00 01/27/25 08:56 Furosemide Inj 40 Mg/4 Ml Vial IV PUSH 40 mg Q12HR BIHN Administration Glucagon 1 mg 01/26/25 09:42 Glucagon For Inj 1 Mg Vial IM PRN PRN Hypoglycemia Protocol Glucose 15 gm 01/26/25 09:42 Glucose Oral Gel 15 Gm Of Glucse In 37.5 Gm Tube PO PRN PRN Hypoglycemia Protocol Guaifenesin 200 mg 01/26/25 09:40 Guaifenesin 200 Mg/10 Ml Udc PO Q8H PRN cough Heparin Sodium (Porcine) 5,000 units 01/25/25 21:00 01/27/25 08:56 Heparin Sodium 5,000 Units/Ml Vial SUB-Q 5,000 units Q12HR BINH Administration Ceftriaxone Sodium 1 gm/ 50 mls @ 100 mls/hr 01/26/25 19:00 01/26/25 19:23 Sodium Chloride IVPB Infused Q24H BINH Infusion Dextrose 1,000 mls @ 100 mls/hr 01/26/25 09:42 Dextrose 5% 1,000 Ml IVPB PRN PRN Hypoglycemia Protocol Insulin Aspart 2 - 5 units 01/26/25 12:00 01/27/25 08:54 Insulin Aspart (*Bkc) 100 Units/Ml SUB-Q Not Given TIDWM BINH Protocol Insulin Aspart 1 - 2 units 01/26/25 21:00 01/26/25 21:09 Insulin Aspart (*Bkc) 100 Units/Ml SUB-Q 2 units HS BINH Administration Protocol Lidocaine 1 patch 01/26/25 10:30 01/27/25 08:56 Lidocaine 5% Patch TOPICAL Not Given DAILY BINH Magnesium Oxide 400 mg 01/26/25 17:00 01/27/25 08:55 Magnesium Oxide 400 Mg Tablet PO 400 mg BID BINH Administration Methimazole 10 mg 01/26/25 10:00 01/27/25 08:55 Methimazole 10 Mg Tab PO 10 mg DAILY BINH Administration Pantoprazole Sodium 40 mg 01/26/25 10:00 01/27/25 08:55 Pantoprazole 40 Mg Tablet PO 40 mg DAILY BINH Administration Potassium Chloride 40 meq 01/26/25 10:30 01/27/25 08:55 Potassium Chloride 20 Meq Er Tablet PO 40 meq DAILY BINH Administration Pregabalin 50 mg 01/26/25 10:00 01/27/25 08:55 Pregabalin (*Crx) 50 Mg Capsule PO 50 mg Q12HR BINH Administration Rosuvastatin Calcium 40 mg 01/26/25 21:00 01/26/25 20:41 Rosuvastatin 20 Mg Tablet PO 40 mg HS BINH Administration Radiology Results: ITS Impressions Chest X-Ray 01/25/25 15:30 IMPRESSION: Edema versus chronic interstitial change. Small right pleural effusion Chest CTA 01/25/25 18:50 IMPRESSION: No CT evidence of acute pulmonary embolus. Pulmonary edema, overlying chronic interstitial changes. Moderate right and small left pleural effusions. Mediastinal and right hilar lymphadenopathy. Mild wedge compression fracture at T4, new since the study, probably chronic unless accompanied by acute pain/tenderness. Labs Labs: Laboratory Results - last 24 hr 01/26/25 01/26/25 01/26/25 12:52 16:31 21:03 WBC RBC Hgb Hct MCV MCH MCHC RDW Plt Count MPV Immature Gran % (Auto) Neut % (Auto) Lymph % (Auto) [place] % (Auto) Eos % (Auto) Baso % (Auto) Lymph # (Auto) [place] # (Auto) Eos # (Auto) Baso # (Auto) Abs Immat Gran (auto) Absolute Neuts (auto) Absolute Nucleated RBC Band Neutrophils % Nucleated RBC % Platelet Estimate Hypochromasia Anisocytosis Ovalocytes Schistocytes Sodium Potassium Chloride Carbon Dioxide Anion Gap BUN Creatinine Estim Creat Clear Calc Estimated GFR Glucose POC Capillary Glucose 216 H 293 H 296 H Calcium Total Bilirubin AST ALT Alkaline Phosphatase Total Protein Albumin 01/27/25 01/27/25 01/27/25 01:56 04:38 07:47 WBC 6.6 RBC 4.09 L Hgb 10.3 L Hct 35.7 L MCV 87.3 MCH 25.2 L MCHC 28.9 L RDW 17.1 H Plt Count 165 MPV 11.8 H Immature Gran % (Auto) 0.6 H Neut % (Auto) 67.7 Lymph % (Auto) 12.6 L [place] % (Auto) 13.8 H Eos % (Auto) 4.5 H Baso % (Auto) 0.8 Lymph # (Auto) 0.83 L [place] # (Auto) 0.9 H Eos # (Auto) 0.3 Baso # (Auto) 0.1 Abs Immat Gran (auto) 0.04 H Absolute Neuts (auto) 4.5 Absolute Nucleated RBC 0.000 Band Neutrophils % Not Reportable Nucleated RBC % 0.0 Platelet Estimate Adequate Hypochromasia 1+ Anisocytosis 1+ Ovalocytes 1+ Schistocytes None seen Sodium 138 Potassium 4.2 Chloride 102 Carbon Dioxide 30 Anion Gap 6 BUN 32 H Creatinine 1.27 H Estim Creat Clear Calc 28 Estimated GFR 40 L Glucose 150 H POC Capillary Glucose 136 H 146 H Calcium 8.3 L Total Bilirubin 0.8 AST 23 ALT 11 Alkaline Phosphatase 102 Total Protein 6.1 L Albumin 3.2 L 01/27/25 11:36 WBC RBC Hgb Hct MCV MCH MCHC RDW Plt Count MPV Immature Gran % (Auto) Neut % (Auto) Lymph % (Auto) [place] % (Auto) Eos % (Auto) Baso % (Auto) Lymph # (Auto) [place] # (Auto) Eos # (Auto) Baso # (Auto) Abs Immat Gran (auto) Absolute Neuts (auto) Absolute Nucleated RBC Band Neutrophils % Nucleated RBC % Platelet Estimate Hypochromasia Anisocytosis Ovalocytes Schistocytes Sodium Potassium Chloride Carbon Dioxide Anion Gap BUN Creatinine Estim Creat Clear Calc Estimated GFR Glucose POC Capillary Glucose 460 H Calcium Total Bilirubin AST ALT Alkaline Phosphatase Total Protein Albumin
[2025-01-27] MEDS: INSULIN ASPART (*BKC) 100 UNITS/ML SUB-Q ×3 (12:18→21:44)
--- NOTE | 2025-01-27 15:47 | ECG_ITS ---
Test Date: 2025-01-27 15:59:07 Measurements Intervals [place] Rate: 82 P: 0 MN: 0 QRS: 99 QRSD: 146 T: -7 QT: 415 QTc: 487 Interpretive Statements ELECTRONIC ATRIAL PACEMAKER WITH INHIBITION ELECTRONIC VENTRICULAR PACEMAKER BASELINE ARTIFACT- V4-V6 NO FURTHER INTERPRETATION IS POSSIBLE ATYPICAL ECG Compared to ECG 01/25/2025 14:32:57 No significant changes Electronically Signed On 01-27-2025 16:57:17 CDT by Jose Pineda D.O.
[2025-01-27 16:36] LABS: Troponin I 0.029 ng/mL (0.000-0.034)
[2025-01-27] MEDS: cefTRIAXone 1 GM in SODIUM CHLORIDE 0.9% IV 50 ML 100 ML IVPB (19:13)
[2025-01-27] MEDS: ROSUVASTATIN 20 MG TABLET 40 MG PO (20:37)
[2025-01-28] VITALS (17 sets, daily range): BP systolic 123–177; BP diastolic 68–76; PULSE 76–86; RESP 16–24; TEMP 35.8–36.6; O2SAT 99–100
[2025-01-28] MEDS: ALBUTEROL SULFATE NEB 2.5 MG/3 ML INH INHALATION ×3 (02:12→20:06)
--- NOTE | 2025-01-28 06:59 | P.PNIM_ITS ---
Progress Note: A&P Assessment and Plan (1) Acute exacerbation of CHF (congestive heart failure): Qualifiers: Heart failure type: systolic Qualified Code(s): I50.23 - Acute on chronic systolic (congestive) heart failure Code(s): I50.9 - Heart failure, unspecified Status: Acute Assessment and Plan: * Possibly due to dietary indiscretion versus tolerance to loop diuretic * UA suggests possible UTI * No evidence for ACS * TSH = 5.570 * Medication non-adherence is not an issue as she resides at a facility * Continue beta-marlin, spironolactone and ARNI * Add IV furosemide 40 mg bid * Monitor I/O, labs * Cardio consult for further recommendations regarding med management * Continue Lasix 40 mg b.i.d. * chest discomfort likely secondary to heart failure exacerbation. Will recheck a troponin now however given significant chest tightness. * Repeat troponin negative * continue diuresis and carvedilol (2) UTI (urinary tract infection), bacterial: Code(s): N39.0 - Urinary tract infection, site not specified; A49.9 - Bacterial infection, unspecified Status: Acute Assessment and Plan: * Suggested by UA * 01/25 started ceftriaxone * Preliminary growth shows gram (-)bacilli * Continue IV Abx until specific bacteria can be narrowed down (3) Chronic diastolic (congestive) heart failure: Code(s): I50.32 - Chronic diastolic (congestive) heart failure Status: Acute Assessment and Plan: * As above (4) Essential hypertension: Code(s): I10 - Essential (primary) hypertension Status: Acute Assessment and Plan: * Continue home regimen (5) Type 2 diabetes mellitus without complication, with long-term current use of insulin: Code(s): E11.9 - Type 2 diabetes mellitus without complications; Z79.4 - [facility]CI (current) use of insulin Status: Acute Assessment and Plan: * Reduce basal and pre-premeal insulin by about 33% and add SSI (6) Hyperthyroidism: Code(s): E05.90 - Thyrotoxicosis, unspecified without thyrotoxic crisis or storm Status: Acute Assessment and Plan: * Continue methimazole * Check TSH (7) CKD stage 3 due to type 2 diabetes mellitus: Code(s): E11.22 - Type 2 diabetes mellitus with diabetic chronic kidney disease; N18.3 - Chronic kidney disease, stage 3 (moderate) Status: Acute Assessment and Plan: * At baseline (01/25 creatinine 1.53) * Monitor renal function during diuresis (8) Anemia: Code(s): D64.9 - Anemia, unspecified Status: Acute Assessment and Plan: * C/w anemia of CKD * 01/26 Hgb 10.3 (9) Diabetic peripheral neuropathy: Code(s): E11.42 - Type 2 diabetes mellitus with diabetic polyneuropathy Status: Acute Assessment and Plan: * Will need PT/OT (10) History of cerebellar stroke: Code(s): Z86.73 - Personal history of transient ischemic attack (TIA), and cerebral infarction without residual deficits Status: Acute Assessment and Plan: * Continue ASA (11) Atrial fib/flutter, transient: Code(s): I48.91 - Unspecified atrial fibrillation; I48.92 - Unspecified atrial flutter Status: Acute Assessment and Plan: * Continue Eliquis, beta-marlin * Rates are well controlled on carvedilol 6.25 p.o. b.i.d. (12) Peripheral vascular disease, unspecified: Code(s): I73.9 - Peripheral vascular disease, unspecified Status: Acute Assessment and Plan: * Continue ASA (13) Mitral stenosis: Code(s): I05.0 - Rheumatic mitral stenosis Status: Acute Assessment and Plan: * Follows with a toppiece cutter in the outpatient setting, not a surgical candidate for surgery at this time * Cardiology recommends continuing diuresis and carvedilol (14) History of transcatheter aortic valve replacement (TAVR): Code(s): Z95.2 - Presence of prosthetic heart valve Status: Acute Assessment and Plan: * s/p TAVR * Continue aspirin, Plavix, rosuvastatin Subjective Date/time seen: 01/28/25 06:59 Interval history: 84-year-old female [place] resident with a history of chronic diastolic congestive heart failure, status post TAVR and and pacemaker, has chronic dyspnea but noticed over the last 24 hours that her dyspnea was worsened to the point that while dressing she would breathe so hard that she would get dizzy. . 01/28/2025 Patient sitting comfortably in bed at time of examination. Denies any chest pain, n/v, or abd pain at this time. Still endorsing some shortness of breath but states that she is at her baseline now. Seen by cardiology - maintain 40mg IV lasix, carvediolol, aspirin, plavix and statin. K was high (5.5) - hold oral K for now, monitor daily labs. Prelim BC shows Gram (-) growth - continue to monitor. Plan to discharge back to [facility] once cultures obtained. Review of Systems Review of Systems: All systems reviewed & are unremarkable except as noted in HPI and below Exam Narrative: HEENT: EOMI, PERRL, sclerae nonicteric, pharyngeal mucosa pink and intact NECK: 2 cm JVD, adenopathy, or thyromegaly CHEST: Clear to auscultation. Normal effort. HEART: NL S1/S2, regular, 2/6 PRECIOUS RUSB ABDOMEN: BS+, soft, nontender, no mass, no bruits EXTREMITIES: No pedal edema NEUROLOGIC: CN intact and symmetric to inspection, HINTS exam negative MUSCULOSKELETAL: Tone and strength symmetric PSYCH: Alert. Oriented to person, place, and year Objective Data Vital Signs Vital Signs: Vital Signs - 24 hr 01/27/25 07:55 01/27/25 07:55 01/27/25 08:00 Temperature Pulse Rate 76 86 Respiratory Rate 20 Blood Pressure Pulse Oximetry 95 Oxygen Delivery Nasal Cannula Oxygen Flow Rate 2 01/27/25 08:55 01/27/25 08:55 01/27/25 12:00 Temperature Pulse Rate 76 82 Respiratory Rate Blood Pressure Pulse Oximetry 96 Oxygen Delivery Nasal Cannula Oxygen Flow Rate 2 01/27/25 13:31 01/27/25 14:00 01/27/25 14:16 Temperature 97.2 F L Pulse Rate 79 82 Respiratory Rate 22 H 20 Blood Pressure 106/59 L Pulse Oximetry 100 Oxygen Delivery Nasal Cannula Oxygen Flow Rate 2 01/27/25 16:00 01/27/25 17:30 01/27/25 20:00 Temperature Pulse Rate 83 83 80 Respiratory Rate Blood Pressure Pulse Oximetry Oxygen Delivery Oxygen Flow Rate 01/27/25 20:22 01/27/25 20:31 01/27/25 20:39 Temperature Pulse Rate 79 77 79 Respiratory Rate 20 20 Blood Pressure Pulse Oximetry 100 Oxygen Delivery Nasal Cannula Oxygen Flow Rate 2 01/27/25 20:40 01/27/25 20:55 01/28/25 00:00 Temperature 97.8 F Pulse Rate 77 77 80 Respiratory Rate 20 20 Blood Pressure 146/79 H Pulse Oximetry 97 97 Oxygen Delivery Nasal Cannula Oxygen Flow Rate 2 01/28/25 02:12 01/28/25 02:18 01/28/25 04:00 Temperature Pulse Rate 79 79 79 Respiratory Rate 20 20 Blood Pressure Pulse Oximetry Oxygen Delivery Oxygen Flow Rate 01/28/25 06:00 Temperature 97.7 F Pulse Rate 80 Respiratory Rate 20 Blood Pressure 177/70 H Pulse Oximetry 99 Oxygen Delivery Oxygen Flow Rate Intake/Output Intake/Output: Intake & Output 01/25/25 01/26/25 01/27/25 01/28/25 23:59 23:59 23:59 23:59 Intake Total 50 1500 1150 300 Output Total 2150 3250 600 Balance 50 650 2100 -300 Meds/Results Medications: Active Medications Generic Name Dose Route Start Last Admin Trade Name Freq PRN Reason Stop Dose Admin Albuterol 2.5 mg 01/25/25 20:00 01/28/25 02:12 Albuterol Sulfate Neb 2.5 Mg/3 Ml Inh INHALATION 2.5 mg Q6HRT BIN[facility] Administration Albuterol/Ipratropium 3 ml 01/26/25 09:40 Ipratropium 0.5 Mg/Albuterol Sulfate 2.5 Mg Ampul.Neb 3 Ml INHALATION Q8H PRN shortness of breath or wheezing Aspirin 81 mg 01/26/25 08:00 01/27/25 08:55 Aspirin 81 Mg Chewable Tablet PO 81 mg DAILY@0800 BIN[facility] Administration Bumetanide 1 mg 01/26/25 10:30 01/26/25 10:24 Bumetanide 1 Mg Tablet PO Not Given DAILY BINH Carvedilol 6.25 mg 01/26/25 10:00 01/27/25 17:30 Carvedilol 6.25 Mg Tablet PO 6.25 mg BID BINH Administration Clopidogrel Bisulfate 75 mg 01/26/25 10:30 01/27/25 08:55 Clopidogrel Bisulfate 75 Mg Tablet PO 75 mg DAILY [facility]IN[facility] Administration Dextrose 12.5 gm 01/26/25 09:42 Dextrose 50% 25 Gm/50 Ml Syringe IV PUSH PRN PRN Hypoglycemia Protocol Furosemide 40 mg 01/25/25 21:00 01/27/25 20:37 Furosemide Inj 40 Mg/4 Ml Vial IV PUSH 40 mg Q12HR [facility] Administration Glucagon 1 mg 01/26/25 09:42 Glucagon For Inj 1 Mg Vial IM PRN PRN Hypoglycemia Protocol Glucose 15 gm 01/26/25 09:42 Glucose Oral Gel 15 Gm Of Glucse In 37.5 Gm Tube PO PRN PRN Hypoglycemia Protocol Guaifenesin 200 mg 01/26/25 09:40 Guaifenesin 200 Mg/10 Ml Udc PO Q8H PRN cough Heparin Sodium (Porcine) 5,000 units 01/25/25 21:00 01/27/25 20:36 Heparin Sodium 5,000 Units/Ml Vial SUB-Q 5,000 units Q12HR [facility]IN[facility] Administration Ceftriaxone Sodium 1 gm/ 50 mls @ 100 mls/hr 01/26/25 19:00 01/27/25 19:13 Sodium Chloride IVPB 100 mls/hr Q24H [facility] Administration Dextrose 1,000 mls @ 100 mls/hr 01/26/25 09:42 Dextrose 5% 1,000 Ml IVPB PRN PRN Hypoglycemia Protocol Insulin Aspart 2 - 5 units 01/26/25 12:00 01/27/25 17:30 Insulin Aspart (*Bkc) 100 Units/Ml SUB-Q 5 units TIDWM [facility]IN[facility] Administration Protocol Insulin Aspart 1 - 2 units 01/26/25 21:00 01/27/25 21:44 Insulin Aspart (*Bkc) 100 Units/Ml SUB-Q 2 units HS [facility]IN[facility] Administration Protocol Lidocaine 1 patch 01/26/25 10:30 01/27/25 08:56 Lidocaine 5% Patch TOPICAL Not Given DAILY [facility] Magnesium Oxide 400 mg 01/26/25 17:00 01/27/25 17:30 Magnesium Oxide 400 Mg Tablet PO 400 mg BID [facility] Administration Methimazole 10 mg 01/26/25 10:00 01/27/25 08:55 Methimazole 10 Mg Tab PO 10 mg DAILY [facility] Administration Pantoprazole Sodium 40 mg 01/26/25 10:00 01/27/25 08:55 Pantoprazole 40 Mg Tablet PO 40 mg DAILY [facility]IN[facility] Administration Potassium Chloride 40 meq 01/26/25 10:30 01/27/25 08:55 Potassium Chloride 20 Meq Er Tablet PO 40 meq DAILY [facility] Administration Pregabalin 50 mg 01/26/25 10:00 01/27/25 20:37 Pregabalin (*Crx) 50 Mg Capsule PO 50 mg Q12HR [facility] Administration Rosuvastatin Calcium 40 mg 01/26/25 21:00 01/27/25 20:37 Rosuvastatin 20 Mg Tablet PO 40 mg HS [facility]IN[facility] Administration Radiology Results: ITS Impressions Chest CTA 01/25/25 18:50 IMPRESSION: No CT evidence of acute pulmonary embolus. Pulmonary edema, overlying chronic interstitial changes. Moderate right and small left pleural effusions. Mediastinal and right hilar lymphadenopathy. Mild wedge compression fracture at T4, new since the study, probably chronic unless accompanied by acute pain/tenderness. Chest X-Ray 01/27/25 16:18 IMPRESSION: Bilateral pleural effusions, right greater than left. Moderate pulmonary vascular congestion. Interstitial thickening is also noted, unchanged from prior. Labs Labs: Laboratory Results - last 24 hr 01/27/25 01/27/25 01/27/25 07:47 11:36 16:05 POC Capillary Glucose 146 H 460 H Troponin I 0.029 01/27/25 01/27/25 16:54 20:59 POC Capillary Glucose 355 H 267 H Troponin I Quality VTE Prophylaxis VTE prophylaxis: pharmacologic ordered (heparin)
--- OUTSIDE RECORDS SUMMARY | 2025-01-28 08:00 | XMS_ITS | Clinical Summary ---
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 ([facility]) 07/20/2024 Dyspnea 05/26/2024 Pressure injury 05/26/2024 CHF exacerbation ([facility]) 01/14/2024 Vitamin D deficiency, unspecified 12/10/2023 Vitamin B 12 deficiency 12/10/2023 Chronic bilateral low back pain without sciatica 04/03/2023 Physical deconditioning 01/10/2023 Stage 3a chronic kidney disease 12/07/2022 Multinodular goiter 10/09/2022 Chronic diastolic congestive heart failure ([facility]) 06/01/2022 Fall, subsequent encounter 01/25/2022 Vertigo [...] Atrial flutter with rapid ve ntricular response ([facility]) 01/03/2021 CHB (complete heart block) ([facility]) 06/2020 Overview (01/11/2024): 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 Anxiety 03/17/2019 Transient ischemic attack 03/17/2019 Abnormal PFTs (pulmonary function tests) 019 Hyperthyroidism 09/09/2018 Nonrheumatic aortic valve stenosis 09/09/2018 DOREEN (obstructive sleep apnea) 09/09/2018 Pulmonary HTN ([facility]) 09/09/2018 Type 2 diabetes mellitus ([facility]) 09/09 Resolved Problems Problem Noted Date Diagnosed Date Resolved Date Acute cystitis without hematuria 04/04/2023 12/06/2023 Weakness generalized 01/10/2023 024 Frequent hospital admissions 01/10/2023 01/15/2023 CHF (congestive heart failur e) ([facility]) 12/26/2022 01/09/2023 CHF exacerbation ([facility]) 11/28/2022 12/06/2023 Lymphadenopathy 01/25/2022 12/06/2023 Recent urinary tract infection 09/05/2021 05/30/2022 UTI (urinary tract infection) 07/29/2021 05/30/2022 UTI (urinary tract infection ) due to urinary indwelling catheter 07/29/2021 01/09/2023 Diabetic ulcer of left heel associated with type 2 diabetes mellitus, limited to breakdown of skin ([facility]) 07/26/202112/17 Pressure injury of left heel, unstageable 07/26/2021 12/07/2022 At high risk for skin breakdown 07/26/2021 05/30/2022 Cellulitis of right heel 07/26/2021 Hyperkalemia 07/26/2021 12/06/2023 History of kidney injury 07/14/2021 Hyperglycemia due to diabete s mellitus ([facility]) 06/29/2021 05/30/2022 Chronic kidney disease, unspecified CKD stage 06/26/1901/09/2023 Urinary retention 06/14/2021 12/06/2023 DKA (diabetic ketoacidosis) ([facility]) 05/20/2005/30/2022 Closed type III fracture of odontoid process ([facility]) 05/02/2021 12/05/2021 History of transient ischemic attack (TIA) 09/09/2018 05/30/2022 Non-rheumatic mitral valve stenosis 09/09/2018 06/20/2022 Encounters Date Type Department Care Team Description 01/15/2025 Telephone [facility], [address] [address] Diane Mclaughlin MANAGER LEASING-C Appointment Request 01/13/2025 9:00 AM CDT Allied Health/Nurse Visit [facility]ica [facility], [address] [address] Kel Melchor MD Remote Device Check 01/08/2025 Results Follow-Up [facility], [address] [address] Rebecca Coronado RN USE ECHO 2D FU LTD W CON 01/01/2025 9:47 AM CDT - 01/01/2025 11:59 PM CDT Hospital Encounter [facility] [place] [address] Ruben Rosales MD Discharge Disposition: Home or Self Care (Routine Discharge) 01/01/2025 Travel 11/26/2024 6:53 PM CDT - 12/02/2024 2:42 PM CDT Hospital Encounter [facility] [place] [address] Monty Fraser MD Alexander, Kaci M, DO Tran, Isaac T, MD Simpson, Stephanie L, Shortness Of Breath Discharge Disposition: Longterm Facility 11/26/2024 Travel from Last 3 Months [...] drink = 0.6 oz pur e alcohol) [facility] Utilities Answer Date Recorded In the past 12 months has e [employer], gas, oil, or water [employer] threatened to shut off services in your [...] often do you attend chur ch or hinduism services? 1 to 4 times per year 12/07/2022 Do you belong to any clubs o r organizations such as bahai groups, unions, fraternal or athletic groups, or [...] Recorded Patient Health Questionnaire-2 Score 0 08/28/2024 [facility] - Occupational Stress [...] place to sleep or slept in a fpc (including now)? No 12/27/2022 Housing Stability Vital Sign Answer Donny e Recorded In the last 12 months, was t here a time when you were not able to pay the mortgage or rent on time? No 11/27/2024 In the past 12 months, how m any times have you moved where you were living? 1 11/27/2024 At any time in the past 12 m [facility], were you homeless or living in a fpc (including now)? No 11/27/2024 Comments No Sex and Gender Information Value Date Recorded Sex Assigned at Female 08/28/2024 10:54 AM CDT Legal Sex Female 12:43 AM GUARD RANGE Gender Identity Not on file Sexual Orientation [...] Description 01/30/2025 9:40 AM CDT Office Visit [facility] - [facility] [address] [place] [phone] Hal Flores MD [address] [place] [address] 02/11/2025 9:45 AM CDT [facility] [address] [place] [address] Ruben Rosales MD [facility]. [address] [place] [address] 04/20/2025 10:25 AM GUARD RANGE Allied Health/Nurse Visit [facility], [address] [place], [place] [id number] Kel Melchor MD [facility]. [address] [place], [place] [phone] Health Maintenance Due Date Last Done Comments [...] 50+ Years Completed 04/03/2023, 06/23/2021 PHQ-2 (Physician [place]) Completed 08/28/2024 Meningococcal B Vaccine Aged Out [...] track(2022 9:32 AM CDT) No Radha Garcia skates operator - family caregiver with be involved in care transitions and discharge planning Lifestyle No Maame Nichols, roll winder Patient/family verbalizes understanding regarding the need for SNF placement Lifestyle No Maame Nichols skates operator - family caregiver with be involved in care transitions and discharge planning Lifestyle No Vivienne Kirkland RN Medical Devices Implanted Type Area Pool Table Operator Device Identifier Shelf Expiration Date Model / Serial / Lot Atrial Lead-01/08/2021 Implanted:12/17 (Quantity not on file) Lead Implant BIOTRONIK SOLIA S 45 / [id number] / Rv Lead-01/08/2021 Implanted:07/2 09/2020 (Quantity not on file) Lead Implant [employer] SOLIA S 53 / [id number] / Bio Pacemaker-01/08 Implanted:Qty: 1 on 01/08/2021 by Nazario Ireland MD Pacemaker [employer] EDORA 8 RUBÉN / [id number] / Procedures Procedure Name Priority Date/Time Associated [...] CDT Echocardiography Report Pat.Name: LARY OLIVER Fabian.ID: [id number] St.Date: 01/01/2025 Refer.: [id number] DOMENICA Mathews EWDPROV EWDPROV Exam Time: 10:31:00 [...] - 01/07/2025 Echocardiography Report Pat.Name: LARY OLIVER.ID: [id number] .Date: 01/01/2025 Refer.: [id number] DOMENICA Mathews EWDPROV EWDPROV Exam Time: 10:31:00 [...] - 99 mg/dL 12/02/2024 11:00 AM CDT [facility] 12/02/2024 10:4 6 AM CDT Vanessa Hinkle DO POCT ORDERABLES - DEVICE Final Result [facility] [address] [place] [address], * (ABNORMAL) BASIC METABOLIC PANEL (12/02/2024 6:01 AM CDT) Only the most recent of5 resultswithin the time period is included. GLUCOSE 166(H) 70 - 99 MG/DL 12/02/2024 7:05 AM CDT [facility] BUN 60(H) 7 - 18 MG/DL 12/02/2024 7:05 AM CDT [facility] CREATININE S/P/B 1.59(H) 0.55 - 1.02 MG/DL 12/02/2024 7:05 AM CDT [facility] SODIUM S/P/B 140 136 - 145 MMOL/L 12/02/2024 7:05 AM CDT [facility] POTASSIUM S/P/B 3.9 3.5 - 5.1 MMOL/L 12/02/2024 7:05 AM CDT [facility] CHLORIDE S/P/B 104 97 - 115 MMOL/L 12/02/2024 7:05 AM T [facility] CO2 27.9 21 - 32 MMOL/L 12/02/2024 7:05 AM CDT [facility] CALCIUM S/P/B 8.7 8.5 - 10.1 MG/DL 12/02/2024 7:05 AM CDT [facility] ANION GAP 8.1 2 - 10 MMOL/L 12/02/2024 7:05 AM CDT [facility] BUN CREATININE RATIO 37.7(H) 6 - 26 12/02/2024 7:05 AM CDT [facility] GFR ESTIMATE 31(L) >90 ML/MIN/1.7 3 M2 12/02/2024 7:05 AM CDT [facility] Comment: NOTE: eGFR is not [...] Vanessa Hinkle DO LABORATORY Final Res ult [facility] [address] [place] [address], * (ABNORMAL) CBC W/DIFF AUTOMATED (12/02/2024 6:01 AM CDT) Only the most recent of7 resultswithin the time period is included. WBC 6.40 4.5 - 11.0 x10'3/uL 12/02/2024 6:50 AM CDT [facility] RBC 4.33 4.20 - 5.40 x10'6/uL 12/02/2024 6:50 AM CDT [facility] HGB 10.9(L) 12.0 - 16.0 G/DL 12/02/2024 6:50 AM CDT [facility] HCT 34.3(L) 38.0 - 48.0 % 12/02/2024 6:50 AM CDT [facility] MCV 79.2(L) 81.0 - 99.0 FL 12/02/2024 6:50 AM CDT [facility] MCH 25.2(L) 27.0 - 31.0 PG 12/02/2024 6:50 AM CDT [facility] MCHC 31.8(L) 32.0 - 36.0 G/DL 12/02/2024 6:50 AM CDT [facility] RDW 17.2(H) 11.5 - 14.5 % 12/02/2024 6:50 AM CDT [facility] PLT 182 130 - 400 x10'3/uL 12/02/2024 6:50 AM CDT [facility] MPV 11.8 9.3 - 12.2 FL 12/02/2024 6:50 AM CDT [facility] DIFFERENTIAL TYPE AUTOMATED DIFFERENTIAL 12/02/2024 6:50 AM CDT [facility] NEUTROPHILS % 60.4 % 12/02/2024 6:50 AM CDT [facility] LYMPHOCYTES % 20.8 % 12/02/2024 6:50 AM CDT [facility] MONOCYTES % 12.8 % 12/02/2024 6:50 AM CDT [facility] EOSINOPHILS 5.2 % 12/02/2024 6:50 AM CDT [facility] BASOPHILS 0.5 % 12/02/2024 6:50 AM CDT [facility] IMMATURE GRANS % 0.3 % 12/03/19 6:50 AM CDT [facility] ABS. NEUTROPHILS 3.87 1.80 - 7.70 x10'3/uL 12/02/2024 6:50 AM CDT [facility] ABS. LYMPHOCYTES 1.33 1.00 - 4.80 x10'3/uL 12/02/2024 6:50 AM CDT [facility] ABS. MONOCYTES 0.82 0.24 - 0.86 x10'3/uL 12/02/2024 6:50 AM CDT [facility] ABS. EOSINOPHILS 0.33 0.04 - 0.36 x10'3/uL 12/02/2024 6:50 AM CDT [facility] ABS. BASOPHILS 0.03 0.01 - 0.08 x10'3/uL 12/02/2024 6:50 AM CDT [facility] ABS. IMMATURE GRANULOCYTES 0.02 0.00 - 0.49 x10'3/uL 12/02/2024 6:50 AM CDT [facility] 12/02/2024 6:01 AM CDT Vanessa Hinkle DO LABORATORY Final Res ult [facility] [address] [place] [address], [place] [phone] * (ABNORMAL) MAGNESIUM (12/02/2024 6:01 AM CDT) Only the most recent of5 resultswithin the time period is included. MAGNESIUM 2.5(H) 1.8 - 2.4 MG/DL 12/02/2024 7:05 AM CDT [facility] 12/02/2024 6:01 AM CDT Anthony Waters MD LABORATORY Final Result [facility] [address] [place] [address], [place] [phone] * USE ECHOCARDIOGRAM W CON (11/29/2024 5:59 PM CDT) Anatomical Region Laterality Modality NA Echocardiogram 11/29/2024 4:27 PM CDT Narrative 11/30/2024 9:57 AM CDT Echocardiography Report Pat.Name: LARY OLIVER.ID: [id number] .Date: 11/29/2024 Exam Time: 4:27:00 PM Study Type:ECHO WITH CARDIAC DOPPLER COMP Height: 62 in Weight: 170 lb BSA: 1.78 m2 Age: 4 1940,84Y Sex: F BP: 108/64 Sonogrphr: SS RDCS Pat. Stat.:Inpatient Room: [facility] Reason for Study:CHF History / Clinical:H/O TAVR [...] - 11/30/2024 Echocardiography Report Pat.Name: LARY OLIVER.ID: [id number] .Date: 11/29/2024 Exam Time: 4:27:00 PM Study Type:ECHO WITH CARDIAC DOPPLER COMP Height: 62 in Weight: 170 lb BSA: 1.78 m2 Age: 4 1940,84Y Sex: F BP: 108/64 Sonogrphr: [facility] Pat. Stat.:Inpatient Room: [facility] Reason for Study:CHF History / Clinical:H/O TAVR [...] 09:57 AM Pardeep Bertrand M.D. Rosey Benjamin ASSISTANT PRODUCE MANAGER ECHO Final R esult * TROPONIN, QUANT (11/29/2024 1:49 PM CDT) Only the most recent of2 resultswithin the time period is included. TROPONIN I HIGH SENSITIVITY 24 <54 ng/L 11/29/2024 2:14 PM CDT [facility] Comment: HIGH DOSES OF BIOTIN, TROPONIN-SPECIFIC AUTOANTIBODIES, AND ANTIBODY THERAPY CONTAINING HAMA MAY INTERFERE WITH THIS TEST RESULT. CORRELATION TO CLINICAL HISTORY AND PRESENTATION RECOMMENDED. 11/29/2024 1:49 PM CDT Rohini HOOPERP LABORATORY Final Result [facility] [address] [place] [address], [place] [phone] * XR CHEST PORTABLE (11/28/2024 4:18 PM [...] 4:33 PM Narrative 11/28/2024 4:35 PM CDT [address] [address] PROCEDURE: XR CHEST PORTABLE. 11/28/2024 4:09 PM. [...] Procedure Note Chantale Mark MD - 11/28/[address] [address] PROCEDURE: XR CHEST PORTABLE. 11/28/2024 4:09 PM. [...] - 0.49 NG/ML 11/28/2024 11:06 AM CDT [facility] 11/28/2024 9:47 AM CDT us Anthony Waters MD LABORATORY Final Result [facility] [address] [place] [address], [place] [phone] * (ABNORMAL) HEMOGLOBIN, GLYCOSYLATED (11/27/2024 7:00 AM CDT) HGB A1C 7.7(H) <5.7 % 11/27/2024 8:48 AM CDT [facility] Comment: ADA GUIDELINES 2010 5.7 TO 6.4% INCREASED RISK OF DIABETES > OR = 6.5% CONSISTENT WITH DIABETES ESTIMATED AVG GLUCOSE 174 mg/dL 11/27/2024 8:48 AM CDT [facility] 11/27/2024 7:00 AM CDT Marilyn Coronado ASSISTANT PRODUCE MANAGER LABORATORY Final Resul t [facility] [address] [place] [address], [place] [phone] * (ABNORMAL) COMPREHENSIVE METABOLIC PANEL (11/27/2024 7:00 AM CDT) Only the most recent of2 resultswithin the time period is included. GLUCOSE 109(H) 70 - 99 MG/DL 11/27/2024 7:51 AM CDT [facility] BUN 47(H) 7 - 18 MG/DL 11/27/2024 7:51 AM CDT [facility] CREATININE S/P/B 1.72(H) 0.55 - 1.02 MG/DL 11/27/2024 7:51 AM CDT [facility] SODIUM S/P/B 139 136 - 145 MMOL/L 11/27/2024 7:51 AM CDT [facility] POTASSIUM S/P/B 4.0 3.5 - 5.1 MMOL/L 11/27/2024 7:51 AM CDT [facility] CHLORIDE S/P/B 107 97 - 115 MMOL/L 11/27/2024 7:51 AM CDT [facility] CO2 28.2 21 - 32 MMOL/L 11/27/2024 7:51 AM CDT [facility] CALCIUM S/P/B 8.6 8.5 - 10.1 MG/DL 11/27/2024 7:51 AM T [facility] BILIRUBIN TOTAL S/P/B 1.1 0.2 - 1.2 MG/DL 11/27/2024 7:51 AM T [facility] Comment: THIS ASSAY IS NOT RECOMMENDED FOR PATIENTS UNDERGOING TREATMENT WITH ELTROMBOPAG DUE TO THE POTENTIAL FOR FALSELY ELEVATED RESULTS. TOTAL PROTEIN S/P/B 6.3(L) 6.4 - 8.2 G/DL 11/27/2024 7:51 AM T [facility] ALBUMIN S/P/B 2.9(L) 3.4 - 5.0 G/DL 11/27/2024 7:51 AM T [facility] AST 18 15 - 37 U/L 11/27/2024 7:51 AM [facility] ALT 11(L) 14 - 55 U/L 11/27/2024 7:51 AM T [facility] ALKALINE PHOSPHATASE S/P/B 112 50 - 136 U/L 11/27/2024 7:51 AM T [facility] ANION GAP 3.8 2 - 10 MMOL/L 11/27/2024 7:51 AM [facility] BUN CREATININE RATIO 27.3(H) 6 - 26 11/27/2024 7:51 AM [facility] A/G RATIO 0.9(L) 1.0 - 2.0 RATIO 11/27/2024 7:51 AM [facility] GFR ESTIMATE 29(L) >90 ML/MIN/1.7 3 M2 11/27/2024 7:51 AM [facility] Comment: NOTE: eGFR is not calculated for patients <18 years of age or gender unknown. This is an estimated GFR calculation using the new CKD EPI creatinine equation without race and so does not require a correction factor for race. This estimated GFR should not be used for calculating drug doses. 11/27/2024 7:00 AM CDT Marilyn Coronado ASSISTANT PRODUCE MANAGER LABORATORY Final Resul t [facility] [address] [place] [address], [place] [phone] * (ABNORMAL) RESPIRATORY PCR PANEL 2 (11/27/2024 12:25 AM CDT) [facility] ADENOVIRUS PCR (RESP) NOT DETECTED NOT DETECTED 11/27/2024 4:35 AM CDT [facility] CORONAVIRUS 229E PCR (RESP) NOT DETECTED NOT DETECTED 11/27/2024 4:35 AM CDT [facility] CORONAVIRUS HKU1 PCR (RESP) NOT DETECTED NOT DETECTED 11/27/2024 4:35 AM CDT [facility] CORONAVIRUS NL63 PCR (RESP) NOT DETECTED NOT DETECTED 11/27/2024 4:35 AM CDT [facility] CORONAVIRUS OC43 PCR (RESP) NOT DETECTED NOT DETECTED 11/27/2024 4:35 AM CDT [facility] METAPNEUMOVIRUS PCR (RESP) NOT DETECTED NOT DETECTED 11/27/2024 4:35 AM CDT [facility] RHINOVIRUS/ENTEROV IRUS PCR (RESP) DETECTED(A) NOT DETECTED 11/27/2024 4:35 AM CDT [facility] INFLUENZA A PCR (RESP) NOT DETECTED NOT DETECTED 11/27/2024 4:35 AM CDT [facility] INFLUENZA B PCR (RESP) NOT DETECTED NOT DETECTED 11/27/2024 4:35 AM CDT [facility] PARAINFLUENZA 1 PCR (RESP) NOT DETECTED NOT DETECTED 11/27/2024 4:35 AM CDT [facility] PARAINFLUENZA 2 PCR (RESP) NOT DETECTED NOT DETECTED 11/27/2024 4:35 AM CDT [facility] PARAINFLUENZA 3 PCR (RESP) NOT DETECTED NOT DETECTED 11/27/2024 4:35 AM CDT [facility] PARAINFLUENZA 4 PCR (RESP) NOT DETECTED NOT DETECTED 11/27/2024 4:35 AM CDT [facility] RSV PCR (RESP) NOT DETECTED NOT DETECTED 11/27/2024 4:35 AM CDT [facility] B PARAPERTUSIS PCR (RESP) NOT DETECTED NOT DETECTED 11/27/2024 4:35 AM CDT [facility] BORDETELLA PERTUSSIS PCR (RESP) NOT DETECTED NOT DETECTED 11/27/2024 4:35 AM CDT [facility] CHLAMYDOPHILA PNEUMONIAE PCR (RESP) NOT DETECTED NOT DETECTED 11/27/2024 4:35 AM CDT [facility] MYCOPLASMA PNEUMONIAE PCR (RESP) NOT DETECTED NOT DETECTED 11/27/2024 4:35 AM CDT [facility] CORONAVIRUS SARS COV 2 PCR (RESP) NOT DETECTED NOT DETECTED 11/27/2024 4:35 AM CDT [facility] NASOPHARYNGEAL SWAB / Unknown 11/27/2024 12:25 AM CDT Marilyn Coronado ASSISTANT PRODUCE MANAGER MICROBIOLOGY - GENERAL ORDMarko DHALIWAL Final Result [facility] [address] [place] [address], [place] [phone] * LACTIC ACID W REFLEX (SEPSIS) (11/26/2024 9:04 PM CDT) Only the most recent of2 resultswithin the time period is included. LACTIC ACID VENOUS 2.0 0.4 - 2.0 MMOL/L 11/26/2024 9:55 PM CDT [facility] 11/26/2024 9:04 PM CDT Kel ARMENTA LABORATORY Final Resul t [facility] [address] [place] [address], * ECG 12 lead (11/26/2024 7:18 PM CDT) 11/26/2024 7:18 PM CDT Narrative [facility] - 11/27/2024 6:21 AM CDT [address] Test Date: 2024-11-26 Pat Name: LARY OLIVER Department: 41 Room: [facility] Gender: Female Technical System Analyst: : 1940 Requested By: KEL KIRAN Order Number: [id number] Reading MD: Chano Huitron Measurements Intervals [place] Rate: 76 P: 84 [place]: 152 QRS: 116 QRSD: 149 T: 21 QT: 430 QTc: 484 Interpretive Statements ELECTRONIC VENTRICULAR PACEMAKER ABNORMAL RHYTHM ECG Compared to ECG 02/27/2024 16:37:28 Atrial-paced complex(es) or rhythm no longer present Procedure Note Chano Huitron MD - 11/27/[address] Test Date: 2024-11-26 Pat Name: LARY OLIVER Department: 41 Room: [facility] Gender: Female Technical System Analyst: : 1940 Requested By: KEL KIRAN Order Number: [id number] Reading MD: Chano Huitron Measurements Intervals [place] Rate: 76 P: 84 [place]: 152 QRS: 116 QRSD: 149 T: 21 QT: 430 QTc: 484 Interpretive Statements ELECTRONIC VENTRICULAR PACEMAKER ABNORMAL RHYTHM ECG Compared to ECG 02/27/2024 16:37:28 Atrial-paced complex(es) or rhythm no longer present Kel ARMENTA ECG ORDERABLES Final Resul t Performing Organization Address City/[facility] Co de Phone Number [facility] RAD * (ABNORMAL) PRO-BRAIN NATRIURETIC PEPTIDE (11/26/2024 7:04 PM CDT) Pathologist [facility] PRO-B TYPE NATRIURETIC PEPTIDE 12,462(H) <450 PG/ML 11/26/2024 7:48 PM CDT [facility] Comment: CUT POINTS ESTABLISHED BY [...] LABORATORY Final Resul t Performing Organization Address [facility] Co de Phone Number [facility] [address] [place] [address], [place] [phone] * LIPID PANEL (03/10/2024 6:30 AM CDT) CHOLESTEROL 71 <200 MG/DL 03/10/2024 7:13 AM CDT [facility] TRIGLYCERIDES 89 <150 MG/DL 03/10/2024 7:13 AM CDT [facility] HDL 41 >40.0 MG/DL 03/10/2024 7:13 AM CDT [facility] LDL (CALCULATED) 12 <100 MG/DL 03/10/20 7:13 AM CDT [facility] NON HDL CHOLESTEROL 30 <130 MG/DL 03/10 7:13 AM CDT [facility] CHOL/HDL RATIO 1.7 0.0 - 4.5 03/10/2024 7:13 AM T [facility] VLDL CALCULATION 18 5 - 55 MG/DL 03/10/2024 7:13 AM T [facility] LIPID INTERPRETATION 03/10/2024 7:13 AM T [facility] Comment: [facility] REPORT RECOMMENDATIONS: ADULT CHILD LOW RISK: CHOLESTEROL <200 <170 TRIGLYCERIDE <150 --- HDL >=60 --- LDL <100 <110 BORDERLINE: CHOLESTEROL 200-239 170-199 TRIGLYCERIDE 150-199 --- HDL 40-59 --- LDL 100-159 110-129 HIGH RISK: CHOLESTEROL >=240 >=200 TRIGLYCERIDE >=200 --- HDL <40 --- LDL >=160 >=130 03/10/2024 6:30 AM CDT september Dariana ASSISTANT PRODUCE MANAGER LABORATORY Final Resul t Performing Organization Address City/[facility]/ZIP Co de Phone Number [facility] [address] [place] [address], [place] [phone] * DIABETIC RETINOPATHY EXAM (POSITIVE) (11/16/2023) [facility] Scanned SCANNING Final Resu lt Performing Organization Address City/[facility]/ZIP Co de Phone Number [facility] from Last 3 Months or Most Recently Relevant to Health Maintenance Additional Health Concerns Infection Onset Date Last Indicated ESBL - Extended Spectrum Bet a-lactamase Comment:06/29/21 +ESBL Urine 07/26/21 +ESBL Urine 07/01/2021 07/01/2021 Insurance MEDICAID Advance Directives Documents on File Type Date Recorded Patient Crystal Slicer Expl anation Advance Directives and Living Will [...] 11:16 PM 12/29/2022 2:39 PM Care Teams Order Selector Relationship Specialty Start Date End Date Ruben Reeves DO [facility] [address] [address] PCP - General INTERNAL MEDICINE 11/27/24 Ruben Rosales MD [address] [address] Consulting Physician CARDIOVASCULAR DISEASE 06/12/24
--- OUTSIDE RECORDS SUMMARY | 2025-01-28 08:01 | XMS_ITS | Clinical Summary ---
Author Organization [facility] Address [address] [place] [address] Care Team Providers Care Baccarat Manager Name Role Phone Abena Mccabe MD Primary Care Provider [phone] Allergies Active Allergy Reactions Criticality Noted Date [...] series) 2013 INFLUENZA VACCINE (#1) 2025 Insurance [employer] H[employer] MCR Care Teams Baccarat Manager Relationship Specialty Start Date End Date Abena Mccabe MD [address] [place] [address] PCP - General Family Practice 09/06/18
--- OUTSIDE RECORDS SUMMARY | 2025-01-28 08:01 | XMS_ITS | Encounter Summary ---
Author Organization [facility] Address [facility] [place] [address] Care Team Providers Care Visitor Services Information Assistant Name Role Phone Latoya Last Primary Care Provider [phone] Ruben Rosales MD Unavailable [phone] Ruben Reeves DO Primary Care Provider [phone] Encounter Details Date Type Department Care Team (Late st Contact Info) Description 10/20/2024 Abstract [facility], [address] [address] Latoya Hall MA Social History Tobacco Use Types Packs/Day Years Used Date Smoking Tobacco: Never Passive Smoke Exposure: Never Smokeless Tobacco: Never Alcohol Use Standard Drinks/Week Comments Never 0 (1 standard drink = 0.6 oz pur e alcohol) [facility] Utilities Answer Date Recorded In the [...] How often do you attend chur or anabaptism services? 1 to 4 times per year 12/07/2022 Do you belong to any clubs o r organizations such as quaker groups, unions, fraternal or athletic groups, or [...] Recorded Patient Health Questionnaire-2 Score 0 08/28/2024 [facility] [place] of Occupat ional Health - Occupational Stress [...] place to sleep or slept in a intermediate (including now)? No 12/27/2022 Housing Stability Vital Sign Answer Donny e Recorded In the last 12 months, was t here a time when you were not able to pay the mortgage or rent on time? No 02/27/2024 In the past 12 months, how m any times have you moved where you were living? 1 02/27/2024 At any time in the past 12 m [facility], were you homeless or living in a intermediate (including now)? No 02/27/2024 Comments No Sex and Gender Information Value Date Recorded Sex Assigned at Female 08/28/2024 10:54 AM CDT Legal Sex Female 12:43 AM TRAFFIC SUPERINTENDENT Gender Identity Not on file Sexual Orientation [...] Description 01/30/2025 9:40 AM CDT Office Visit [facility] Multispecialty Care - [facility] [address] [facility] [place] [address] Hal Flores MD [address] [facility] [address] [place] [address] 02/11/2025 9:45 AM CDT Office Visit [facility] [address] [facility] [place] [address] Ruben Rosales MD Three [facility] [place] [address] 04/20/2025 10:25 AM TRAFFIC SUPERINTENDENT Allied Health/Nurse [facility] [address] [facility] [place] [address] Judah Melchor MD Three [facility]. 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 [address] PCP - General INTERNAL MEDICINE 11/27/24 Ruben Rosales MD [address] [address] Consulting Physician CARDIOVASCULAR DISEASE 06/12/24 documented as of this encounter
--- OUTSIDE RECORDS SUMMARY | 2025-01-28 08:01 | XMS_ITS | Encounter Summary ---
Author Organization [facility] Healthcare Address [address] [place] [address] Care Team Providers Care Grinding And Polishing Laborer Name Role Phone Abena Mccabe MD Primary Care Provider [phone] Nazario Ireland MD Unavailable Marta Guevara MD Unavailable [phone] Sandro Schilling MD Unavailable [phone] Regina Ware NP Unavailable Solo Hair MD Unavailable Encounter Details Date Type Department Care Team (Late st Contact Info) Description 01/27/2025 Orders Only [facility] Medical Group Cardiology [address] [place] [id number] Phnai Werner MD [address] [place] [address] Social History Tobacco Use Types Packs/Day Years [...] week 01/04/2021 How often do you attend [facility] or judaism services? 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 FRAMING SPECIALIST Gender Identity Not on file Sexual Orientation Not on file documented as of this encounter Plan of Treatment Not on file documented as of this encounter Procedures Procedure Name Priority Date/Time Associated Diagnosis Comments CARDIOLOGY DOCUMENT SCAN Routine 01/27/2025 5:46 PM CDT CARDIOLOGY DOCUMENT SCAN Routine 01/26/2025 5:44 PM CDT documented in this encounter Results * Cardiology Document Scan (01/27/2025 5:46 PM CDT) Anatomical Region Laterality Modality Other us Phani Werner MD CV CARDIAC SERVICES PROCEDURES F inal Result * Cardiology Document Scan (01/26/2025 5:44 PM CDT) Anatomical Region Laterality Modality Other us Phani Werner MD CV CARDIAC SERVICES PROCEDURES F inal Result documented in this encounter Visit Diagnoses Not on filedocumented in this encounter Care Teams Grinding And Polishing Laborer Relationship Specialty Start Date End Date Abena Mccabe MD PCP - General Family Medicine 07/23/18 Nazario Ireland MD [address] [place] [address] Consulting Physician Cardiology 01/12/21 [place] [address] [facility] [address] [place] [address] Consulting Physician Endocrinology 01/13/21 Sandro Schilling MD [address] [facility] [address] [place] [address] Consulting Physician Interventional Cardiology 01/13/21 Regina Ware NP [address] [facility] [address] [place] [address] Nurse Practitioner Cardiology 01/13/21 Solo Hair MD [address] [facility] [address] [place] [address] Consulting Physician Orthopedic Surgery 05/05/21 documented as of this encounter
--- OUTSIDE RECORDS SUMMARY | 2025-01-28 08:01 | XMS_ITS | Clinical Summary ---
Author Organization [facility] Address [address] [place] [address] Care Team Providers Care Solidworks Drafter Name Role Phone Abena Mccabe MD Primary Care Provider [phone] Nazario Ireland MD Unavailable [phone] Marta Guevara MD Unavailable [phone] Sandro Schilling MD Unavailable [phone] Regina Ware NP Unavailable Solo Hair MD [...] HTN 09/09/2018 H/O: CVA (cerebrovascular accident) 09/09/2018 Encounters Date Type Department Care Team Description 01/27/2025 Orders Only [facility] Medical [facility] Cardiology [address] [place] [address] Phani Werner MD from Last 3 Months Immunizations Immunization Administration Dates Next Due Pfizer [...] 01/04/2021 How often do you attend chur ch or spiritism services? More than 4 times per year [...] place to sleep or slept in a senior care (including now)? No 01/04/2021 Personal Safety Answer Date Recorded Getting School Help Needed Not on file 06/18 Comments No Sex and Gender Information Value Date Recorded Sex Assigned at Not on file Legal Sex Female 1:03 PM PROFESSIONAL TUTOR Gender Identity Not on file Sexual Orientation Not on file Obstetrics History Last Filed Vital Signs Vital Sign Reading Time Taken Comments Blood Pressure 152/76 05/05/2021 8:29 AM PROFESSIONAL TUTOR Pulse 77 05/05/2021 8:29 AM PROFESSIONAL TUTOR Temperature 36.6 C (97.8 F) 05/05/2021 7:56 AM PROFESSIONAL TUTOR Respiratory Rate 16 05/05/2021 7:56 AM PROFESSIONAL TUTOR Oxygen Saturation 99% 05/05/2021 8:29 AM PROFESSIONAL TUTOR Inhaled Oxygen Concentration - - Weight 73.1 kg (161 lb 2.5 oz) 05/05/2021 6:10 A M PROFESSIONAL TUTOR Height 162.6 cm (5' 4) 05/03/2021 3:05 AM PROFESSIONAL TUTOR Body Mass Index 27.66 05/03/2021 3:05 AM PROFESSIONAL TUTOR Plan of Treatment Health Maintenance Due Date [...] 2024 02/04/2021, 01/13/2021 Influenza Vaccine (#1) 2025 , 05/02/2019, 08/15/2018 Medical Devices Implanted Type Area Fibrous Plasterer Device Identifier Shelf Expiration Date Model / Serial / Lot [employer] 31776-94 Perclose 6fr Suture Mediate Knot Push Vascular Device Closure - [id number] Implanted:Qty: 1 on 01/06/2021 by Bud Mejias MD at [facility] [employer] 10/15/2022 [id number] / / [id number] [employer] [id number] Perclose 6fr Suture Mediate Knot Push Vascular Device Closure - [id number] Implanted:Qty: 1 on 01/06/2021 by Bud Mejias MD at [facility] [employer] 10/15/2022 [id number] / / [id number] [employer] Inc Evproplus-26us Valve 26mm Aortic Evolut Pro+ - [id number] - [id number] Implanted:Qty: 1 on 01/06/2021 by Bud Mejias MD at [facility] [employer] 05/26/2022 EVPROPLUS-2 6US / [id number] / [employer] [id number] Perclose 6fr Suture Mediate Knot Push Vascular Device Closure - [id number] Implanted:Qty: 1 on 01/06/2021 by Bud Mejias MD at [facility] [employer] 10/15/2022 [id number] / / [id number] [employer] [id number] Solia S 53cm Steroid Elute Bipolar Active Fixation Endocardial - [id number] Implanted:Qty: 1 on 01/08/2021 by Nazario Ireland MD at [facility] [employer] 02/15/2022 [id number] / / [employer] [id number] Solia S 45cm Bipolar Active Fixation Lead Pacing Steroid Eluting - [id number] Implanted:Qty: 1 on 01/08/2021 by Nazario Ireland MD at [facility] [employer] 04/17/2022 [id number] / / [employer] [id number] Edora Promri 03l37d1.5mm Dual Chamber Rate Adaptive Unipolar Bipolar - [id number] Implanted:Qty: 1 on 01/08/2021 by Nazario Ireland MD at [facility] [employer] 05/17/2022 [id number] / / Procedures Procedure Name Priority Date/Time Associated Diagnosis Comments CARDIOLOGY DOCUMENT SCAN Routine 01/27/2025 5:46 PM CDT CARDIOLOGY DOCUMENT SCAN Routine 01/26/2025 5:44 PM CDT EGFR STAT 05/03/2021 10:48 AM PROFESSIONAL TUTOR HEMOGLOBIN A1C STAT 05/02/2021 12:55 PM PROFESSIONAL TUTOR LIPID PANEL STAT 05/02/2021 12:55 PM PROFESSIONAL TUTOR from Last 3 Months or Most Recently Relevant to Health Maintenance Results * Cardiology Document Scan (01/27/2025 5:46 PM CDT) Anatomical Region Laterality Modality Other Phani Werner MD CV CARDIAC SERVICES PROCEDURES F inal Result * Cardiology Document Scan (01/26/2025 5:44 PM CDT) Anatomical Region Laterality Modality Other Phani Werner MD CV CARDIAC SERVICES PROCEDURES F inal Result * (ABNORMAL) eGFR (05/03/2021 10:48 AM PROFESSIONAL TUTOR) eGFR 46(L) 90 - 130 mL/min/1.7 3 m2 [facility] Comment: Interpretive Data Reference Interval Normal >/= [...] reviewed 2020 Blood 05/03/2021 10:4 8 AM PROFESSIONAL TUTOR 05/03/2021 11:01 AM PROFESSIONAL TUTOR Mary Sandoval MD LAB BLOOD ORDERABLES Final R esult [facility] Department [place] [address] * (ABNORMAL) Hemoglobin A1c (05/02/2021 12:55 PM PROFESSIONAL TUTOR) Hgb A1C 12.0(H) 4.0 - 5.6 % [facility] Estimated Average Glucose 298 mg/dL [facility] Comment: The ADA recommends reporting an estimated Average Glucose (eAG) with all Hemoglobin A1c results using the equation derived from a study of 507 normal and diabetic adults. Minority populations were underrepresented and children were not included. (Diabetes Care 2020; 43(S1): S66-S76). The eAG is not equivalent to a fasting glucose. Blood 05/02/2021 12:5 5 PM PROFESSIONAL TUTOR 05/02/2021 1:08 PM PROFESSIONAL TUTOR Narrative [facility] - 05/03/2021 9:52 AM PROFESSIONAL TUTOR REFLEX us Mary Sandoval MD LAB BLOOD ORDERABLES Final R esult [facility] Department [place] [address] * (ABNORMAL) Lipid panel (05/02/2021 12:55 PM PROFESSIONAL TUTOR) Cholesterol 113 30 - 199 mg/dL [facility] Comment: Interpretive Data Ages < or [...] revised on 2018. Triglycerides 179(H) <=149 mg/dL [facility] Comment: Interpretive Data Ages < or [...] revised on 2018. HDL 43 >=40 mg/dL [facility] Comment: Interpretive Data Ages < or [...] on 2018. LDL, calculated 34 <=129 mg/dL [facility] Comment: Interpretive Data Ages < or [...] revised on 2018. Non-HDL Cholesterol 70 mg/dL [facility] Comment: Interpretive Data Ages < or [...] last revised on 2018. Chol/HDL ratio 3 [facility] Blood 05/02/2021 12:5 5 PM PROFESSIONAL TUTOR 05/02/2021 1:04 PM PROFESSIONAL TUTOR us Mary Sandoval MD LAB BLOOD ORDERABLES Final R esult [facility] Department [place] [address] from Last 3 Months or Most Recently Relevant to Health Maintenance Insurance [employer] MEDICARE PPO [id number] [employer] MEDICARE PPO [employer] CHOICE MEDICARE PPO [facility] MEDICARE ADVANTAGE [facility] MEDICARE Address: [address] [address] [place] [address] Advance Directives For more information, please contact: [phone] Documents on File Type Date Recorded Patient Equipment Coordinator Expl anation ADVANCE DIRECTIVE 01/03/2021 2:36 PM Maricruz Livingston * Full Code (Latest Code Status on File) Date Activated Date Inactivated Comments 05/03/2021 2:46 AM 05/05/2021 4:48 PM * Full Code Date Activated Date Inactivated Comments 01/03/2021 8:42 PM 01/13/2021 7:02 PM Healthcare Agents on File Name Relationship Healthcare Agent [facility] p Communication Michelle Reid Daughter Health Care Agent Care Teams Solidworks Drafter Relationship Specialty Start Date End Date Abena Mccabe MD PCP - General Family Medicine 07/23/18 Nazario Ireland MD [address] [place] [address] Consulting Physician Cardiology 01/12/21 [place] [address] [facility] [address] [place] [address] Consulting Physician Endocrinology 01/13/21 Sandro Schilling MD [address] [facility] [address] [facility] [place] [id number] Consulting Physician Interventional Cardiology 01/13/21 Regina Ware NP [address] [facility] [address] [place] [id number] Nurse Practitioner Cardiology 01/13/21 Solo Hair MD [address] [facility] [address] [place] [id number] Consulting Physician Orthopedic Surgery 05/05/21
[2025-01-28 08:14] LABS: Hematocrit 34.9 % (37.0-47.0); Hemoglobin 10.3 g/dL (12.0-15.0); Immature Granulocyte Percent A 0.6 % (0-0.5); Lymphocytes Absolute Auto 1.08 K/mm3 (0.9-3.2); Mean Corpuscular HGB Conc 29.5 g/dl (32-36); Mean Corpuscular Hemoglobin 25.5 pg (26-34); Mean Corpuscular Volume 86.4 fl (80-100); Nucleated Red Blood Cells Absolute Auto 0.000 K/mm3 (0.0-0.012); Nucleated Red Blood Cells Perc 0.0 % (0.0-0.2); Platelet Count Result 164 k/mm3 (150-375); Red Blood Count 4.04 M/mm3 (4.2-5.4); White Blood Count 6.7 K/mm3 (4.5-10.0)
[2025-01-28 08:32] LABS: Alanine Aminotransferase 10 U/L (6-35); Albumin Level 3.3 g/dL (3.5-5.1); Alkaline Phosphatase 96 U/L (38-126); Anion Gap 4 mmol/L (4-12); Aspartate Amino Transferase 28 U/L (14-36); Bilirubin,Total 1.0 mg/dL (0.2-1.3); Blood Urea Nitrogen 35 mg/dL (7-17); Calcium 8.5 mg/dL (8.4-10.2); Carbon Dioxide 33 mmol/L (22-30); Chloride 99 mmol/L (98-107); Estimated CRCL calculation 25 ml/min; Estimated Glomerular Filt Rate 35; Glucose 240 mg/dL (65-110); Potassium 5.5 mmol/L (3.4-5.0); Sodium 136 mmol/L (137-145); Total Protein 6.3 g/dL (6.3-8.2)
[2025-01-28] MEDS: PANTOPRAZOLE 40 MG TABLET PO (08:41)
[2025-01-28] MEDS: CLOPIDOGREL BISULFATE 75 MG TABLET PO (08:41)
[2025-01-28] MEDS: FUROSEMIDE INJ 40 MG/4 ML VIAL IV PUSH (08:41)
[2025-01-28] MEDS: ASPIRIN 81 MG CHEWABLE TABLET PO (08:41)
[2025-01-28] MEDS: MAGNESIUM OXIDE 400 MG TABLET PO ×2 (08:41→17:49)
[2025-01-28] MEDS: PREGABALIN (*CRX) 50 MG CAPSULE PO ×2 (08:41→20:14)
[2025-01-28] MEDS: INSULIN ASPART (*BKC) 100 UNITS/ML SUB-Q ×4 (08:42→20:46)
[2025-01-28 08:50] LABS: Hypochromasia 1+; Ovalocytes 1+; Schistocytes None Seen
[2025-01-28] MEDS: SODIUM ZIRCONIUM CYCLOSILICATE 5 GM POWD.PACK PO (10:39)
--- NOTE | 2025-01-28 10:54 | PM.PNCARD ---
Progress Note: A&P Assessment and Plan (1) Acute exacerbation of CHF (congestive heart failure): Qualifiers: Heart failure type: systolic Qualified Code(s): I50.23 - Acute on chronic systolic (congestive) heart failure Code(s): I50.9 - Heart failure, unspecified Status: Acute (2) Unspecified atrial flutter: Code(s): I48.92 - Unspecified atrial flutter Status: Acute (3) History of transcatheter aortic valve replacement (TAVR): Code(s): Z95.2 - Presence of prosthetic heart valve Status: Acute (4) Mixed hyperlipidemia: Code(s): E78.2 - Mixed hyperlipidemia Status: Acute (5) Mitral stenosis: Code(s): I05.0 - Rheumatic mitral stenosis Status: Acute Plan 84-year-old woman from [facility] with chronic diastolic heart failure, severe aortic stenosis status post TAVR, complete heart block status post permanent pacemaker, and paroxysmal atrial fibrillation on Eliquis 2.5 mg p.o. b.i.d. was brought into the hospital due to severe worsening shortness of breath with associated chest discomfort Acute on chronic diastolic heart failure -will reduce furosemide to 40 mg IV daily.; she is making adequate urine output and will continue the course at this time -chest discomfort likely secondary to heart failure exacerbation. Will recheck a troponin now however given significant chest tightness. Potassium is elevated today. Potassium is on hold Severe mitral stenosis -has been following up outpatient and she states that her outpatient sr technical sales consultant had discussions with her regarding that she is not a candidate for surgery -continue diuresis and carvedilol -currently in AV paced rhythm Severe aortic stenosis status post TAVR -on chest x-ray appears to be a self expanding valve -she is also on aspirin, Plavix, and rosuvastatin Complete heart block status post permanent pacemaker -normal function device based on telemetry review Paroxysmal atrial fibrillation -continue Eliquis 2.5 mg p.o. b.i.d. for stroke risk reduction -rates are well controlled on carvedilol 6.25 p.o. b.i.d. Subjective Date/time seen: 01/28/25 10:54 Interval history: 84-year-old with valvular heart disease Date of service 01/28/2025: Still complaining of chest tightness. She states that is chronic and worsened if she lifts anything or has her arms in front of her. No shortness of breath. Review of Systems Review of Systems: All systems reviewed & are unremarkable except as noted in HPI and below Constitutional: Constitutional: Denies body ache(s) Eyes: Eyes: Denies blurry vision ENT: Reports Normal hearing present Cardiovascular: Cardiovascular: Reports chest pain Respiratory: Respiratory: Denies hemoptysis Gastrointestinal: Gastrointestinal: Denies hematemesis Genitourinary: Genitourinary: Denies hematuria Musculoskeletal: Musculoskeletal: Denies myalgias Neurologic: Denies Abnormal speech present Hematologic/Lymphatic: Hematologic/Lymphatic: Denies easy bleeding Exam Narrative: Awake alert and oriented. Appears to be no acute distress Const: General: comfortable HENMT: Mouth: Yes moist mucous membranes Eyes: Sclera: sclerae normal Neck: Neck: supple and no JVD Resp: Effort & Inspection: normal respiratory effort Auscultation: diminished lung sounds Cardio: Rate: regular rate Rhythm: regular rhythm Heart sounds: Murmur heart sound present GI: Inspection: non-distended Skin: General skin exam: normal color Neuro: Speech: normal speech Extrem: General: no pedal edema Psych: Mental Status: mental status grossly normal Affect: normal affect Objective Data Vital Signs Vital Signs: Vital Signs - 24 hr 01/27/25 12:00 01/27/25 13:31 01/27/25 14:00 Temperature 36.2 C L Pulse Rate 82 79 Respiratory Rate 22 H Blood Pressure 106/59 L Pulse Oximetry 100 Oxygen Delivery Nasal Cannula Oxygen Flow Rate 2 01/27/25 14:16 01/27/25 16:00 01/27/25 17:30 Temperature Pulse Rate 82 83 83 Respiratory Rate 20 Blood Pressure Pulse Oximetry Oxygen Delivery Oxygen Flow Rate 01/27/25 20:00 01/27/25 20:22 01/27/25 20:31 Temperature Pulse Rate 80 79 77 Respiratory Rate 20 20 Blood Pressure Pulse Oximetry Oxygen Delivery Oxygen Flow Rate 01/27/25 20:39 01/27/25 20:40 01/27/25 20:55 Temperature 36.6 C Pulse Rate 79 77 77 Respiratory Rate 20 20 Blood Pressure 146/79 H Pulse Oximetry 100 97 97 Oxygen Delivery Nasal Cannula Nasal Cannula Oxygen Flow Rate 2 2 01/28/25 00:00 01/28/25 02:12 01/28/25 02:18 Temperature Pulse Rate 80 79 79 Respiratory Rate 20 20 Blood Pressure Pulse Oximetry Oxygen Delivery Oxygen Flow Rate 01/28/25 04:00 01/28/25 06:00 01/28/25 08:00 Temperature 36.5 C Pulse Rate 79 80 79 Respiratory Rate 20 Blood Pressure 177/70 H Pulse Oximetry 99 Oxygen Delivery Oxygen Flow Rate 01/28/25 08:40 01/28/25 08:41 01/28/25 09:48 Temperature Pulse Rate 86 80 Respiratory Rate 20 Blood Pressure Pulse Oximetry 99 100 Oxygen Delivery Nasal Cannula Nasal Cannula Oxygen Flow Rate 2 2 01/28/25 09:48 01/28/25 09:55 Temperature Pulse Rate 80 76 Respiratory Rate 20 20 Blood Pressure Pulse Oximetry Oxygen Delivery Oxygen Flow Rate Intake/Output Intake/Output: Intake & Output 01/25/25 01/26/25 01/27/25 01/28/25 23:59 23:59 23:59 23:59 Intake Total 50 1500 1150 420 Output Total 2150 3250 600 Balance 54 -423 -8688 -092 Meds/Results Medications: Active Medications Generic Name Dose Route Start Last Admin Trade Name Freq PRN Reason Stop Dose Admin Albuterol 2.5 mg 01/25/25 20:00 01/28/25 09:45 Albuterol Sulfate Neb 2.5 Mg/3 Ml Inh INHALATION 2.5 mg Q6HRT [facility] Administration Albuterol/Ipratropium 3 ml 01/26/25 09:40 Ipratropium 0.5 Mg/Albuterol Sulfate 2.5 Mg Ampul.Neb 3 Ml INHALATION Q8H PRN shortness of breath or wheezing Aspirin 81 mg 01/26/25 08:00 01/28/25 08:41 Aspirin 81 Mg Chewable Tablet PO 81 mg DAILY@0800 [facility] Administration Bumetanide 1 mg 01/26/25 10:30 01/26/25 10:24 Bumetanide 1 Mg Tablet PO Not Given DAILY [facility] Carvedilol 6.25 mg 01/26/25 10:00 01/28/25 08:41 Carvedilol 6.25 Mg Tablet PO 6.25 mg BID [facility] Administration Clopidogrel Bisulfate 75 mg 01/26/25 10:30 01/28/25 08:41 Clopidogrel Bisulfate 75 Mg Tablet PO 75 mg DAILY [facility] Administration Dextrose 12.5 gm 01/26/25 09:42 Dextrose 50% 25 Gm/50 Ml Syringe IV PUSH PRN PRN Hypoglycemia Protocol Furosemide 40 mg 01/25/25 21:00 01/28/25 08:41 Furosemide Inj 40 Mg/4 Ml Vial IV PUSH 40 mg Q12HR [facility] Administration Glucagon 1 mg 01/26/25 09:42 Glucagon For Inj 1 Mg Vial IM PRN PRN Hypoglycemia Protocol Glucose 15 gm 01/26/25 09:42 Glucose Oral Gel 15 Gm Of Glucse In 37.5 Gm Tube PO PRN PRN Hypoglycemia Protocol Guaifenesin 200 mg 01/26/25 09:40 Guaifenesin 200 Mg/10 Ml Udc PO Q8H PRN cough Heparin Sodium (Porcine) 5,000 units 01/25/25 21:00 01/28/25 08:41 Heparin Sodium 5,000 Units/Ml Vial SUB-Q 5,000 units Q12HR [facility] Administration Ceftriaxone Sodium 1 gm/ 50 mls @ 100 mls/hr 01/26/25 19:00 01/27/25 19:13 Sodium Chloride IVPB 100 mls/hr Q24H [facility] Administration Dextrose 1,000 mls @ 100 mls/hr 01/26/25 09:42 Dextrose 5% 1,000 Ml IVPB PRN PRN Hypoglycemia Protocol Insulin Aspart 2 - 5 units 01/26/25 12:00 01/28/25 08:42 Insulin Aspart (*Bkc) 100 Units/Ml SUB-Q 2 units TIDWM [facility] Administration Protocol Insulin Aspart 1 - 2 units 01/26/25 21:00 01/27/25 21:44 Insulin Aspart (*Bkc) 100 Units/Ml SUB-Q 2 units HS [facility] Administration Protocol Lidocaine 1 patch 01/26/25 10:30 01/28/25 08:42 Lidocaine 5% Patch TOPICAL Not Given DAILY [facility] Magnesium Oxide 400 mg 01/26/25 17:00 01/28/25 08:41 Magnesium Oxide 400 Mg Tablet PO 400 mg BID [facility] Administration Methimazole 10 mg 01/26/25 10:00 01/28/25 08:41 Methimazole 10 Mg Tab PO 10 mg DAILY [facility] Administration Pantoprazole Sodium 40 mg 01/26/25 10:00 01/28/25 08:41 Pantoprazole 40 Mg Tablet PO 40 mg DAILY [facility] Administration Potassium Chloride 40 meq 01/26/25 10:30 01/27/25 08:55 Potassium Chloride 20 Meq Er Tablet PO 40 meq DAILY [facility] Administration Pregabalin 50 mg 01/26/25 10:00 01/28/25 08:41 Pregabalin (*Crx) 50 Mg Capsule PO 50 mg Q12HR [facility] Administration Rosuvastatin Calcium 40 mg 01/26/25 21:00 01/27/25 20:37 Rosuvastatin 20 Mg Tablet PO 40 mg HS [facility] Administration Radiology Results: ITS Impressions Chest CTA 01/25/25 18:50 IMPRESSION: No CT evidence of acute pulmonary embolus. Pulmonary edema, overlying chronic interstitial changes. Moderate right and small left pleural effusions. Mediastinal and right hilar lymphadenopathy. Mild wedge compression fracture at T4, new since the study, probably chronic unless accompanied by acute pain/tenderness. Chest X-Ray 01/27/25 16:18 IMPRESSION: Bilateral pleural effusions, right greater than left. Moderate pulmonary vascular congestion. Interstitial thickening is also noted, unchanged from prior. Labs Labs: Laboratory Results - last 24 hr 01/27/25 01/27/25 01/27/25 11:36 16:05 16:54 WBC RBC Hgb Hct MCV MCH MCHC RDW Plt Count MPV Immature Gran % (Auto) Neut % (Auto) Lymph % (Auto) [place] % (Auto) Eos % (Auto) Baso % (Auto) Lymph # (Auto) [place] # (Auto) Eos # (Auto) Baso # (Auto) Abs Immat Gran (auto) Absolute Neuts (auto) Absolute Nucleated RBC Band Neutrophils % Nucleated RBC % Platelet Estimate Hypochromasia Ovalocytes Schistocytes Sodium Potassium Chloride Carbon Dioxide Anion Gap BUN Creatinine Estim Creat Clear Calc Estimated GFR Glucose POC Capillary Glucose 460 H 355 H Calcium Total Bilirubin AST ALT Alkaline Phosphatase Troponin I 0.029 Total Protein Albumin 01/27/25 01/28/25 01/28/25 20:59 07:57 08:23 WBC 6.7 RBC 4.04 L Hgb 10.3 L Hct 34.9 L MCV 86.4 MCH 25.5 L MCHC 29.5 L RDW 16.8 H Plt Count 164 MPV 11.4 H Immature Gran % (Auto) 0.6 H Neut % (Auto) 64.3 Lymph % (Auto) 16.1 L [place] % (Auto) 13.3 H Eos % (Auto) 4.8 H Baso % (Auto) 0.9 Lymph # (Auto) 1.08 [place] # (Auto) 0.9 H Eos # (Auto) 0.3 Baso # (Auto) 0.1 Abs Immat Gran (auto) 0.04 H Absolute Neuts (auto) 4.3 Absolute Nucleated RBC 0.000 Band Neutrophils % Not Reportable Nucleated RBC % 0.0 Platelet Estimate Adequate Hypochromasia 1+ Ovalocytes 1+ Schistocytes None seen Sodium 136 L Potassium 5.5 H Chloride 99 Carbon Dioxide 33 H Anion Gap 4 BUN 35 H Creatinine 1.44 H Estim Creat Clear Calc 25 Estimated GFR 35 L Glucose 240 H POC Capillary Glucose 267 H 243 H Calcium 8.5 Total Bilirubin 1.0 AST 28 ALT 10 Alkaline Phosphatase 96 Troponin I Total Protein 6.3 Albumin 3.3 L
[2025-01-28 11:53] LABS: Troponin I 0.027 ng/mL (0.000-0.034)
--- NOTE | 2025-01-28 12:56 | PCOTNOTE ---
The patient treatment was not able to be completed patient was drowsy and had difficulty with alertness. RN is aware and will continue to monitor. Will plan to continue treatment per plan of care.
[2025-01-28] MEDS: DOCUSATE SODIUM 100 MG CAPSULE PO (17:49)
[2025-01-28] MEDS: cefTRIAXone 1 GM in SODIUM CHLORIDE 0.9% IV 50 ML 100 ML IVPB (18:15)
[2025-01-28] MEDS: ROSUVASTATIN 20 MG TABLET 40 MG PO (20:14)
[2025-01-29] VITALS (12 sets, daily range): BP systolic 109–117; BP diastolic 56–68; PULSE 74–82; RESP 16–18; TEMP 36.1–36.4; O2SAT 99–100
[2025-01-29] MEDS: ALBUTEROL SULFATE NEB 2.5 MG/3 ML INH INHALATION ×3 (03:43→13:38)
[2025-01-29 04:44] LABS: Hematocrit 32.0 % (37.0-47.0); Hemoglobin 9.6 g/dL (12.0-15.0); Immature Granulocyte Percent A 0.5 % (0-0.5); Lymphocytes Absolute Auto 0.87 K/mm3 (0.9-3.2); Mean Corpuscular HGB Conc 30.0 g/dl (32-36); Mean Corpuscular Hemoglobin 25.9 pg (26-34); Mean Corpuscular Volume 86.3 fl (80-100); Nucleated Red Blood Cells Absolute Auto 0.000 K/mm3 (0.0-0.012); Nucleated Red Blood Cells Perc 0.0 % (0.0-0.2); Platelet Count Result 147 k/mm3 (150-375); Red Blood Count 3.71 M/mm3 (4.2-5.4); White Blood Count 5.6 K/mm3 (4.5-10.0)
[2025-01-29 05:00] LABS: Alanine Aminotransferase 10 U/L (6-35); Albumin Level 3.0 g/dL (3.5-5.1); Alkaline Phosphatase 106 U/L (38-126); Anion Gap 5 mmol/L (4-12); Aspartate Amino Transferase 20 U/L (14-36); Bilirubin,Total 0.7 mg/dL (0.2-1.3); Blood Urea Nitrogen 36 mg/dL (7-17); Calcium 8.3 mg/dL (8.4-10.2); Carbon Dioxide 33 mmol/L (22-30); Chloride 97 mmol/L (98-107); Estimated CRCL calculation 27 ml/min; Estimated Glomerular Filt Rate 38; Glucose 258 mg/dL (65-110); Potassium 4.2 mmol/L (3.4-5.0); Sodium 135 mmol/L (137-145); Total Protein 5.7 g/dL (6.3-8.2)
[2025-01-29] MEDS: FUROSEMIDE INJ 40 MG/4 ML VIAL IV PUSH (08:37)
[2025-01-29] MEDS: INSULIN ASPART (*BKC) 100 UNITS/ML SUB-Q ×3 (08:37→17:05)
[2025-01-29] MEDS: CLOPIDOGREL BISULFATE 75 MG TABLET PO (08:38)
[2025-01-29] MEDS: MAGNESIUM OXIDE 400 MG TABLET PO ×2 (08:38→17:05)
[2025-01-29] MEDS: PREGABALIN (*CRX) 50 MG CAPSULE PO (08:38)
[2025-01-29] MEDS: ASPIRIN 81 MG CHEWABLE TABLET PO (08:38)
[2025-01-29] MEDS: DOCUSATE SODIUM 100 MG CAPSULE PO (08:38)
[2025-01-29] MEDS: PANTOPRAZOLE 40 MG TABLET PO (08:38)
--- NOTE | 2025-01-29 11:05 | P.DS_ITS ---
DS: Admitting Diagnosis Discharge Date 01/29/2025 Admitting Diagnosis CHF Exacerbation, UTI DS: Discharge Diagnosis Discharge Diagnosis (1) Acute exacerbation of CHF (congestive heart failure): Qualifiers: Heart failure type: systolic Qualified Code(s): I50.23 - Acute on chronic systolic (congestive) heart failure Code(s): I50.9 - Heart failure, unspecified Status: Acute Assessment and Plan: * Possibly due to dietary indiscretion versus tolerance to loop diuretic * UA suggests possible UTI * No evidence for ACS * TSH = 5.570 * Medication non-adherence is not an issue as she resides at a facility * Continue beta-marlin, spironolactone and ARNI * Add IV furosemide 40 mg bid * Monitor I/O, labs * Cardio consult for further recommendations regarding med management * Continue Lasix 40 mg b.i.d. * chest discomfort likely secondary to heart failure exacerbation. Will recheck a troponin now however given significant chest tightness. * Repeat troponin negative * continue diuresis and carvedilol (2) UTI (urinary tract infection), bacterial: Code(s): N39.0 - Urinary tract infection, site not specified; A49.9 - Bacterial infection, unspecified Status: Acute Assessment and Plan: * Suggested by UA * 01/25 started ceftriaxone * Preliminary growth shows gram (-)bacilli * Continue IV Abx until specific bacteria can be narrowed down (3) Chronic diastolic (congestive) heart failure: Code(s): I50.32 - Chronic diastolic (congestive) heart failure Status: Acute Assessment and Plan: * As above (4) Essential hypertension: Code(s): I10 - Essential (primary) hypertension Status: Acute Assessment and Plan: * Continue home regimen (5) Type 2 diabetes mellitus without complication, with long-term current use of insulin: Code(s): E11.9 - Type 2 diabetes mellitus without complications; Z79.4 - senior care (current) use of insulin Status: Acute Assessment and Plan: * Reduce basal and pre-premeal insulin by about 33% and add SSI (6) Hyperthyroidism: Code(s): E05.90 - Thyrotoxicosis, unspecified without thyrotoxic crisis or storm Status: Acute Assessment and Plan: * Continue methimazole * Check TSH (7) CKD stage 3 due to type 2 diabetes mellitus: Code(s): E11.22 - Type 2 diabetes mellitus with diabetic chronic kidney disease; N18.3 - Chronic kidney disease, stage 3 (moderate) Status: Acute Assessment and Plan: * At baseline (01/25 creatinine 1.53) * Monitor renal function during diuresis (8) Anemia: Code(s): D64.9 - Anemia, unspecified Status: Acute Assessment and Plan: * C/w anemia of CKD * 01/26 Hgb 10.3 (9) Diabetic peripheral neuropathy: Code(s): E11.42 - Type 2 diabetes mellitus with diabetic polyneuropathy Status: Acute Assessment and Plan: * Will need PT/OT (10) History of cerebellar stroke: Code(s): Z86.73 - Personal history of transient ischemic attack (TIA), and cerebral infarction without residual deficits Status: Acute Assessment and Plan: * Continue ASA (11) Atrial fib/flutter, transient: Code(s): I48.91 - Unspecified atrial fibrillation; I48.92 - Unspecified atrial flutter Status: Acute Assessment and Plan: * Continue Eliquis, beta-marlin * Rates are well controlled on carvedilol 6.25 p.o. b.i.d. (12) Peripheral vascular disease, unspecified: Code(s): I73.9 - Peripheral vascular disease, unspecified Status: Acute Assessment and Plan: * Continue ASA (13) Mitral stenosis: Code(s): I05.0 - Rheumatic mitral stenosis Status: Acute Assessment and Plan: * Follows with a independent consultant in the outpatient setting, not a surgical candidate for surgery at this time * Cardiology recommends continuing diuresis and carvedilol (14) History of transcatheter aortic valve replacement (TAVR): Code(s): Z95.2 - Presence of prosthetic heart valve Status: Acute Assessment and Plan: * s/p TAVR * Continue aspirin, Plavix, rosuvastatin DS: Summary Hospital Course Reason for hospitalization: Shortness of breath Hospital Course: 84-year-old female [place] resident with a history of chronic diastolic congestive heart failure, status post TAVR and and pacemaker, has chronic dyspnea but noticed over the last 24 hours that her dyspnea was worsened to the point that while dressing she would breathe so hard that she would get dizzy. She was short of breath lying flat. Short of breath with minimal exertion. Short of breath with conversation. Also noticed over the past few weeks that her weight was gradually increasing and her legs were getting more swollen. She states this is the most she has ever weighed. She denied chest pains palpitations syncope or presyncope. She denied any recent change in medications or diet. She does note that the food at the facility where she stays does tend to contain quite a bit of salt. She was last hospitalized at [facility] in January of 2024 and discharged February 17, 2020 for after treatment for congestive heart failure. Echocardiogram showed intact TAVR with normal systolic function but impaired veronique stolic relaxation. Echocardiogram in 01/26 showed LV chamber dimension, EF of 65-70%, E/E prime 47, significantly elevated, atrial fibrillation, left atrial chamber dimension moderately enlarged mitral valve moderate calcified leaflets and severely calcified annulus, moderate to severe MVS, mild MVR, [id number] TVR and moderate pulmonary hypertension. Cardiology consulted regarding acute ex acerbation of CHF and new echocardiogram findings. They recommended continuing Lasix 40 mg IV b.i.d. likely to increase to 80 mg IV b.i.d. if renal function continues to be stable tomorrow. Agree that chest discomfort likely secondary to heart failure exacerbation and continue to reassess repeat troponins. They eventually reduced furosemide to 40 mg IV daily as she is making adequate urine output. As for severe mitral stenosis, patient has been following up in the outpatient setting with her independent consultant and patient is not a candidate for surgery. She continues to complain of shortness of breath but states that this is chronic and her baseline. Worse with ambulation or with lifting anything, but at rest she feels fine. Recommend continuing diuresis, carvedilol, aspirin, Plavix, rosuvastatin and Eliquis. Patient is otherwise hemodynamically stable with stable blood work and vital signs and can be discharged safely at this time. Instructed to follow-up with her primary and independent consultant. Patient is amenable to this plan. Status at Discharge Functional status at discharge: uses cane/walker Overall status at discharge: patient is progressing back to baseline Time Spent with Patient Time attestation: Total time spent providing and/or coordinating discharge services: 45 Exam Narrative: HEENT: EOMI, PERRL, sclerae nonicteric, pharyngeal mucosa pink and intact NECK: 2 cm JVD, adenopathy, or thyromegaly CHEST: Clear to auscultation. Normal effort. HEART: NL S1/S2, regular, 2/6 PRECIOUS RUSB ABDOMEN: BS+, soft, nontender, no mass, no bruits EXTREMITIES: No pedal edema NEUROLOGIC: CN intact and symmetric to inspection, HINTS exam negative MUSCULOSKELETAL: Tone and strength symmetric PSYCH: Alert. Oriented to person, place, and year DS: Data Data Completed and Pending Labs on day of discharge: Labs from last 24 hours 01/29/25 01/29/25 01/28/25 08:01 04:31 20:43 WBC 5.6 RBC 3.71 L Hgb 9.6 L Hct 32.0 L MCV 86.3 MCH 25.9 L MCHC 30.0 L RDW 16.6 H Plt Count 147 L MPV 11.4 H Immature Gran % (Auto) 0.5 Neut % (Auto) 65.1 Lymph % (Auto) 15.6 L [place] % (Auto) 12.7 H Eos % (Auto) 5.2 H Baso % (Auto) 0.9 Lymph # (Auto) 0.87 L [place] # (Auto) 0.7 H Eos # (Auto) 0.3 Baso # (Auto) 0.1 Abs Immat Gran (auto) 0.03 Absolute Neuts (auto) 3.6 Absolute Nucleated RBC 0.000 Nucleated RBC % 0.0 Sodium 135 L Potassium 4.2 Chloride 97 L Carbon Dioxide 33 H Anion Gap 5 BUN 36 H Creatinine 1.34 H Estim Creat Clear Calc 27 Estimated GFR 38 L Glucose 258 H POC Capillary Glucose 239 H 334 H Calcium 8.3 L Total Bilirubin 0.7 AST 20 ALT 10 Alkaline Phosphatase 106 Troponin I Total Protein 5.7 L Albumin 3.0 L 01/28/25 01/28/25 01/28/25 17:03 11:22 11:18 WBC RBC Hgb Hct MCV MCH MCHC RDW Plt Count MPV Immature Gran % (Auto) Neut % (Auto) Lymph % (Auto) [place] % (Auto) Eos % (Auto) Baso % (Auto) Lymph # (Auto) [place] # (Auto) Eos # (Auto) Baso # (Auto) Abs Immat Gran (auto) Absolute Neuts (auto) Absolute Nucleated RBC Nucleated RBC % Sodium Potassium Chloride Carbon Dioxide Anion Gap BUN Creatinine Estim Creat Clear Calc Estimated GFR Glucose POC Capillary Glucose 269 H 279 H Calcium Total Bilirubin AST ALT Alkaline Phosphatase Troponin I 0.027 Total Protein Albumin Preliminary micro results at discharge 08/10/25 18:04 - Preliminary Urine Clean Catch Gram negative bacilli isolated Discharge Plan Discharge Attending physician on discharge: Emil Yanez Consulting providers: Kwasi Cohen; Phani Werner Discharging Clinician: Kwasi Cohen Anticipated Discharge Date/Time: 01/29/25 11:01 Patient Disposition: [place] [facility]Asst Living Activity: no straining Diet: heart healthy Discharge Instructions: Discharge disposition: [facility] Take medications as prescribed. You will be prescribed Augmentin for 6 additional doses, starting tonight, and to be taken twice daily. Monitor blood pressures Take caution while standing, rising, or moving Change positions slowly taking a break between each position change If you standing feel dizzy sit back down and take a break Encouraged to continue with yearly vaccinations Return to the emergency department if he developed sudden shortness of breath, chest pain, nausea, vomiting, upset stomach or intractable diarrhea Return to the emergency department if you develop fever greater than 101.5 Follow-up with the primary care physician within 1-2 weeks Thank you for [facility] for your healthcare needs Patient Instructions: Antibiotic Form, Clopidogrel (By mouth), Heart Failure (DC) Patient Language: Lithuanian Stand Alone Forms: General Discharge Information Follow-up/Referrals: Abena Mccabe MD [Primary Care Provider] - Discharge Medications: New amoxicillin-pot clavulanate 500-125 mg tablet 1 tablet PO Q12H Qty: 6 0RF Continued bumetanide 1 mg tablet 1 mg PO DAILY rosuvastatin 40 mg tablet 40 mg PO HS Eliquis 2.5 mg tablet 2.5 mg PO BID lidocaine 4 % Adhesive Patch,Medicated 1 patch TOPICAL DAILY Rx Instructions: Remove in 12 hours magnesium oxide 400 mg (241.3 mg magnesium) tablet 400 mg PO BID PreserVision AREDS-2 250-90-40-1 mg Capsule 1 tablet PO DAILY guaifenesin [Adult Tussin Chest Congestion] 100 mg/5 mL liquid 200 mg PO Q8H PRN (Reason: cough) insulin lispro [Humalog U-100 Insulin] 100 unit/mL solution 5 unit subcut 1200 ipratropium-albuterol 0.5 mg-3 mg(2.5 mg base)/3 mL solution for nebulization 3 ml INHALATION Q8H PRN (Reason: shortness of breath or wheezing) clopidogrel 75 mg tablet 75 mg PO DAILY potassium chloride 20 mEq tablet,ER particles/crystals 40 meq PO DAILY pregabalin [Lyrica] 50 mg capsule 50 mg PO Q12H carvedilol 6.25 mg Tablet 6.25 mg PO BID insulin glargine 100 unit/mL Solution 20 unit SUBCUT BID pantoprazole 20 mg Tablet,Delayed Release (Dr/Ec) 40 mg PO DAILY insulin lispro 100 unit/mL Insulin Pen 10 unit SUBCUT TIDWM Rx Instructions: and sliding scale BG 170-200 give 2 units BG 201-250 give 4 units BG 251-300 give 6 units BG 301-350 give 8 units BG 351-400 give 10 units BG greater than 401 - notify acetaminophen 500 mg capsule 1,000 mg PO Q6H PRN (Reason: pain) Qty: 20 0RF Discontinued acetaminophen 650 mg Tablet 650 mg PO Q4H PRN (Reason: Pain (Scale Score 1-3)) methimazole [Tapazole] 10 mg Tablet 10 mg PO DAILY Date of admission: 01/26/25 08:38 Primary Care Provider: Abena Mccabe Admitting Provider: Monster Elizabeth Attending physician on admission: Monster Elizabeth Condition: Stable Quality VTE Prophylaxis VTE prophylaxis: pharmacologic ordered (heparin)
--- NOTE | 2025-01-29 13:38 | P.CDI_ITS ---
CDI Query Clarification Request Please specify type and acuity of heart failure if known. * Acute * Chronic * Acute on Chronic * Unknown * Systolic * Diastolic * Combined Systolic and Diastolic * Unknown The medical chart reflects the following: hospitalist documented: Assessment and Plan (1) Acute exacerbation of CHF (congestive heart failure): Qualifiers: Heart failure type: systolic Qualified Code(s): I50.23 - Acute on chronic systolic (congestive) heart failure Code(s): I50.9 - Heart failure, unspecified Status: Acute Assessment and Plan: * Possibly due to dietary indiscretion versus tolerance to loop diuretic * UA suggests possible UTI * No evidence for ACS * TSH = 5.570 * Medication non-adherence is not an issue as she resides at a facility * Continue beta-marlin, spironolactone and ARNI * Add IV furosemide 40 mg bid * Monitor I/O, labs * Cardio consult for further recommendations regarding med management * Continue Lasix 40 mg b.i.d. * chest discomfort likely secondary to heart failure exacerbation. Will recheck a troponin now however given significant chest tightness. * Repeat troponin negative * continue diuresis and carvedilol(2) UTI (urinary tract infection), bacterial: I50.32 - Chronic diastolic (congestive) heart failure Status: Acute Assessment and Plan: * As above Interval history: 84-year-old female [facility] resident with a history of chronic diastolic congestive heart failure, status post TAVR and and pacemaker, has chronic dyspnea but noticed over the last 24 hours that her dyspnea was worsened to the point that while dressing she would breathe so hard that she would get dizzy. . 01/27/2025 Patient sitting comfortably in bed at time of examination. Seen by Cardiology who recommended continuing Lasix 40mg BID. Severe MS on Echo, not a surgical candidate at this time. Still endorsing SOB w/ physical activity. Denies any CP, n/v, headaches or dizziness at this time. Blood work and vitals remain stable. Likely can d/c tomorrow if she continues to progress well with physical therapy, who is recommending home with home health services. Cardiology documented: Assessment and Plan (1) Acute exacerbation of CHF (congestive heart failure): Qualifiers: Heart failure type: systolic Qualified Code(s): I50.23 - Acute on chronic systolic (congestive) heart failure Code(s): Plan 84-year-old woman from [facility] with chronic diastolic heart failure, severe aortic stenosis status post TAVR, complete heart block status post permanent pacemaker, and paroxysmal atrial fibrillation on Eliquis 2.5 mg p.o. b.i.d. was brought into the hospital due to severe worsening shortness of breath with associated chest discomfort Acute on chronic diastolic heart failure -will reduce furosemide to 40 mg IV daily.; she is making adequate urine output and will continue the course at this time -chest discomfort likely secondary to heart failure exacerbation. Will recheck a troponin now however given significant chest tightness. Potassium is elevated today. Potassium is on hold ECHO: Summary 1. Technically suboptimal study due to poor sonographic images. 2. Definity contrast administered improved wall motion interpretation. 3. Left ventricular chamber dimension is normal. 4. Left ventricular systolic function is normal, estimated at 65-70. 5. The left ventricular diastolic function is abnormal. 6. E/e' 47 is significantly elevated. 7. Atrial fibrillation. 8. Left atrial chamber dimension is moderately enlarged. 9. The bioprosthetic aortic valve is not well visualized. 10. The mitral valve has moderately calcified leaflets and a severely calcified annulus. 11. There is moderate to severe mitral valve stenosis based on a valve area of 0.7 cm2 and a mean gradient of 9 mmHg. 12. There is mild mitral valve regurgitation. 13. Mitral valve is not well visualized. 14. There is mild to moderate tricuspid valve regurgitation. 15. Moderate pulmonary hypertension, estimated pulmonary arterial systolic pressure is 52 mmHg. 16. There is trace pulmonic regurgitation. IV Lasix <Latoya Bryan RN - Last Filed: 01/29/25 13:42> Clarified Diagnosis Clarified Diagnosis: Diagnosis: Acute on Chronic Systolic HF <Kwasi Cohen PA-C - Last Filed: 01/29/25 13:47>
== END 2025-01-29 19:19 | DRG 291 ==
LOC: ANHED 14:42 → ANH2MED 20:18
PROVIDERS: Internal Medicine; Internal Medicine Cardiovascular Disease; Admitting Provider Internal Medicine; Emergency Provider Emergency Medicine; PCP Family Medicine; Visit Provider Physician Assistant
DX: I13.0 Hypertensive heart and chronic kidney disease with heart failure and stage 1 through stage 4 chronic kidney disease, or unspecified chronic kidney disease (principal); I50.23 Acute on chronic systolic (congestive) heart failure; I48.92 Unspecified atrial flutter; N39.0 Urinary tract infection, site not specified; I44.2 Atrioventricular block, complete; E11.22 Type 2 diabetes mellitus with diabetic chronic kidney disease; N18.30 Chronic kidney disease, stage 3 unspecified; B96.20 Unspecified Escherichia coli [E. coli] as the cause of diseases classified elsewhere; B96.1 Klebsiella pneumoniae [K. pneumoniae] as the cause of diseases classified elsewhere; D63.1 Anemia in chronic kidney disease; E11.42 Type 2 diabetes mellitus with diabetic polyneuropathy; E11.51 Type 2 diabetes mellitus with diabetic peripheral angiopathy without gangrene; E03.9 Hypothyroidism, unspecified; E78.2 Mixed hyperlipidemia; I48.0 Paroxysmal atrial fibrillation; I05.0 Rheumatic mitral stenosis; Z79.4 Long term (current) use of insulin; Z95.2 Presence of prosthetic heart valve; Z95.0 Presence of cardiac pacemaker; Z86.73 Personal history of transient ischemic attack (TIA), and cerebral infarction without residual deficits; Z90.49 Acquired absence of other specified parts of digestive tract; Z79.82 Long term (current) use of aspirin; Z79.01 Long term (current) use of anticoagulants
CPT/HCPCS: 36415; 71045; 71275; 80053; 80069; 80076; 81001; 82948; 83036; 83880; 84439; 84443; 84480; 84484; 85025; 85380; 85610; 85730; 87086; 93005; 94640; 96365; 96375; 97110; 97161; 97165; 97530; 99212; 99285; A9270; C8929; G0463; J0696; J1644; J1815; J1938; Q9957; Q9967